=== PATIENT | female | born 1940 | race Hispanic/Latino ===

== ENCOUNTER → 2017-08-20 14:36 | Outpatient (CLI) | payer MEDICARE, SELFPAY ==
[2017-08-20 14:52] VITALS: BP 156/80; PULSE 68; RESP 18; TEMP 36.6; O2SAT 97; BMI 20.8
== END ==
PROVIDERS: Family Provider Internal Medicine; PCP Internal Medicine; Visit Provider Internal Medicine Rheumatology
DX: M06.9 Rheumatoid arthritis, unspecified (principal)
CPT/HCPCS: 96413; J7050; A4216; J1602

== ENCOUNTER → 2017-10-14 12:59 | Outpatient (CLI) | payer MEDICARE, SELFPAY ==
[2017-10-14 13:54] LABS: Absolute Lymphocyte Count 2.11 X10^3/ul (0.83-4.51); Basophil# 0.03 X10^3/uL; Basophil% 0.4 % (0-1); Eosinophil# 0.29 X10^3/uL; Eosinophils% 3.6 % (0-5); Hematocrit 40.7 % (37-47); Hemoglobin 12.9 g/dl (12.0-15.0); Lymphocyte # 2.11 X10^3/ul (4.0); Lymphocyte % 26.2 % (19-41); Mean Corp Hgb Conc 31.7 g/gl (32-36); Mean Corpuscular Hgb 28.9 pg (27.0-32.0); Mean Corpuscular Volume 91.3 fL (81-99); Monocyte# 0.64 X10^3/uL; Neutrophil # 4.97 X10^3/uL (2.7-7.7); Neutrophil % 61.7 % (47-70); POSITIVE COUNT NO; POSITIVE DIFFERENTIAL NO; POSITIVE MORPHOLOGY NO; Platelet Count 186 K/mm3 (150-450); RBC Distribution Width CV 13.1 % (11.6-14.6); RBC Distribution Width SD 43.4 fl (35.1-43.9); Red Blood Count 4.46 M/mm3 (4.2-5.4); White Blood Count 8.1 K/mm3 (4.4-11.0)
[2017-10-14 13:59] LABS: ALB/GLOB Ratio 0.9 RATIO (0.9-2.4); AST(SGOT) 16 U/L (15-37); Alanine Aminotransfer ALT/SGPT 14 U/L (13-56); Albumin, Serum 3.6 g/dL (3.2-5.0); Alkaline Phosphatase 107 U/L (45-117); Anion Gap 10 (5-15); BUN 18 mg/dL (7-18); BUN/Creat Ratio 12.1 RATIO (10-20); Calcium,Total 8.9 mg/dL (8.5-10.1); Chloride 104 mmol/L (98-107); Creatinine, Serum 1.49 mg/dL (0.55-1.02); EST Glomerular Filtration Rate 36 mL/min (>60); Est Glom Filt Rate - Afr Amer 43 mL/min (>60); Glucose 94 mg/dL (74-106); Protein, Total 7.6 g/dL (6.4-8.2); Sodium Level 139 mmol/L (136-145)
== END ==
PROVIDERS: Family Provider Internal Medicine; PCP Internal Medicine; Visit Provider Internal Medicine Rheumatology
DX: M05.70 Rheumatoid arthritis with rheumatoid factor of unspecified site without organ or systems involvement (principal); M79.7 Fibromyalgia; M21.40 Flat foot [pes planus] (acquired), unspecified foot; I10 Essential (primary) hypertension; M81.0 Age-related osteoporosis without current pathological fracture; K21.0 Gastro-esophageal reflux disease with esophagitis; Z79.899 Other long term (current) drug therapy; Z85.51 Personal history of malignant neoplasm of bladder
CPT/HCPCS: 36415; 80053; 85025

== ENCOUNTER → 2017-10-15 14:32 | Outpatient (CLI) | payer MEDICARE, SELFPAY ==
[2017-10-15 14:34] VITALS: BP 121/65; PULSE 57; RESP 16; TEMP 36.3; O2SAT 97; BMI 29.8
== END ==
PROVIDERS: Family Provider Internal Medicine; PCP Internal Medicine; Visit Provider Internal Medicine Rheumatology
DX: M06.9 Rheumatoid arthritis, unspecified (principal)
CPT/HCPCS: 96413; J7050; A4216; J1602

== ENCOUNTER → 2017-12-10 14:14 | Outpatient (CLI) | payer MEDICARE, SELFPAY ==
[2017-12-10 14:25] VITALS: BP 138/64; PULSE 66; RESP 16; TEMP 36.6; O2SAT 92; BMI 29.9
== END ==
PROVIDERS: Family Provider Internal Medicine; PCP Internal Medicine; Visit Provider Internal Medicine Rheumatology
DX: M06.9 Rheumatoid arthritis, unspecified (principal)
CPT/HCPCS: 96413; J7050; A4216; J1602

== ENCOUNTER → 2017-12-23 11:52 | Outpatient (CLI) | payer MEDICARE, SELFPAY ==
[2017-12-23 13:43] LABS: Absolute Neutrophil Count 4.8 X10^3/uL (2.0-7.7); Basophil# 0.02 X10^3/uL; Basophil% 0.2 % (0-1); Eosinophil# 0.23 X10^3/uL; Eosinophils% 2.7 % (0-5); Hematocrit 41.4 % (37-47); Hemoglobin 13.2 g/dl (12.0-15.0); Lymphocyte % 32.6 % (19-41); Mean Corp Hgb Conc 31.9 g/gl (32-36); Mean Corpuscular Hgb 29.1 pg (27.0-32.0); Mean Corpuscular Volume 91.2 fL (81-99); Mean Platelet Vol. 13.6 fl (6.2-12.0); Monocyte# 0.67 X10^3/uL; Monocyte% 7.8 % (0-10); Neutrophil # 4.83 X10^3/uL (2.7-7.7); Neutrophil % 56.2 % (47-70); Platelet Count 197 K/mm3 (150-450); RBC Distribution Width CV 14.4 % (11.6-14.6); RBC Distribution Width SD 47.1 fl (35.1-43.9); Red Blood Count 4.54 M/mm3 (4.2-5.4); White Blood Count 8.6 K/mm3 (4.4-11.0)
[2017-12-23 13:44] LABS: POSITIVE COUNT NO; POSITIVE DIFFERENTIAL NO; POSITIVE MORPHOLOGY NO
[2017-12-23 13:54] LABS: ALB/GLOB Ratio 0.9 RATIO (0.9-2.4); AST(SGOT) 16 U/L (15-37); Alanine Aminotransfer ALT/SGPT 25 U/L (13-56); Albumin, Serum 3.5 g/dL (3.2-5.0); Alkaline Phosphatase 91 U/L (45-117); Anion Gap 10 (5-15); BUN 23 mg/dL (7-18); BUN/Creat Ratio 13.8 RATIO (10-20); Calcium,Total 8.9 mg/dL (8.5-10.1); Chloride 107 mmol/L (98-107); Creatinine, Serum 1.67 mg/dL (0.55-1.02); EST Glomerular Filtration Rate 31 mL/min (>60); Est Glom Filt Rate - Afr Amer 38 mL/min (>60); Globulin 3.9 g/dL (2.2-4.2); Glucose 90 mg/dL (74-106); Potassium 4.4 mmol/L (3.5-5.1); Protein, Total 7.4 g/dL (6.4-8.2); Sodium Level 143 mmol/L (136-145)
== END ==
PROVIDERS: Family Provider Internal Medicine; PCP Internal Medicine; Visit Provider Internal Medicine Rheumatology
DX: M05.79 Rheumatoid arthritis with rheumatoid factor of multiple sites without organ or systems involvement (principal); M21.40 Flat foot [pes planus] (acquired), unspecified foot; M81.0 Age-related osteoporosis without current pathological fracture; M79.7 Fibromyalgia; Z79.899 Other long term (current) drug therapy
CPT/HCPCS: 36415; 80053; 85025

== ENCOUNTER → 2018-02-04 15:05 | Outpatient (CLI) | payer MEDICARE, SELFPAY ==
[2018-02-04 15:17] VITALS: BP 125/59; PULSE 60; RESP 16; TEMP 36.8; BMI 30.5
== END ==
PROVIDERS: Family Provider Internal Medicine; PCP Internal Medicine; Visit Provider Internal Medicine Rheumatology
DX: M06.9 Rheumatoid arthritis, unspecified (principal)
CPT/HCPCS: 96413; J7050; A4216; J1602

== ENCOUNTER → 2018-04-08 14:02 | Outpatient (CLI) | payer MEDICARE, SELFPAY ==
[2018-04-08 14:08] VITALS: BP 108/54; PULSE 66; RESP 18; TEMP 36.6; O2SAT 96; BMI 29.4
== END ==
PROVIDERS: Family Provider Internal Medicine; PCP Internal Medicine; Referring Provider Internal Medicine Rheumatology; Visit Provider Internal Medicine Rheumatology
DX: M06.9 Rheumatoid arthritis, unspecified (principal)
CPT/HCPCS: 96413; J7050; A4216; J1602

== ENCOUNTER → 2018-06-15 13:55 | Outpatient (CLI) | payer MEDICARE, SELFPAY ==
[2018-06-15 14:27] VITALS: BP 160/69; PULSE 70; RESP 16; TEMP 36.7; O2SAT 97; BMI 30.5
--- OUTSIDE RECORDS SUMMARY | 2018-09-17 05:35 | XMS RPT_ITS ---
:1940 Author Organization OHIP Support Name Relationship Address Phone ANTONINO LANDRY Unavailable [address] + [place] [address] R Unavailable Unavailable Unavailable ANTONINO LANDRY Unavailable [address] + [place] [address] R Unavailable Unavailable Unavailable ANTONINO LANDRY Unavailable [address] + [place] [address] R Unavailable Unavailable Unavailable ANTONINO LANDRY Unavailable [address] + [place] [address] R Unavailable Unavailable Unavailable FRANTZANTONINO Unavailable [address] + [place] [address] R Unavailable Unavailable Unavailable ANTONINO LANDRY Unavailable [address] + [place] [address] R Unavailable Unavailable Unavailable ANTONINO LANDRY Unavailable [address] + [place] [address] R Unavailable Unavailable Unavailable ANTONINO LANDRY Unavailable [address] + [place] [address] R Unavailable Unavailable Unavailable FRANTZ ANTONINO Unavailable [address] + [place] [address] R Unavailable Unavailable Unavailable ANTONINO LANDRY Unavailable [address] + [place] [address] R Unavailable Unavailable Unavailable FRANTZANTONINO Unavailable [address] + [place] [address] R Unavailable Unavailable Unavailable Care Team Providers Name Role Phone KIMBERLY VASQUEZ (PROGRAMMER ANALYST) Attending Unavailable MARIA DEL ROSARIO ZARATE Attending Unavailable MARIA DEL ROSARIO ZARATE Attending Unavailable WENDY RUIZ Attending Unavailable MARIA DEL ROSARIO ZARATE Referring Unavailable MARIA DEL ROSARIO ZARATE Attending Unavailable MARIA DEL ROSARIO ZARATE Attending Unavailable Vellanki, Merissa Attending Unavailable Vellanki, Merissa Referring Unavailable Talampas, Maria Del Rosario Primary Care Unavailable Talampas, Maria Del Rosario Attending Unavailable Talampas, Maria Del Rosario Referring Unavailable Talampas, Maria Del Rosario Primary Care Unavailable Vellanki, Merissa Attending Unavailable Vellanki, Merissa Referring Unavailable Talampas, Maria Del Rosario Primary Care Unavailable Vellanki, Merissa Attending Unavailable Vellanki, Merissa Referring Unavailable Talampas, Maria Del Rosario Primary Care Unavailable Vellanki, Merissa Attending Unavailable Vellanki, Merissa Referring Unavailable Talampas, Maria Del Rosario Primary Care Unavailable Vellanki, Merissa Attending Unavailable Vellanki, Merissa Referring Unavailable Talampas, Maria Del Rosario Primary Care Unavailable Vellanki, Merissa Attending Unavailable Vellanki, Merissa Referring Unavailable Talampas, Maria Del Rosario Primary Care Unavailable Vellanki, Merissa Attending Unavailable Vellanki, Merissa Referring Unavailable Talampas, Maria Del Rosario Primary Care Unavailable Vellanki, Merissa Attending Unavailable Vellanki, Merissa Referring Unavailable Talampas, Maria Del Rosario Primary Care Unavailable Vellanki, Merissa Attending Unavailable Vellanki, Merissa Referring Unavailable Talampas, Maria Del Rosario Primary Care Unavailable Vellanki, Merissa Attending Unavailable Vellanki, Merissa Referring Unavailable Talampas, Maria Del Rosario Primary Care Unavailable PROBLEMS PROBLEMS DATE TYPE CONDITION / CODE ATTENDING STATUS SOURCE 05/25/2018 Active Unknown / KIMBERLY VASQUEZ Active [facility] UNK(Unknown) (PROGRAMMER ANALYST) Main [place] Repository 12/23/2017 Unknown Z79.899 - Other Sam Merissa Active [place] [facility] (current) drug Hospital therapy / Repository Z79.899(ICD-10) 12/23/2017 Unknown M21.40 - Flat foot Velary Merissa Active [place] [pes planus] Community (acquired), [facility] unspecified foot / Repository M21.40(ICD-10) 12/23/2017 Unknown M81.0 - Vellandunia Merissa Active [place] Age-related Community osteoporosis Hospital without current Repository pathological fracture / M81.0(ICD-10) 12/23/2017 Unknown M05.79 - Vellandunia, Merissa Active [place] Rheumatoid Community arthritis with Hospital rheumatoid factor Repository of multiple sites without organ or systems involvement / M05.79(ICD-10) 12/23/2017 Unknown M79.7 - Russlanki, Merissa Active [place] Fibromyalgia / Community M79.7(ICD-10) Hospital Repository 10/14/2017 Unknown M05.70 - Merissa Vargas Active [place] [facility] arthritis with Hospital rheumatoid factor Repository of unspecified site without organ or systems involvement / M05.70(ICD-10) 10/14/2017 Unknown K21.0 - Merissa Vargas Active [place] Gastro-esophageal Community reflux disease Hospital with esophagitis / Repository K21.0(ICD-10) 10/14/2017 Unknown I10 - Essential Merissa Vargas Active [place] (primary) Community hypertension / Hospital I10(ICD-10) Repository 10/14/2017 Unknown Z85.51 - Personal Merissa Vargas Active [place] history of Community malignant neoplasm Hospital of bladder / Repository Z85.51(ICD-10) PROCEDURES PROCEDURES No Procedure Records FoundRESULTS RESULTS PROGRESS Observed: 05/25/2018 Status: COMPLETED Source: [place] 3:20 PM [facility] REPOSITORY HNO ID: [id number] Author: Kimberly Copeland) Pedro Service: (none) Author Type: Nurse Specialist Type: Progress Notes Filed: 05/25/2018 4:00 PM Note Text: OUTPATIENT VISIT DATE May 25, 2018 OUTPATIENT VISIT TYPE ESTABLISHED PRIMARY CARE PHYSICIAN: Maria Del Rosario Zarate MD CHIEF COMPLAINT: Patient presents with: F/U 3 Month History of Present Illness: Ran Landry is a 78 year old female who was last seen 01/2018 by Maria Del Rosario Zarate MD. She has been seen in the past for ACTIVE PROBLEM LIST Osteoporosis, Unspecified Essential Hypertension Hypothyroidism Calculus of Kidney Esophageal Reflux Chronic Rhinitis Cervicalgia Hyperlipidemia Personal History of Malignant Neoplasm of Bladder Generalized Oa Lumbago Sciatica Ddd (Degenerative Disc Disease), Lumbar Vitamin D Deficiency Personal History of Kidney Stones Back Pain Colon Polyps Skin Lesion of Right Arm Ganglion and Cyst of Synovium, Tendon and Bursa Irritated//Inflamed Seborrheic Keratosis Epidermal Inclusion Cyst Solar Lentigines Actinic Skin Damage Other Seborrheic Keratosis Inflammatory Polyarthropathy (Hcc) Pain in Joint, Lower Leg Fibromyalgia Obesity Elevated Serum Creatinine Weakness Balance Problems Presence of Urostomy (Hcc) Seizure Disorder (Hcc) History of Urostomy Since the last visit, she states that she's been her usual state of health. She is doing well with current infusions for arthritis. Blood pressure is controlled. No adverse effects of medication noted. Without chest pain shortness of breath palpitations edema reported. Reports control of seizures on current medications. Tolerating statin medication well. Continues with pain medications unchanged. No current constipation due to pain medications. She reports taking 1 gabapentin at bedtime, increase dose made her feel sedated. No recent hospital or ED visits. No new medical problems or medications. Able to obtain medications. No problems with taking medications or note side effects. PAST MEDICAL HISTORY Diagnosis Date - Cervicalgia 02/11/2007 ?diagnosis - await records - [place] angioma 07/26/2012 - DDD (degenerative disc disease), lumbar suspect lumbar canal stenosis as well on Xrays 2007 - Esophageal reflux 02/11/2007 - Fibromyalgia 09/12/2014 - Generalized osteoarthrosis, unspecified site Saw Dr. Miranda Lee in [place] - Hypothyroidism November 2012 last labs--[facility] - Osteoporosis, unspecified 02/11/2007 Last BMD - 1 year ago - Other and unspecified hyperlipidemia 02/11/2007 - Personal History of Kidney Stones 02/11/2007 - Personal history of malignant neoplasm of bladder 02/11/2007 1992 - PM - PAST MEDICAL HISTORY OF 1991 Bladder Cancer - [facility] - PAST MEDICAL HISTORY OF 1991 Ostomy ([place]; [facility]) - Presence of urostomy ([facility]) 10/19/2016 - Sciatica - Status of other artificial opening of urinary tract 02/11/2007 1992 - Unspecified essential hypertension 02/11/2007 PAST SURGICAL HISTORY Procedure Laterality Date - PAST SURGICAL HISTORY OF 1991 Ostomy for bladder cancer (urostomy) - TOTAL ABDOM HYSTERECTOMY 1991 Hysterectomy, [facility] FAMILY HISTORY Problem Relation Age of Onset - Arthritis Sister Rhuematoid - Cancer Sister Melonomia ( ) 2002 - Coronary Artery Disease Father - Heart Brother - Diabetes Brother Social History Substance Use Topics - Smoking status: Former Smoker Packs/day: 0.50 Years: 30.00 Types: Cigarettes Quit date: 07/07/1991 - Smokeless tobacco: Never Used - Alcohol use 1.5 oz/week 1 Cans of Beer (12oz) per week ALLERGIES: ALLERGIES Allergen Reactions - Cymbalta [Duloxetin* Diarrhea severe diarrhea and incontinence - Lisinopril Cough on 10 mg dose; worse with 10 mg BID - Tramadol Other: See Comments Possible related to new onset seizure MEDICATIONS HYDROcodone-acetaminophen (NORCO) 5-325 mg per tablet Take 1 tablet by mouth once daily as needed for up to 30 days.Earliest Fill Date: 05/22/18 COMPOUNDED PRESCRIPTION Upright Walker with seat/ wheels Diagnoses:(R26.89) Balance problems (M15.9) Generalized OA(M06.4) Inflammatory polyarthropathy (HCC)(M54.31, M54.32) Bilateral sciatica Adhesive Remover (ALLKARE ADHESIVE REMOVER WIPES) pack Use daily as needed with ostomy care atorvastatin (LIPITOR) 40 mg tablet Take 1 tablet by mouth once daily. atenolol (TENORMIN) 50 mg tablet Take 1 tablet by mouth once daily. levETIRAcetam (KEPPRA) 500 mg tablet Take 1 tablet by mouth twice daily. polyethylene glycol 3350 (MIRALAX, GLYCOLAX) 17 gram/dose powder Take 17 g by mouth once daily. Omeprazole 40 mg capsule TAKE ONE CAPSULE BY MOUTH ONCE DAILY meclizine (ANTIVERT) 25 mg tab Take 1 tablet by mouth every 6 hours as needed (dizziness). losartan (COZAAR) 50 mg tablet Take 1 tablet by mouth once daily. levothyroxine (SYNTHROID) 88 mcg tablet Take 1 tablet by mouth once daily. or as directed fluticasone (FLONASE) 50 mcg/actuation nasal spray Use 2 Sprays in each nostril once daily. RINSE MOUTH AFTER EACH DOSE COMPOUNDED PRESCRIPTION Lab order: TSH, Free T4 Diagnosis: E03.9 predniSONE (DELTASONE) 10 mg tablet Take 1 tablet by mouth once daily. As directed by Dr. Vargas--takes for 3 days as needed for flare up aspirin, enteric coated (ECOTRIN LOW STRENGTH) 81 mg EC tablet Take 1 tablet by mouth once daily. COMPOUNDED PRESCRIPTION Lab order: TSH Diagnoses: E03.9. cufcibhy-ivlnhcutd-oqcthaljdnncur (CORTISPORIN) 3.5-10,000-1 mg/mL-unit/mL-% otic suspension Use 3 Drops in both ears four times daily. As directed senna-docusate (SENNA-S) 8.6-50 mg per tablet Take 2 tablets by mouth once daily. COMPOUNDED PRESCRIPTION Bed railDx is CVA COMPOUNDED PRESCRIPTION Ostomy Pouch- Paper Tab and Skin tab with whip. One month supply.Dx-Z93.6 triamcinolone acetonide (KENALOG) 0.1 % cream Apply 1 application to affected area twice daily as needed. Apply sparingly to area for rash/itching. Cholecalciferol, Vitamin D3, 5,000 unit ORAL Cap Take 1 capsule by mouth once daily. gabapentin (NEURONTIN) 100 mg capsule Take 2-3 capsules by mouth daily at bedtime for 30 days. Take 200 mg nightly for 1 week. Increase to 300 mg if pain control not adequate HYDROcodone-acetaminophen (NORCO) 5-325 mg per tablet Take 1 tablet by mouth once daily as needed for up to 30 days.Earliest Fill Date: 02/21/18 HYDROcodone-acetaminophen (NORCO) 5-325 mg per tablet Take 1 tablet by mouth once daily as needed for up to 30 days.Earliest Fill Date: 03/23/18 sulfacetamide (BLEPH-10) 10 % ophthalmic solution Instill 1-2 drops 4 times per day in the affected eye for 7 days - for eye infection HYDROcodone-acetaminophen (NORCO) 5-325 mg per tablet Take 1 tablet by mouth once daily as needed for up to 30 days.Earliest Fill Date: 11/21/17 HYDROcodone-acetaminophen (NORCO) 5-325 mg per tablet Take 1 tablet by mouth once daily as needed for up to 30 days.Earliest Fill Date: 12/21/17 HYDROcodone-acetaminophen (NORCO) 5-325 mg per tablet Take 1 tablet by mouth once daily as needed for up to 30 days.Earliest Fill Date: 01/20/18 REVIEW OF SYSTEMS: GENERAL: Negative for: Weight loss or gain, Fever or Chills, Weakness and Sleep difficulties. Physical Examination: BP 140/80 Pulse 64 Resp 16 Wt 180 lb (81.6kg) BP w/Orthostatic Vitals Date and Time Orthostatic BP Orthostatic Pulse BP Pulse BP Position BP Site BP Cuff Size 05/25/18 1513 -- -- 140/80 -- Sitting Right Arm Regular Adult 05/25/18 151 -- -- 140/80 64 Sitting Right Arm Regular Adult Peak Flow Date and Time PF Resp 05/25/18 151 -- 16 General appearance: Well appearing, alert, in no acute distress, well-hydrated, well nourished. Skin: Skin color, texture, turgor normal, no suspicious rashes or lesions Head: Normocephalic, no masses, lesions, tenderness or abnormalities Neck: Supple, no adenopathy; thyroid symmetric, normal size, no bruits Lungs: Lungs clear to auscultation. No wheezing, rhonchi, rales Heart: RRR without murmur, gallop, or rubs. No ectopy Abdomen: Abdomen soft, non-tender. Bowel sounds normal. No masses, organomegaly Extremities: Left great toe ecchymotic, normal motion, mildly TTP No deformities, edema, skin discoloration, clubbing or cyanosis. Good capillary refill. Peripheral pulses: Normal Neuro: Gait normal.. Sensation grossly intact. Reviewed chart, outside records, tests [facility] checked and validated. All prescriptions have been APPROPRIATELY filled. No suspicious activity was identified. 05/25/2018 by Kimberly Vasquez APRN.PROGRAMMER ANALYST I personally interviewed, confirmed and edited the above information if obtained by others. TESTING: Glucose (mg/dL) Date Value 04/19/2016 Test sent to [facility] Potassium (mmol/L) Date Value 04/19/2016 Test sent to [facility] Sodium (mmol/L) Date Value 04/19/2016 Test sent to [facility] Chloride (mmol/L) Date Value 04/19/2016 Test sent to [facility] CO2 (mmol/L) Date Value 04/19/2016 Test sent to [facility] Creatinine (mg/dL) Date Value 04/19/2016 Test sent to [facility] BUN (mg/dL) Date Value 04/19/2016 Test sent to [facility] Anion Gap (mmol/L) Date Value 04/19/2016 Test sent to [facility] Calcium (mg/dL) Date Value 04/19/2016 Test sent to [facility] Glucose (mg/dL) Date Value 04/19/2016 Test sent to [facility] Potassium (mmol/L) Date Value 04/19/2016 Test sent to [facility] Sodium (mmol/L) Date Value 04/19/2016 Test sent to [facility] Chloride (mmol/L) Date Value 04/19/2016 Test sent to [facility] CO2 (mmol/L) Date Value 04/19/2016 Test sent to [facility] Creatinine (mg/dL) Date Value 04/19/2016 Test sent to [facility] BUN (mg/dL) Date Value 04/19/2016 Test sent to [facility] Anion Gap (mmol/L) Date Value 04/19/2016 Test sent to [facility] Calcium (mg/dL) Date Value 04/19/2016 Test sent to [facility] Protein, Total (g/dL) Date Value 04/11/2016 Test sent to [facility] Albumin (g/dL) Date Value 04/11/2016 Test sent to [facility] Bilirubin, Total (mg/dL) Date Value 04/11/2016 Test sent to [facility] Alkaline Phosphatase (U/L) Date Value 04/11/2016 Test sent to [facility] AST (U/L) Date Value 04/11/2016 Test sent to [facility] ALT (U/L) Date Value 04/11/2016 Test sent to [facility] Hemoglobin (g/dL) Date Value 04/11/2016 Test sent to [facility] Hematocrit (%) Date Value 04/11/2016 Test sent to [facility] WBC (k/uL) Date Value 04/11/2016 Test sent to [facility] Cholesterol, Total (mg/dL) Date Value 10/19/2015 Test sent to [facility] Total Cholesterol, Nonfasting (mg/dL) Date Value 11/07/2017 129 HDL Cholesterol (mg/dL) Date Value 10/19/2015 Test sent to [facility] HDL Cholesterol, Nonfasting (mg/dL) Date Value 11/07/2017 42 LDL Cholesterol (mg/dL) Date Value 10/19/2015 Test sent to [facility] LDL Cholesterol, Nonfasting (mg/dL) Date Value 11/07/2017 67 Triglyceride (mg/dL) Date Value 10/19/2015 Test sent to [facility] Triglycerides, Nonfasting (mg/dL) Date Value 11/07/2017 102 No results found for: HBA1C Ejection Fraction - Result: 80 % Date: 01/07/2013 Time: 15:09:42 IMPRESSION: Ms. Landry is a 78 year old woman presents for routine follow- up visit. After my examination and review of data, I make the following recommendations. PLAN AND RECOMMENDATIONS: ASSESSMENT/PLAN: 1. DDD (degenerative disc disease), lumbar - ICD9: 722.52, ICD10: M51.36 - HYDROCODONE 5 MG-ACETAMINOPHEN 325 MG TABLET - HYDROCODONE 5 MG-ACETAMINOPHEN 325 MG TABLET 2. Fibromyalgia - ICD9: 729.1, ICD10: M79.7 - HYDROCODONE 5 MG-ACETAMINOPHEN 325 MG TABLET - HYDROCODONE 5 MG-ACETAMINOPHEN 325 MG TABLET - GABAPENTIN 100 MG CAPSULE 3. Inflammatory polyarthropathy - ICD9: 714.9, ICD10: M06.4 - HYDROCODONE 5 MG-ACETAMINOPHEN 325 MG TABLET - HYDROCODONE 5 MG-ACETAMINOPHEN 325 MG TABLET 4. Bilateral sciatica - ICD9: 724.3, ICD10: M54.31, M54.32 - GABAPENTIN 100 MG CAPSULE Pain is currently controlled with medications. No adverse effects noted. Continue unchanged for now. Advised to go to ER if develops chest pain, shortness of breath, or severe worsening of symptoms. Discussed risks, benefits, alternatives, and potential side effects of medications. Ms. Landry expressed understanding and agreed with the plan. Kimberly Vasquez APRN.PROGRAMMER ANALYST CNOV Observed: 05/25/2018 Status: COMPLETED Source: [place] 3:00 PM [facility] REPOSITORY Office Visit (INTMWS) RAN LANDRY ([id number]) 1940 F Date Time Provider Department 05/25/18 3:00 PM KIMBERLY VASQUEZ ([facility]) INTMWS During your visit today, we recorded the following information about you: Pulse Respiration Blood pressure Weight 64/minute 16/minute 140/80 81.6 kg Kimberly Vasquez APRN.CNS 05/25/2018 4:00 PM Signed OUTPATIENT VISIT DATE May 25, 2018 OUTPATIENT VISIT TYPE ESTABLISHED PRIMARY CARE PHYSICIAN: Maria Del Rosario Zarate MD CHIEF COMPLAINT: Patient presents with: F/U 3 Month History of Present Illness: Ran Landry is a 78 year old female who was last seen 01/2018 by Maria Del Rosario Zarate MD. She has been seen in the past for ACTIVE PROBLEM LIST Osteoporosis, Unspecified Essential Hypertension Hypothyroidism Calculus of Kidney Esophageal Reflux Chronic Rhinitis Cervicalgia Hyperlipidemia Personal History of Malignant Neoplasm of Bladder Generalized Oa Lumbago Sciatica Ddd (Degenerative Disc Disease), Lumbar Vitamin D Deficiency Personal History of Kidney Stones Back Pain Colon Polyps Skin Lesion of Right Arm Ganglion and Cyst of Synovium, Tendon and Bursa Irritated//Inflamed Seborrheic Keratosis Epidermal Inclusion Cyst Solar Lentigines Actinic Skin Damage Other Seborrheic Keratosis Inflammatory Polyarthropathy (Hcc) Pain in Joint, Lower Leg Fibromyalgia Obesity Elevated Serum Creatinine Weakness Balance Problems Presence of Urostomy (Hcc) Seizure Disorder (Hcc) History of Urostomy Since the last visit, she states that she's been her usual state of health. She is doing well with current infusions for arthritis. Blood pressure is controlled. No adverse effects of medication noted. Without chest pain shortness of breath palpitations edema reported. Reports control of seizures on current medications. Tolerating statin medication well. Continues with pain medications unchanged. No current constipation due to pain medications. She reports taking 1 gabapentin at bedtime, increase dose made her feel sedated. No recent hospital or ED visits. No new medical problems or medications. Able to obtain medications. No problems with taking medications or note side effects. PAST MEDICAL HISTORY Diagnosis Date - Cervicalgia 02/11/2007 ?diagnosis - await records - [place] angioma 07/26/2012 - DDD (degenerative disc disease), lumbar suspect lumbar canal stenosis as well on Xrays 2007 - Esophageal reflux 02/11/2007 - Fibromyalgia 09/12/2014 - Generalized osteoarthrosis, unspecified site Saw Dr. Miranda Lee in [place] - Hypothyroidism November 2012 last labs--[facility] - Osteoporosis, unspecified 02/11/2007 Last BMD - 1 year ago - Other and unspecified hyperlipidemia 02/11/2007 - Personal History of Kidney Stones 02/11/2007 - Personal history of malignant neoplasm of bladder 02/11/20071991 - PM - PAST MEDICAL HISTORY OF 1991 Bladder Cancer - [facility] - PAST MEDICAL HISTORY OF 1991 Ostomy ([place]; [place]) - Presence of urostomy ([facility]) 10/19/2016 - Sciatica - Status of other artificial opening of urinary tract 02/11/20071991 - Unspecified essential hypertension 02/11/2007 PAST SURGICAL HISTORY Procedure Laterality Date - PAST SURGICAL HISTORY OF 1991 Ostomy for bladder cancer (urostomy) - TOTAL ABDOM HYSTERECTOMY 1991 Hysterectomy, [facility] [facility] HISTORY Problem Relation Age of Onset - Arthritis Sister Rhuematoid - Cancer Sister Melonomia ( ) 2002 - Coronary Artery Disease Father - Heart Brother - Diabetes Brother Social History Substance Use Topics - Smoking status: Former Smoker Packs/day: 0.50 Years: 30.00 Types: Cigarettes Quit date: 07/07/1991 - Smokeless tobacco: Never Used - Alcohol use 1.5 oz/week 1 Cans of Beer (12oz) per week ALLERGIES: ALLERGIES Allergen Reactions - Cymbalta [Duloxetin* Diarrhea severe diarrhea and incontinence - Lisinopril Cough on 10 mg dose; worse with 10 mg BID - Tramadol Other: See Comments Possible related to new onset seizure MEDICATIONS HYDROcodone-acetaminophen (NORCO) 5-325 mg per tablet Take 1 tablet by mouth once daily as needed for up to 30 days.Earliest Fill Date: 05/22/18 COMPOUNDED PRESCRIPTION Upright Walker with seat/ wheels Diagnoses:(R26.89) Balance problems (M15.9) Generalized OA(M06.4) Inflammatory polyarthropathy (HCC)(M54.31, M54.32) Bilateral sciatica Adhesive Remover (ALLKARE ADHESIVE REMOVER WIPES) pack Use daily as needed with ostomy care atorvastatin (LIPITOR) 40 mg tablet Take 1 tablet by mouth once daily. atenolol (TENORMIN) 50 mg tablet Take 1 tablet by mouth once daily. levETIRAcetam (KEPPRA) 500 mg tablet Take 1 tablet by mouth twice daily. polyethylene glycol 3350 (MIRALAX, GLYCOLAX) 17 gram/dose powder Take 17 g by mouth once daily. Omeprazole 40 mg capsule TAKE ONE CAPSULE BY MOUTH ONCE DAILY meclizine (ANTIVERT) 25 mg tab Take 1 tablet by mouth every 6 hours as needed (dizziness). losartan (COZAAR) 50 mg tablet Take 1 tablet by mouth once daily. levothyroxine (SYNTHROID) 88 mcg tablet Take 1 tablet by mouth once daily. or as directed fluticasone (FLONASE) 50 mcg/actuation nasal spray Use 2 Sprays in each nostril once daily. RINSE MOUTH AFTER EACH DOSE COMPOUNDED PRESCRIPTION Lab order: TSH, Free T4 Diagnosis: E03.9 predniSONE (DELTASONE) 10 mg tablet Take 1 tablet by mouth once daily. As directed by Dr. Vargas--takes for 3 days as needed for flare up aspirin, enteric coated (ECOTRIN LOW STRENGTH) 81 mg EC tablet Take 1 tablet by mouth once daily. COMPOUNDED PRESCRIPTION Lab order: TSH Diagnoses: E03.9. vrojfdiq-ymkzeobkf-ryhgdimguliyxv (CORTISPORIN) 3.5-10,000-1 mg/mL-unit/mL-% otic suspension Use 3 Drops in both ears four times daily. As directed senna-docusate (SENNA-S) 8.6-50 mg per tablet Take 2 tablets by mouth once daily. COMPOUNDED PRESCRIPTION Bed railDx is CVA COMPOUNDED PRESCRIPTION Ostomy Pouch- Paper Tab and Skin tab with whip. One month supply.Dx-Z93.6 triamcinolone acetonide (KENALOG) 0.1 % cream Apply 1 application to affected area twice daily as needed. Apply sparingly to area for rash/itching. Cholecalciferol, Vitamin D3, 5,000 unit ORAL Cap Take 1 capsule by mouth once daily. gabapentin (NEURONTIN) 100 mg capsule Take 2-3 capsules by mouth daily at bedtime for 30 days. Take 200 mg nightly for 1 week. Increase to 300 mg if pain control not adequate HYDROcodone-acetaminophen (NORCO) 5-325 mg per tablet Take 1 tablet by mouth once daily as needed for up to 30 days.Earliest Fill Date: 02/21/18 HYDROcodone-acetaminophen (NORCO) 5-325 mg per tablet Take 1 tablet by mouth once daily as needed for up to 30 days.Earliest Fill Date: 03/23/18 sulfacetamide (BLEPH-10) 10 % ophthalmic solution Instill 1-2 drops 4 times per day in the affected eye for 7 days - for eye infection HYDROcodone-acetaminophen (NORCO) 5-325 mg per tablet Take 1 tablet by mouth once daily as needed for up to 30 days.Earliest Fill Date: 11/21/17 HYDROcodone-acetaminophen (NORCO) 5-325 mg per tablet Take 1 tablet by mouth once daily as needed for up to 30 days.Earliest Fill Date: 12/21/17 HYDROcodone-acetaminophen (NORCO) 5-325 mg per tablet Take 1 tablet by mouth once daily as needed for up to 30 days.Earliest Fill Date: 01/20/18 REVIEW OF SYSTEMS: GENERAL: Negative for: Weight loss or gain, Fever or Chills, Weakness and Sleep difficulties. Physical Examination: BP 140/80 Pulse 64 Resp 16 Wt 180 lb (81.6kg) BP w/Orthostatic Vitals Date and Time Orthostatic BP Orthostatic Pulse BP Pulse BP Position BP Site BP Cuff Size 05/25/18 1513 -- -- 140/80 -- Sitting Right Arm Regular Adult 05/25/18 151 -- -- 140/80 64 Sitting Right Arm Regular Adult Peak Flow Date and Time PF Resp 05/25/18 151 -- 16 General appearance: Well appearing, alert, in no acute distress, well-hydrated, well nourished. Skin: Skin color, texture, turgor normal, no suspicious rashes or lesions Head: Normocephalic, no masses, lesions, tenderness or abnormalities Neck: Supple, no adenopathy; thyroid symmetric, normal size, no bruits Lungs: Lungs clear to auscultation. No wheezing, rhonchi, rales Heart: RRR without murmur, gallop, or rubs. No ectopy Abdomen: Abdomen soft, non-tender. Bowel sounds normal. No masses, organomegaly Extremities: Left great toe ecchymotic, normal motion, mildly TTP No deformities, edema, skin discoloration, clubbing or cyanosis. Good capillary refill. Peripheral pulses: Normal Neuro: Gait normal.. Sensation grossly intact. Reviewed chart, outside records, tests [facility] website checked and validated. All prescriptions have been APPROPRIATELY filled. No suspicious activity was identified. 05/25/2018 by Kimberly Vasquez APRN.PROGRAMMER ANALYST I personally interviewed, confirmed and edited the above information if obtained by others. TESTING: Glucose (mg/dL) Date Value 04/19/2016 Test sent to [facility] Potassium (mmol/L) Date Value 04/19/2016 Test sent to [facility] Sodium (mmol/L) Date Value 04/19/2016 Test sent to [facility] Chloride (mmol/L) Date Value 04/19/2016 Test sent to [facility] CO2 (mmol/L) Date Value 04/19/2016 Test sent to [facility] Creatinine (mg/dL) Date Value 04/19/2016 Test sent to [facility] BUN (mg/dL) Date Value 04/19/2016 Test sent to [facility] Anion Gap (mmol/L) Date Value 04/19/2016 Test sent to [facility] Calcium (mg/dL) Date Value 04/19/2016 Test sent to [facility] Glucose (mg/dL) Date Value 04/19/2016 Test sent to [facility] Potassium (mmol/L) Date Value 04/19/2016 Test sent to [facility] Sodium (mmol/L) Date Value 04/19/2016 Test sent to [facility] Chloride (mmol/L) Date Value 04/19/2016 Test sent to [facility] CO2 (mmol/L) Date Value 04/19/2016 Test sent to [facility] Creatinine (mg/dL) Date Value 04/19/2016 Test sent to [facility] BUN (mg/dL) Date Value 04/19/2016 Test sent to [facility] Anion Gap (mmol/L) Date Value 04/19/2016 Test sent to [facility] Calcium (mg/dL) Date Value 04/19/2016 Test sent to [facility] Protein, Total (g/dL) Date Value 04/11/2016 Test sent to [facility] Albumin (g/dL) Date Value 04/11/2016 Test sent to [facility] Bilirubin, Total (mg/dL) Date Value 04/11/2016 Test sent to [facility] Alkaline Phosphatase (U/L) Date Value 04/11/2016 Test sent to [facility] AST (U/L) Date Value 04/11/2016 Test sent to [facility] ALT (U/L) Date Value 04/11/2016 Test sent to [facility] Hemoglobin (g/dL) Date Value 04/11/2016 Test sent to [facility] Hematocrit (%) Date Value 04/11/2016 Test sent to [facility] WBC (k/uL) Date Value 04/11/2016 Test sent to [facility] Cholesterol, Total (mg/dL) Date Value 10/19/2015 Test sent to [facility] Total Cholesterol, Nonfasting (mg/dL) Date Value 11/07/2017 129 HDL Cholesterol (mg/dL) Date Value 10/19/2015 Test sent to [facility] HDL Cholesterol, Nonfasting (mg/dL) Date Value 11/07/2017 42 LDL Cholesterol (mg/dL) Date Value 10/19/2015 Test sent to [facility] LDL Cholesterol, Nonfasting (mg/dL) Date Value 11/07/2017 67 Triglyceride (mg/dL) Date Value 10/19/2015 Test sent to [facility] Triglycerides, Nonfasting (mg/dL) Date Value 11/07/2017 102 No results found for: HBA1C Ejection Fraction - Result: 80 % Date: 01/07/2013 Time: 15:09:42 IMPRESSION: Ms. Landry is a 78 year old woman presents for routine follow- up visit. After my examination and review of data, I make the following recommendations. PLAN AND RECOMMENDATIONS: ASSESSMENT/PLAN: 1. DDD (degenerative disc disease), lumbar - ICD9: 722.52, ICD10: M51.36 - HYDROCODONE 5 MG-ACETAMINOPHEN 325 MG TABLET - HYDROCODONE 5 MG-ACETAMINOPHEN 325 MG TABLET 2. Fibromyalgia - ICD9: 729.1, ICD10: M79.7 - HYDROCODONE 5 MG-ACETAMINOPHEN 325 MG TABLET - HYDROCODONE 5 MG-ACETAMINOPHEN 325 MG TABLET - GABAPENTIN 100 MG CAPSULE 3. Inflammatory polyarthropathy - ICD9: 714.9, ICD10: M06.4 - HYDROCODONE 5 MG-ACETAMINOPHEN 325 MG TABLET - HYDROCODONE 5 MG-ACETAMINOPHEN 325 MG TABLET 4. Bilateral sciatica - ICD9: 724.3, ICD10: M54.31, M54.32 - GABAPENTIN 100 MG CAPSULE Pain is currently controlled with medications. No adverse effects noted. Continue unchanged for now. Advised to go to ER if develops chest pain, shortness of breath, or severe worsening of symptoms. Discussed risks, benefits, alternatives, and potential side effects of medications. Ms. Landry expressed understanding and agreed with the plan. Kimberly Vasquez APRN.PROGRAMMER ANALYST Referring Provider: SELF [[id number]] Allergies As of Date: 05/25/2018 Noted Allergy Reaction CYMBALTA (DULOXETINE) 12/09/2014 6 - Diarrhea Comments: severe diarrhea and incontinence LISINOPRIL 09/26/2010 3 - Cough Comments: on 10 mg dose; worse with 10 mg BID TRAMADOL 06/02/2017 14 - Other: See Comments Comments: Possible related to new onset seizure Date Reviewed: 05/25/2018 Reviewed by: Stacey Corcoran LPN - Fully Assessed Reason for Visit: F/U 3 Month [443] Visit Diagnoses:DDD (degenerative disc disease), lumbar [M51.36] Fibromyalgia [M79.7] Inflammatory polyarthropathy [M06.4] Bilateral sciatica [M54.31, M54.32] Order(s):[START ON 07/21/2018] HYDROcodone-acetaminophen (NORCO) 5-325 mg per tabletTake 1 tablet by mouth once daily as needed for up to 30 days. Earliest Fill Date: 07/21/18Disp: 30 tabletRfl: 0 [START ON 06/21/2018] HYDROcodone-acetaminophen (NORCO) 5-325 mg per tabletTake 1 tablet by mouth once daily as needed for up to 30 days. Earliest Fill Date: 06/21/18Disp: 30 tabletRfl: 0 gabapentin (NEURONTIN) 100 mg capsuleTake 1 capsule by mouth daily at bedtime for 90 days. Take one at bedtimeDisp: 30 capsuleRfl: 2 Prescriptions as of 05/25/2018 Sig: HYDROCODONE 5 MG-ACETAMINOPHE* Take 1 tablet by mouth once d* COMPOUNDED PRESCRIPTION Upright Walker with seat/ whe* ADHESIVE REMOVER PACKET Use daily as needed with osto* ATORVASTATIN 40 MG TABLET Take 1 tablet by mouth once d* ATENOLOL 50 MG TABLET Take 1 tablet by mouth once d* LEVETIRACETAM 500 MG TABLET Take 1 tablet by mouth twice * POLYETHYLENE GLYCOL 3350 17 G* Take 17 g by mouth once daily. OMEPRAZOLE 40 MG CAPSULE,TORREY* TAKE ONE CAPSULE BY MOUTH ONC* MECLIZINE 25 MG TABLET Take 1 tablet by mouth every * LOSARTAN 50 MG TABLET Take 1 tablet by mouth once d* LEVOTHYROXINE 88 MCG TABLET Take 1 tablet by mouth once d* FLUTICASONE 50 MCG/ACTUATION * Use 2 Sprays in each nostril * COMPOUNDED PRESCRIPTION Lab order: TSH, Free T4 Di* PREDNISONE 10 MG TABLET Take 1 tablet by mouth once d* ASPIRIN 81 MG TABLET,DELAYED * Take 1 tablet by mouth once d* COMPOUNDED PRESCRIPTION Lab order: TSH Diagnoses: * [id number]-[id number] * Use 3 Drops in both ears four* SENNOSIDES 8.6 MG-DOCUSATE SO* Take 2 tablets by mouth once * COMPOUNDED PRESCRIPTION Bed rail Dx is CVA COMPOUNDED PRESCRIPTION Ostomy Pouch- Paper Tab and S* TRIAMCINOLONE ACETONIDE 0.1 %* Apply 1 application to affect* CHOLECALCIFEROL (VITAMIN D3) * Take 1 capsule by mouth once * HYDROCODONE 5 MG-ACETAMINOPHE* Take 1 tablet by mouth once d* HYDROCODONE 5 MG-ACETAMINOPHE* Take 1 tablet by mouth once d* GABAPENTIN 100 MG CAPSULE Take 1 capsule by mouth daily* SULFACETAMIDE SODIUM 10 % EYE* Instill 1-2 drops 4 times per* Patient not taking: Reported on 02/06/2018 Problem List As Of Date 05/25/2018 Noted Resolved OSTEOPOROSIS NOS [M81.0] INVALID FOR* More... Essential hypertension [I10] INVALID FOR* Hypothyroidism [E03.9] INVALID FOR* CALCULUS OF KIDNEY [N20.0] INVALID FOR* ESOPHAGEAL REFLUX [K21.9] INVALID FOR* CHRONIC RHINITIS [J31.0] INVALID FOR* CERVICALGIA [M54.2] INVALID FOR* More... Hyperlipidemia [E78.5] INVALID FOR* PERS HX OF BLADDER MALIGNANCY [Z85.51] INVALID FOR* Generalized OA [M15.9] LUMBAGO [M54.5] INVALID FOR* Sciatica [M54.30] DDD (Degenerative Disc Disease), Lumbar [M51.36] More... Backache, unspecified [M54.9] INVALID FOR*04/30/2013 Vitamin D Deficiency [E55.9] INVALID FOR* Degeneration of lumbar or lumbosacral intervert*INVALID FOR*04/30/2013 Personal History of Kidney Stones [Z87.442] INVALID FOR* Back pain [M54.9] INVALID FOR* Colon polyps [K63.5] INVALID FOR* More... 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 Pain in joint, lower leg [M25.569] INVALID FOR* Fibromyalgia [M79.7] INVALID FOR* Obesity [E66.9] INVALID FOR* Elevated serum creatinine [R79.89] INVALID FOR* Weakness [R53.1] INVALID FOR* Balance problems [R26.89] INVALID FOR* Presence of urostomy (HCC) [Z93.6] INVALID FOR* Seizure disorder (HCC) [G40.909] INVALID FOR* History of urostomy [Z98.890] INVALID FOR* Prescriptions ordered this encounter Disp Refills Start End HYDROCODONE 5 MG-ACETAMINOPHEN 325 M* 30 t* 0 07/21/2018 08/20/2018 Class: Print RX Route: ORAL Sig: Take 1 tablet by mouth once daily as needed for up to 30 days. Earliest Fill Date: 07/21/18 HYDROCODONE 5 MG-ACETAMINOPHEN 325 M* 30 t* 0 06/21/2018 07/21/2018 Class: Print RX Route: ORAL Sig: Take 1 tablet by mouth once daily as needed for up to 30 days. Earliest Fill Date: 06/21/18 GABAPENTIN 100 MG CAPSULE 30 c* 2 05/25/2018 08/23/2018 Route: ORAL Sig: Take 1 capsule by mouth daily at bedtime for 90 days. Take one at bedtime Medications Discontinued During This Encounter HYDROcodone-acetaminophen (NORCO) 5-* 30 t* 0 03/23/2018 05/25/2018 Class: Print RX Route: ORAL Sig: Take 1 tablet by mouth once daily as needed for up to 30 days. Earliest Fill Date: 03/23/18 Disc: Reason for discontinue is not on file. HYDROcodone-acetaminophen (NORCO) 5-* 30 t* 0 02/21/2018 05/25/2018 Class: Print RX Route: ORAL Sig: Take 1 tablet by mouth once daily as needed for up to 30 days. Earliest Fill Date: 02/21/18 Disc: Reason for discontinue is not on file. HYDROcodone-acetaminophen (NORCO) 5-* 30 t* 0 12/21/2017 05/25/2018 Class: Print RX Route: ORAL Sig: Take 1 tablet by mouth once daily as needed for up to 30 days. Earliest Fill Date: 12/21/17 Disc: Reason for discontinue is not on file. HYDROcodone-acetaminophen (NORCO) 5-* 30 t* 0 11/21/2017 05/25/2018 Class: Print RX Route: ORAL Sig: Take 1 tablet by mouth once daily as needed for up to 30 days. Earliest Fill Date: 11/21/17 Disc: Reason for discontinue is not on file. HYDROcodone-acetaminophen (NORCO) 5-* 30 t* 0 01/20/2018 05/25/2018 Class: Print RX Route: ORAL Sig: Take 1 tablet by mouth once daily as needed for up to 30 days. Earliest Fill Date: 01/20/18 Disc: Reason for discontinue is not on file. gabapentin (NEURONTIN) 100 mg capsule 90 c* 0 03/13/2018 05/25/2018 Route: ORAL Sig: Take 2-3 capsules by mouth daily at bedtime for 30 days. Take 200 mg nightly for 1 week. Increase to 300 mg if pain control not adequate Disc: Reason for discontinue is not on file. Encounter Status:Closed by KIMBERLY CASTELLANOS on 05/25/18 PROGRESS Observed: 02/06/2018 Status: COMPLETED Source: [place] 3:29 PM [facility] REPOSITORY HNO ID: [id number] Author: Maria Del Rosario Zarate Service: (none) Author Type: Physician Type: Progress Notes Filed: 02/22/2018 7:52 PM Note Text: Patient presents with: Recheck: Follow up SUBJECTIVE: Ran Landry is a 77 year old year old lady here today for 3 month follow up appointment for review of medical conditions. Doing well with infusions for arthritis. Blood pressure controlled without adverse effects from medications. Seizures controlled with current meds. Tolerates statin. No adverse effects from pain med noted. No severe OIC. PAST MEDICAL HISTORY Diagnosis Date - Cervicalgia 02/11/2007 ?diagnosis - await records - Dean angioma 07/26/2012 - DDD (degenerative disc disease), lumbar suspect lumbar canal stenosis as well on Xrays 2007 - Esophageal reflux 02/11/2007 - Fibromyalgia 09/12/2014 - Generalized osteoarthrosis, unspecified site Saw Dr. Miranda Lee in [place] - Hypothyroidism November 2012 last labs--[facility] - Osteoporosis, unspecified 02/11/2007 Last BMD - 1 year ago - Other and unspecified hyperlipidemia 02/11/2007 - Personal History of Kidney Stones 02/11/2007 - Personal history of malignant neoplasm of bladder 02/11/20071991 - [facility] - PAST MEDICAL HISTORY OF 1991 Bladder Cancer - [facility] - PAST MEDICAL HISTORY OF 1991 Ostomy ([place]; [place]) - Presence of urostomy (HCC) 10/19/2016 - Sciatica - Status of other artificial opening of urinary tract 02/11/20071991 - Unspecified essential hypertension 02/11/2007 Current Outpatient Prescriptions: Omeprazole 40 mg capsule TAKE ONE CAPSULE BY MOUTH ONCE DAILY meclizine (ANTIVERT) 25 mg tab Take 1 tablet by mouth every 6 hours as needed (dizziness). levETIRAcetam (KEPPRA) 500 mg tablet Take 1 tablet by mouth twice daily. HYDROcodone-acetaminophen (NORCO) 5-325 mg per tablet Take 1 tablet by mouth once daily as needed for up to 30 days.Earliest Fill Date: 01/20/18 losartan (COZAAR) 50 mg tablet Take 1 tablet by mouth once daily. levothyroxine (SYNTHROID) 88 mcg tablet Take 1 tablet by mouth once daily. or as directed atenolol (TENORMIN) 50 mg tablet Take 1 tablet by mouth once daily. fluticasone (FLONASE) 50 mcg/actuation nasal spray Use 2 Sprays in each nostril once daily. RINSE MOUTH AFTER EACH DOSE COMPOUNDED PRESCRIPTION Lab order: TSH, Free T4 Diagnosis: E03.9 predniSONE (DELTASONE) 10 mg tablet Take 1 tablet by mouth once daily. As directed by Dr. Vargas--takes for 3 days as needed for flare up atorvastatin (LIPITOR) 40 mg tablet Take 1 tablet by mouth once daily. aspirin, enteric coated (ECOTRIN LOW STRENGTH) 81 mg EC tablet Take 1 tablet by mouth once daily. COMPOUNDED PRESCRIPTION Lab order: TSH Diagnoses: E03.9. myforwie-yjrhhigxe-uxademgosmylbi (CORTISPORIN) 3.5-10,000-1 mg/mL-unit/mL-% otic suspension Use 3 Drops in both ears four times daily. As directed senna-docusate (SENNA-S) 8.6-50 mg per tablet Take 2 tablets by mouth once daily. COMPOUNDED PRESCRIPTION Bed railDx is CVA COMPOUNDED PRESCRIPTION Ostomy Pouch- Paper Tab and Skin tab with whip. One month supply.Dx-Z93.6 triamcinolone acetonide (KENALOG) 0.1 % cream Apply 1 application to affected area twice daily as needed. Apply sparingly to area for rash/itching. Cholecalciferol, Vitamin D3, 5,000 unit ORAL Cap Take 1 capsule by mouth once daily. sulfacetamide (BLEPH-10) 10 % ophthalmic solution Instill 1-2 drops 4 times per day in the affected eye for 7 days - for eye infection (Patient not taking: Reported on 02/06/2018 ) HYDROcodone-acetaminophen (NORCO) 5-325 mg per tablet Take 1 tablet by mouth once daily as needed for up to 30 days.Earliest Fill Date: 11/21/17 HYDROcodone-acetaminophen (NORCO) 5-325 mg per tablet Take 1 tablet by mouth once daily as needed for up to 30 days.Earliest Fill Date: 12/21/17 gabapentin (NEURONTIN) 100 mg capsule Take 1 capsule by mouth twice daily for 180 days. (Patient not taking: Reported on 02/06/2018 ) No current facility-administered medications for this visit. OBJECTIVE: BP 134/70 Pulse 72 Resp 20 Wt 80.7 kg (178 lb) BMI 29.62 kg/m? Patient is alert, oriented times 3, no apparent distress, affect is bright, reactive. Last 5 Encounter BP Readings: Date: BP: 02/06/2018 134/70 11/07/2017 124/74 09/04/2017 124/72 08/06/2017 122/72 06/02/2017 122/72 Last 5 Encounter Wt Readings: Date: Wt: 02/06/2018 80.7 kg (178 lb) 11/07/2017 80.7 kg (178 lb) 09/04/2017 80.7 kg (178 lb) 08/06/2017 78.9 kg (174 lb) 06/02/2017 78.5 kg (173 lb) Heart: Regular rate, rhythm, no murmurs, gallops, rubs. Lungs: Clear to auscultation, bilaterally, breathing non labored. Ext: No cyanosis, clubbing, or edema. Component Latest Ref Rng AND Units 11/07/2017 Total Cholesterol, Nonfasting <200 mg/dL 129 Triglycerides, Nonfasting <150 mg/dL 102 HDL Cholesterol, Nonfasting >39 mg/dL 42 LDL Cholesterol, Nonfasting <100 mg/dL 67 Non HDL Cholesterol, Nonfasting <130 mg/dL 87 VLDL Cholesterol, Nonfasting <30 mg/dL 20 Total Chol/HDL Ratio, Nonfasting <5.10 mg/dL 3.07 LDL/HDL Ratio, Nonfasting <2.54 mg/dL 1.60 TSH 0.400 - 5.500 uU/mL 0.747 Free T4 0.9 - 1.7 ng/dL 1.8 (H) Free T3 2.3 - 4.1 pg/mL 2.3 Vitamin D 25 Hydroxy 31.0 - 80.0 ng/mL 58.2 CBC W/DIFF, AUTOMATED Collected: 12/23/2017 12:02 PM Status: F Source: [place] REPOSITORY TYPE CODE TESTS RESULT OUT OF RANGE REFERENCE UNITS LAB L100.1000 WBC 8.6 Normal 4.4-11.0 K/mm3 LAB L100.1200 RBC 4.54 Normal 4.2-5.4 M/mm3 LAB L100.1300 HGB 13.2 Normal 12.0-15.0 g/dl LAB L100.1400 HCT 41.4 Normal 37-47 % LAB L100.1500 MCV 91.2 Normal 81-99 fL LAB L100.1600 MCH 29.1 Normal 27.0-32.0 pg LAB L100.1700 MCHC 31.9 Low 32-36 g/gl LAB L100.1810 RDW CV 14.4 Normal 11.6-14.6 % LAB L100.1820 RDW SD 47.1 High 35.1-43.9 fl LAB L100.1900 PLT 197 Normal 150-450 K/mm3 LAB L100.2000 MPV 13.6 High 6.2-12.0 fl LAB L100.2100 NEUT% 56.2 Normal 47-70 % LAB L100.2200 LY% 32.6 Normal 19-41 % LAB L100.2300 MONO% 7.8 Normal 0-10 % LAB L100.2400 EO% 2.7 Normal 0-5 % LAB L100.2500 BASO% 0.2 Normal 0-1 % LAB L100.2550 IM GRAN % 0.500 Normal 0.0-0.9 % Result Comment: IG% - Immature Granulocytes (promyelocytes, myelocytes and metamyelocytes) > 1% indicates that a LEFT SHIFT is Present. LAB L100.2620 Absolute Neut 4.8 Normal 2.0-7.7 X10 3/uL LAB L100.2720 Absolute Lymph 2.80 Normal 0.83-4.51 X10 3/ul Performed By: #### L100.0100 #### [facility] Laboratory [address] [place] [address]. [place], [place], [id number] COMPREHENSIVE METABOLIC PROFIL Collected: 12/23/2017 12:02 PM Status: F Source: [place] REPOSITORY TYPE CODE TESTS RESULT OUT OF RANGE REFERENCE UNITS LAB L501.0100 GLU 90 Normal 74-106 mg/dL Result Comment: Please note revised GLUCOSE reference range effective 2017. LAB L501.1000 BUN 23 High 7-18 mg/dL LAB L501.1100 CREAT,SERUM 1.67 High 0.55-1.02 mg/dL Result Comment: The validity of the calculated GFR AND GFRAA in patients over 70 years has not been determined. Clinical correlation is essential. LAB L501.1110 EST GFR 31 Low >60 mL/min Result Comment: Non- GFR Calc LAB L501.1115 EST GFR - AA 38 Low >60 mL/min Result Comment: GFR Calc LAB L501.1300 BUN/CRE 13.8 Normal 10-20 RATIO LAB L501.1500 T PROT 7.4 Normal 6.4-8.2 g/dL LAB L501.1800 ALB 3.5 Normal 3.2-5.0 g/dL LAB L501.1950 GLOB 3.9 Normal 2.2-4.2 g/dL LAB L501.2000 A/G 0.9 Normal 0.9-2.4 RATIO LAB L501.2200 CA 8.9 Normal 8.5-10.1 mg/dL LAB L501.4100 AST 16 Normal 15-37 U/L LAB L501.4305 ALK P 91 Normal 45-117 U/L LAB L501.4405 ALT 25 Normal 13-56 U/L LAB L501.4600 T BILI 0.50 Normal 0.20-1.00 mg/dL LAB L501.5300 NA 143 Normal 136-145 mmol/L LAB L501.5600 K 4.4 Normal 3.5-5.1 mmol/L LAB L501.5900 CL 107 Normal 98-107 mmol/L LAB L501.6100 CO2 26.0 Normal 21.0-32.0 mmol/L LAB L501.6200 GAP 10 Normal 5-15 ? Performed By: #### L500.4050 #### [facility] Laboratory [facility] [place], [address] CBC W/DIFF, AUTOMATED Collected: 10/14/2017 1:05 PM Status: F Source: [place] REPOSITORY TYPE CODE TESTS RESULT OUT OF RANGE REFERENCE UNITS LAB L100.1000 WBC 8.1 Normal 4.4-11.0 K/mm3 LAB L100.1200 RBC 4.46 Normal 4.2-5.4 M/mm3 LAB L100.1300 HGB 12.9 Normal 12.0-15.0 g/dl LAB L100.1400 HCT 40.7 Normal 37-47 % LAB L100.1500 MCV 91.3 Normal 81-99 fL LAB L100.1600 MCH 28.9 Normal 27.0-32.0 pg LAB L100.1700 MCHC 31.7 Low 32-36 g/gl LAB L100.1810 RDW CV 13.1 Normal 11.6-14.6 % LAB L100.1820 RDW SD 43.4 Normal 35.1-43.9 fl LAB L100.1900 PLT 186 Normal 150-450 K/mm3 LAB L100.2000 MPV 13.0 High 6.2-12.0 fl LAB L100.2100 NEUT% 61.7 Normal 47-70 % LAB L100.2200 LY% 26.2 Normal 19-41 % LAB L100.2300 MONO% 8.0 Normal 0-10 % LAB L100.2400 EO% 3.6 Normal 0-5 % LAB L100.2500 BASO% 0.4 Normal 0-1 % LAB L100.2550 IM GRAN % 0.100 Normal 0.0-0.9 % Result Comment: IG% - Immature Granulocytes (promyelocytes, myelocytes and metamyelocytes) > 1% indicates that a LEFT SHIFT is Present. LAB L100.2620 Absolute Neut 5.0 Normal 2.0-7.7 X10 3/uL LAB L100.2720 Absolute Lymph 2.11 Normal 0.83-4.51 X10 3/ul Performed By: #### L100.0100 #### [facility] Laboratory [address] [place], [address] COMPREHENSIVE METABOLIC PROFIL Collected: 10/14/2017 1:05 PM Status: F Source: [place] REPOSITORY TYPE CODE TESTS RESULT OUT OF RANGE REFERENCE UNITS LAB L501.0100 GLU 94 Normal 74-106 mg/dL Result Comment: Please note revised GLUCOSE reference range effective 2017. LAB L501.1000 BUN 18 Normal 7-18 mg/dL LAB L501.1100 CREAT,SERUM 1.49 High 0.55-1.02 mg/dL Result Comment: The validity of the calculated GFR AND GFRAA in patients over 70 years has not been determined. Clinical correlation is essential. LAB L501.1110 EST GFR 36 Low >60 mL/min Result Comment: Non- GFR Calc LAB L501.1115 EST GFR - AA 43 Low >60 mL/min Result Comment: GFR Calc LAB L501.1300 BUN/CRE 12.1 Normal 10-20 RATIO LAB L501.1500 T PROT 7.6 Normal 6.4-8.2 g/dL LAB L501.1800 ALB 3.6 Normal 3.2-5.0 g/dL LAB L501.1950 GLOB 4.0 Normal 2.2-4.2 g/dL LAB L501.2000 A/G 0.9 Normal 0.9-2.4 RATIO LAB L501.2200 CA 8.9 Normal 8.5-10.1 mg/dL LAB L501.4100 AST 16 Normal 15-37 U/L LAB L501.4305 ALK P 107 Normal 45-117 U/L LAB L501.4405 ALT 14 Normal 13-56 U/L LAB L501.4600 T BILI 0.70 Normal 0.20-1.00 mg/dL LAB L501.5300 NA 139 Normal 136-145 mmol/L LAB L501.5600 K 4.0 Normal 3.5-5.1 mmol/L LAB L501.5900 CL 104 Normal 98-107 mmol/L LAB L501.6100 CO2 25.0 Normal 21.0-32.0 mmol/L LAB L501.6200 GAP 10 Normal 5-15 ? Performed By: #### L500.4050 #### [facility] [address] [facility]. [place], [place], [id number] CBC W/DIFF, AUTOMATED Collected: 06/16/2017 2:26 PM Status: F Source: [place] REPOSITORY TYPE CODE TESTS RESULT OUT OF RANGE REFERENCE UNITS LAB L100.1000 WBC 8.8 Normal 4.4-11.0 K/mm3 LAB L100.1200 RBC 4.40 Normal 4.2-5.4 M/mm3 LAB L100.1300 HGB 12.9 Normal 12.0-15.0 g/dl LAB L100.1400 HCT 40.6 Normal 37-47 % LAB L100.1500 MCV 92.3 Normal 81-99 fL LAB L100.1600 MCH 29.3 Normal 27.0-32.0 pg LAB L100.1700 MCHC 31.8 Low 32-36 g/gl LAB L100.1810 RDW CV 14.2 Normal 11.6-14.6 % LAB L100.1820 RDW SD 47.6 High 35.1-43.9 fl LAB L100.1900 PLT 168 Normal 150-450 K/mm3 LAB L100.2000 MPV 13.2 High 6.2-12.0 fl LAB L100.2100 NEUT% 87.5 High 47-70 % LAB L100.2200 LY% 9.3 Low 19-41 % LAB L100.2300 MONO% 2.4 Normal 0-10 % LAB L100.2400 EO% 0.5 Normal 0-5 % LAB L100.2500 BASO% 0.2 Normal 0-1 % LAB L100.2550 IM GRAN % 0.100 Normal 0.0-0.9 % Result Comment: IG% - Immature Granulocytes (promyelocytes, myelocytes and metamyelocytes) > 1% indicates that a LEFT SHIFT is Present. LAB L100.2620 Absolute Neut 7.7 Normal 2.0-7.7 X10 3/uL LAB L100.2720 Absolute Lymph 0.82 Low 0.83-4.51 X10 3/ul Performed By: #### L100.0100 #### [facility] Laboratory [address] [place], [place], [address] ASSESSMENT AND PLAN: Encounter Diagnosis ICD-10-CM 1. Fibromyalgia M79.7 gabapentin (NEURONTIN) 100 mg capsule HYDROcodone-acetaminophen (NORCO) 5-325 mg per tablet HYDROcodone-acetaminophen (NORCO) 5-325 mg per tablet HYDROcodone-acetaminophen (NORCO) 5-325 mg per tablet 2. Bilateral sciatica M54.31 gabapentin (NEURONTIN) 100 mg capsule M54.32 3. Acquired hypothyroidism E03.9 4. Essential hypertension I10 atenolol (TENORMIN) 50 mg tablet 5. Chronic fatigue R53.82 6. Seizure disorder (HCC) G40.909 7. DDD (degenerative disc disease), lumbar M51.36 HYDROcodone-acetaminophen (NORCO) 5-325 mg per tablet HYDROcodone-acetaminophen (NORCO) 5-325 mg per tablet HYDROcodone-acetaminophen (NORCO) 5-325 mg per tablet 8. Inflammatory polyarthropathy M06.4 HYDROcodone-acetaminophen (NORCO) 5-325 mg per tablet HYDROcodone-acetaminophen (NORCO) 5-325 mg per tablet HYDROcodone-acetaminophen (NORCO) 5-325 mg per tablet 9. Hyperlipidemia, unspecified hyperlipidemia type E78.5 atorvastatin (LIPITOR) 40 mg tablet 10. Drug-induced constipation K59.03 polyethylene glycol 3350 (MIRALAX, GLYCOLAX) 17 gram/dose powder Above issues addressed with patient. Patient involved in shared decision making for management of her medical issues. History and medications reviewed. Epic updated as needed Refills taken care of and meds adjusted as indicated after reviewed history, exam and labs. Health Maintenance reviewed. Updated record and/or ordered tests as recorded. Encouraged on efforts at healthy diet and regular exercise and adequate sleep. Stable with pain control. No signs of diversion or abuse of medication(s); no adverse effects. Continue present management. PDMP website checked and validated. All prescriptions have been APPROPRIATELY filled. No suspicious activity was identified. 02/06/2018 by Maria Del Rosario Zarate MD Continue management of OIC with Miralax. Stable on current meds for above issues. Further evaluation and treatment as indicated. Following with Rheumatology as noted above. The majority of the visit was spent counseling and/or coordinating care for the patient. [id number] time was at least 25 minutes. Maria Del Rosario Zarate MD CNOV Observed: 02/06/2018 Status: COMPLETED Source: [place] 2:20 PM [facility] REPOSITORY Office Visit (INTMWS) RAN LANDRY ([id number]) 1940 F Date Time Provider Department 02/06/18 2:20 PM MARIA DEL ROSARIO ZARATE INTMWS During your visit today, we recorded the following information about you: Pulse Respiration Blood pressure Weight 72/minute 20/minute 134/70 80.7 kg Maria Del Rosario Zarate MD 02/22/2018 7:52 PM Signed Patient presents with: Recheck: Follow up SUBJECTIVE: Ran Domenico Frantz is a 77 year old year old lady here today for 3 month follow up appointment for review of medical conditions. Doing well with infusions for arthritis. Blood pressure controlled without adverse effects from medications. Seizures controlled with current meds. Tolerates statin. No adverse effects from pain med noted. No severe OIC. PAST MEDICAL HISTORY Diagnosis Date - Cervicalgia 02/11/2007 ?diagnosis - await records - Dean angioma 07/26/2012 - DDD (degenerative disc disease), lumbar suspect lumbar canal stenosis as well on Xrays 2007 - Esophageal reflux 02/11/2007 - Fibromyalgia 09/12/2014 - Generalized osteoarthrosis, unspecified site Saw Dr. Miranda Lee in [place] - Hypothyroidism November 2012 last labs--[facility] - Osteoporosis, unspecified 02/11/2007 Last BMD - 1 year ago - Other and unspecified hyperlipidemia 02/11/2007 - Personal History of Kidney Stones 02/11/2007 - Personal history of malignant neoplasm of bladder 02/11/20071991 - [facility] - PAST MEDICAL HISTORY OF 1991 Bladder Cancer - PM - PAST MEDICAL HISTORY OF 1991 Ostomy ([place]; [place]) - Presence of urostomy ([facility]) 10/19/2016 - Sciatica - Status of other artificial opening of urinary tract 02/11/20071991 - Unspecified essential hypertension 02/11/2007 Current Outpatient Prescriptions: Omeprazole 40 mg capsule TAKE ONE CAPSULE BY MOUTH ONCE DAILY meclizine (ANTIVERT) 25 mg tab Take 1 tablet by mouth every 6 hours as needed (dizziness). levETIRAcetam (KEPPRA) 500 mg tablet Take 1 tablet by mouth twice daily. HYDROcodone-acetaminophen (NORCO) 5-325 mg per tablet Take 1 tablet by mouth once daily as needed for up to 30 days.Earliest Fill Date: 01/20/18 losartan (COZAAR) 50 mg tablet Take 1 tablet by mouth once daily. levothyroxine (SYNTHROID) 88 mcg tablet Take 1 tablet by mouth once daily. or as directed atenolol (TENORMIN) 50 mg tablet Take 1 tablet by mouth once daily. fluticasone (FLONASE) 50 mcg/actuation nasal spray Use 2 Sprays in each nostril once daily. RINSE MOUTH AFTER EACH DOSE COMPOUNDED PRESCRIPTION Lab order: TSH, Free T4 Diagnosis: E03.9 predniSONE (DELTASONE) 10 mg tablet Take 1 tablet by mouth once daily. As directed by Dr. Vargas--takes for 3 days as needed for flare up atorvastatin (LIPITOR) 40 mg tablet Take 1 tablet by mouth once daily. aspirin, enteric coated (ECOTRIN LOW STRENGTH) 81 mg EC tablet Take 1 tablet by mouth once daily. COMPOUNDED PRESCRIPTION Lab order: TSH Diagnoses: E03.9. pbtuvixk-ocfrcsjeg-bscbppelaeaegv (CORTISPORIN) 3.5-10,000-1 mg/mL-unit/mL-% otic suspension Use 3 Drops in both ears four times daily. As directed senna-docusate (SENNA-S) 8.6-50 mg per tablet Take 2 tablets by mouth once daily. COMPOUNDED PRESCRIPTION Bed raSajanx is CVA COMPOUNDED PRESCRIPTION Ostomy Pouch- Paper Tab and Skin tab with whip. One month supply.[id number] triamcinolone acetonide (KENALOG) 0.1 % cream Apply 1 application to affected area twice daily as needed. Apply sparingly to area for rash/itching. Cholecalciferol, Vitamin D3, 5,000 unit ORAL Cap Take 1 capsule by mouth once daily. sulfacetamide (BLEPH-10) 10 % ophthalmic solution Instill 1-2 drops 4 times per day in the affected eye for 7 days - for eye infection (Patient not taking: Reported on 02/06/2018 ) HYDROcodone-acetaminophen (NORCO) 5-325 mg per tablet Take 1 tablet by mouth once daily as needed for up to 30 days.Earliest Fill Date: 11/21/17 HYDROcodone-acetaminophen (NORCO) 5-325 mg per tablet Take 1 tablet by mouth once daily as needed for up to 30 days.Earliest Fill Date: 12/21/17 gabapentin (NEURONTIN) 100 mg capsule Take 1 capsule by mouth twice daily for 180 days. (Patient not taking: Reported on 02/06/2018 ) No current facility-administered medications for this visit. OBJECTIVE: BP 134/70 Pulse 72 Resp 20 Wt 80.7 kg (178 lb) BMI 29.62 kg/m? Patient is alert, oriented times 3, no apparent distress, affect is bright, reactive. Last 5 Encounter BP Readings: Date: BP: 02/06/2018 134/70 11/07/2017 124/74 09/04/2017 124/72 08/06/2017 122/72 06/02/2017 122/72 Last 5 Encounter Wt Readings: Date: Wt: 02/06/2018 80.7 kg (178 lb) 11/07/2017 80.7 kg (178 lb) 09/04/2017 80.7 kg (178 lb) 08/06/2017 78.9 kg (174 lb) 06/02/2017 78.5 kg (173 lb) Heart: Regular rate, rhythm, no murmurs, gallops, rubs. Lungs: Clear to auscultation, bilaterally, breathing non labored. Ext: No cyanosis, clubbing, or edema. Component Latest Ref Rng AND Units 11/07/2017 Total Cholesterol, Nonfasting <200 mg/dL 129 Triglycerides, Nonfasting <150 mg/dL 102 HDL Cholesterol, Nonfasting >39 mg/dL 42 LDL Cholesterol, Nonfasting <100 mg/dL 67 Non HDL Cholesterol, Nonfasting <130 mg/dL 87 VLDL Cholesterol, Nonfasting <30 mg/dL 20 Total Chol/HDL Ratio, Nonfasting <5.10 mg/dL 3.07 LDL/HDL Ratio, Nonfasting <2.54 mg/dL 1.60 TSH 0.400 - 5.500 uU/mL 0.747 Free T4 0.9 - 1.7 ng/dL 1.8 (H) Free T3 2.3 - 4.1 pg/mL 2.3 Vitamin D 25 Hydroxy 31.0 - 80.0 ng/mL 58.2 CBC W/DIFF, AUTOMATED Collected: 12/23/2017 12:02 PM Status: F Source: [place] REPOSITORY TYPE CODE TESTS RESULT OUT OF RANGE REFERENCE UNITS LAB L100.1000 WBC 8.6 Normal 4.4-11.0 K/mm3 LAB L100.1200 RBC 4.54 Normal 4.2-5.4 M/mm3 LAB L100.1300 HGB 13.2 Normal 12.0-15.0 g/dl LAB L100.1400 HCT 41.4 Normal 37-47 % LAB L100.1500 MCV 91.2 Normal 81-99 fL LAB L100.1600 MCH 29.1 Normal 27.0-32.0 pg LAB L100.1700 MCHC 31.9 Low 32-36 g/gl LAB L100.1810 RDW CV 14.4 Normal 11.6-14.6 % LAB L100.1820 RDW SD 47.1 High 35.1-43.9 fl LAB L100.1900 PLT 197 Normal 150-450 K/mm3 LAB L100.2000 MPV 13.6 High 6.2-12.0 fl LAB L100.2100 NEUT% 56.2 Normal 47-70 % LAB L100.2200 LY% 32.6 Normal 19-41 % LAB L100.2300 MONO% 7.8 Normal 0-10 % LAB L100.2400 EO% 2.7 Normal 0-5 % LAB L100.2500 BASO% 0.2 Normal 0-1 % LAB L100.2550 IM GRAN % 0.500 Normal 0.0-0.9 % Result Comment: IG% - Immature Granulocytes (promyelocytes, myelocytes and metamyelocytes) > 1% indicates that a LEFT SHIFT is Present. LAB L100.2620 Absolute Neut 4.8 Normal 2.0-7.7 X10 3/uL LAB L100.2720 Absolute Lymph 2.80 Normal 0.83-4.51 X10 3/ul Performed By: #### L100.0100 #### [facility] Laboratory [address] [place], [address] COMPREHENSIVE METABOLIC PROFIL Collected: 12/23/2017 12:02 PM Status: F Source: [place] REPOSITORY TYPE CODE TESTS RESULT OUT OF RANGE REFERENCE UNITS LAB L501.0100 GLU 90 Normal 74-106 mg/dL Result Comment: Please note revised GLUCOSE reference range effective 2017. LAB L501.1000 BUN 23 High 7-18 mg/dL LAB L501.1100 CREAT,SERUM 1.67 High 0.55-1.02 mg/dL Result Comment: The validity of the calculated GFR AND GFRAA in patients over 70 years has not been determined. Clinical correlation is essential. LAB L501.1110 EST GFR 31 Low >60 mL/min Result Comment: Non- GFR Calc LAB L501.1115 EST GFR - AA 38 Low >60 mL/min Result Comment: GFR Calc LAB L501.1300 BUN/CRE 13.8 Normal 10-20 RATIO LAB L501.1500 T PROT 7.4 Normal 6.4-8.2 g/dL LAB L501.1800 ALB 3.5 Normal 3.2-5.0 g/dL LAB L501.1950 GLOB 3.9 Normal 2.2-4.2 g/dL LAB L501.2000 A/G 0.9 Normal 0.9-2.4 RATIO LAB L501.2200 CA 8.9 Normal 8.5-10.1 mg/dL LAB L501.4100 AST 16 Normal 15-37 U/L LAB L501.4305 ALK P 91 Normal 45-117 U/L LAB L501.4405 ALT 25 Normal 13-56 U/L LAB L501.4600 T BILI 0.50 Normal 0.20-1.00 mg/dL LAB L501.5300 NA 143 Normal 136-145 mmol/L LAB L501.5600 K 4.4 Normal 3.5-5.1 mmol/L LAB L501.5900 CL 107 Normal 98-107 mmol/L LAB L501.6100 CO2 26.0 Normal 21.0-32.0 mmol/L LAB L501.6200 GAP 10 Normal 5-15 ? Performed By: #### L500.4050 #### [facility] Laboratory [address] [place], [address] CBC W/DIFF, AUTOMATED Collected: 10/14/2017 1:05 PM Status: F Source: [place] REPOSITORY TYPE CODE TESTS RESULT OUT OF RANGE REFERENCE UNITS LAB L100.1000 WBC 8.1 Normal 4.4-11.0 K/mm3 LAB L100.1200 RBC 4.46 Normal 4.2-5.4 M/mm3 LAB L100.1300 HGB 12.9 Normal 12.0-15.0 g/dl LAB L100.1400 HCT 40.7 Normal 37-47 % LAB L100.1500 MCV 91.3 Normal 81-99 fL LAB L100.1600 MCH 28.9 Normal 27.0-32.0 pg LAB L100.1700 MCHC 31.7 Low 32-36 g/gl LAB L100.1810 RDW CV 13.1 Normal 11.6-14.6 % LAB L100.1820 RDW SD 43.4 Normal 35.1-43.9 fl LAB L100.1900 PLT 186 Normal 150-450 K/mm3 LAB L100.2000 MPV 13.0 High 6.2-12.0 fl LAB L100.2100 NEUT% 61.7 Normal 47-70 % LAB L100.2200 LY% 26.2 Normal 19-41 % LAB L100.2300 MONO% 8.0 Normal 0-10 % LAB L100.2400 EO% 3.6 Normal 0-5 % LAB L100.2500 BASO% 0.4 Normal 0-1 % LAB L100.2550 IM GRAN % 0.100 Normal 0.0-0.9 % Result Comment: IG% - Immature Granulocytes (promyelocytes, myelocytes and metamyelocytes) > 1% indicates that a LEFT SHIFT is Present. LAB L100.2620 Absolute Neut 5.0 Normal 2.0-7.7 X10 3/uL LAB L100.2720 Absolute Lymph 2.11 Normal 0.83-4.51 X10 3/ul Performed By: #### L100.0100 #### [facility] Laboratory [place], [address] COMPREHENSIVE METABOLIC PROFIL Collected: 10/14/2017 1:05 PM Status: F Source: [place] REPOSITORY TYPE CODE TESTS RESULT OUT OF RANGE REFERENCE UNITS LAB L501.0100 GLU 94 Normal 74-106 mg/dL Result Comment: Please note revised GLUCOSE reference range effective 2017. LAB L501.1000 BUN 18 Normal 7-18 mg/dL LAB L501.1100 CREAT,SERUM 1.49 High 0.55-1.02 mg/dL Result Comment: The validity of the calculated GFR AND GFRAA in patients over 70 years has not been determined. Clinical correlation is essential. LAB L501.1110 EST GFR 36 Low >60 mL/min Result Comment: Non- GFR Calc LAB L501.1115 EST GFR - AA 43 Low >60 mL/min Result Comment: GFR Calc LAB L501.1300 BUN/CRE 12.1 Normal 10-20 RATIO LAB L501.1500 T PROT 7.6 Normal 6.4-8.2 g/dL LAB L501.1800 ALB 3.6 Normal 3.2-5.0 g/dL LAB L501.1950 GLOB 4.0 Normal 2.2-4.2 g/dL LAB L501.2000 A/G 0.9 Normal 0.9-2.4 RATIO LAB L501.2200 CA 8.9 Normal 8.5-10.1 mg/dL LAB L501.4100 AST 16 Normal 15-37 U/L LAB L501.4305 ALK P 107 Normal 45-117 U/L LAB L501.4405 ALT 14 Normal 13-56 U/L LAB L501.4600 T BILI 0.70 Normal 0.20-1.00 mg/dL LAB L501.5300 NA 139 Normal 136-145 mmol/L LAB L501.5600 K 4.0 Normal 3.5-5.1 mmol/L LAB L501.5900 CL 104 Normal 98-107 mmol/L LAB L501.6100 CO2 25.0 Normal 21.0-32.0 mmol/L LAB L501.6200 GAP 10 Normal 5-15 ? Performed By: #### L500.4050 #### [facility] [place], [address] CBC W/DIFF, AUTOMATED Collected: 06/16/2017 2:26 PM Status: F Source: [place] REPOSITORY TYPE CODE TESTS RESULT OUT OF RANGE REFERENCE UNITS LAB L100.1000 WBC 8.8 Normal 4.4-11.0 K/mm3 LAB L100.1200 RBC 4.40 Normal 4.2-5.4 M/mm3 LAB L100.1300 HGB 12.9 Normal 12.0-15.0 g/dl LAB L100.1400 HCT 40.6 Normal 37-47 % LAB L100.1500 MCV 92.3 Normal 81-99 fL LAB L100.1600 MCH 29.3 Normal 27.0-32.0 pg LAB L100.1700 MCHC 31.8 Low 32-36 g/gl LAB L100.1810 RDW CV 14.2 Normal 11.6-14.6 % LAB L100.1820 RDW SD 47.6 High 35.1-43.9 fl LAB L100.1900 PLT 168 Normal 150-450 K/mm3 LAB L100.2000 MPV 13.2 High 6.2-12.0 fl LAB L100.2100 NEUT% 87.5 High 47-70 % LAB L100.2200 LY% 9.3 Low 19-41 % LAB L100.2300 MONO% 2.4 Normal 0-10 % LAB L100.2400 EO% 0.5 Normal 0-5 % LAB L100.2500 BASO% 0.2 Normal 0-1 % LAB L100.2550 IM GRAN % 0.100 Normal 0.0-0.9 % Result Comment: IG% - Immature Granulocytes (promyelocytes, myelocytes and metamyelocytes) > 1% indicates that a LEFT SHIFT is Present. LAB L100.2620 Absolute Neut 7.7 Normal 2.0-7.7 X10 3/uL LAB L100.2720 Absolute Lymph 0.82 Low 0.83-4.51 X10 3/ul Performed By: #### L100.0100 #### [facility] [address] [place], [address] ASSESSMENT AND PLAN: Encounter Diagnosis ICD-10-CM 1. Fibromyalgia M79.7 gabapentin (NEURONTIN) 100 mg capsule HYDROcodone-acetaminophen (NORCO) 5-325 mg per tablet HYDROcodone-acetaminophen (NORCO) 5-325 mg per tablet HYDROcodone-acetaminophen (NORCO) 5-325 mg per tablet 2. Bilateral sciatica M54.31 gabapentin (NEURONTIN) 100 mg capsule M54.32 3. Acquired hypothyroidism E03.9 4. Essential hypertension I10 atenolol (TENORMIN) 50 mg tablet 5. Chronic fatigue R53.82 6. Seizure disorder (HCC) G40.909 7. DDD (degenerative disc disease), lumbar M51.36 HYDROcodone-acetaminophen (NORCO) 5-325 mg per tablet HYDROcodone-acetaminophen (NORCO) 5-325 mg per tablet HYDROcodone-acetaminophen (NORCO) 5-325 mg per tablet 8. Inflammatory polyarthropathy M06.4 HYDROcodone-acetaminophen (NORCO) 5-325 mg per tablet HYDROcodone-acetaminophen (NORCO) 5-325 mg per tablet HYDROcodone-acetaminophen (NORCO) 5-325 mg per tablet 9. Hyperlipidemia, unspecified hyperlipidemia type E78.5 atorvastatin (LIPITOR) 40 mg tablet 10. Drug-induced constipation K59.03 polyethylene glycol 3350 (MIRALAX, GLYCOLAX) 17 gram/dose powder Above issues addressed with patient. Patient involved in shared decision making for management of her medical issues. History and medications reviewed. Epic updated as needed Refills taken care of and meds adjusted as indicated after reviewed history, exam and labs. Health Maintenance reviewed. Updated record and/or ordered tests as recorded. Encouraged on efforts at healthy diet and regular exercise and adequate sleep. Stable with pain control. No signs of diversion or abuse of medication(s); no adverse effects. Continue present management. PDMP website checked and validated. All prescriptions have been APPROPRIATELY filled. No suspicious activity was identified. 02/06/2018 by Maria Del Rosario Zarate MD Continue management of OIC with Miralax. Stable on current meds for above issues. Further evaluation and treatment as indicated. Following with Rheumatology as noted above. The majority of the visit was spent counseling and/or coordinating care for the patient. [id number] time was at least 25 minutes. MD Maria Eugenia Saucedo LPN 02/06/2018 5:00 PM Signed Prescriptions for [place] were left behind following office visit. Taken to medical records. Message left on voicemail that these will be in medical records for pickup at their convenience Referring Provider: SELF [[id number]] Allergies As of Date: 02/06/2018 Noted Allergy Reaction CYMBALTA (DULOXETINE) 12/09/2014 6 - Diarrhea Comments: severe diarrhea and incontinence LISINOPRIL 09/26/2010 3 - Cough Comments: on 10 mg dose; worse with 10 mg BID TRAMADOL 06/02/2017 14 - Other: See Comments Comments: Possible related to new onset seizure Date Reviewed: 02/06/2018 Reviewed by: Maria Eugenia Ley LPN - Fully Assessed Reason for Visit: Recheck [92] Cmt: Follow up Primary Visit Diagnosis:Fibromyalgia [M79.7] Other Visit Diagnoses:Bilateral sciatica [M54.31, M54.32] Acquired hypothyroidism [E03.9] Essential hypertension [I10] Chronic fatigue [R53.82] Seizure disorder (HCC) [G40.909] DDD (degenerative disc disease), lumbar [M51.36] Inflammatory polyarthropathy [M06.4] Hyperlipidemia, unspecified hyperlipidemia type [E78.5] Drug-induced constipation [K59.03] Order(s):gabapentin (NEURONTIN) 100 mg capsuleTake 1 capsule by mouth daily at bedtime. (going to see if adding dose just at bedtime helps with pain control)Disp: Rfl: HYDROcodone-acetaminophen (NORCO) 5-325 mg per tabletTake 1 tablet by mouth once daily as needed for up to 30 days. Earliest Fill Date: 02/21/18Disp: 30 tabletRfl: 0 [START ON 03/23/2018] HYDROcodone-acetaminophen (NORCO) 5-325 mg per tabletTake 1 tablet by mouth once daily as needed for up to 30 days. Earliest Fill Date: 03/23/18Disp: 30 tabletRfl: 0 [START ON 04/22/2018] HYDROcodone-acetaminophen (NORCO) 5-325 mg per tabletTake 1 tablet by mouth once daily as needed for up to 30 days. Earliest Fill Date: 04/22/18Disp: 30 tabletRfl: 0 atorvastatin (LIPITOR) 40 mg tabletTake 1 tablet by mouth once daily.Disp: 90 tabletRfl: 3 atenolol (TENORMIN) 50 mg tabletTake 1 tablet by mouth once daily.Disp: 90 tabletRfl: 3 levETIRAcetam (KEPPRA) 500 mg tabletTake 1 tablet by mouth twice daily.Disp: 180 tabletRfl: 1 polyethylene glycol 3350 (MIRALAX, GLYCOLAX) 17 gram/dose powderTake 17 g by mouth once daily.Disp: 1 BottleRfl: 5 Prescriptions as of 02/06/2018 Sig: HYDROCODONE 5 MG-ACETAMINOPHE* Take 1 tablet by mouth once d* HYDROCODONE 5 MG-ACETAMINOPHE* Take 1 tablet by mouth once d* HYDROCODONE 5 MG-ACETAMINOPHE* Take 1 tablet by mouth once d* ATENOLOL 50 MG TABLET Take 1 tablet by mouth once d* LEVETIRACETAM 500 MG TABLET Take 1 tablet by mouth twice * OMEPRAZOLE 40 MG CAPSULE,TORREY* TAKE ONE CAPSULE BY MOUTH ONC* MECLIZINE 25 MG TABLET Take 1 tablet by mouth every * HYDROCODONE 5 MG-ACETAMINOPHE* Take 1 tablet by mouth once d* LOSARTAN 50 MG TABLET Take 1 tablet by mouth once d* LEVOTHYROXINE 88 MCG TABLET Take 1 tablet by mouth once d* FLUTICASONE 50 MCG/ACTUATION * Use 2 Sprays in each nostril * COMPOUNDED PRESCRIPTION Lab order: TSH, Free T4 Di* PREDNISONE 10 MG TABLET Take 1 tablet by mouth once d* ASPIRIN 81 MG TABLET,DELAYED * Take 1 tablet by mouth once d* COMPOUNDED PRESCRIPTION Lab order: TSH Diagnoses: * [id number] * Use 3 Drops in both ears four* SENNOSIDES 8.6 MG-DOCUSATE SO* Take 2 tablets by mouth once * COMPOUNDED PRESCRIPTION Bed rail Dx is CVA COMPOUNDED PRESCRIPTION Ostomy Pouch- Paper Tab and S* TRIAMCINOLONE ACETONIDE 0.1 %* Apply 1 application to affect* CHOLECALCIFEROL (VITAMIN D3) * Take 1 capsule by mouth once * GABAPENTIN 100 MG CAPSULE Take 1 capsule by mouth daily* ATORVASTATIN 40 MG TABLET Take 1 tablet by mouth once d* POLYETHYLENE GLYCOL 3350 17 G* Take 17 g by mouth once daily. SULFACETAMIDE SODIUM 10 % EYE* Instill 1-2 drops 4 times per* Patient not taking: Reported on 02/06/2018 HYDROCODONE 5 MG-ACETAMINOPHE* Take 1 tablet by mouth once d* HYDROCODONE 5 MG-ACETAMINOPHE* Take 1 tablet by mouth once d* Problem List As Of Date 02/06/2018 Noted Resolved OSTEOPOROSIS NOS [M81.0] INVALID FOR* More... Essential hypertension [I10] INVALID FOR* Hypothyroidism [E03.9] INVALID FOR* CALCULUS OF KIDNEY [N20.0] INVALID FOR* ESOPHAGEAL REFLUX [K21.9] INVALID FOR* CHRONIC RHINITIS [J31.0] INVALID FOR* CERVICALGIA [M54.2] INVALID FOR* More... Hyperlipidemia [E78.5] INVALID FOR* PERS HX OF BLADDER MALIGNANCY [Z85.51] INVALID FOR* GENERAL OSTEOARTHROSIS [M15.9] LUMBAGO [M54.5] INVALID FOR* Sciatica [M54.30] DDD (Degenerative Disc Disease), Lumbar [M51.36] More... Backache, unspecified [M54.9] INVALID FOR*04/30/2013 Vitamin D Deficiency [E55.9] INVALID FOR* Degeneration of lumbar or lumbosacral intervert*INVALID FOR*04/30/2013 Personal History of Kidney Stones [Z87.442] INVALID FOR* Back pain [M54.9] INVALID FOR* Colon polyps [K63.5] INVALID FOR* More... 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 Pain in joint, lower leg [M25.569] INVALID FOR* Fibromyalgia [M79.7] INVALID FOR* Obesity [E66.9] INVALID FOR* Elevated serum creatinine [R79.89] INVALID FOR* Weakness [R53.1] INVALID FOR* Balance problems [R26.89] INVALID FOR* Presence of urostomy (HCC) [Z93.6] INVALID FOR* Seizure disorder (HCC) [G40.909] INVALID FOR* History of urostomy [Z98.890] INVALID FOR* Visit Notes: >> Maria Eugenia Sushmaaurora MAX FriFeb 06, 2018 4:40 PM Status: Signed Prescriptions for [place] were left behind following office visit. Taken to medical records. Message left on voicemail that these will be in medical records for pickup at their convenience Prescriptions ordered this encounter Disp Refills Start End GABAPENTIN 100 MG CAPSULE 02/06/2018 02/06/2019 Class: Med Update Route: ORAL Sig: Take 1 capsule by mouth daily at bedtime. (going to see if adding dose just at bedtime helps with pain control) HYDROCODONE 5 MG-ACETAMINOPHEN 325 M* 30 t* 0 02/21/2018 03/23/2018 Class: Print RX Route: ORAL Sig: Take 1 tablet by mouth once daily as needed for up to 30 days. Earliest Fill Date: 02/21/18 HYDROCODONE 5 MG-ACETAMINOPHEN 325 M* 30 t* 0 03/23/2018 04/22/2018 Class: Print RX Route: ORAL Sig: Take 1 tablet by mouth once daily as needed for up to 30 days. Earliest Fill Date: 03/23/18 HYDROCODONE 5 MG-ACETAMINOPHEN 325 M* 30 t* 0 04/22/2018 05/22/2018 Class: Print RX Route: ORAL Sig: Take 1 tablet by mouth once daily as needed for up to 30 days. Earliest Fill Date: 04/22/18 ATORVASTATIN 40 MG TABLET 90 t* 3 02/06/2018 Route: ORAL Sig: Take 1 tablet by mouth once daily. ATENOLOL 50 MG TABLET 90 t* 3 02/06/2018 Route: ORAL Sig: Take 1 tablet by mouth once daily. LEVETIRACETAM 500 MG TABLET 180 * 1 02/06/2018 Cmt: Please keep on file till needs Route: ORAL Sig: Take 1 tablet by mouth twice daily. POLYETHYLENE GLYCOL 3350 17 GRAM/DOS* 1 Patricio* 5 02/06/2018 Route: ORAL Sig: Take 17 g by mouth once daily. Medications Discontinued During This Encounter gabapentin (NEURONTIN) 100 mg capsule 180 * 1 09/04/2017 02/06/2018 Cmt: Intentional dose increase Route: ORAL Sig: Take 1 capsule by mouth twice daily for 180 days. Patient not taking: Reported on 02/06/2018 Disc: Reason for discontinue is not on file. atorvastatin (LIPITOR) 40 mg tablet 90 t* 3 04/03/2017 02/06/2018 Route: ORAL Sig: Take 1 tablet by mouth once daily. Disc: Reason for discontinue is not on file. atenolol (TENORMIN) 50 mg tablet 90 t* 3 05/05/2017 02/06/2018 Cmt: Prefers 50 mg once daily Route: ORAL Sig: Take 1 tablet by mouth once daily. Disc: Reason for discontinue is not on file. levETIRAcetam (KEPPRA) 500 mg tablet 180 * 1 11/07/2017 02/06/2018 Route: ORAL Sig: Take 1 tablet by mouth twice daily. Disc: Reason for discontinue is not on file. Disposition: Return in about 3 months (around 05/09/2018). Follow-up and Disposition History Recorded Encounter Status:Closed by MARIA DEL ROSARIO ZARATE MD on 02/22/18 [facility] Observed: 01/20/2018 Status: COMPLETED Source: [place] 12:00 AM [facility] REPOSITORY Patient Outreach (FAMPST) RAN LANDRY ([id number]) 1940 F Date Time Provider Department 01/20/18 MARIA DEL ROSARIO ZARATEPST During your visit today, we recorded the following information about you: Allergies As of Date: 01/20/2018 Noted Allergy Reaction CYMBALTA (DULOXETINE) 12/09/2014 6 - Diarrhea Comments: severe diarrhea and incontinence LISINOPRIL 09/26/2010 3 - Cough Comments: on 10 mg dose; worse with 10 mg BID TRAMADOL 06/02/2017 14 - Other: See Comments Comments: Possible related to new onset seizure Date Reviewed: 11/07/2017 Reviewed by: Beulah Persaud Inspecting Engineer - Fully Assessed Visit Diagnosis:Medication management [Z79.899] Order(s):BASIC METABOLIC PNL [SQBMP] Order #: [id number] FUTURE Prescriptions as of 01/20/2018 Sig: OMEPRAZOLE 40 MG CAPSULE,TORREY* TAKE ONE CAPSULE BY MOUTH ONC* MECLIZINE 25 MG TABLET Take 1 tablet by mouth every * SULFACETAMIDE SODIUM 10 % EYE* Instill 1-2 drops 4 times per* Patient not taking: Reported on 02/06/2018 HYDROCODONE 5 MG-ACETAMINOPHE* Take 1 tablet by mouth once d* HYDROCODONE 5 MG-ACETAMINOPHE* Take 1 tablet by mouth once d* X LEVETIRACETAM 500 MG TABLET Take 1 tablet by mouth twice * LOSARTAN 50 MG TABLET Take 1 tablet by mouth once d* X GABAPENTIN 100 MG CAPSULE Take 1 capsule by mouth twice* Patient not taking: Reported on 02/06/2018 LEVOTHYROXINE 88 MCG TABLET Take 1 tablet by mouth once d* FLUTICASONE 50 MCG/ACTUATION * Use 2 Sprays in each nostril * COMPOUNDED PRESCRIPTION Lab order: TSH, Free T4 Di* PREDNISONE 10 MG TABLET Take 1 tablet by mouth once d* X ATENOLOL 50 MG TABLET Take 1 tablet by mouth once d* X ATORVASTATIN 40 MG TABLET Take 1 tablet by mouth once d* ASPIRIN 81 MG TABLET,DELAYED * Take 1 tablet by mouth once d* COMPOUNDED PRESCRIPTION Lab order: TSH Diagnoses: * GDQCAAAI-MUFVYGJDE-UAKHAPSXO * Use 3 Drops in both ears four* SENNOSIDES 8.6 MG-DOCUSATE SO* Take 2 tablets by mouth once * COMPOUNDED PRESCRIPTION Bed rail Dx is CVA COMPOUNDED PRESCRIPTION Ostomy Pouch- Paper Tab and S* TRIAMCINOLONE ACETONIDE 0.1 %* Apply 1 application to affect* CHOLECALCIFEROL (VITAMIN D3) * Take 1 capsule by mouth once * Problem List As Of Date 01/20/2018 Noted Resolved OSTEOPOROSIS NOS [M81.0] INVALID FOR* More... Essential hypertension [I10] INVALID FOR* Hypothyroidism [E03.9] INVALID FOR* CALCULUS OF KIDNEY [N20.0] INVALID FOR* ESOPHAGEAL REFLUX [K21.9] INVALID FOR* CHRONIC RHINITIS [J31.0] INVALID FOR* CERVICALGIA [M54.2] INVALID FOR* More... Hyperlipidemia [E78.5] INVALID FOR* PERS HX OF BLADDER MALIGNANCY [Z85.51] INVALID FOR* GENERAL OSTEOARTHROSIS [M15.9] LUMBAGO [M54.5] INVALID FOR* Sciatica [M54.30] DDD (Degenerative Disc Disease), Lumbar [M51.36] More... Backache, unspecified [M54.9] INVALID FOR*04/30/2013 Vitamin D Deficiency [E55.9] INVALID FOR* Degeneration of lumbar or lumbosacral intervert*INVALID FOR*04/30/2013 Personal History of Kidney Stones [Z87.442] INVALID FOR* Back pain [M54.9] INVALID FOR* Colon polyps [K63.5] INVALID FOR* More... 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 Pain in joint, lower leg [M25.569] INVALID FOR* Fibromyalgia [M79.7] INVALID FOR* Obesity [E66.9] INVALID FOR* Elevated serum creatinine [R79.89] INVALID FOR* Weakness [R53.1] INVALID FOR* Balance problems [R26.89] INVALID FOR* Presence of urostomy (HCC) [Z93.6] INVALID FOR* Seizure disorder (HCC) [G40.909] INVALID FOR* History of urostomy [Z98.890] INVALID FOR* Encounter Status:Closed by EPIC, PRODUSER on 04/10/18 CBC W/DIFF, AUTOMATED Collected: 12/23/2017 Status: F Source: [place] 12:02 PM [facility] REPOSITORY TYPE CODE TESTS RESULT OUT OF RANGE REFERENCE UNITS LAB L100.1000 4.4-11.0 K/mm3 Normal WBC 8.6 LAB L100.1200 4.2-5.4 M/mm3 Normal RBC 4.54 LAB L100.1300 12.0-15.0 g/dl Normal HGB 13.2 LAB L100.1400 37-47 % Normal HCT 41.4 LAB L100.1500 81-99 fL Normal MCV 91.2 LAB L100.1600 27.0-32.0 pg Normal MCH 29.1 LAB L100.1700 32-36 g/gl Low MCHC 31.9 LAB L100.1810 11.6-14.6 % Normal RDW CV 14.4 LAB L100.1820 35.1-43.9 fl High RDW SD 47.1 LAB L100.1900 150-450 K/mm3 Normal PLT 197 LAB L100.2000 6.2-12.0 fl High MPV 13.6 LAB L100.2100 47-70 % Normal NEUT% 56.2 LAB L100.2200 19-41 % Normal LY% 32.6 LAB L100.2300 0-10 % Normal MONO% 7.8 LAB L100.2400 0-5 % Normal EO% 2.7 LAB L100.2500 0-1 % Normal BASO% 0.2 LAB L100.2550 0.0-0.9 % Normal IM GRAN % 0.500 Result Comment: IG% - Immature Granulocytes (promyelocytes, myelocytes and metamyelocytes) > 1% indicates that a LEFT SHIFT is Present. LAB L100.2620 2.0-7.7 X10 3/uL Normal Absolute Neut 4.8 LAB L100.2720 0.83-4.51 X10 3/ul Normal Absolute Lymph 2.80 Performed By: #### L100.0100 #### [facility] [address] [place], [place], [address] COMPREHENSIVE METABOLIC Collected: 12/23/2017 Status: F Source: [place] 12:02 PM [facility] REPOSITORY TYPE CODE TESTS RESULT OUT OF RANGE REFERENCE UNITS LAB L501.0100 74-106 mg/dL Normal GLU 90 Result Comment: Please note revised GLUCOSE reference range effective 2017. LAB L501.1000 7-18 mg/dL High BUN 23 LAB L501.1100 0.55-1.02 mg/dL High CREAT,SERUM 1.67 Result Comment: The validity of the calculated GFR AND GFRAA in patients over 70 years has not been determined. Clinical correlation is essential. LAB L501.1110 >60 mL/min Low EST GFR 31 Result Comment: Non- GFR Calc LAB L501.1115 >60 mL/min Low EST GFR - AA 38 Result Comment: GFR Calc LAB L501.1300 10-20 RATIO Normal BUN/CRE 13.8 LAB L501.1500 6.4-8.2 g/dL T Normal PROT 7.4 LAB L501.1800 3.2-5.0 g/dL Normal ALB 3.5 LAB L501.1950 2.2-4.2 g/dL Normal GLOB 3.9 LAB L501.2000 0.9-2.4 RATIO Normal A/G 0.9 LAB L501.2200 8.5-10.1 mg/dL CA Normal 8.9 LAB L501.4100 15-37 U/L Normal AST 16 LAB L501.4305 45-117 U/L Normal ALK P 91 LAB L501.4405 13-56 U/L Normal ALT 25 LAB L501.4600 0.20-1.00 mg/dL T Normal BILI 0.50 LAB L501.5300 136-145 mmol/L NA Normal 143 LAB L501.5600 3.5-5.1 mmol/L K Normal 4.4 LAB L501.5900 98-107 mmol/L CL Normal 107 LAB L501.6100 21.0-32.0 mmol/L Normal CO2 26.0 LAB L501.6200 5-15 Normal GAP 10 Performed By: #### L500.4050 #### [facility] Laboratory [address] [place] [address]. [place], [address] LIPID PANEL, NONFAST Collected: 11/07/2017 Status: F Source: [place] 1:40 PM [facility] REPOS[facility] TYPE CODE TESTS RESULT OUT OF REFERENCE UNITS RANGE LAB CHOLNF <200 mg/dL Total Cholesterol NF 129 Result Comment: <200 mg/dL, Desirable 200-239 mg/dL, Borderline high >239 mg/dL, High LAB TRIGNF <150 mg/dL Triglycerides, NF 102 Result Comment: <150 mg/dL, Normal 150-199 mg/dL, Borderline high 200-499 mg/dL, High >499 mg/dL, Very high LAB HDLNF >39 mg/dL HDL Cholesterol, NF 42 Result Comment: 40-59 mg/dL, Acceptable >59 mg/dL, High: Negative risk factor for coronary heart disease <40 mg/dL, Low: Positive risk factor for coronary heart disease LAB LDLNF <100 mg/dL LDL Cholesterol, NF 67 Result Comment: <100 mg/dL, Optimal 100-129 mg/dL, Near optimal/above optimal 130-159 mg/dL, Borderline high 160-189 mg/dL, High >189 mg/dL, Very high Secondary prevention optimal LDL Cholesterol levels are recommended to be < 70 mg/dL LAB NOHDLN <130 mg/dL Non HDL Chol, 87 NF Result Comment: <130 mg/dL, Optimal 130-159 mg/dL, Near optimal/above optimal 160-189 mg/dL, Borderline high 190-219 mg/dL, High >219 mg/dL, Very high Secondary prevention optimal non HDL Cholesterol levels are recommended to be < 100 mg/dL LAB VLDLNF <30 mg/dL VLDL Cholesterol, NF 20 LAB TCHDLN <5.10 mg/dL T Chol/HDL Ratio NF 3.07 LAB LDLHDN <2.54 mg/dL LDL/HDL Ratio, NF 1.60 Result Comment: Reference: 1. National Cholesterol Education Program ATP III Guideline At-A-Glance Quick Desk Reference: National Heart, Lung, and Blood Bryant. National Institutes of Health. 2001: NIH Publication No. 01-3305. 2. An International Atherosclerosis Society position paper: global recommendations for the management of dyslipidemia: executive summary, Atherosclerosis. 2014: 232(2):410-413. Performed By: #### LIPNF, FT4, TSH, FREET3, VITD #### [facility] [address] [place] [id number] FREE T4 Collected: 11/07/2017 Status: F Source: [place] 1:40 PM [facility] REPOSITORY TYPE CODE TESTS RESULT OUT OF RANGE REFERENCE UNITS LAB FT4 0.9-1.7 ng/dL High Free T4 1.8 Performed By: #### LIPNF, FT4, TSH, FREET3, VITD #### [facility] [address] [place] [address] TSH Collected: 11/07/2017 Status: F Source: [place] 1:40 PM [facility] REPOSITORY TYPE CODE TESTS RESULT OUT OF RANGE REFERENCE UNITS LAB TSH 0.400-5.500 uU/mL TSH 0.747 Performed By: #### LIPNF, FT4, TSH, FREET3, VITD #### [facility] [place] [address] FREE T3 Collected: 11/07/2017 Status: F Source: [place] 1:40 PM [facility] REPOSITORY TYPE CODE TESTS RESULT OUT OF RANGE REFERENCE UNITS LAB FREET3 2.3-4.1 pg/mL Free T3 2.3 Performed By: #### LIPNF, FT4, TSH, FREET3, VITD #### [place] [address] VITAMIN D 25 HYDROXY Collected: 11/07/2017 Status: F Source: [place] 1:40 [facility] REPOSITORY TYPE CODE TESTS RESULT OUT OF REFERENCE UNITS RANGE LAB VITD 31.0-80.0 ng/mL Vitamin D 25 58.2 Hydroxy Result Comment: Classification of 25 [place] Vitamin D status: Insufficiency/Moderate Deficiency: < or = 30 ng/mL Sufficiency/Optimal Levels: 31 to 80 ng/mL Toxicity: > 100 ng/mL Test performed by chemiluminescent immunoassay. Performed By: #### LIPNF, FT4, TSH, FREET3, VITD #### [facility] [address] [place] [address] PROGRESS Observed: 11/07/2017 Status: COMPLETED Source: [place] 12:55 PM [facility] REPOSITORY HNO ID: [id number] Author: Maria Del Rosario Zarate Service: (none) Author Type: Physician Type: Progress Notes Filed: 11/20/2017 12:58 PM Note Text: Patient presents with: Recheck SUBJECTIVE: Ran Landry is a 77 year old year old lady here today for 3 month follow up appointment for review of medical conditions. Got toenails taken care of by records and tape recordings engineer. Noted tops of feet with venous discoloration Tired after minimal activity. Not SOB. Tired a lot. Feels weird. Told to stop aspirin. Renal issue on September labs. Getting infusions at hospital--lasts 3 to [address] Vargas. PAST MEDICAL HISTORY Diagnosis Date - Cervicalgia 02/11/2007 ?diagnosis - await records - Dean angioma 07/26/2012 - DDD (degenerative disc disease), lumbar suspect lumbar canal stenosis as well on Xrays 2007 - Esophageal reflux 02/11/2007 - Fibromyalgia 09/12/2014 - Generalized osteoarthrosis, unspecified site Saw Dr. Miranda Lee in [place] - Hypothyroidism November 2012 last labs--[facility] - Osteoporosis, unspecified 02/11/2007 Last BMD - 1 year ago - Other and unspecified hyperlipidemia 02/11/2007 - Personal History of Kidney Stones 02/11/2007 - Personal history of malignant neoplasm of bladder 02/11/20071991 - PMH - PAST MEDICAL HISTORY OF 1991 Bladder Cancer - PM - PAST MEDICAL HISTORY OF 1991 Ostomy ([facility]; [facility]) - Presence of urostomy ([facility]) 10/19/2016 - Sciatica - Status of other artificial opening of urinary tract 02/11/20071991 - Unspecified essential hypertension 02/11/2007 Current Outpatient Prescriptions: levETIRAcetam (KEPPRA) 500 mg tablet Take 1 tablet by mouth twice daily. HYDROcodone-acetaminophen (NORCO) 5-325 mg per tablet Take 1 tablet by mouth once daily as needed for up to 30 days.Earliest Fill Date: 10/21/17 losartan (COZAAR) 50 mg tablet Take 1 tablet by mouth once daily. gabapentin (NEURONTIN) 100 mg capsule Take 1 capsule by mouth twice daily for 180 days. sulfacetamide (BLEPH-10) 10 % ophthalmic solution Instill 1-2 drops 4 times per day in the affected eye for 7 days - for eye infection levothyroxine (SYNTHROID) 88 mcg tablet Take 1 tablet by mouth once daily. or as directed atenolol (TENORMIN) 50 mg tablet Take 1 tablet by mouth once daily. fluticasone (FLONASE) 50 mcg/actuation nasal spray Use 2 Sprays in each nostril once daily. RINSE MOUTH AFTER EACH DOSE COMPOUNDED PRESCRIPTION Lab order: TSH, Free T4 Diagnosis: E03.9 predniSONE (DELTASONE) 10 mg tablet Take 1 tablet by mouth once daily. As directed by Dr. Vargas--takes for 3 days as needed for flare up atorvastatin (LIPITOR) 40 mg tablet Take 1 tablet by mouth once daily. aspirin, enteric coated (ECOTRIN LOW STRENGTH) 81 mg EC tablet Take 1 tablet by mouth once daily. Omeprazole 40 mg capsule Take 1 capsule by mouth once daily. COMPOUNDED PRESCRIPTION Lab order: TSH Diagnoses: E03.9. rolydrqg-cozpjprml-ikdvghbhcgwskk (CORTISPORIN) 3.5-10,000-1 mg/mL-unit/mL-% otic suspension Use 3 Drops in both ears four times daily. As directed meclizine (ANTIVERT) 25 mg tab Take 1 tablet by mouth every 6 hours as needed (dizziness). senna-docusate (SENNA-S) 8.6-50 mg per tablet Take 2 tablets by mouth once daily. COMPOUNDED PRESCRIPTION Bed railDx is CVA COMPOUNDED PRESCRIPTION Ostomy Pouch- Paper Tab and Skin tab with whip. One month supply.Dx-Z93.6 triamcinolone acetonide (KENALOG) 0.1 % cream Apply 1 application to affected area twice daily as needed. Apply sparingly to area for rash/itching. Cholecalciferol, Vitamin D3, 5,000 unit ORAL Cap Take 1 capsule by mouth once daily. No current facility-administered medications for this visit. OBJECTIVE: BP 124/74 Pulse 62 Resp 14 Wt 80.7 kg (178 lb) BMI 29.62 kg/m? Patient is alert, oriented times 3, no apparent distress, affect is bright, reactive. Last 5 Encounter BP Readings: Date: BP: 11/07/2017 124/74 09/04/2017 124/72 08/06/2017 122/72 06/02/2017 122/72 05/05/2017 130/82 Last 5 Encounter Wt Readings: Date: Wt: 11/07/2017 80.7 kg (178 lb) 09/04/2017 80.7 kg (178 lb) 08/06/2017 78.9 kg (174 lb) 06/02/2017 78.5 kg (173 lb) 05/05/2017 79.8 kg (176 lb) Heart: Regular rate, rhythm, no murmurs, gallops, rubs. Lungs: Clear to auscultation, bilaterally, breathing non labored. Ext: No cyanosis, clubbing, or edema. CBC W/DIFF, AUTOMATED Collected: 10/14/2017 1:05 PM Status: F Source: [place] REPOSITORY TYPE CODE TESTS RESULT OUT OF RANGE REFERENCE UNITS LAB L100.1000 WBC 8.1 Normal 4.4-11.0 K/mm3 LAB L100.1200 RBC 4.46 Normal 4.2-5.4 M/mm3 LAB L100.1300 HGB 12.9 Normal 12.0-15.0 g/dl LAB L100.1400 HCT 40.7 Normal 37-47 % LAB L100.1500 MCV 91.3 Normal 81-99 fL LAB L100.1600 MCH 28.9 Normal 27.0-32.0 pg LAB L100.1700 MCHC 31.7 Low 32-36 g/gl LAB L100.1810 RDW CV 13.1 Normal 11.6-14.6 % LAB L100.1820 RDW SD 43.4 Normal 35.1-43.9 fl LAB L100.1900 PLT 186 Normal 150-450 K/mm3 LAB L100.2000 MPV 13.0 High 6.2-12.0 fl LAB L100.2100 NEUT% 61.7 Normal 47-70 % LAB L100.2200 LY% 26.2 Normal 19-41 % LAB L100.2300 MONO% 8.0 Normal 0-10 % LAB L100.2400 EO% 3.6 Normal 0-5 % LAB L100.2500 BASO% 0.4 Normal 0-1 % LAB L100.2550 IM GRAN % 0.100 Normal 0.0-0.9 % Result Comment: IG% - Immature Granulocytes (promyelocytes, myelocytes and metamyelocytes) > 1% indicates that a LEFT SHIFT is Present. LAB L100.2620 Absolute Neut 5.0 Normal 2.0-7.7 X10 3/uL LAB L100.2720 Absolute Lymph 2.11 Normal 0.83-4.51 X10 3/ul Performed By: #### L100.0100 #### [facility] [address] [place], [address] COMPREHENSIVE METABOLIC PROFIL Collected: 10/14/2017 1:05 PM Status: F Source: [place] REPOSITORY TYPE CODE TESTS RESULT OUT OF RANGE REFERENCE UNITS LAB L501.0100 GLU 94 Normal 74-106 mg/dL Result Comment: Please note revised GLUCOSE reference range effective 2017. LAB L501.1000 BUN 18 Normal 7-18 mg/dL LAB L501.1100 CREAT,SERUM 1.49 High 0.55-1.02 mg/dL Result Comment: The validity of the calculated GFR AND GFRAA in patients over 70 years has not been determined. Clinical correlation is essential. LAB L501.1110 EST GFR 36 Low >60 mL/min Result Comment: Non- GFR Calc LAB L501.1115 EST GFR - AA 43 Low >60 mL/min Result Comment: GFR Calc LAB L501.1300 BUN/CRE 12.1 Normal 10-20 RATIO LAB L501.1500 T PROT 7.6 Normal 6.4-8.2 g/dL LAB L501.1800 ALB 3.6 Normal 3.2-5.0 g/dL LAB L501.1950 GLOB 4.0 Normal 2.2-4.2 g/dL LAB L501.2000 A/G 0.9 Normal 0.9-2.4 RATIO LAB L501.2200 CA 8.9 Normal 8.5-10.1 mg/dL LAB L501.4100 AST 16 Normal 15-37 U/L LAB L501.4305 ALK P 107 Normal 45-117 U/L LAB L501.4405 ALT 14 Normal 13-56 U/L LAB L501.4600 T BILI 0.70 Normal 0.20-1.00 mg/dL LAB L501.5300 NA 139 Normal 136-145 mmol/L LAB L501.5600 K 4.0 Normal 3.5-5.1 mmol/L LAB L501.5900 CL 104 Normal 98-107 mmol/L LAB L501.6100 CO2 25.0 Normal 21.0-32.0 mmol/L LAB L501.6200 GAP 10 Normal 5-15 ? Performed By: #### L500.4050 #### [facility] [address] [place], [address] ASSESSMENT AND PLAN: Encounter Diagnosis ICD-10-CM 1. Acquired hypothyroidism E03.9 TSH BLD T4 FREE/FREE THYROX T3 FREE BLD 2. Essential hypertension I10 LIPID PANEL, NONFASTING 3. Vitamin D deficiency E55.9 VITAMIN D 25 HYDROXY 4. Seizure disorder (HCC) G40.909 Above issues addressed with patient. Patient involved in shared decision making for management of her medical issues. History and medications reviewed. Epic updated as needed Refills taken care of and meds adjusted as indicated after reviewed history, exam and labs. Health Maintenance reviewed. Updated record and/or ordered tests as recorded. Encouraged on efforts at healthy diet and regular exercise and adequate sleep. Needs to keep working on diet and exercise with lifestyle changes for effective weight control and overall health. Clinically euthyroid. Prior TSH fine. Continue to adjust dose of replacement as indicated based on symptoms and labs. Update TSH as ordered. Continue present management. Further evaluation and treatment as indicated. The majority of the visit was spent counseling and/or coordinating care for the patient. Mpxq-jn-[id number] time was at least 25 minutes. Maria Del Rosario Zarate MD CNOV Observed: 11/07/2017 Status: COMPLETED Source: [place] 11:40 AM [facility] REPOSITORY Office Visit (INTMWS) RAN LANDRY ([id number]) 1940 F Date Time Provider Department 11/07/17 11:40 AM MARIA DEL ROSARIO ZARATE INTMWS During your visit today, we recorded the following information about you: Pulse Respiration Blood pressure Weight 62/minute 14/minute 124/74 80.7 kg Maria Del Rosario Zarate MD 11/20/2017 12:58 PM Signed Patient presents with: Recheck SUBJECTIVE: Ran Landry is a 77 year old year old lady here today for 3 month follow up appointment for review of medical conditions. Got toenails taken care of by records and tape recordings engineer. Noted tops of feet with venous discoloration Tired after minimal activity. Not SOB. Tired a lot. Feels weird. Told to stop aspirin. Renal issue on September. Getting infusions at hospital--lasts 3 [address] Vargas. PAST MEDICAL HISTORY Diagnosis Date - Cervicalgia 02/11/2007 ?diagnosis - await records - Dean angioma 07/26/2012 - DDD (degenerative disc disease), lumbar suspect lumbar canal stenosis as well on Xrays 2007 - Esophageal reflux 02/11/2007 - Fibromyalgia 09/12/2014 - Generalized osteoarthrosis, unspecified site Saw Dr. Miranda Lee in [place] - Hypothyroidism November 2012 last labs--[facility] - Osteoporosis, unspecified 02/11/2007 Last BMD - 1 year ago - Other and unspecified hyperlipidemia 02/11/2007 - Personal History of Kidney Stones 02/11/2007 - Personal history of malignant neoplasm of bladder 02/11/20071991 - PM - PAST MEDICAL HISTORY OF 1991 Bladder Cancer - PM - PAST MEDICAL HISTORY OF 1991 Ostomy ([facility]; [place]) - Presence of urostomy ([facility]) 10/19/2016 - Sciatica - Status of other artificial opening of urinary tract 02/11/20071991 - Unspecified essential hypertension 02/11/2007 Current Outpatient Prescriptions: levETIRAcetam (KEPPRA) 500 mg tablet Take 1 tablet by mouth twice daily. HYDROcodone-acetaminophen (NORCO) 5-325 mg per tablet Take 1 tablet by mouth once daily as needed for up to 30 days.Earliest Fill Date: 10/21/17 losartan (COZAAR) 50 mg tablet Take 1 tablet by mouth once daily. gabapentin (NEURONTIN) 100 mg capsule Take 1 capsule by mouth twice daily for 180 days. sulfacetamide (BLEPH-10) 10 % ophthalmic solution Instill 1-2 drops 4 times per day in the affected eye for 7 days - for eye infection levothyroxine (SYNTHROID) 88 mcg tablet Take 1 tablet by mouth once daily. or as directed atenolol (TENORMIN) 50 mg tablet Take 1 tablet by mouth once daily. fluticasone (FLONASE) 50 mcg/actuation nasal spray Use 2 Sprays in each nostril once daily. RINSE MOUTH AFTER EACH DOSE COMPOUNDED PRESCRIPTION Lab order: TSH, Free T4 Diagnosis: E03.9 predniSONE (DELTASONE) 10 mg tablet Take 1 tablet by mouth once daily. As directed by Dr. Vargas--takes for 3 days as needed for flare up atorvastatin (LIPITOR) 40 mg tablet Take 1 tablet by mouth once daily. aspirin, enteric coated (ECOTRIN LOW STRENGTH) 81 mg EC tablet Take 1 tablet by mouth once daily. Omeprazole 40 mg capsule Take 1 capsule by mouth once daily. COMPOUNDED PRESCRIPTION Lab order: TSH Diagnoses: E03.9. veutuznh-sjsxekrly-keybttfceknwof (CORTISPORIN) 3.5-10,000-1 mg/mL-unit/mL-% otic suspension Use 3 Drops in both ears four times daily. As directed meclizine (ANTIVERT) 25 mg tab Take 1 tablet by mouth every 6 hours as needed (dizziness). senna-docusate (SENNA-S) 8.6-50 mg per tablet Take 2 tablets by mouth once daily. COMPOUNDED PRESCRIPTION Bed railDx is CVA COMPOUNDED PRESCRIPTION Ostomy Pouch- Paper Tab and Skin tab with whip. One month supply.Dx-Z93.6 triamcinolone acetonide (KENALOG) 0.1 % cream Apply 1 application to affected area twice daily as needed. Apply sparingly to area for rash/itching. Cholecalciferol, Vitamin D3, 5,000 unit ORAL Cap Take 1 capsule by mouth once daily. No current facility-administered medications for this visit. OBJECTIVE: BP 124/74 Pulse 62 Resp 14 Wt 80.7 kg (178 lb) BMI 29.62 kg/m? Patient is alert, oriented times 3, no apparent distress, affect is bright, reactive. Last 5 Encounter BP Readings: Date: BP: 11/07/2017 124/74 09/04/2017 124/72 08/06/2017 122/72 06/02/2017 122/72 05/05/2017 130/82 Last 5 Encounter Wt Readings: Date: Wt: 11/07/2017 80.7 kg (178 lb) 09/04/2017 80.7 kg (178 lb) 08/06/2017 78.9 kg (174 lb) 06/02/2017 78.5 kg (173 lb) 05/05/2017 79.8 kg (176 lb) Heart: Regular rate, rhythm, no murmurs, gallops, rubs. Lungs: Clear to auscultation, bilaterally, breathing non labored. Ext: No cyanosis, clubbing, or edema. CBC W/DIFF, AUTOMATED Collected: 10/14/2017 1:05 PM Status: F Source: [place] REPOSITORY TYPE CODE TESTS RESULT OUT OF RANGE REFERENCE UNITS LAB L100.1000 WBC 8.1 Normal 4.4-11.0 K/mm3 LAB L100.1200 RBC 4.46 Normal 4.2-5.4 M/mm3 LAB L100.1300 HGB 12.9 Normal 12.0-15.0 g/dl LAB L100.1400 HCT 40.7 Normal 37-47 % LAB L100.1500 MCV 91.3 Normal 81-99 fL LAB L100.1600 MCH 28.9 Normal 27.0-32.0 pg LAB L100.1700 MCHC 31.7 Low 32-36 g/gl LAB L100.1810 RDW CV 13.1 Normal 11.6-14.6 % LAB L100.1820 RDW SD 43.4 Normal 35.1-43.9 fl LAB L100.1900 PLT 186 Normal 150-450 K/mm3 LAB L100.2000 MPV 13.0 High 6.2-12.0 fl LAB L100.2100 NEUT% 61.7 Normal 47-70 % LAB L100.2200 LY% 26.2 Normal 19-41 % LAB L100.2300 MONO% 8.0 Normal 0-10 % LAB L100.2400 EO% 3.6 Normal 0-5 % LAB L100.2500 BASO% 0.4 Normal 0-1 % LAB L100.2550 IM GRAN % 0.100 Normal 0.0-0.9 % Result Comment: IG% - Immature Granulocytes (promyelocytes, myelocytes and metamyelocytes) > 1% indicates that a LEFT SHIFT is Present. LAB L100.2620 Absolute Neut 5.0 Normal 2.0-7.7 X10 3/uL LAB L100.2720 Absolute Lymph 2.11 Normal 0.83-4.51 X10 3/ul Performed By: #### L100.0100 #### [facility] [address] [place], [place], [id number] COMPREHENSIVE METABOLIC PROFIL Collected: 10/14/2017 1:05 PM Status: F Source: [place] REPOSITORY TYPE CODE TESTS RESULT OUT OF RANGE REFERENCE UNITS LAB L501.0100 GLU 94 Normal 74-106 mg/dL Result Comment: Please note revised GLUCOSE reference range effective 2017. LAB L501.1000 BUN 18 Normal 7-18 mg/dL LAB L501.1100 CREAT,SERUM 1.49 High 0.55-1.02 mg/dL Result Comment: The validity of the calculated GFR AND GFRAA in patients over 70 years has not been determined. Clinical correlation is essential. LAB L501.1110 EST GFR 36 Low >60 mL/min Result Comment: Non- GFR Calc LAB L501.1115 EST GFR - AA 43 Low >60 mL/min Result Comment: GFR Calc LAB L501.1300 BUN/CRE 12.1 Normal 10-20 RATIO LAB L501.1500 T PROT 7.6 Normal 6.4-8.2 g/dL LAB L501.1800 ALB 3.6 Normal 3.2-5.0 g/dL LAB L501.1950 GLOB 4.0 Normal 2.2-4.2 g/dL LAB L501.2000 A/G 0.9 Normal 0.9-2.4 RATIO LAB L501.2200 CA 8.9 Normal 8.5-10.1 mg/dL LAB L501.4100 AST 16 Normal 15-37 U/L LAB L501.4305 ALK P 107 Normal 45-117 U/L LAB L501.4405 ALT 14 Normal 13-56 U/L LAB L501.4600 T BILI 0.70 Normal 0.20-1.00 mg/dL LAB L501.5300 NA 139 Normal 136-145 mmol/L LAB L501.5600 K 4.0 Normal 3.5-5.1 mmol/L LAB L501.5900 CL 104 Normal 98-107 mmol/L LAB L501.6100 CO2 25.0 Normal 21.0-32.0 mmol/L LAB L501.6200 GAP 10 Normal 5-15 ? Performed By: #### L500.4050 #### [facility] Laboratory [address] [place] [address]. [place], [place], [id number] ASSESSMENT AND PLAN: Encounter Diagnosis ICD-10-CM 1. Acquired hypothyroidism E03.9 TSH BLD T4 FREE/FREE THYROX T3 FREE BLD 2. Essential hypertension I10 LIPID PANEL, NONFASTING 3. Vitamin D deficiency E55.9 VITAMIN D 25 HYDROXY 4. Seizure disorder (HCC) G40.909 Above issues addressed with patient. Patient involved in shared decision making for management of her medical issues. History and medications reviewed. Epic updated as needed Refills taken care of and meds adjusted as indicated after reviewed history, exam and labs. Health Maintenance reviewed. Updated record and/or ordered tests as recorded. Encouraged on efforts at healthy diet and regular exercise and adequate sleep. Needs to keep working on diet and exercise with lifestyle changes for effective weight control and overall health. Clinically euthyroid. Prior TSH fine. Continue to adjust dose of replacement as indicated based on symptoms and labs. Update TSH as ordered. Continue present management. Further evaluation and treatment as indicated. The majority of the visit was spent counseling and/or coordinating care for the patient. Prhr-hl-ckdy time was at least 25 minutes. MD Maria Del Rosario Saucedo MD 11/07/2017 1:09 PM Signed Leg Cramp supplement might help. Stretching exercises before getting out of bed. Referring Provider: SELF [[id number]] Allergies As of Date: 11/07/2017 Noted Allergy Reaction CYMBALTA (DULOXETINE) 12/09/2014 6 - Diarrhea Comments: severe diarrhea and incontinence LISINOPRIL 09/26/2010 3 - Cough Comments: on 10 mg dose; worse with 10 mg BID TRAMADOL 06/02/2017 14 - Other: See Comments Comments: Possible related to new onset seizure Date Reviewed: 11/07/2017 Reviewed by: Beulah Persaud Inspecting Engineer - Fully Assessed Reason for Visit: Recheck [92] Primary Visit Diagnosis:Acquired hypothyroidism [E03.9] Other Visit Diagnoses:Essential hypertension [I10] Vitamin D deficiency [E55.9] Seizure disorder (HCC) [G40.909] DDD (degenerative disc disease), lumbar [M51.36] Fibromyalgia [M79.7] 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 #:[id number] T4 FREE/FREE THYROX [SQFT4] Order #: [id number]. #:[id number] T3 FREE BLD [SQFREET3] Order #: [id number]. #:[id number] LIPID PANEL, NONFASTING [SQLIPNF] Order #: [id number]. #:[id number] VITAMIN D 25 HYDROXY [SQVITD] Order #: [id number]. #:[id number] [START ON 11/21/2017] HYDROcodone-acetaminophen (NORCO) 5-325 mg per tabletTake 1 tablet by mouth once daily as needed for up to 30 days. Earliest Fill Date: 11/21/17Disp: 30 tabletRfl: 0 [START ON 12/21/2017] HYDROcodone-acetaminophen (NORCO) 5-325 mg per tabletTake 1 tablet by mouth once daily as needed for up to 30 days. Earliest Fill Date: 12/21/17Disp: 30 tabletRfl: 0 [START ON 01/20/2018] HYDROcodone-acetaminophen (NORCO) 5-325 mg per tabletTake 1 tablet by mouth once daily as needed for up to 30 days. Earliest Fill Date: 01/20/18Disp: 30 tabletRfl: 0 Prescriptions as of 11/07/2017 Sig: LEVETIRACETAM 500 MG TABLET Take 1 tablet by mouth twice * HYDROCODONE 5 MG-ACETAMINOPHE* Take 1 tablet by mouth once d* HYDROCODONE 5 MG-ACETAMINOPHE* Take 1 tablet by mouth once d* HYDROCODONE 5 MG-ACETAMINOPHE* Take 1 tablet by mouth once d* LOSARTAN 50 MG TABLET Take 1 tablet by mouth once d* GABAPENTIN 100 MG CAPSULE Take 1 capsule by mouth twice* SULFACETAMIDE SODIUM 10 % EYE* Instill 1-2 drops 4 times per* LEVOTHYROXINE 88 MCG TABLET Take 1 tablet by mouth once d* ATENOLOL 50 MG TABLET Take 1 tablet by mouth once d* FLUTICASONE 50 MCG/ACTUATION * Use 2 Sprays in each nostril * COMPOUNDED PRESCRIPTION Lab order: TSH, Free T4 Di* PREDNISONE 10 MG TABLET Take 1 tablet by mouth once d* ATORVASTATIN 40 MG TABLET Take 1 tablet by mouth once d* ASPIRIN 81 MG TABLET,DELAYED * Take 1 tablet by mouth once d* OMEPRAZOLE 40 MG CAPSULE,TORREY* Take 1 capsule by mouth once * COMPOUNDED PRESCRIPTION Lab order: TSH Diagnoses: * DOHDSIYV-[id number]-WCQCITAYH * Use 3 Drops in both ears four* MECLIZINE 25 MG TABLET Take 1 tablet by mouth every * SENNOSIDES 8.6 MG-DOCUSATE SO* Take 2 tablets by mouth once * COMPOUNDED PRESCRIPTION Bed rail Dx is CVA COMPOUNDED PRESCRIPTION Ostomy Pouch- Paper Tab and S* TRIAMCINOLONE ACETONIDE 0.1 %* Apply 1 application to affect* CHOLECALCIFEROL (VITAMIN D3) * Take 1 capsule by mouth once * Medication notes this encounter OMEPRAZOLE 40 MG CAPSULE,DELAYED RELEASE >> Maria Del Rosario Zarate MD 11/07/2017 1:03 PM >> MARIA DEL ROSARIO ZARATE MD FriNovember 07, 2017 1:03 PM Takes just as needed. Not even weekly Problem List As Of Date 11/07/2017 Noted Resolved OSTEOPOROSIS NOS [M81.0] INVALID FOR* More... Essential hypertension [I10] INVALID FOR* Hypothyroidism [E03.9] INVALID FOR* CALCULUS OF KIDNEY [N20.0] INVALID FOR* ESOPHAGEAL REFLUX [K21.9] INVALID FOR* CHRONIC RHINITIS [J31.0] INVALID FOR* CERVICALGIA [M54.2] INVALID FOR* More... Hyperlipidemia [E78.5] INVALID FOR* PERS HX OF BLADDER MALIGNANCY [Z85.51] INVALID FOR* GENERAL OSTEOARTHROSIS [M15.9] LUMBAGO [M54.5] INVALID FOR* Sciatica [M54.30] DDD (Degenerative Disc Disease), Lumbar [M51.36] More... Backache, unspecified [M54.9] INVALID FOR*04/30/2013 Vitamin D Deficiency [E55.9] INVALID FOR* Degeneration of lumbar or lumbosacral intervert*INVALID FOR*04/30/2013 Personal History of Kidney Stones [Z87.442] INVALID FOR* Back pain [M54.9] INVALID FOR* Colon polyps [K63.5] INVALID FOR* More... 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 Pain in joint, lower leg [M25.569] INVALID FOR* Fibromyalgia [M79.7] INVALID FOR* Obesity [E66.9] INVALID FOR* Elevated serum creatinine [R79.89] INVALID FOR* Weakness [R53.1] INVALID FOR* Balance problems [R26.89] INVALID FOR* Presence of urostomy (HCC) [Z93.6] INVALID FOR* Seizure disorder (HCC) [G40.909] INVALID FOR* Other instructions from your clinician: Leg Cramp supplement might help. Stretching exercises before getting out of bed. Prescriptions ordered this encounter Disp Refills Start End LEVETIRACETAM 500 MG TABLET 180 * 1 11/07/2017 Route: ORAL Sig: Take 1 tablet by mouth twice daily. HYDROCODONE 5 MG-ACETAMINOPHEN 325 M* 30 t* 0 11/21/2017 12/21/2017 Class: Print RX Route: ORAL Sig: Take 1 tablet by mouth once daily as needed for up to 30 days. Earliest Fill Date: 11/21/17 HYDROCODONE 5 MG-ACETAMINOPHEN 325 M* 30 t* 0 12/21/2017 01/20/2018 Class: Print RX Route: ORAL Sig: Take 1 tablet by mouth once daily as needed for up to 30 days. Earliest Fill Date: 12/21/17 HYDROCODONE 5 MG-ACETAMINOPHEN 325 M* 30 t* 0 01/20/2018 02/19/2018 Class: Print RX Route: ORAL Sig: Take 1 tablet by mouth once daily as needed for up to 30 days. Earliest Fill Date: 01/20/18 Medications Discontinued During This Encounter levETIRAcetam (KEPPRA) 500 mg tablet 05/19/2017 11/07/2017 Class: Historical Med Sig: TWICE A DAY Disc: Reason for discontinue is not on file. levETIRAcetam (KEPPRA) 500 mg tablet 180 * 1 06/02/2017 11/07/2017 Route: ORAL Sig: Take 1 tablet by mouth twice daily. Disc: Reason for discontinue is not on file. HYDROcodone-acetaminophen (NORCO) 5-* 30 t* 0 10/21/2017 11/07/2017 Class: Print RX Route: ORAL Sig: Take 1 tablet by mouth once daily as needed for up to 30 days. Earliest Fill Date: 10/21/17 Disc: Reason for discontinue is not on file. Disposition: Return in about 6 months (around 05/04/2018) for Add April PM . Follow-up and Disposition History Recorded Encounter Status:Closed by MARIA DEL ROSARIO ZARATE MD on 11/20/17 CBC W/DIFF, AUTOMATED Collected: 10/14/2017 Status: F Source: [place] 1:05 PM [facility] REPOSITORY TYPE CODE TESTS RESULT OUT OF RANGE REFERENCE UNITS LAB L100.1000 4.4-11.0 K/mm3 Normal WBC 8.1 LAB L100.1200 4.2-5.4 M/mm3 Normal RBC 4.46 LAB L100.1300 12.0-15.0 g/dl Normal HGB 12.9 LAB L100.1400 37-47 % Normal HCT 40.7 LAB L100.1500 81-99 fL Normal MCV 91.3 LAB L100.1600 27.0-32.0 pg Normal MCH 28.9 LAB L100.1700 32-36 g/gl Low MCHC 31.7 LAB L100.1810 11.6-14.6 % Normal RDW CV 13.1 LAB L100.1820 35.1-43.9 fl Normal RDW SD 43.4 LAB L100.1900 150-450 K/mm3 Normal PLT 186 LAB L100.2000 6.2-12.0 fl High MPV 13.0 LAB L100.2100 47-70 % Normal NEUT% 61.7 LAB L100.2200 19-41 % Normal LY% 26.2 LAB L100.2300 0-10 % Normal MONO% 8.0 LAB L100.2400 0-5 % Normal EO% 3.6 LAB L100.2500 0-1 % Normal BASO% 0.4 LAB L100.2550 0.0-0.9 % Normal IM GRAN % 0.100 Result Comment: IG% - Immature Granulocytes (promyelocytes, myelocytes and metamyelocytes) > 1% indicates that a LEFT SHIFT is Present. LAB L100.2620 2.0-7.7 X10 3/uL Normal Absolute Neut 5.0 LAB L100.2720 0.83-4.51 X10 3/ul Normal Absolute Lymph 2.11 Performed By: #### L100.0100 #### [facility] [address] [place], [address] COMPREHENSIVE METABOLIC Collected: 10/14/2017 Status: F Source: [place] 1:05 PM [facility] REPOSITORY TYPE CODE TESTS RESULT OUT OF RANGE REFERENCE UNITS LAB L501.0100 74-106 mg/dL Normal GLU 94 Result Comment: Please note revised GLUCOSE reference range effective 2017. LAB L501.1000 7-18 mg/dL Normal BUN 18 LAB L501.1100 0.55-1.02 mg/dL High CREAT,SERUM 1.49 Result Comment: The validity of the calculated GFR AND GFRAA in patients over 70 years has not been determined. Clinical correlation is essential. LAB L501.1110 >60 mL/min Low EST GFR 36 Result Comment: Non- GFR Calc LAB L501.1115 >60 mL/min Low EST GFR - AA 43 Result Comment: GFR Calc LAB L501.1300 10-20 RATIO Normal BUN/CRE 12.1 LAB L501.1500 6.4-8.2 g/dL T Normal PROT 7.6 LAB L501.1800 3.2-5.0 g/dL Normal ALB 3.6 LAB L501.1950 2.2-4.2 g/dL Normal GLOB 4.0 LAB L501.2000 0.9-2.4 RATIO Normal A/G 0.9 LAB L501.2200 8.5-10.1 mg/dL CA Normal 8.9 LAB L501.4100 15-37 U/L Normal AST 16 LAB L501.4305 45-117 U/L Normal ALK P 107 LAB L501.4405 13-56 U/L Normal ALT 14 LAB L501.4600 0.20-1.00 mg/dL T Normal BILI 0.70 LAB L501.5300 136-145 mmol/L NA Normal 139 LAB L501.5600 3.5-5.1 mmol/L K Normal 4.0 LAB L501.5900 98-107 mmol/L CL Normal 104 LAB L501.6100 21.0-32.0 mmol/L Normal CO2 25.0 LAB L501.6200 5-15 Normal GAP 10 Performed By: #### L500.4050 #### [facility] Laboratory [address] [place], [address] PROGRESS Observed: 09/26/2017 Status: COMPLETED Source: [place] 3:29 PM [facility] REPOSITORY HNO ID: [id number] Author: Wendy Ruiz Service: (none) Author Type: Physician Type: Progress Notes Filed: 09/26/2017 10:28 PM Note Text: Consultation requested by Dr. Zarate for an opinion regarding painful left hallux toenail. My final recommendations will be communicated back to the requesting physician by way of shared Medical record or letter to requesting physician via US mail. Initial Podiatric Office Visit: Chief Complaint: This 77 year old female who presents with chief complaint:left great toe pain HPI Patient presents to clinic for evaluation of left great toe pain. She states that her toenail is thick and painful and hard to cut. She also has pain to the dorsal aspect of her left foot. She states that last year, she fell and bruised her foot. She states the pain is usually present when she first starts walking but after she has been walking for a while, the pain eases up. Patient does not take any medication for her foot pain. Patient also has hx of stroke in 2017. She does complain of some weakness of feet but she states she just have to get up and move. PAIN EVALUATION No data found. No results found for: HBA1C PCP: Maria Del Rosario Zarate MD PAST MEDICAL HISTORY Diagnosis Date - Cervicalgia 02/11/2007 ?diagnosis - await records - Dean angioma 07/26/2012 - DDD (degenerative disc disease), lumbar suspect lumbar canal stenosis as well on Xrays 2007 - Esophageal reflux 02/11/2007 - Fibromyalgia 09/12/2014 - Generalized osteoarthrosis, unspecified site Saw Dr. Miranda Lee in [place] - Hypothyroidism November 2012 last labs--[facility] - Osteoporosis, unspecified 02/11/2007 Last BMD - 1 year ago - Other and unspecified hyperlipidemia 02/11/2007 - Personal History of Kidney Stones 02/11/2007 - Personal history of malignant neoplasm of bladder 02/11/2007 1992 - PMH - PAST MEDICAL HISTORY OF 1991 Bladder Cancer - PMH - PAST MEDICAL HISTORY OF 1991 Ostomy ([place]; [place]) - Presence of urostomy ([facility]) 10/19/2016 - Sciatica - Status of other artificial opening of urinary tract 02/11/2007 1992 - Unspecified essential hypertension 02/11/2007 Current Outpatient Prescriptions: HYDROcodone-acetaminophen (NORCO) 5-325 mg per tablet Take 1 tablet by mouth once daily as needed for up to 30 days.Earliest Fill Date: 09/19/17 gabapentin (NEURONTIN) 100 mg capsule Take 1 capsule by mouth twice daily for 180 days. sulfacetamide (BLEPH-10) 10 % ophthalmic solution Instill 1-2 drops 4 times per day in the affected eye for 7 days - for eye infection levothyroxine (SYNTHROID) 88 mcg tablet Take 1 tablet by mouth once daily. or as directed levETIRAcetam (KEPPRA) 500 mg tablet Take 1 tablet by mouth twice daily. atenolol (TENORMIN) 50 mg tablet Take 1 tablet by mouth once daily. fluticasone (FLONASE) 50 mcg/actuation nasal spray Use 2 Sprays in each nostril once daily. RINSE MOUTH AFTER EACH DOSE COMPOUNDED PRESCRIPTION Lab order: TSH, Free T4 Diagnosis: E03.9 predniSONE (DELTASONE) 10 mg tablet Take 1 tablet by mouth once daily. As directed by Dr. Vargas--takes for 3 days as needed for flare up atorvastatin (LIPITOR) 40 mg tablet Take 1 tablet by mouth once daily. aspirin, enteric coated (ECOTRIN LOW STRENGTH) 81 mg EC tablet Take 1 tablet by mouth once daily. Omeprazole 40 mg capsule Take 1 capsule by mouth once daily. losartan (COZAAR) 50 mg tablet Take 1 tablet by mouth once daily. COMPOUNDED PRESCRIPTION Lab order: TSH Diagnoses: E03.9. fkkivszr-mjhphpkbw-cvclbnjfwtxgkd (CORTISPORIN) 3.5-10,000-1 mg/mL-unit/mL-% otic suspension Use 3 Drops in both ears four times daily. As directed meclizine (ANTIVERT) 25 mg tab Take 1 tablet by mouth every 6 hours as needed (dizziness). senna-docusate (SENNA-S) 8.6-50 mg per tablet Take 2 tablets by mouth once daily. COMPOUNDED PRESCRIPTION Bed railDx is CVA COMPOUNDED PRESCRIPTION Ostomy Pouch- Paper Tab and Skin tab with whip. One month supply.Dx-Z93.6 triamcinolone acetonide (KENALOG) 0.1 % cream Apply 1 application to affected area twice daily as needed. Apply sparingly to area for rash/itching. Cholecalciferol, Vitamin D3, 5,000 unit ORAL Cap Take 1 capsule by mouth once daily. No current facility-administered medications for this visit. ALLERGIES Allergen Reactions - Cymbalta [Duloxetin* Diarrhea severe diarrhea and incontinence - Lisinopril Cough on 10 mg dose; worse with 10 mg BID - Tramadol Other: See Comments Possible related to new onset seizure PAST SURGICAL HISTORY Procedure Laterality Date - PAST SURGICAL HISTORY OF 1991 Ostomy for bladder cancer - TOTAL ABDOM HYSTERECTOMY 1991 Hysterectomy, [place] FAMILY HISTORY Problem Relation Age of Onset - Arthritis Sister Rhuematoid - Cancer Sister Melonomia ( ) 2002 - Coronary Artery Disease Father - Heart Brother - Diabetes Brother Social History Marital status: Spouse name: Years of education: Number of children: Social History Main Topics Smoking status: Former Smoker Packs/day: 0.50 Years: 30.00 Types: Cigarettes Quit date: 07/07/1991 Smokeless status: Never Used Alcohol use: Yes 1.5 oz/week 1 Cans of Beer (12oz) per week Drug use: No REVIEW OF SYSTEMS GENERAL: Negative for Malaise, significant weight loss, fever RESPIRATORY: Negative for cough, wheezing and shortness of breath CARDIOVASCULAR: Negative for chest pain, leg swelling and palpitations GI: Negative for abdominal discomfort, blood in stools or black stools and change in bowel habits : Negative for dysuria, frequency and incontinence MUSCULOSKELETAL: Negative for joint pain or swelling, back pain, and muscle pain. SKIN: Negative for lesions, rash, and itching. HEMATOLOGY/LYMPHOLOGY Negative for prolonged bleeding, bruising easily, and swollen nodes. ENDOCRINE: Negative for cold or heat intolerance, polyuria, polydipsia and goiter. NEURO: negative Physical Exam: Constitutional: Pt is a well developed 77 year old female who is alert, oriented and cooperative Eyes: Following during examination. No redness or drainage. Respiratory: RR normal and nonlabored. Even breathing. No evidence of distress or shortness of breath. Psychology: Patient is engaged during conversation. Normal affect and mood. Does not appear depressed or anxious during encounter. Vascular: Dorsalis pedis and posterior tibial pulses palpable as b/l Capillary Fill time < 5 seconds to digits 1-5 b/l Skin temperature warm to warm proximal to distal b/l Hair growth present to digits Neurological: intact light touch/epicritic sensation Vibratory sensation intact to hallux b/l inact protective sensation no significant neurological deficits Dermatological: Nails 1-5 b/l painful, long. Webspaces clean and dry 1-4 b/l. Skin appears well hydrated and supple. good color, texture, turgor. No open lesions present. No callosities present. Musculoskeletal/Orthopaedic: Patient has pain to palpation of left hallux toenails Foot type is neutral structurally AJ ROM is full with knee extended and flexed 1st MPJ is full when loaded and no pain or crepitus are noted with ROM. MTJ, STJ are full and free of pain and crepitus. +5/5 muscle strength dorsiflexion, plantarflexion, inversion, eversion b/l ASSESSMENT: (B35.1) Onychomycosis (primary encounter diagnosis) (M79.675) Pain in toe of left foot (M79.674) Pain in toe of right foot PLAN: 1. History and physical examination performed. 2 toenails 1-5 right and 1-5 left debrided in length and thickness 3. Patient offered xray for left foot pain but she declined 4. F/u in 3 months for nail care Wendy Ruiz DPM CNOV Observed: 09/26/2017 Status: COMPLETED Source: [place] 2:40 PM [facility] REPOSITORY Office Visit (PODIWS) RAN LANDRY ([id number]) 1940 F Date Time Provider Department 09/26/17 2:40 PM WENDY RUIZ During your visit today, we recorded the following information about you: Wendy Ruiz DPM 09/26/2017 10:28 PM Signed Consultation requested by Dr. Zarate for an opinion regarding painful left hallux toenail. My final recommendations will be communicated back to the requesting physician by way of shared Medical record or letter to requesting physician via US mail. Initial Podiatric Office Visit: Chief Complaint: This 77 year old female who presents with chief complaint:left great toe pain HPI Patient presents to clinic for evaluation of left great toe pain. She states that her toenail is thick and painful and hard to cut. She also has pain to the dorsal aspect of her left foot. She states that last year, she fell and bruised her foot. She states the pain is usually present when she first starts walking but after she has been walking for a while, the pain eases up. Patient does not take any medication for her foot pain. Patient also has hx of stroke in 2017. She does complain of some weakness of feet but she states she just have to get up and move. PAIN EVALUATION No data found. No results found for: HBA1C PCP: Maria Del Rosario Zarate MD PAST MEDICAL HISTORY Diagnosis Date - Cervicalgia 02/11/2007 ?diagnosis - await records - Dean angioma 07/26/2012 - DDD (degenerative disc disease), lumbar suspect lumbar canal stenosis as well on Xrays 2007 - Esophageal reflux 02/11/2007 - Fibromyalgia 09/12/2014 - Generalized osteoarthrosis, unspecified site Saw Dr. Miranda Lee in [place] - Hypothyroidism November 2012 last labs--[facility] - Osteoporosis, unspecified 02/11/2007 Last BMD - 1 year ago - Other and unspecified hyperlipidemia 02/11/2007 - Personal History of Kidney Stones 02/11/2007 - Personal history of malignant neoplasm of bladder 02/11/2007 1992 - PM[facility] - PAST MEDICAL HISTORY OF 1991 Bladder Cancer - PM - PAST MEDICAL HISTORY OF 1991 Ostomy ([facility]; [place]) - Presence of urostomy ([facility]) 10/19/2016 - Sciatica - Status of other artificial opening of urinary tract 02/11/2007 1992 - Unspecified essential hypertension 02/11/2007 Current Outpatient Prescriptions: HYDROcodone-acetaminophen (NORCO) 5-325 mg per tablet Take 1 tablet by mouth once daily as needed for up to 30 days.Earliest Fill Date: 09/19/17 gabapentin (NEURONTIN) 100 mg capsule Take 1 capsule by mouth twice daily for 180 days. sulfacetamide (BLEPH-10) 10 % ophthalmic solution Instill 1-2 drops 4 times per day in the affected eye for 7 days - for eye infection levothyroxine (SYNTHROID) 88 mcg tablet Take 1 tablet by mouth once daily. or as directed levETIRAcetam (KEPPRA) 500 mg tablet Take 1 tablet by mouth twice daily. atenolol (TENORMIN) 50 mg tablet Take 1 tablet by mouth once daily. fluticasone (FLONASE) 50 mcg/actuation nasal spray Use 2 Sprays in each nostril once daily. RINSE MOUTH AFTER EACH DOSE COMPOUNDED PRESCRIPTION Lab order: TSH, Free T4 Diagnosis: E03.9 predniSONE (DELTASONE) 10 mg tablet Take 1 tablet by mouth once daily. As directed by Dr. Vargas--takes for 3 days as needed for flare up atorvastatin (LIPITOR) 40 mg tablet Take 1 tablet by mouth once daily. aspirin, enteric coated (ECOTRIN LOW STRENGTH) 81 mg EC tablet Take 1 tablet by mouth once daily. Omeprazole 40 mg capsule Take 1 capsule by mouth once daily. losartan (COZAAR) 50 mg tablet Take 1 tablet by mouth once daily. COMPOUNDED PRESCRIPTION Lab order: TSH Diagnoses: E03.9. byxuimdn-rdwpbwlyf-chfhgedytjtgyr (CORTISPORIN) 3.5-10,000-1 mg/mL-unit/mL-% otic suspension Use 3 Drops in both ears four times daily. As directed meclizine (ANTIVERT) 25 mg tab Take 1 tablet by mouth every 6 hours as needed (dizziness). senna-docusate (SENNA-S) 8.6-50 mg per tablet Take 2 tablets by mouth once daily. COMPOUNDED PRESCRIPTION Bed railDx is CVA COMPOUNDED PRESCRIPTION Ostomy Pouch- Paper Tab and Skin tab with whip. One month supply.Dx-Z93.6 triamcinolone acetonide (KENALOG) 0.1 % cream Apply 1 application to affected area twice daily as needed. Apply sparingly to area for rash/itching. Cholecalciferol, Vitamin D3, 5,000 unit ORAL Cap Take 1 capsule by mouth once daily. No current facility-administered medications for this visit. ALLERGIES Allergen Reactions - Cymbalta [Duloxetin* Diarrhea severe diarrhea and incontinence - Lisinopril Cough on 10 mg dose; worse with 10 mg BID - Tramadol Other: See Comments Possible related to new onset seizure PAST SURGICAL HISTORY Procedure Laterality Date - PAST SURGICAL HISTORY OF 1991 Ostomy for bladder cancer - TOTAL ABDOM HYSTERECTOMY 1991 Hysterectomy, [place] FAMILY HISTORY Problem Relation Age of Onset - Arthritis Sister Rhuematoid - Cancer Sister Melonomia ( ) 2003 - Coronary Artery Disease Father - Heart Brother - Diabetes Brother Social History Marital status: Spouse name: Years of education: Number of children: Social History Main Topics Smoking status: Former Smoker Packs/day: 0.50 Years: 30.00 Types: Cigarettes Quit date: 07/07/1991 Smokeless status: Never Used Alcohol use: Yes 1.5 oz/week 1 Cans of Beer (12oz) per week Drug use: No REVIEW OF SYSTEMS GENERAL: Negative for Malaise, significant weight loss, fever RESPIRATORY: Negative for cough, wheezing and shortness of breath CARDIOVASCULAR: Negative for chest pain, leg swelling and palpitations GI: Negative for abdominal discomfort, blood in stools or black stools and change in bowel habits : Negative for dysuria, frequency and incontinence MUSCULOSKELETAL: Negative for joint pain or swelling, back pain, and muscle pain. SKIN: Negative for lesions, rash, and itching. HEMATOLOGY/LYMPHOLOGY Negative for prolonged bleeding, bruising easily, and swollen nodes. ENDOCRINE: Negative for cold or heat intolerance, polyuria, polydipsia and goiter. NEURO: negative Physical Exam: Constitutional: Pt is a well developed 77 year old female who is alert, oriented and cooperative Eyes: Following during examination. No redness or drainage. Respiratory: RR normal and nonlabored. Even breathing. No evidence of distress or shortness of breath. Psychology: Patient is engaged during conversation. Normal affect and mood. Does not appear depressed or anxious during encounter. Vascular: Dorsalis pedis and posterior tibial pulses palpable as b/l Capillary Fill time ANDlt; 5 seconds to digits 1-5 b/l Skin temperature warm to warm proximal to distal b/l Hair growth present to digits Neurological: intact light touch/epicritic sensation Vibratory sensation intact to hallux b/l inact protective sensation no significant neurological deficits Dermatological: Nails 1-5 b/l painful, long. Webspaces clean and dry 1-4 b/l. Skin appears well hydrated and supple. good color, texture, turgor. No open lesions present. No callosities present. Musculoskeletal/Orthopaedic: Patient has pain to palpation of left hallux toenails Foot type is neutral structurally AJ ROM is full with knee extended and flexed 1st MPJ is full when loaded and no pain or crepitus are noted with ROM. MTJ, STJ are full and free of pain and crepitus. +5/5 muscle strength dorsiflexion, plantarflexion, inversion, eversion b/l ASSESSMENT: (B35.1) Onychomycosis (primary encounter diagnosis) (M79.675) Pain in toe of left foot (M79.674) Pain in toe of right foot PLAN: 1. History and physical examination performed. 2 toenails 1-5 right and 1-5 left debrided in length and thickness 3. Patient offered xray for left foot pain but she declined 4. F/u in 3 months for nail care VAZQUEZ Rothman Ma 09/26/2017 3:41 PM Signed Follow up in 3 months for nail care Referring Provider: MARIA DEL ROSARIO ZARATE [[id number]] Allergies As of Date: 09/26/2017 Noted Allergy Reaction CYMBALTA (DULOXETINE) 12/09/2014 6 - Diarrhea Comments: severe diarrhea and incontinence LISINOPRIL 09/26/2010 3 - Cough Comments: on 10 mg dose; worse with 10 mg BID TRAMADOL 06/02/2017 14 - Other: See Comments Comments: Possible related to new onset seizure Date Reviewed: 09/26/2017 Reviewed by: Amrita Kimball Ma - Fully Assessed Reason for Visit: Painful Toenails [[id number]] Primary Visit Diagnosis:Onychomycosis [B35.1] Other Visit Diagnoses:Pain in toe of left foot [M79.675] Pain in toe of right foot [M79.674] Prescriptions as of 09/26/2017 Sig: HYDROCODONE 5 MG-ACETAMINOPHE* Take 1 tablet by mouth once d* GABAPENTIN 100 MG CAPSULE Take 1 capsule by mouth twice* SULFACETAMIDE SODIUM 10 % EYE* Instill 1-2 drops 4 times per* LEVOTHYROXINE 88 MCG TABLET Take 1 tablet by mouth once d* LEVETIRACETAM 500 MG TABLET Take 1 tablet by mouth twice * ATENOLOL 50 MG TABLET Take 1 tablet by mouth once d* FLUTICASONE 50 MCG/ACTUATION * Use 2 Sprays in each nostril * COMPOUNDED PRESCRIPTION Lab order: TSH, Free T4 Di* PREDNISONE 10 MG TABLET Take 1 tablet by mouth once d* ATORVASTATIN 40 MG TABLET Take 1 tablet by mouth once d* ASPIRIN 81 MG TABLET,DELAYED * Take 1 tablet by mouth once d* OMEPRAZOLE 40 MG CAPSULE,TORREY* Take 1 capsule by mouth once * LOSARTAN 50 MG TABLET Take 1 tablet by mouth once d* COMPOUNDED PRESCRIPTION Lab order: TSH Diagnoses: * [id number] * Use 3 Drops in both ears four* MECLIZINE 25 MG TABLET Take 1 tablet by mouth every * SENNOSIDES 8.6 MG-DOCUSATE SO* Take 2 tablets by mouth once * COMPOUNDED PRESCRIPTION Bed rail Dx is CVA COMPOUNDED PRESCRIPTION Ostomy Pouch- Paper Tab and S* TRIAMCINOLONE ACETONIDE 0.1 %* Apply 1 application to affect* CHOLECALCIFEROL (VITAMIN D3) * Take 1 capsule by mouth once * Problem List As Of Date 09/26/2017 Noted Resolved OSTEOPOROSIS NOS [M81.0] INVALID FOR* More... Essential hypertension [I10] INVALID FOR* Hypothyroidism [E03.9] INVALID FOR* CALCULUS OF KIDNEY [N20.0] INVALID FOR* ESOPHAGEAL REFLUX [K21.9] INVALID FOR* CHRONIC RHINITIS [J31.0] INVALID FOR* CERVICALGIA [M54.2] INVALID FOR* More... Hyperlipidemia [E78.5] INVALID FOR* PERS HX OF BLADDER MALIGNANCY [Z85.51] INVALID FOR* GENERAL OSTEOARTHROSIS [M15.9] LUMBAGO [M54.5] INVALID FOR* Sciatica [M54.30] DDD (Degenerative Disc Disease), Lumbar [M51.36] More... Backache, unspecified [M54.9] INVALID FOR*04/30/2013 Vitamin D Deficiency [E55.9] INVALID FOR* Degeneration of lumbar or lumbosacral intervert*INVALID FOR*04/30/2013 Personal History of Kidney Stones [Z87.442] INVALID FOR* Back pain [M54.9] INVALID FOR* Colon polyps [K63.5] INVALID FOR* More... 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 Pain in joint, lower leg [M25.569] INVALID FOR* Fibromyalgia [M79.7] INVALID FOR* Obesity [E66.9] INVALID FOR* Elevated serum creatinine [R79.89] INVALID FOR* Weakness [R53.1] INVALID FOR* Balance problems [R26.89] INVALID FOR* Presence of urostomy (HCC) [Z93.6] INVALID FOR* Seizure disorder (HCC) [G40.909] INVALID FOR* Other instructions from your clinician: Follow up in 3 months for nail care Disposition: Return in about 3 months (around 12/27/2017) for nail care. Follow-up and Disposition History Recorded Encounter Status:Closed by WENDY RUIZ DPM on 09/26/17 PROGRESS Observed: 09/04/2017 Status: COMPLETED Source: [place] 3:47 PM [facility] RE[facility] HNO ID: [id number] Author: Maria Del Rosario Zarate Service: (none) Author Type: Physician Type: Progress Notes Filed: 09/14/2017 11:58 PM Note Text: Patient presents with: Recheck SUBJECTIVE: Ran Landry is a 77 year old year old lady here today for 3 month follow up appointment for review of medical conditions. Feet pain and knee pain. Noted lumps on bottom of feet. Rolling over a weight bar helps. Topical meds can help. Gets cramps in legs too. Reviewed that was stopped on tramadol because of the seizure. Pain increased after off tramadol. Only has [place]--saves for severe pain Issues with toenails noted. hard for her to take care of them. Vision problems. Aching pain left mid-chest. Sits and relaxes and goes away. 3 to 4 times a week. Noted when really tired. Deep breath triggering. PAST MEDICAL HISTORY Diagnosis Date - Cervicalgia 02/11/2007 ?diagnosis - await records - Dean angioma 07/26/2012 - DDD (degenerative disc disease), lumbar suspect lumbar canal stenosis as well on Xrays 2007 - Esophageal reflux 02/11/2007 - Fibromyalgia 09/12/2014 - Generalized osteoarthrosis, unspecified site Saw Dr. Miranda Lee in [place] - Hypothyroidism November 2012 last labs--[facility] - Osteoporosis, unspecified 02/11/2007 Last BMD - 1 year ago - Other and unspecified hyperlipidemia 02/11/2007 - Personal History of Kidney Stones 02/11/2007 - Personal history of malignant neoplasm of bladder 02/11/20071991 - PM - PAST MEDICAL HISTORY OF 1991 Bladder Cancer - PM - PAST MEDICAL HISTORY OF 1991 Ostomy ([facility]; [place]) - Presence of urostomy ([facility]) 10/19/2016 - Sciatica - Status of other artificial opening of urinary tract 02/11/20071991 - Unspecified essential hypertension 02/11/2007 Current Outpatient Prescriptions: HYDROcodone-acetaminophen (NORCO) 5-325 mg per tablet Take 1 tablet by mouth once daily as needed for up to 30 days. sulfacetamide (BLEPH-10) 10 % ophthalmic solution Instill 1-2 drops 4 times per day in the affected eye for 7 days - for eye infection gabapentin (NEURONTIN) 100 mg capsule Take 1 capsule by mouth daily at bedtime for 90 days. levothyroxine (SYNTHROID) 88 mcg tablet Take 1 tablet by mouth once daily. or as directed levETIRAcetam (KEPPRA) 500 mg tablet Take 1 tablet by mouth twice daily. atenolol (TENORMIN) 50 mg tablet Take 1 tablet by mouth once daily. fluticasone (FLONASE) 50 mcg/actuation nasal spray Use 2 Sprays in each nostril once daily. RINSE MOUTH AFTER EACH DOSE COMPOUNDED PRESCRIPTION Lab order: TSH, Free T4 Diagnosis: E03.9 atorvastatin (LIPITOR) 40 mg tablet Take 1 tablet by mouth once daily. aspirin, enteric coated (ECOTRIN LOW STRENGTH) 81 mg EC tablet Take 1 tablet by mouth once daily. Omeprazole 40 mg capsule Take 1 capsule by mouth once daily. losartan (COZAAR) 50 mg tablet Take 1 tablet by mouth once daily. COMPOUNDED PRESCRIPTION Lab order: TSH Diagnoses: E03.9. pynxzlxp-iydbvrbvq-utvjntvibwdywc (CORTISPORIN) 3.5-10,000-1 mg/mL-unit/mL-% otic suspension Use 3 Drops in both ears four times daily. As directed meclizine (ANTIVERT) 25 mg tab Take 1 tablet by mouth every 6 hours as needed (dizziness). senna-docusate (SENNA-S) 8.6-50 mg per tablet Take 2 tablets by mouth once daily. COMPOUNDED PRESCRIPTION Bed Rubenx is CVA COMPOUNDED PRESCRIPTION Ostomy Pouch- Paper Tab and Skin tab with whip. One month supply.Dx-Z93.6 triamcinolone acetonide (KENALOG) 0.1 % cream Apply 1 application to affected area twice daily as needed. Apply sparingly to area for rash/itching. Cholecalciferol, Vitamin D3, 5,000 unit ORAL Cap Take 1 capsule by mouth once daily. predniSONE (DELTASONE) 10 mg tablet Take 1 tablet by mouth once daily. As directed by Dr. Vargas--takes for 3 days as needed for flare up No current facility-administered medications for this visit. OBJECTIVE: BP 124/72 Pulse 60 Resp 14 Wt 80.7 kg (178 lb) BMI 29.62 kg/m2 Patient is alert, oriented times 3, no apparent distress, affect is bright, reactive. Last 5 Encounter BP Readings: Date: BP: 09/04/2017 124/72 08/06/2017 122/72 06/02/2017 122/72 05/05/2017 130/82 03/20/2017 126/74 Last 10 Encounter Wt Readings: Date: Wt: 09/04/2017 80.7 kg (178 lb) 08/06/2017 78.9 kg (174 lb) 06/02/2017 78.5 kg (173 lb) 05/05/2017 79.8 kg (176 lb) 03/20/2017 78.5 kg (173 lb) 10/02/2016 77.1 kg (170 lb) 07/24/2016 57.6 kg (127 lb) 04/11/2016 81.6 kg (180 lb) 12/26/2015 82.6 kg (182 lb) 11/09/2015 83.5 kg (184 lb) Heart: Regular rate, rhythm, no murmurs, gallops, rubs. Lungs: Clear to auscultation, bilaterally, breathing non labored. Ext: No cyanosis, clubbing, or edema. ASSESSMENT AND PLAN: Encounter Diagnosis ICD-10-CM 1. Fibromyalgia M79.7 gabapentin (NEURONTIN) 100 mg capsule 2. Hypertrophic toenail L60.2 CONSULT TO PODIATRY great toenails; also has trouble with nail care 3. Essential hypertension I10 4. Bilateral sciatica M54.31 gabapentin (NEURONTIN) 100 mg capsule M54.32 5. Acquired hypothyroidism E03.9 TSH BLD T4 FREE/FREE THYROX 6. Hyperlipidemia, unspecified hyperlipidemia type E78.5 LIPID PANEL BASIC 7. Left-sided chest wall pain R07.89 8. Seizure disorder (HCC) G40.909 9. Presence of urostomy (HCC) Z93.6 10. 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 Patient involved in shared decision making for management of her medical issues. History and medications reviewed. Epic updated as needed Refills taken care of and meds adjusted as indicated after reviewed history, exam and labs. Health Maintenance reviewed. Updated record and/or ordered tests as recorded. Encouraged on efforts at healthy diet and regular exercise and adequate sleep. Stable with pain control. No signs of diversion or abuse of medication(s); no adverse effects. Continue present management. OARRS website checked and validated. All prescriptions have been APPROPRIATELY filled. No suspicious activity was identified.- 09/14/2017 by Maria Del Rosario Zarate MD Discussed reasons for limiting narcotics. Further evaluation and treatment as indicated. Trying low dose gabapentin. Adjust as tolerated as needed, The majority of the visit was spent counseling and/or coordinating care for the patient. Nkvk-ff-fdqy time was at least 25 minutes. Maria Del Rosario Zarate MD CNOV Observed: 09/04/2017 Status: COMPLETED Source: [place] 3:00 PM [facility] REPOSITORY Office Visit (INTMWS) RAN LANDRY ([id number]) 1940 F Date Time Provider Department 09/04/17 3:00 PM MARIA DEL ROSARIO ZARATE INTMWS During your visit today, we recorded the following information about you: Pulse Respiration Blood pressure Weight 60/minute 14/minute 124/72 80.7 kg Maria Del Rosario Zarate MD 09/14/2017 11:58 PM Signed Patient presents with: Recheck SUBJECTIVE: Ran Landry is a 77 year old year old lady here today for 3 month follow up appointment for review of medical conditions. Feet pain and knee pain. Noted lumps on bottom of feet. Rolling over a weight bar helps. Topical meds can help. Gets cramps in legs too. Reviewed that was stopped on tramadol because of the seizure. Pain increased after off tramadol. Only has [place]--saves for severe pain Issues with toenails noted. hard for her to take care of them. Vision problems. Aching pain left mid-chest. Sits and relaxes and goes away. 3 to 4 times a week. Noted when really tired. Deep breath triggering. PAST MEDICAL HISTORY Diagnosis Date - Cervicalgia 02/11/2007 ?diagnosis - await records - [place] angioma 07/26/2012 - DDD (degenerative disc disease), lumbar suspect lumbar canal stenosis as well on Xrays 2007 - Esophageal reflux 02/11/2007 - Fibromyalgia 09/12/2014 - Generalized osteoarthrosis, unspecified site Saw Dr. Miranda Lee in [place] - Hypothyroidism November 2012 last labs--[facility] - Osteoporosis, unspecified 02/11/2007 Last BMD - 1 year ago - Other and unspecified hyperlipidemia 02/11/2007 - Personal History of Kidney Stones 02/11/2007 - Personal history of malignant neoplasm of bladder 02/11/20071991 - [facility] - PAST MEDICAL HISTORY OF 1991 Bladder Cancer - PM - PAST MEDICAL HISTORY OF 1991 Ostomy ([place]; [place]) - Presence of urostomy (HCC) 10/19/2016 - Sciatica - Status of other artificial opening of urinary tract 02/11/2007 1992 - Unspecified essential hypertension 02/11/2007 Current Outpatient Prescriptions: HYDROcodone-acetaminophen (NORCO) 5-325 mg per tablet Take 1 tablet by mouth once daily as needed for up to 30 days. sulfacetamide (BLEPH-10) 10 % ophthalmic solution Instill 1-2 drops 4 times per day in the affected eye for 7 days - for eye infection gabapentin (NEURONTIN) 100 mg capsule Take 1 capsule by mouth daily at bedtime for 90 days. levothyroxine (SYNTHROID) 88 mcg tablet Take 1 tablet by mouth once daily. or as directed levETIRAcetam (KEPPRA) 500 mg tablet Take 1 tablet by mouth twice daily. atenolol (TENORMIN) 50 mg tablet Take 1 tablet by mouth once daily. fluticasone (FLONASE) 50 mcg/actuation nasal spray Use 2 Sprays in each nostril once daily. RINSE MOUTH AFTER EACH DOSE COMPOUNDED PRESCRIPTION Lab order: TSH, Free T4 Diagnosis: E03.9 atorvastatin (LIPITOR) 40 mg tablet Take 1 tablet by mouth once daily. aspirin, enteric coated (ECOTRIN LOW STRENGTH) 81 mg EC tablet Take 1 tablet by mouth once daily. Omeprazole 40 mg capsule Take 1 capsule by mouth once daily. losartan (COZAAR) 50 mg tablet Take 1 tablet by mouth once daily. COMPOUNDED PRESCRIPTION Lab order: TSH Diagnoses: E03.9. syclefef-btijyktib-uvadunhcxisvok (CORTISPORIN) 3.5-10,000-1 mg/mL-unit/mL-% otic suspension Use 3 Drops in both ears four times daily. As directed meclizine (ANTIVERT) 25 mg tab Take 1 tablet by mouth every 6 hours as needed (dizziness). senna-docusate (SENNA-S) 8.6-50 mg per tablet Take 2 tablets by mouth once daily. COMPOUNDED PRESCRIPTION Bed railDx is CVA COMPOUNDED PRESCRIPTION Ostomy Pouch- Paper Tab and Skin tab with whip. One month supply.Dx-Z93.6 triamcinolone acetonide (KENALOG) 0.1 % cream Apply 1 application to affected area twice daily as needed. Apply sparingly to area for rash/itching. Cholecalciferol, Vitamin D3, 5,000 unit ORAL Cap Take 1 capsule by mouth once daily. predniSONE (DELTASONE) 10 mg tablet Take 1 tablet by mouth once daily. As directed by Dr. Vargas--takes for 3 days as needed for flare up No current facility-administered medications for this visit. OBJECTIVE: BP 124/72 Pulse 60 Resp 14 Wt 80.7 kg (178 lb) BMI 29.62 kg/m2 Patient is alert, oriented times 3, no apparent distress, affect is bright, reactive. Last 5 Encounter BP Readings: Date: BP: 09/04/2017 124/72 08/06/2017 122/72 06/02/2017 122/72 05/05/2017 130/82 03/20/2017 126/74 Last 10 Encounter Wt Readings: Date: Wt: 09/04/2017 80.7 kg (178 lb) 08/06/2017 78.9 kg (174 lb) 06/02/2017 78.5 kg (173 lb) 05/05/2017 79.8 kg (176 lb) 03/20/2017 78.5 kg (173 lb) 10/02/2016 77.1 kg (170 lb) 07/24/2016 57.6 kg (127 lb) 04/11/2016 81.6 kg (180 lb) 12/26/2015 82.6 kg (182 lb) 11/09/2015 83.5 kg (184 lb) Heart: Regular rate, rhythm, no murmurs, gallops, rubs. Lungs: Clear to auscultation, bilaterally, breathing non labored. Ext: No cyanosis, clubbing, or edema. ASSESSMENT AND PLAN: Encounter Diagnosis ICD-10-CM 1. Fibromyalgia M79.7 gabapentin (NEURONTIN) 100 mg capsule 2. Hypertrophic toenail L60.2 CONSULT TO PODIATRY great toenails; also has trouble with nail care 3. Essential hypertension I10 4. Bilateral sciatica M54.31 gabapentin (NEURONTIN) 100 mg capsule M54.32 5. Acquired hypothyroidism E03.9 TSH BLD T4 FREE/FREE THYROX 6. Hyperlipidemia, unspecified hyperlipidemia type E78.5 LIPID PANEL BASIC 7. Left-sided chest wall pain R07.89 8. Seizure disorder (HCC) G40.909 9. Presence of urostomy (HCC) Z93.6 10. 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 Patient involved in shared decision making for management of her medical issues. History and medications reviewed. Epic updated as needed Refills taken care of and meds adjusted as indicated after reviewed history, exam and labs. Health Maintenance reviewed. Updated record and/or ordered tests as recorded. Encouraged on efforts at healthy diet and regular exercise and adequate sleep. Stable with pain control. No signs of diversion or abuse of medication(s); no adverse effects. Continue present management. OARRS website checked and validated. All prescriptions have been APPROPRIATELY filled. No suspicious activity was identified.- 09/14/2017 by Maria Del Rosario Zarate MD Discussed reasons for limiting narcotics. Further evaluation and treatment as indicated. Trying low dose gabapentin. Adjust as tolerated as needed, The majority of the visit was spent counseling and/or coordinating care for the patient. Rdqa-uw-qqqu time was at least 25 minutes. MD Maria Del Rosario Saucedo MD 09/04/2017 3:57 PM Signed Add gabapentin dose at bedtime. If helps and is well tolerated but not adequate, we can increase dose. Referring Provider: SELF [[id number]] Allergies As of Date: 09/04/2017 Noted Allergy Reaction CYMBALTA (DULOXETINE) 12/09/2014 6 - Diarrhea Comments: severe diarrhea and incontinence LISINOPRIL 09/26/2010 3 - Cough Comments: on 10 mg dose; worse with 10 mg BID TRAMADOL 06/02/2017 14 - Other: See Comments Comments: Possible related to new onset seizure Date Reviewed: 08/06/2017 Reviewed by: Girma Jhaveri - Fully Assessed Reason for Visit: Recheck [92] Primary Visit Diagnosis:Fibromyalgia [M79.7] Other Visit Diagnoses:Hypertrophic toenail [L60.2] Comment:great toenails; also has trouble with nail care Essential hypertension [I10] Bilateral sciatica [M54.31, M54.32] Acquired hypothyroidism [E03.9] Hyperlipidemia, unspecified hyperlipidemia type [E78.5] Left-sided chest wall pain [R07.89] Seizure disorder (HCC) [G40.909] Presence of urostomy (HCC) [Z93.6] Inflammatory polyarthropathy (HCC) [M06.4] Order(s):gabapentin (NEURONTIN) 100 mg capsuleTake 1 capsule by mouth twice daily for 180 days.Disp: 180 capsuleRfl: 1 CONSULT TO PODIATRY [9034] Order #: [id number]: 1 TSH BLD [SQTSH] Order #: [id number] FUTURE T4 FREE/FREE THYROX [SQFT4] Order #: [id number] FUTURE LIPID PANEL BASIC [SQLIPB] Order #: [id number] FUTURE Prescriptions as of 09/04/2017 Sig: GABAPENTIN 100 MG CAPSULE Take 1 capsule by mouth twice* X HYDROCODONE 5 MG-ACETAMINOPHE* Take 1 tablet by mouth once d* SULFACETAMIDE SODIUM 10 % EYE* Instill 1-2 drops 4 times per* LEVOTHYROXINE 88 MCG TABLET Take 1 tablet by mouth once d* LEVETIRACETAM 500 MG TABLET Take 1 tablet by mouth twice * ATENOLOL 50 MG TABLET Take 1 tablet by mouth once d* FLUTICASONE 50 MCG/ACTUATION * Use 2 Sprays in each nostril * COMPOUNDED PRESCRIPTION Lab order: TSH, Free T4 Di* ATORVASTATIN 40 MG TABLET Take 1 tablet by mouth once d* ASPIRIN 81 MG TABLET,DELAYED * Take 1 tablet by mouth once d* OMEPRAZOLE 40 MG CAPSULE,TORREY* Take 1 capsule by mouth once * LOSARTAN 50 MG TABLET Take 1 tablet by mouth once d* COMPOUNDED PRESCRIPTION Lab order: TSH Diagnoses: * YMQEXARK-YUSVJNMTI-ZJAQWOYIW * Use 3 Drops in both ears four* MECLIZINE 25 MG TABLET Take 1 tablet by mouth every * SENNOSIDES 8.6 MG-DOCUSATE SO* Take 2 tablets by mouth once * COMPOUNDED PRESCRIPTION Bed rail Dx is CVA COMPOUNDED PRESCRIPTION Ostomy Pouch- Paper Tab and S* TRIAMCINOLONE ACETONIDE 0.1 %* Apply 1 application to affect* CHOLECALCIFEROL (VITAMIN D3) * Take 1 capsule by mouth once * PREDNISONE 10 MG TABLET Take 1 tablet by mouth once d* Problem List As Of Date 09/04/2017 Noted Resolved OSTEOPOROSIS NOS [M81.0] INVALID FOR* More... Essential hypertension [I10] INVALID FOR* Hypothyroidism [E03.9] INVALID FOR* CALCULUS OF KIDNEY [N20.0] INVALID FOR* ESOPHAGEAL REFLUX [K21.9] INVALID FOR* CHRONIC RHINITIS [J31.0] INVALID FOR* CERVICALGIA [M54.2] INVALID FOR* More... Hyperlipidemia [E78.5] INVALID FOR* PERS HX OF BLADDER MALIGNANCY [Z85.51] INVALID FOR* GENERAL OSTEOARTHROSIS [M15.9] LUMBAGO [M54.5] INVALID FOR* Sciatica [M54.30] DDD (Degenerative Disc Disease), Lumbar [M51.36] More... Backache, unspecified [M54.9] INVALID FOR*04/30/2013 Vitamin D Deficiency [E55.9] INVALID FOR* Degeneration of lumbar or lumbosacral intervert*INVALID FOR*04/30/2013 Personal History of Kidney Stones [Z87.442] INVALID FOR* Back pain [M54.9] INVALID FOR* Colon polyps [K63.5] INVALID FOR* More... 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 Pain in joint, lower leg [M25.569] INVALID FOR* Fibromyalgia [M79.7] INVALID FOR* Obesity [E66.9] INVALID FOR* Elevated serum creatinine [R79.89] INVALID FOR* Weakness [R53.1] INVALID FOR* Balance problems [R26.89] INVALID FOR* Presence of urostomy (HCC) [Z93.6] INVALID FOR* Seizure disorder (HCC) [G40.909] INVALID FOR* Other instructions from your clinician: Add gabapentin dose at bedtime. If helps and is well tolerated but not adequate, we can increase dose. Prescriptions ordered this encounter Disp Refills Start End GABAPENTIN 100 MG CAPSULE 180 * 1 09/04/2017 03/03/2018 Cmt: Intentional dose increase Route: ORAL Sig: Take 1 capsule by mouth twice daily for 180 days. Medications Discontinued During This Encounter gabapentin (NEURONTIN) 100 mg capsule 90 c* 0 07/16/2017 09/04/2017 Route: ORAL Sig: Take 1 capsule by mouth daily at bedtime for 90 days. Disc: Reason for discontinue is not on file. Follow-up and Disposition History Recorded Encounter Status:Closed by MARIA DEL ROSARIO ZARATE MD on 09/14/17 PROGRESS Observed: 08/06/2017 Status: COMPLETED Source: [place] 10:50 AM [facility] [place] REPOSITORY HNO ID: [id number] Author: Maria Del Rosario Zarate Service: (none) Author Type: Physician Type: Progress Notes Filed: 08/24/2017 5:52 PM Note Text: Patient presents with: Dizziness SUBJECTIVE: Ran Landry is a 77 year old year old lady here today for follow up appointment for review of medical conditions--ongoing dizziness. Keppra given for seizures but wonders if might help dizziness. Takes when gets up then around 5:30 to 6PM. Sometimes forgets pill. Gets room spinning. Feels like had too much drink. happens when climbing into bed. Lats a 1 to 2 minutes. Closes eyes and pretends not happening. Resolves. Not when get out of bed. No problems with falling. Lately notices more during the day gets lightheaded but not spinning. 2 to 3 weeks with stye right lower lid--was hurting; Drainage noted. Eye with crusting at times. Last time had was treated with sulfa drop by Cynthia Robbins that had worked. PAST MEDICAL HISTORY Diagnosis Date - Cervicalgia 02/11/2007 ?diagnosis - await records - Dean angioma 07/26/2012 - DDD (degenerative disc disease), lumbar suspect lumbar canal stenosis as well on Xrays 2007 - Esophageal reflux 02/11/2007 - Fibromyalgia 09/12/2014 - Generalized osteoarthrosis, unspecified site Saw Dr. Miranda Lee in [place] - Hypothyroidism November 2012 last labs--[facility] - Osteoporosis, unspecified 02/11/2007 Last BMD - 1 year ago - Other and unspecified hyperlipidemia 02/11/2007 - Personal History of Kidney Stones 02/11/2007 - Personal history of malignant neoplasm of bladder 02/11/20071991 - PM - PAST MEDICAL HISTORY OF 1991 Bladder Cancer - PM - PAST MEDICAL HISTORY OF 1991 Ostomy ([place]; [place]) - Presence of urostomy (HCC) 10/19/2016 - Sciatica - Status of other artificial opening of urinary tract 02/11/20071991 - Unspecified essential hypertension 02/11/2007 Current Outpatient Prescriptions: gabapentin (NEURONTIN) 100 mg capsule Take 1 capsule by mouth daily at bedtime for 90 days. HYDROcodone-acetaminophen (NORCO) 5-325 mg per tablet Take 1 tablet by mouth once daily as needed for up to 30 days.Earliest Fill Date: 07/16/17 levothyroxine (SYNTHROID) 88 mcg tablet Take 1 tablet by mouth once daily. or as directed levETIRAcetam (KEPPRA) 500 mg tablet Take 1 tablet by mouth twice daily. atenolol (TENORMIN) 50 mg tablet Take 1 tablet by mouth once daily. fluticasone (FLONASE) 50 mcg/actuation nasal spray Use 2 Sprays in each nostril once daily. RINSE MOUTH AFTER EACH DOSE COMPOUNDED PRESCRIPTION Lab order: TSH, Free T4 Diagnosis: E03.9 predniSONE (DELTASONE) 10 mg tablet Take 1 tablet by mouth once daily. As directed by Dr. Vargas--takes for 3 days as needed for flare up atorvastatin (LIPITOR) 40 mg tablet Take 1 tablet by mouth once daily. aspirin, enteric coated (ECOTRIN LOW STRENGTH) 81 mg EC tablet Take 1 tablet by mouth once daily. Omeprazole 40 mg capsule Take 1 capsule by mouth once daily. losartan (COZAAR) 50 mg tablet Take 1 tablet by mouth once daily. COMPOUNDED PRESCRIPTION Lab order: TSH Diagnoses: E03.9. bcmsowxr-xoeyfleye-osybeumqeulcux (CORTISPORIN) 3.5-10,000-1 mg/mL-unit/mL-% otic suspension Use 3 Drops in both ears four times daily. As directed meclizine (ANTIVERT) 25 mg tab Take 1 tablet by mouth every 6 hours as needed (dizziness). senna-docusate (SENNA-S) 8.6-50 mg per tablet Take 2 tablets by mouth once daily. COMPOUNDED PRESCRIPTION Bed railDx is CVA COMPOUNDED PRESCRIPTION Ostomy Pouch- Paper Tab and Skin tab with whip. One month supply.Dx-Z93.6 triamcinolone acetonide (KENALOG) 0.1 % cream Apply 1 application to affected area twice daily as needed. Apply sparingly to area for rash/itching. Cholecalciferol, Vitamin D3, 5,000 unit ORAL Cap Take 1 capsule by mouth once daily. No current facility-administered medications for this visit. OBJECTIVE: BP 122/72 (BP Site: Left Arm, BP Position: Sitting, BP Cuff Size: Regular Adult) Pulse 68 Resp 16 Wt 78.9 kg (174 lb) BMI 28.96 kg/m2 Patient is alert, oriented times 3, no apparent distress, affect is bright, reactive. Last 5 Encounter BP Readings: Date: BP: 08/06/2017 122/72 06/02/2017 122/72 05/05/2017 130/82 03/20/2017 126/74 10/02/2016 142/60 Last 5 Encounter Wt Readings: Date: Wt: 08/06/2017 78.9 kg (174 lb) 06/02/2017 78.5 kg (173 lb) 05/05/2017 79.8 kg (176 lb) 03/20/2017 78.5 kg (173 lb) 10/02/2016 77.1 kg (170 lb) Eye: redness of right lower lid; some redness of conjunctiva Heart: Regular rate, rhythm, no murmurs, gallops, rubs. Lungs: Clear to auscultation, bilaterally, breathing non labored. Ext: No cyanosis, clubbing, or edema. ASSESSMENT AND PLAN: Encounter Diagnosis ICD-10-CM 1. Benign paroxysmal positional vertigo, unspecified laterality H81.10 CONSULT TO PHYSICAL THERAPY 2. Hordeolum externum of right lower eyelid H00.012 sulfacetamide (BLEPH-10) 10 % ophthalmic solution 3. Dizziness R42 4. Presence of urostomy ([facility]) Z93.6 5. Seizure disorder ([facility]) G40.909 6. Essential hypertension I10 7. Acute bacterial conjunctivitis of right eye H10.31 sulfacetamide (BLEPH-10) 10 % ophthalmic solution Above issues addressed with patient. Patient involved in shared decision making for management of her medical issues. Further evaluation and treatment as indicated. History and medications reviewed. Epic updated as needed Refills taken care of and meds adjusted as indicated after reviewed history, exam and labs. Health Maintenance reviewed. Updated record and/or ordered tests as recorded. Encouraged on efforts at healthy diet and regular exercise and adequate sleep. The majority of the visit was spent counseling and/or coordinating care for the patient. Bymt-ys-pvvg time was at least 25 minutes. Maria Del Rosario Zarate MD ALLERGIES ALLERGIES DATE TYPE / CODE NAME / CODE REACTION SEVERITY SOURCE 06/02/2017 DRUG TRAMADOL OTHER: SEE C [facility] INGREDI/419 [facility] 354171(SNOM Repository ED CT) 05/17/2017 Drug No Known Unknown [place] Allergy/416 Allergies/T698179 [facility] 007391(SNOM 388(RXNORM) [facility] ED CT) Repository 12/09/2014 DRUG DULOXETINE DIARRHEA [facility] INGREDI/419 [facility] 007589(SNOM Repository ED CT) 09/26/2010 DRUG LISINOPRIL COUGH [facility] INGREDI/419 [facility] 940848(SNOM Repository ED CT) ENCOUNTERS ENCOUNTERS ADMIT/DISCHARGE ACCOUNT ADMITTING ENCOUNTER LOCATION SOURCE NUMBER CLASS 06/15/2018 [id number] [facility] ing:MEDOUTP Repository 06/03/2018 [id number] Ambulatory [facility] ing:MEDOUTP Repository 05/25/2018/05/26/20 [id number] Ambulatory [address] Repository 04/08/2018 [id number] Ambulatory [facility] ing:MEDOUTP Repository 04/01/2018 [id number] Ambulatory [facility] ing:MEDOUTP Repository 02/06/2018/02/24/20 [id number] Ambulatory [address] Repository 02/04/2018 [id number] Ambulatory [facility] ing:MEDOUTP Repository 12/23/2017 [id number] Ambulatory [facility] ing:MTLAB Repository 12/10/2017 [id number] Ambulatory [facility] ing:MEDOUTP Repository 11/07/2017/11/22/19 [id number] Ambulatory [address] Repository 10/15/2017 [id number] Ambulatory [facility] ing:MEDOUTP Repository 10/14/2017 [id number] Ambulatory [facility] ing:MTLAB Repository 09/26/2017/09/30/19 [id number] Ambulatory [address] Repository 09/04/2017/09/05/19 [id number] Ambulatory [address] Repository 08/25/2017 [id number] Ambulatory [facility] ing:PT Repository 08/20/2017 [id number] Ambulatory [facility] ing:MEDOUTP Repository 08/06/2017/08/29/19 [id number] Ambulatory [address] Repository PAYERS PAYERS ENCOUNTER GUARANTOR PAYER SUBSCRIBER SOURCE 06/15/2018 RAN Acuña Primary RAN HUMPHREYS Insurance:[facility] CHRISSY: Community [place] MED[place] [id number] Number: Repository [address]Scg: ([phone] [id number] [phone] (HP) Date:1012-86-08GY [address] [facility] [address]RK: 06/15/2018 Secondary NOT GIVENUNK [place] Insurance:SELF PAY [facility] Number: Effective Repository Date:2018-06-11 06/03/2018 RAN Acuña Primary RAN Acuña [place] [id number] Insurance[facility] Community [place] MEDICARE[place] [id number] [place] Number: Repository [address]Cng: ([phone] [id number] [phone] (HP) Date:2713-64-65ZJ [address] [place] [address]FV: 06/03/2018 Secondary NOT GIVENUNK [place] Insurance:SELF PAY [facility] Number: Effective Repository Date:2018-04-08 04/08/2018 RAN Acuña Primary RAN Acuña [place] [id number] Insurance[facility]: Community [place] MEDICAREPolicy [id number] [place] Number: Repository [address]Sgf: (419 [id number] [phone] (HP) Date:6673-41-15DH [address] [place] [address]PV: 04/08/2018 Secondary NOT GIVENUNK [place] Insurance:SELF PAY [facility] Number: Effective Repository Date:2018-04-07 04/01/2018 RAN M Primary RAN Acuña [place] [id number] Insurance:[facility]: Community [place] MEDICAREPolicy [id number] [place] Number: Repository [address]Nil: (419 [id number] [phone] (HP) Date:5371-27-60DD [address] [place] [address]BQ: 04/01/2018 Secondary NOT GIVENUNK [place] Insurance:SELF PAY [facility] Number: Effective Repository Date:2018-02-04 02/04/2018 Ran Acuña Primary Ran [id number] Insurance:[facility] CARE [place]: [id number] Number: Repository [address]Lxc: 419 [id number] [phone] (HP) Date:6703-95-87RF [address], [place] [address]WS: 02/04/2018 Secondary NOT GIVENUNK [place] Insurance:SELF PAY [facility] Number: Effective Repository Date:2017-12-10 12/23/2017 Ran Acuña Primary Ran [place] [id number] Insurance:[facility] CARE [place]OB: Community [place] MED[place] [id number] Number: Repository [address]Wpf: 419 [id number] [phone] (HP) Date:9973-55-74NX [address], [place] [address]KG: 12/23/2017 Secondary NOT GIVENUNK [place] Insurance:SELF PAY [facility] Number: Effective Repository Date:2017-12-23 12/10/2017 Ran Acuña Primary Ran [id number] Insurance:[facility] C[facility] [place]OB: Community [place] [id number] Number: Repository [address]Hkc: 419 [id number] [phone] (HP) Date:1712-83-12YO [address], [place] [address]ZX: 12/10/2017 Secondary NOT GIVENUNK [place] Insurance:SELF PAY [facility] Number: Effective Repository Date:2017-10-15 10/15/2017 Ran Acuña Primary Ran [place] [id number] Insurance:[facility] CARE [place]OB: Community [place] MED[place] [id number] Number: Repository [address]Nwz: ([phone] [id number] [phone] (HP) Date:2093-35-35KS [address] [address]VQ: 10/15/2017 Secondary NOT GIVENUNK [place] Insurance:SELF PAY [facility] Number: Effective Repository Date:2017-08-20 10/14/2017 Ran Acuña Primary Ran [id number] Insurance:[facility] CARE [place]OB: [place] MED[place] [id number] [place] Number: Repository [address]Mea: (419 [id number] [phone] (HP) Date:4536-97-51PJ [address], [place] [address]DY: 10/14/2017 Secondary NOT GIVENUNK [place] Insurance:SELF PAY [facility] Number: Effective Repository Date:2017-10-14 08/25/2017 Ran Acuña Primary Ran [id number] Insurance:[facility] [place]OB: [place] MED[place] [id number] Number: Repository [address]Kuq: (419 [id number] [phone] (HP) Date:6043-50-60XU [address], [place] [address]SA: 08/25/2017 Secondary NOT GIVENUNK [place] Insurance:SELF PAY [facility] Number: Effective Repository Date:2017-08-06 08/20/2017 Ran Acuña Primary Ran [id number] Insurance:[facility] [place]OB: [place] MEDICARE[place] [id number] [place] Number: Repository [address]Wev: (419 [id number] [phone] (HP) Date:8819-14-81[address] [address]XT: 08/20/2017 Secondary NOT GIVENUNK [place] Insurance:SELF PAY [facility] Number: Effective Repository Date:2017-06-26
== END ==
PROVIDERS: Family Provider Internal Medicine; PCP Internal Medicine; Referring Provider Internal Medicine Rheumatology; Visit Provider Internal Medicine Rheumatology
DX: M06.9 Rheumatoid arthritis, unspecified (principal)
CPT/HCPCS: 96413; J7050; A4216; J1602

== ENCOUNTER → 2018-08-10 13:53 | Outpatient (CLI) | payer MEDICARE, SELFPAY ==
[2018-06-15 14:27] VITALS: BMI 30.5
[2018-08-10 14:46] VITALS: BP 177/62; PULSE 72; RESP 16; TEMP 36.4; O2SAT 97; BMI 30.2
== END ==
PROVIDERS: Family Provider Internal Medicine; PCP Internal Medicine; Referring Provider Internal Medicine Rheumatology; Visit Provider Internal Medicine Rheumatology
DX: M06.9 Rheumatoid arthritis, unspecified (principal)
CPT/HCPCS: 96413; J7050; A4216; J1602

== ENCOUNTER 2018-08-13 10:48 | Inpatient (IN) | payer MEDICARE, SELFPAY ==
[2018-08-10 14:46] VITALS: BMI 30.2
[2018-08-13] VITALS (12 sets, daily range): BP systolic 145–188; BP diastolic 56–126; PULSE 67–93; RESP 10–20; TEMP 36.6–37.1; O2SAT 94–98; BMI 30.1; BMI 29.9
--- NOTE | 2018-08-13 11:07 | CT_ITS ---
STUDY: CT BRAIN WITHOUT CONTRAST REASON FOR EXAM: Female, 78 years old. Dizziness secondary to a fall. Laceration overlying the left skull. RADIATION DOSAGE (If Supplied By Facility): CTDIvol = ( 34.62 ) mGy, DLP = ( 1238.65 ) mGycm TECHNIQUE: Transaxial CT imaging of the brain was performed without administration of intravenous contrast material. Individualized dose optimization techniques were used for this CT. COMPARISON: Comparison is made with prior study dated May 17, 2017. FINDINGS: Normal soft tissue structures. Skull hematoma and laceration overlying the left frontal parietal bone. There is mild cerebral atrophy with widening of the extra-axial spaces and ventricular dilatation. There are areas of decreased attenuation within the white matter tracts of the supratentorial brain, consistent with microvascular disease changes. Stable encephalomalacia in the right frontal lobe. Since prior study, there now is evidence of focal encephalomalacia in the posterior right parietal lobe. Normal basal ganglia and thalami. Normal brainstem. Normal cerebellum. There is no intracranial hemorrhage. There are no findings of an acute ischemic infarction. Atherosclerotic calcification of the cavernous portions of the internal carotid arteries as well as the basilar artery and vertebral arteries. Mucosal thickening of the left maxillary sinus. CT/Brain/Head without Contrast IMPRESSION: Chronic involutional changes of the brain. Scalp hematoma and laceration overlying the left frontoparietal bone. Electronically Signed: Ab Ivory MD at 12:46 EST , Service support ,
--- NOTE | 2018-08-13 11:07 | RAD_ITS ---
STUDY: X-RAY - RIGHT ANKLE REASON FOR EXAM: Female, 78 years old. Fall. TECHNIQUE: 3 view(s) of the ankle. COMPARISON: None. FINDINGS: Normal visualized distal tibia and fibula. Normal medial and lateral malleoli. Normal tibiotalar articulation and ankle mortise. Normal visualized talus and calcaneus. The visualized subtalar, talonavicular, calcaneocuboid and tarsal articulations are normal. Soft tissue swelling. RAD/Ankle min 3 Views IMPRESSION: Soft tissue swelling. Electronically Signed: Ab Ivory MD at 13:31 EST , Service support ,
--- NOTE | 2018-08-13 11:07 | RAD_ITS ---
STUDY: X-RAY - LEFT HIP REASON FOR EXAM: Female, 78 years old. Pain and deformity following a fall. TECHNIQUE: 2 views of the hip. COMPARISON: None. FINDINGS: Multiple surgical clips are seen in the pelvis. Nondisplaced comminuted intertrochanteric fracture of the proximal left femur. Normal acetabulum. Normal hip joint. Osteoarthritis of the right hip joint. Normal visualized superior and inferior pubic rami and ischial tuberosities. RAD/HIP, UNI W/ Pelvis 2-3 Views IMPRESSION: Nondisplaced comminuted left intertrochanteric fracture. Electronically Signed: Ab Ivory MD at 13:20 EST , Service support ,
--- NOTE | 2018-08-13 11:07 | RAD_ITS ---
STUDY: X-RAY CHEST REASON FOR EXAM: Female, 78 years old. History of fall. TECHNIQUE: Single AP portable view of the chest. COMPARISON: Comparison is made with prior study dated September 05, 2016. FINDINGS: The lungs are clear and expanded. There is no demonstrated pleural abnormality. There is borderline cardiomegaly. Normal mediastinum and hay. Normal visualized pulmonary arteries. There is atherosclerotic calcification of the aortic arch with tortuosity. There are diffuse degenerative changes of the visualized thoracic spine. Normal visualized ribs, clavicles, and shoulders. There is no demonstrated abnormality of the visualized soft tissue structures of the upper abdomen. RAD/Chest 1 View (Portable) IMPRESSION: No acute abnormality is seen. Electronically Signed: Ab Ivory MD at 13:34 EST , Service support ,
--- NOTE | 2018-08-13 11:07 | RAD_ITS ---
STUDY: X-RAY - LEFT KNEE REASON FOR EXAM: Female, 78 years old. Pain following a fall. TECHNIQUE: 2 view(s) of the knee. COMPARISON: None. FINDINGS: Normal visualized distal femur. Normal visualized proximal tibia and fibula. Normal proximal tibiofibular articulation. There is severe degenerative arthrosis of the medial femorotibial compartment with severe joint space narrowing. There is moderate degenerative arthrosis of the lateral femorotibial compartment with moderate joint space narrowing. There is mild degenerative arthrosis of the patellofemoral articulation. There are atherosclerotic calcifications. Small joint effusion. RAD/Knee 1 or 2 Views IMPRESSION: Degenerative arthrosis. Small joint effusion. Electronically Signed: Ab Ivory MD at 13:21 EST , Service support ,
--- NOTE | 2018-08-13 11:07 | RAD_ITS ---
STUDY: X-RAY - LEFT FOOT CLINICAL: Female, 78 years old. Pain following a fall. TECHNIQUE: 2 view(s) of the foot. COMPARISON: None. FINDINGS: There is a plantar calcaneal spur. Normal visualized subtalar, talonavicular, calcaneocuboid, tarsal and tarsometatarsal articulations. Normal metatarsi. There is degenerative arthrosis of the metatarsophalangeal joint of the hallux . Normal tibial and fibular sesamoid bones. Normal interphalangeal joint of the great toe. Normal phalanges of the great toe. Normal second through fifth metatarsophalangeal joints. Normal interphalangeal joints and phalanges of the lesser toes. Soft tissue swelling. RAD/Foot 2 Views IMPRESSION: No acute abnormality is seen. Electronically Signed: Ab Ivory MD at 13:19 EST , Service support ,
--- NOTE | 2018-08-13 11:07 | CT_ITS ---
STUDY: CT CERVICAL SPINE WITHOUT CONTRAST REASON FOR EXAM: Female, 78 years old. History of fall. Left scalp laceration. RADIATION DOSAGE (If Supplied By Facility): CTDIvol = ( 34.62 ) mGy, DLP = ( 1238.65 ) mGycm TECHNIQUE: High resolution transaxial imaging was performed without contrast material. Sagittal and coronal images were reconstructed. Individualized dose optimization techniques were used for this CT. COMPARISON: None FINDINGS: Normal craniovertebral junction. There are degenerative changes of the anterior atlantoaxial articulation. Normal odontoid process. There is straightening of the normal cervical lordosis. Normal vertebral bodies and posterior osseous elements. C2-3: Marked degree of hypertrophy of the facet joint on the left side of the C3 vertebra. Left neural foraminal stenosis. C3-4: Marked degree of osteoporosis and hypertrophy of the left facet joint causing a marked degree of left neural foraminal stenosis. C4-5: Moderate degree of disc space narrowing with the uncovertebral arthrosis. Left facet joint osteoarthritis and hypertrophy causing bilateral neural foraminal stenosis worse on the left side. C5-6: Moderate degree of disc space narrowing with spondylosis. Uncovertebral arthrosis. Moderate degree of bilateral neural foraminal stenosis. C6-7: Marked degree of disc space narrowing. Osteoarthritis of the facet joints worse on the left side as well as uncovertebral arthrosis. Moderate bilateral neural foraminal stenosis. Atherosclerotic calcification of the carotid arteries bilaterally. CT/Spine Cervical without Contras IMPRESSION: Multilevel degenerative changes, as described above. Electronically Signed: Ab Ivory MD at 12:51 EST , Service support ,
--- NOTE | 2018-08-13 11:08 | EKG12_ITS ---
Test Reason : FALL Blood Pressure : / mmHG Vent. Rate : 069 BPM Atrial Rate : 069 BPM P-R Int : 158 ms QRS Dur : 066 ms QT Int : 370 ms P-R-T Axes : 022 048 041 degrees QTc Int : 396 ms Normal sinus rhythm with sinus arrhythmia Nonspecific T wave abnormality Abnormal ECG Confirmed by ANTONIO RANDOLPH, LESLI ([id number]), editor map IGLESIA QUINONEZ ([id number]) on 08/18/2018 11:19:24 AM Referred By: ALEJO Confirmed By:LESLI ALVAREZ MD
[2018-08-13] MEDS: fentaNYL 100 MCG/2 ML Ampul 25 MCG IV (11:26)
[2018-08-13] MEDS: Diphth,Pertuss(Acell),Tet Vac 0.5 ML Vial IM (11:27)
[2018-08-13] MEDS: fentaNYL 100 MCG/2 ML Ampul 50 MCG IV (13:00)
[2018-08-13 13:17] LABS: Absolute Neutrophil Count 14.1 X10^3/uL (2.0-7.7); Basophil# 0.04 X10^3/uL; Basophil% 0.2 % (0-1); Eosinophil# 0.08 X10^3/uL; Eosinophils% 0.5 % (0-5); Hematocrit 39.5 % (37-47); Hemoglobin 12.4 g/dl (12.0-15.0); Lymphocyte % 11.2 % (19-41); Mean Corp Hgb Conc 31.4 g/gl (32-36); Mean Corpuscular Hgb 28.6 pg (27.0-32.0); Mean Platelet Vol. 12.8 fl (6.2-12.0); Monocyte# 0.88 X10^3/uL; Monocyte% 5.2 % (0-10); Neutrophil # 14.07 X10^3/uL (2.7-7.7); Neutrophil % 82.5 % (47-70); Platelet Count 204 K/mm3 (150-450); RBC Distribution Width CV 14.3 % (11.6-14.6); RBC Distribution Width SD 47.2 fl (35.1-43.9); Red Blood Count 4.34 M/mm3 (4.2-5.4)
[2018-08-13 13:18] LABS: POSITIVE COUNT NO; POSITIVE DIFFERENTIAL NO; POSITIVE MORPHOLOGY NO
[2018-08-13 13:22] LABS: International Normalized Ratio 1.1; Prothrombin Time (Protime)PT. 13.8 SECONDS (11.7-14.9)
[2018-08-13 13:23] LABS: Partial Thromboplast Time 29.7 Seconds (24.1-36.2)
[2018-08-13 13:28] LABS: Anion Gap 10 (5-15); BUN 17 mg/dL (7-18); BUN/Creat Ratio 11.2 RATIO (10-20); Calcium,Total 8.6 mg/dL (8.5-10.1); Chloride 114 mmol/L (98-107); Creatinine, Serum 1.52 mg/dL (0.55-1.02); EST Glomerular Filtration Rate 35 mL/min (>60); Est Glom Filt Rate - Afr Amer 42 mL/min (>60); Estimated Creatinine Clearance 26.56 ml/min; Glucose 108 mg/dL (74-106); Sodium Level 144 mmol/L (136-145)
--- NOTE | 2018-08-13 14:27 | ED.DCSUM_ITS ---
- ER Visit Summary Date of Service: 08/13/18 Chief Complaint: Fall History of Present Illness: The patient is a 78 F with a fall that happened this morning. 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 She landed on her left hip and complains of left hip pain. She also has pain in her left knee, left foot, and right ankle. Denies neck pain. Denies chest pain or shortness of breath. Denies abdominal pain, nausea, vomiting, or diarrhea. She does have a history of hypertension and hyperlipidemia. She also has seizures, hypothyroidism, and rheumatoid arthritis. She takes aspirin. She denies any seizure activity today. She said she is compliant with her medication. She did not have a loss of consciousness. Physical Examination: Afebrile and vital signs unremarkable. Patient has a 5 cm laceration to her left forehead. Otherwise her head is atraumatic. Neck is nontender. Heart regular rate and rhythm. Lungs clear. Abdomen soft and nontender. Left hip is tender to palpation over the greater trochanter. She does have shortening and abnormal rotation. She is neurovascular intact distally. She does complain of pain on palpation of her left knee, left foot, and right ankle. Upper extremities atraumatic. Back is nontender. Test Results: CT brain and C-spine showed chronic changes and a left scalp hematoma. Laboratory studies showed a white count of 17, creatinine 1.52, coags pending. Troponin normal. Type and screen done. X-rays of her lower extremities showed a left hip intertrochanteric fracture. Emergency Department Course and Treatment: Patient was treated with fentanyl and normal saline while awaiting salts. Her tetanus immunization was updated. I anesthetized her wound with lidocaine. It was cleaned and explored. Sutured with simple interrupted sutures 6. Patient tolerated this well. I spoke with Dr. James about her hip. Patient is n.p.o. and will go to the operating room between 4 and 4:30 PM today. I spoke with the hospitalist who will admit for further care. Prior to admission, the patient went unresponsive and had some generalized shaking. She did not respond to any stimuli. This lasted for about 1-2 minutes and was witnessed by me. It had resolved by the time nursing came back with Ativan. She received 1 mg of Ativan and she had seizure precautions. I spoke with her family who admitted to me that she is not taking her seizure medications. I ordered a dose of IV Keppra and notify the hospitalist. Dr. James was notified that the patient had a seizure. The patient will be going to the OR tomorrow anyway. Treatment Plan: As above Disposition: Admission Impression: 1. Closed head injury 2. Facial laceration 5 cm 3. Left hip intertrochanteric fracture 4. Seizure secondary to non-compliance with medication This note was generated with [employer] dictation software. It may contain incorrect words, spelling, and punctuation that were not noted in review of the chart prior to signing ED Disposition - Plan for ED Patient:
--- NOTE | 2018-08-13 14:32 | PCM.HP.STD ---
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 She also complained of left hip pain, left knee and foot pain. She also complained that she felt losing balance that led to fall. [] Denies chest pain, shortness of breath, palpitation or diaphoresis. Patient has 5 cm laceration left forehead, which was sutured in ED. Initial workup in ER, shows left hip intertrochanteric fracture. Initially thought to admit on MedSurg with Dr. James as orthopedic surgeon consult for left hip fracture, but plan was changed to admit in PCU after she had seizure in ED. As per ED documentation, she had about 1-2 minutes of generalized seizures and was unresponsive. It got resolved even before patient got Ativan 1 mg. When I saw the patient, patient had partial seizure and right upper extremity with twitching of lips and face and therefore 2 more milligrams of IV Ativan given. 1 g of loading dose of Keppra ordered decided to admit in PCU. 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) Allergies No Known Allergies Allergy (Verified 08/13/18 10:49) Home Medications: Ambulatory Orders Medication Instructions Recorded Levothyroxine [Synthroid] 88 mcg PO DAILY 02/22/16 Aspirin [Aspirin, Baby] 81 mg PO DAILY@0800 tab.chew 02/26/16 Atenolol [Tenormin (beta dashawn)] 50 mg PO DAILY #30 tablet 03/18/16 Losartan Potassium [Cozaar] 50 mg PO DAILY #30 tablet 03/18/16 Atorvastatin Calcium [Lipitor] 40 mg PO DAILY 05/17/17 Gabapentin [Neurontin] 100 mg PO QHS PRN 05/17/17 levETIRAcetam tablet [Keppra] 500 mg PO BID #60 tablet 05/19/17 Cholecalciferol (Vitamin D3) 6,000 unit PO DAILY 08/13/18 [Vitamin D3] Gabapentin [Neurontin] 300 mg PO QHS 08/13/18 Golimumab [Simponi] 100 mg IJ UD 08/13/18 Hydrocodone/Acetaminophen 1 tab PO PRN PRN 08/13/18 [Hydrocodon-Acetaminophen 5-325] Omeprazole 40 mg PO DAILY 08/13/18 Prednisone 10 mg PO PRN PRN 08/13/18 Surgical History: - - surgery for ovarin cancer. 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 history Smoking Status: Never smoker - *Family History Maternal History Items: No pertinent history Paternal History Items: No pertinent history Review of Systems Constitutional: Denies: Chills, Fever Cardiovascular: Denies: Chest Pain, Palpitations Respiratory: Denies: Cough, Pleuritic Pain, Shortness of Breath, Shortness of breath upon exertion Gastrointestinal: Denies: Abdominal Pain, Nausea, Vomiting Genitourinary: Reports: - - UroOstomy bag Musculoskeletal: Reports: Foot Pain, Joint Pain, Joint stiffness, Joint Tenderness Skin: Denies: Rash, Wounds Neurological: Reports: Balance problems, Confusion, Incoordination, Seizures Psychiatric: Reports: Anxiety Unable to obtain accurate/complete ROS d/t: Semiconscious and altered mental status secondary to seizure VTE Information - Inpt Only VTE Present on Admission: No VTE Mechan Device Prophylaxis: SCD's VTE Pharm Prophylaxis ordered?: Yes Patient Problems: Active and Suspected Problems Closed intertrochanteric fracture of left hip (Acute) Fall and laceration of left sideforehead (Acute) Near syncope (Acute) - Physical Exam General: Confused, Disoriented - Disoriented to place, and circumstances x2, Lethargic HEENT: Atraumatic, PERRLA, EOMI, Normocephalic Oral: Dry Mucosa Neck: Supple, No JVD, Negative Carotid Bruits Lungs: No rhonchi, No wheeze, No rales, Diminished - Air entry diminished in both lung bases Cardiovascular: Regular rate, Regular Rhythm, Normal S1, Normal S2, No murmurs Abdomen: Bowel Sounds Present, Soft, Non Tender, Non-Distended, - - Urostomy bag present in right lower quadrant. Urine is yellowish with some mucus flecks Musculoskeletal: Arthritic Changes, Muscle Wasting, Tenderness - Tenderness at left hip joint Lymphatic: No Cervical, Supraclavicular, or Inguinal Adenopathy Neurological: - - Patient is semiconscious, confused and disoriented. Had seizure in ED and was briefly unresponsive. Vital Signs Temp Pulse Resp BP Pulse Ox 98.5 F 67 10 L 179/56 H 96 08/13/18 10:51 08/13/18 13:09 08/13/18 13:09 08/13/18 13:09 08/13/18 13:09 Oxygen Delivery Method Room Air Weight: 181 lb Body Mass Index (BMI) 30.1 Laboratory Tests Past 24 Hrs 08/13/18 08/13/18 08/13/18 13:02 13:02 13:02 WBC 17.0 H RBC 4.34 Hgb 12.4 Hct 39.5 MCV 91.0 MCH 28.6 MCHC 31.4 L RDW 14.3 RDW Differential 47.2 H Plt Count 204 MPV 12.8 H Immature Gran % (Auto) 0.400 Neut % (Auto) 82.5 H Lymph % (Auto) 11.2 L [place] % (Auto) 5.2 Eos % (Auto) 0.5 Baso % (Auto) 0.2 Absolute Neuts (auto) 14.1 H Absolute Lymphs (auto) 1.90 Total Counted Not Reportable PT 13.8 INR 1.1 APTT 29.7 Sodium 144 Potassium 4.0 Chloride 114 H Carbon Dioxide 20.0 L Anion Gap 10 BUN 17 Creatinine 1.52 H Estim Creat Clear Calc 26.56 Est GFR (MDRD) Af Amer 42 L Est GFR (MDRD) Non-Af 35 L BUN/Creatinine Ratio 11.2 Glucose 108 H Calcium 8.6 Troponin I < 0.015 Blood Type Antibody Screen 08/13/18 13:02 WBC RBC Hgb Hct MCV MCH MCHC RDW RDW Differential Plt Count MPV Immature Gran % (Auto) Neut % (Auto) Lymph % (Auto) [place] % (Auto) Eos % (Auto) Baso % (Auto) Absolute Neuts (auto) Absolute Lymphs (auto) Total Counted PT INR APTT Sodium Potassium Chloride Carbon Dioxide Anion Gap BUN Creatinine Estim Creat Clear Calc Est GFR (MDRD) Af Amer Est GFR (MDRD) Non-Af BUN/Creatinine Ratio Glucose Calcium Troponin I Blood Type O POSITIVE Antibody Screen NEGATIVE Assessment/Plan All Active Problems Closed intertrochanteric fracture of left hip (Acute) Fall and laceration of left sideforehead (Acute) Near syncope (Acute) Seizure (Acute) The patient is a 78 year old F with history of multiple comorbidities as listed below including seizure, noncompliant with Keppra was brought into ED after she felt dizzy while she was making coffee and fell forward and hit left side of forehead. She also complained of left hip pain, left knee and foot pain. She also complained that she felt losing balance that led to fall. [] Denies chest pain, shortness of breath, palpitation or diaphoresis. Patient has 5 cm laceration left forehead, which was sutured in ED. patient denies flulike symptoms including fever or chills. She has urostomy bag after total cystectomy for bladder cancer in 2011. Initial workup in ER, shows left hip intertrochanteric fracture. Initially thought to admit on MedSurg with Dr. James as orthopedic surgeon consult for left hip fracture, but plan was changed to admit in PCU after she had seizure in ED. As per ED documentation, she had about 1-2 minutes of generalized seizures and was unresponsive. It got resolved even before patient got Ativan 1 mg. When I saw the patient, patient had partial seizure and right upper extremity with twitching of lips and face and therefore 2 more milligrams of IV Ativan given. 1 g of loading dose of Keppra ordered decided to admit in PCU. History was mainly taken from her son as patient was not fully responsive because of seizures 1. Near syncope and fall with laceration and scalp hematoma on the left side of forehead: Patient is being admitted in PCU. Cardiac monitoring. Patient had last echo in January 2016 which shows EF 65% with a stage I diastolic dysfunction with no regional wall motion abnormalities. Normal RV size and systolic function. Left atrium mildly enlarged. Normal right atrium. Moderate mitral annular calcification with trivial MR. Trivial TR, RVSP 40 to empty assistive of mild pulmonary hypertension. Calcified aortic root with mild atherosclerosis of aortic arch. Repeat 2D echo. EKG shows normal sinus rhythm with sinus arrhythmia at 69 bpm. IV fluid bicarb is Ringer lactate this patient 20, anion gap 10, consistent with non-anion gap mild metabolic acidosis. Orthostatic blood pressure when patient is stable and wakes up. 2. Generalized seizure witnessed by ED physician; most probably from noncompliance: Patient is being loaded with Keppra 1 g. Continue Keppra 500 mg twice daily. Neurology consult for further opinion. 3. Closed nondisplaced comminuted left intertrochanteric fracture. Orthopedic surgeon Dr. James is been consulted by ER physician. On heparin 500 units subcutaneous 3 times daily for DVT prophylaxis hold 6 hours prior to surgery. I think, patient is moderate perioperative risk in view of seizure, hypertension dyslipidemia history of a stroke in the past. No coronary artery disease/MD history. 4. Other comorbidities include history of a stroke secondary to anterior cerebral artery stenosis, hypertension, dyslipidemia, rheumatoid arthritis and hypothyroidism: Home meds reconciliation done. Free T4 and TSH ordered. Multiple comorbidities complicates the present care and expect difficult and delay recovery History of bladder cancer status post total cystectomy: Patient has urostomy. UA with reflex urine culture ordered. Advanced directive/living will: Patient does not have living will. Discussed with the patient's son and he is not aware of his mother's wishes/goal of life. Patient is not awake and conscious enough to discuss living will. Presumed full code. DVT prophylaxis: On heparin 5000 units 3 times daily. Discontinue if platelet count drops less than 90,000 or hemoglobin less than 8 g% Clinical Impression(s) from Imaging Studies Ankle X-Ray 08/13/18 11:07 IMPRESSION: Soft tissue swelling. Brain CT 08/13/18 11:07 IMPRESSION: Chronic involutional changes of the brain. Scalp hematoma and laceration overlying the left frontoparietal bone. Cervical Spine CT 08/13/18 11:07 IMPRESSION: Multilevel degenerative changes, as described above. Chest X-Ray 08/13/18 11:07 IMPRESSION: No acute abnormality is seen. Foot X-Ray 08/13/18 11:07 IMPRESSION: No acute abnormality is seen. Hip/Pelvis X-Ray 08/13/18 11:07 IMPRESSION: Electronically Signed: Ab Ivory MD at 13:20 EST , Service support , Knee X-Ray 08/13/18 11:07 IMPRESSION: Degenerative arthrosis. Small joint effusion. Code Visit Inpatient E&M: 43141 Init Hosp L3
[2018-08-13] MEDS: LORazepam 2 MG/ML Syringe 1 MG IV ×2 (14:36→14:38)
[2018-08-13] MEDS: levETIRAcetam IV 100 ML 400 MG IV (15:00)
[2018-08-13] MEDS: Lactated Ringers 1,000 ML 75 ML IV (16:00)
--- NOTE | 2018-08-13 16:46 | NURSING ---
Upon arrival to the floor the patient is very drowsy, she awakens to her name being called loudly, but falls back to sleep very quickly. she answers some questions appropriately, but seems slightly confused, repeating some questions multiple times. pt unable to comprehend education at this time. safety precautions maintained.
--- NOTE | 2018-08-13 17:54 | NURSING ---
PO norvasc not given at this time due to patient being very drowsy. she will awaken to her name, but can hardly keep her eyes open and falls back to sleep very quickly.
--- NOTE | 2018-08-13 18:25 | CON.PCM_ITS ---
Reason for Consult Date of Consultation: 08/13/18 Reason for Consultation: Left hip fracture. Requested by Dr. Redd History of Present Illness: The patient is a 78 year old F with multiple medical comorbidities including seizures presents today with left hip pain. Patient was in her kitchen this morning when she had a seizure. She is been extremely noncompliant with her Keppra. After she had her seizure she was unable to get up and had 10 out of 10 pain. She presented to the emergency department where she was found to have an intertrochanteric hip fracture on the left. She subsequently had 2 additional seizures. Patient reports some paresthesias in the left lower extremity mostly the tips of her toes. 10 out of 10 pain at this time. Worse with motion better with immobilization. Throughout most of the encounter patient answers my questions appropriately but does not open her eyes. No family is present. Pain is located over the thigh and hip/groin area. 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) Allergies No Known Allergies Allergy (Verified 08/13/18 10:49) Home Medications: Ambulatory Orders Medication Instructions Recorded Levothyroxine [Synthroid] 88 mcg PO DAILY 02/22/16 Aspirin [Aspirin, Baby] 81 mg PO DAILY@0800 tab.chew 02/26/16 Atenolol [Tenormin (beta dashawn)] 50 mg PO DAILY #30 tablet 03/18/16 Losartan Potassium [Cozaar] 50 mg PO DAILY #30 tablet 03/18/16 Atorvastatin Calcium [Lipitor] 40 mg PO DAILY 05/17/17 Gabapentin [Neurontin] 100 mg PO QHS PRN 05/17/17 levETIRAcetam tablet [Keppra] 500 mg PO BID #60 tablet 05/19/17 Cholecalciferol (Vitamin D3) 6,000 unit PO DAILY 08/13/18 [Vitamin D3] Gabapentin [Neurontin] 300 mg PO QHS 08/13/18 Golimumab [Simponi] 100 mg IJ UD 08/13/18 Hydrocodone/Acetaminophen 1 tab PO PRN PRN 08/13/18 [Hydrocodon-Acetaminophen 5-325] Omeprazole 40 mg PO DAILY 08/13/18 Prednisone 10 mg PO PRN PRN 08/13/18 Surgical History: - - surgery for ovarin cancer. Psychiatric History: No pertinent psych hx [employer] History: No pertinent [employer] history Smoking Status: Never smoker Tobacco Use: Non-smoker Alcohol: None Drugs: None - *Family History Maternal History Items: No pertinent history Paternal History Items: No pertinent history Review of Systems Constitutional: Reports: Weakness HEENT: Denies: Ear Pain Cardiovascular: Denies: Chest Pain Respiratory: Denies: Cough Gastrointestinal: Denies: Abdominal Pain Genitourinary: Denies: Dysuria Musculoskeletal: Reports: Joint Pain, Joint Tenderness Skin: Reports: - - Laceration on her head Neurological: Reports: Balance problems, Seizures Psychiatric: Reports: Depression Hematologic/ Lymphatic: Denies: Petechiae Patient Problems: Active and Suspected Problems Closed intertrochanteric fracture of left hip (Acute) Fall and laceration of left sideforehead (Acute) Near syncope (Acute) Objective: Left hip radiographs were reviewed showing comminuted intertrochanteric hip fracture with displacement. Left knee radiographs reveal degenerative arthrosis, no acute fractures Left foot radiographs show no acute fractures Right ankle radiographs show no acute fractures Chest radiograph shows no acute fractures, superior migration of left gland humeral joint. - Physical Exam General: Alert, Cooperative, No apparent distress HEENT: - - Laceration over left eye Oral: Moist Mucosa Neck: No JVD Lungs: - - Nonlabored breathing Cardiovascular: - - Regular pulse rate Abdomen: Non-Distended Extremities: - - Left lower extremity: Skin clean, dry, and intact. Limb is shortened and externally rotated Motor is intact dorsiflexion, EHL and plantar flexion. Sensation is intact to light touch saphenous, yasmin,l superficial peroneal, deep peroneal and tibial distributions. Calves are soft and supple. Skin: No rashes Musculoskeletal: Tenderness Vital Signs Temp Pulse Resp BP Pulse Ox 97.9 F 89 18 184/79 H 95 08/13/18 17:04 08/13/18 17:04 08/13/18 17:04 08/13/18 17:04 08/13/18 17:04 Oxygen Flow Rate (L/min) 2 Oxygen Delivery Method Nasal Cannula Weight: 180 lb Body Mass Index (BMI) 29.9 Laboratory Tests Past 24 Hrs 08/13/18 08/13/18 08/13/18 13:02 13:02 13:02 WBC 17.0 H RBC 4.34 Hgb 12.4 Hct 39.5 MCV 91.0 MCH 28.6 MCHC 31.4 L RDW 14.3 RDW Differential 47.2 H Plt Count 204 MPV 12.8 H Immature Gran % (Auto) 0.400 Neut % (Auto) 82.5 H Lymph % (Auto) 11.2 L [place] % (Auto) 5.2 Eos % (Auto) 0.5 Baso % (Auto) 0.2 Absolute Neuts (auto) 14.1 H Absolute Lymphs (auto) 1.90 Total Counted Not Reportable PT 13.8 INR 1.1 APTT 29.7 Sodium 144 Potassium 4.0 Chloride 114 H Carbon Dioxide 20.0 L Anion Gap 10 BUN 17 Creatinine 1.52 H Estim Creat Clear Calc 26.56 Est GFR (MDRD) Af Amer 42 L Est GFR (MDRD) Non-Af 35 L BUN/Creatinine Ratio 11.2 Glucose 108 H Calcium 8.6 Troponin I < 0.015 Blood Type Antibody Screen 08/13/18 13:02 WBC RBC Hgb Hct MCV MCH MCHC RDW RDW Differential Plt Count MPV Immature Gran % (Auto) Neut % (Auto) Lymph % (Auto) [place] % (Auto) Eos % (Auto) Baso % (Auto) Absolute Neuts (auto) Absolute Lymphs (auto) Total Counted PT INR APTT Sodium Potassium Chloride Carbon Dioxide Anion Gap BUN Creatinine Estim Creat Clear Calc Est GFR (MDRD) Af Amer Est GFR (MDRD) Non-Af BUN/Creatinine Ratio Glucose Calcium Troponin I Blood Type O POSITIVE Antibody Screen NEGATIVE Assessment/Plan All Active Problems Closed intertrochanteric fracture of left hip (Acute) Fall and laceration of left sideforehead (Acute) Near syncope (Acute) Seizure (Acute) 78-year-old female with left intertrochanteric hip fracture. Natural history of the disease process and treatment options were discussed the patient. At this time I recommended cephalo-medullary nail is the appropriate treatment plan. Risks and benefits of the procedure were discussed with the patient including but not limited to blood loss, DVTs, PEs, neurovascular damage, infection, general risk of anesthesia including loss of life, nonunion, malunion and hardware failure/screw cut out. Patient demonstrates an understanding. No family was at the bedside. We will plan to have further discussion with the family tomorrow prior to surgery. 2 g of Ancef will be ordered on-call to the operating room. Patient will be n.p.o. after midnight. [facility] Office:
[2018-08-13 18:49] LABS: Magnesium 1.8 mg/dL (1.6-2.6)
[2018-08-13 18:49] LABS: Mucous, Urine 0 SEEN /hpf (<or=2+); Squamous Epithelial Cells - UA 0 SEEN /hpf (5-10)
[2018-08-13 18:57] LABS: Color, Urine Yellow (Yellow); Glucose, Dipstick Normal (Normal); Ketone-Dipstick Negative (Negative); Leukocyte Esterase-Dipstick 500 /ul (Negative); Nitrite-Dipstick Negative (Negative); Occult Blood-Urine 150 /ul (Negative); Protein-Dipstick 30 mg/dl (Negative); Urine Bilirubin Dipstick Negative (Negative); Urine Clarity Sl. Cloudy (Clear); Urine Urobilinogen Normal (Normal); Urine pH 6.5 (5.0 - 8.0)
[2018-08-13 19:48] LABS: Red Blood Cells-Urine 0-5 SEEN /hpf (0-5); White Blood Cells 50-100 SEEN /hpf (0-5)
[2018-08-13 19:49] LABS: Bacteria 2+ /hpf (None Seen)
[2018-08-13] MEDS: levETIRAcetam 500 MG Tablet PO (22:51)
[2018-08-13] MEDS: Gabapentin 300 MG Capsule PO (22:51)
[2018-08-13] MEDS: Atorvastatin Calcium 40 MG Tablet PO (22:51)
[2018-08-13] MEDS: amLODIPine 10 MG Tablet PO (22:51)
[2018-08-13] MEDS: Heparin Injection (Vial) 5,000 UNIT/ML VIAL 5000 UNIT SC (22:52)
[2018-08-13] MEDS: Morphine 2 MG/ML Syringe IV (22:52)
[2018-08-14] VITALS (19 sets, daily range): BP systolic 101–170; BP diastolic 52–75; PULSE 76–90; RESP 14–20; TEMP 36.3–38.2; O2SAT 93–97; BMI 29.9
[2018-08-14] MEDS: Lactated Ringers 1,000 ML 75 ML IV ×2 (05:16→21:44)
[2018-08-14] MEDS: Levothyroxine 88 MCG Tablet PO (05:18)
[2018-08-14] MEDS: 0.9% NaCl Peripheral Flush Adult/Peds IV ×2 (06:13→06:14)
[2018-08-14 06:53] LABS: Absolute Lymphocyte Count 2.02 X10^3/ul (0.83-4.51); Absolute Neutrophil Count 12.8 X10^3/uL (2.0-7.7); Basophil# 0.02 X10^3/uL; Basophil% 0.1 % (0-1); Hematocrit 35.1 % (37-47); Hemoglobin 11.2 g/dl (12.0-15.0); Lymphocyte # 2.02 X10^3/ul (4.0); Lymphocyte % 12.3 % (19-41); Mean Corp Hgb Conc 31.9 g/gl (32-36); Mean Corpuscular Hgb 29.2 pg (27.0-32.0); Mean Corpuscular Volume 91.4 fL (81-99); Mean Platelet Vol. 13.4 fl (6.2-12.0); Monocyte# 1.54 X10^3/uL; Monocyte% 9.4 % (0-10); Neutrophil % 77.9 % (47-70); Platelet Count 183 K/mm3 (150-450); RBC Distribution Width CV 14.6 % (11.6-14.6); RBC Distribution Width SD 49.1 fl (35.1-43.9); Red Blood Count 3.84 M/mm3 (4.2-5.4); White Blood Count 16.4 K/mm3 (4.4-11.0)
[2018-08-14 06:56] LABS: Differential Indicated SCAN CRITERIA MET; POSITIVE COUNT NO; POSITIVE DIFFERENTIAL YES; POSITIVE MORPHOLOGY NO
[2018-08-14 07:10] LABS: Anion Gap 9 (5-15); BUN 18 mg/dL (7-18); BUN/Creat Ratio 12.7 RATIO (10-20); Calcium,Total 8.7 mg/dL (8.5-10.1); Chloride 114 mmol/L (98-107); Creatinine, Serum 1.42 mg/dL (0.55-1.02); EST Glomerular Filtration Rate 38 mL/min (>60); Est Glom Filt Rate - Afr Amer 46 mL/min (>60); Estimated Creatinine Clearance 28.43 ml/min; Glucose 127 mg/dL (74-106); Sodium Level 145 mmol/L (136-145); T4 Free Direct 1.26 ng/dL (0.76-1.46); Thyroid Stim Hormone (TSH) 2.23 uIU/mL (0.358-3.74)
[2018-08-14] MEDS: Losartan Potassium 50 MG Tablet PO (09:08)
[2018-08-14] MEDS: levETIRAcetam 500 MG Tablet PO ×2 (09:08→21:44)
[2018-08-14] MEDS: Pantoprazole Sodium 40 MG Tablet PO (09:08)
[2018-08-14] MEDS: Atenolol 50 MG Tablet PO (09:08)
[2018-08-14] MEDS: amLODIPine 10 MG Tablet PO (09:08)
--- NOTE | 2018-08-14 10:16 | PCM.PN.HOSP ---
Patient Problems: Active and Suspected Problems Closed intertrochanteric fracture of left hip (Acute) Fall and laceration of left sideforehead (Acute) Near syncope (Acute) Subjective: Patient is an 78-year-old lady with history of seizure disorder apparently noncompliant with Keppra admitted following seizure episode at home with resultant laceration involving the left forehead which was sutured in the ED. Patient was also found to have left hip fracture. Immobilized and admitted to monitored bed Objective: GENERAL: cooperative HEENT: Left frontal scalp laceration EYES; Anicteric, Normal Conjunctiva NECK; supple, normal thyroid, RESPIRATORY: Diminished to auscultation bilaterally, CARDIOVASCULAR: Regular S1 S2, GI: soft, non-tender, normoactive bowel sounds, : No Renal angle tenderness; EXTREMITIES: No edema, no clubbing, no cyanosis. MUSCULOSKELETAL: Left lower extremity externally rotated and shortened NEURO: Awake; no lateralizing signs. SKIN: No Rash PSYCH; flat affect Vitals/I&O's: Vital Signs Temp Pulse Resp BP Pulse Ox 99.4 F H 89 20 H 142/54 H 95 08/14/18 04:00 08/14/18 04:20 08/14/18 04:00 08/14/18 04:00 08/14/18 08:07 Oxygen Flow Rate (L/min) 2 Oxygen Delivery Method Room Air Weight: 81.647 kg Body Mass Index (BMI) 29.9 Intake and Output for Last 24 Hours 08/12/18 08/13/18 08/14/18 23:59 23:59 23:59 Intake Total 726 / 726 505 / 505 Output Total 450 / 450 375 / 375 Balance 276 / 276 130 / 130 Laboratory Results 08/13/18 13:02: WBC 17.0 H, RBC 4.34, Hgb 12.4, Hct 39.5, MCV 91.0, MCH 28.6, MCHC 31.4 L, RDW 14.3, RDW Differential 47.2 H, Plt Count 204, MPV 12.8 H, Immature Gran % (Auto) 0.400, Neut % (Auto) 82.5 H, Lymph % (Auto) 11.2 L, [place] % (Auto) 5.2, Eos % (Auto) 0.5, Baso % (Auto) 0.2, Absolute Neuts (auto) 14.1 H, Absolute Lymphs (auto) 1.90, Total Counted Not Reportable 08/13/18 13:02: PT 13.8, INR 1.1, APTT 29.7 08/13/18 13:02: Sodium 144, Potassium 4.0, Chloride 114 H, Carbon Dioxide 20.0 L, Anion Gap 10, BUN 17, Creatinine 1.52 H, Estim Creat Clear Calc 26.56, Est GFR (MDRD) Af Amer 42 L, Est GFR (MDRD) Non-Af 35 L, BUN/Creatinine Ratio 11.2, Glucose 108 H, Calcium 8.6, Troponin I < 0.015 08/13/18 13:02: Blood Type O POSITIVE, Antibody Screen NEGATIVE 08/13/18 13:02: Magnesium 1.8 08/13/18 18:35: Urine Color Yellow, Urine Clarity Sl. Cloudy, Urine pH 6.5, Ur Specific [place] 1.010, Urine Protein 30 H, Urine Glucose (UA) Normal, Urine Ketones Negative, Urine Occult Blood 150 H, Urine Nitrite Negative, Urine Bilirubin Negative, Urine Urobilinogen Normal, Ur Leukocyte Esterase 500 H, Urine RBC 0-5 SEEN, Urine WBC 50-100 SEEN, Ur Squamous Epith Cells 0 SEEN, Urine Bacteria 2+, Urine Mucus 0 SEEN 08/14/18 06:05: WBC 16.4 H, RBC 3.84 L, Hgb 11.2 L, Hct 35.1 L, MCV 91.4, MCH 29.2, MCHC 31.9 L, RDW 14.6, RDW Differential 49.1 H, Plt Count 183, MPV 13.4 H, Immature Gran % (Auto) 0.300, Neut % (Auto) 77.9 H, Lymph % (Auto) 12.3 L, [place] % (Auto) 9.4, Eos % (Auto) 0.0, Baso % (Auto) 0.1, Absolute Neuts (auto) 12.8 H, Absolute Lymphs (auto) 2.02, Total Counted Not Reportable, Diff Path Review October08/14/18 06:05: Sodium 145, Potassium 4.0, Chloride 114 H, Carbon Dioxide 22.0, Anion Gap 9, BUN 18, Creatinine 1.42 H, Estim Creat Clear Calc 28.43, Est GFR (MDRD) Af Amer 46 L, Est GFR (MDRD) Non-Af 38 L, BUN/Creatinine Ratio 12.7, Glucose 127 H, Calcium 8.7, TSH 2.23, Free T4 1.26 Current Medications Acetaminophen (Tylenol) 650 mg PO Q6H PRN PRN PRN Reason: Mild Pain (scale 0-3)/T>100.7 Amlodipine Besylate (Norvasc) 10 mg PO DAILY [facility] Last Admin: 08/14/18 09:08 Dose: 10 mg Aspirin (Aspirin, Baby) 81 mg PO DAILY@0800 [facility] Atenolol (Tenormin (Beta Noé)) 50 mg PO DAILY [facility] Last Admin: 08/14/18 09:08 Dose: 50 mg Atorvastatin Calcium (Lipitor) 40 mg PO QHS [facility] Last Admin: 08/13/18 22:51 Dose: 40 mg Bisacodyl (Dulcolax) 10 mg RECTAL DAILY PRN PRN PRN Reason: Constipation Docusate Sodium (Colace) 200 mg PO BID PRN PRN PRN Reason: constipation Gabapentin (Neurontin) 100 mg PO QHS PRN PRN Reason: PAIN Gabapentin (Neurontin) 300 mg PO QHS [facility] Last Admin: 08/13/18 22:51 Dose: 300 mg Heparin Sodium (Porcine) (Heparin Na) 5,000 unit SC Q8 [facility] Last Admin: 08/14/18 02:35 Dose: Not Given Hydralazine HCl (Apresoline Iv) 10 mg IV Q4H PRN PRN PRN Reason: SBP > 180 Lactated Ringer's () 1,000 mls @ 75 mls/hr IV .[id number] [facility] Last Admin: 08/14/18 05:16 Dose: 75 mls/hr Levetiracetam (Keppra Tablet) 500 mg PO BID [facility] Last Admin: 08/14/18 09:08 Dose: 500 mg Levothyroxine Sodium (Synthroid) 88 mcg PO DAILY@0600 [facility] Last Admin: 08/14/18 05:18 Dose: 88 mcg Losartan Potassium (Cozaar) 50 mg PO DAILY [facility] Last Admin: 08/14/18 09:08 Dose: 50 mg Magnesium Hydroxide (Milk Of Magnesia) 30 ml PO DAILY PRN PRN Reason: Constipation Morphine Sulfate () 1 - 2 mg IV Q4H PRN PRN PRN Reason: SEVERE PAIN (6-10/10) Last Admin: 08/13/18 22:52 Dose: 2 mg Ondansetron HCl (Zofran) 4 mg IV Q8H PRN PRN PRN Reason: Nausea Oxycodone HCl (Oxyir) 5 mg PO Q4H PRN PRN PRN Reason: Moderate Pain (pain scale 4-5) Pantoprazole Sodium (Protonix) 40 mg PO DAILY [facility] Last Admin: 08/14/18 09:08 Dose: 40 mg Polyethylene Glycol (Miralax) 17 gm PO DAILY [facility] Sodium Chloride () 5 - 15 ml IV UD PRN PRN Reason: SALINE FLUSH Last Admin: 08/14/18 06:14 Dose: 10 ml Medical Necessity - Tobacco Use Smoking Status: Never smoker Tobacco Use: Non-smoker Assessment/Plan All Active Problems Closed intertrochanteric fracture of left hip (Acute) Fall and laceration of left sideforehead (Acute) Near syncope (Acute) Seizure (Acute) Patient is an 78-year-old lady with history of seizure disorder apparently noncompliant with Keppra admitted following seizure episode at home with resultant laceration involving the left forehead which was sutured in the ED. Patient was also found to have left hip fracture. Immobilized and admitted to monitored bed 1. Seizure disorder with breakthrough seizure attributed to noncompliance with therapy. Patient did receive Keppra subsequently admitted to a monitored bed with seizure precautions were instituted. Patient was seen in consultation by Dr. Rebolledo with neurology 2. Acute Nondisplaced comminuted left intertrochanteric fracture. Patient seizures. Patient has been admitted to a monitored bed managed with immobilization pain management with consultation placed to Dr. James with plans for patient undergo ORIF on 06/13/2019 3. Laceration involving the left forehead sutured in the ED 4. Acute cystitis patient started on Rocephin cultures sent with plans to follow-up on results 5. 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 Hypertension-blood pressure controlled, home medications continued with dose adjustment as needed 7. Dyslipidemia-patient is on statin therapy, continued at home dose 8. Rheumatoid arthritis 9. DVT prophylaxis SCDs for now with plans to start systemic anticoagulation following surgery Active Medications Acetaminophen (Tylenol) 650 mg PO Q6H PRN PRN PRN Reason: Mild Pain (scale 0-3)/T>100.7 Amlodipine Besylate (Norvasc) 10 mg PO DAILY [facility] Last Admin: 08/14/18 09:08 Dose: 10 mg Aspirin (Aspirin, Baby) 81 mg PO DAILY@0800 [facility] Atenolol (Tenormin (Beta Noé)) 50 mg PO DAILY [facility] Last Admin: 08/14/18 09:08 Dose: 50 mg Atorvastatin Calcium (Lipitor) 40 mg PO QHS [facility] Last Admin: 08/13/18 22:51 Dose: 40 mg Bisacodyl (Dulcolax) 10 mg RECTAL DAILY PRN PRN PRN Reason: Constipation Docusate Sodium (Colace) 200 mg PO BID PRN PRN PRN Reason: constipation Gabapentin (Neurontin) 100 mg PO QHS PRN PRN Reason: PAIN Gabapentin (Neurontin) 300 mg PO QHS [facility] Last Admin: 08/13/18 22:51 Dose: 300 mg Heparin Sodium (Porcine) (Heparin Na) 5,000 unit SC Q8 [facility] Last Admin: 08/14/18 02:35 Dose: Not Given Hydralazine HCl (Apresoline Iv) 10 mg IV Q4H PRN PRN PRN Reason: SBP > 180 Lactated Ringer's () 1,000 mls @ 75 mls/hr IV .[id number] [facility] Last Admin: 08/14/18 05:16 Dose: 75 mls/hr Ceftriaxone Sodium 1 gm/ N/A 50 mls @ 100 mls/hr IV Q24 [facility] Levetiracetam (Keppra Tablet) 500 mg PO BID [facility] Last Admin: 08/14/18 09:08 Dose: 500 mg Levothyroxine Sodium (Synthroid) 88 mcg PO DAILY@0600 [facility] Last Admin: 08/14/18 05:18 Dose: 88 mcg Losartan Potassium (Cozaar) 50 mg PO DAILY [facility] Last Admin: 08/14/18 09:08 Dose: 50 mg Magnesium Hydroxide (Milk Of Magnesia) 30 ml PO DAILY PRN PRN Reason: Constipation Morphine Sulfate () 1 - 2 mg IV Q4H PRN PRN PRN Reason: SEVERE PAIN (6-10/10) Last Admin: 08/13/18 22:52 Dose: 2 mg Ondansetron HCl (Zofran) 4 mg IV Q8H PRN PRN PRN Reason: Nausea Oxycodone HCl (Oxyir) 5 mg PO Q4H PRN PRN PRN Reason: Moderate Pain (pain scale 4-5) Pantoprazole Sodium (Protonix) 40 mg PO DAILY [facility] Last Admin: 08/14/18 09:08 Dose: 40 mg Polyethylene Glycol (Miralax) 17 gm PO DAILY [facility] Sodium Chloride () 5 - 15 ml IV UD PRN PRN Reason: SALINE FLUSH Last Admin: 08/14/18 06:14 Dose: 10 ml Microbiology 08/13/18 18:35 Urine Culture - Preliminary Urine, 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 Electronically Signed: Ab Ivory MD at 13:31 EST , Service support , Brain CT 08/13/18 11:07 IMPRESSION: Chronic involutional changes of the brain. Scalp hematoma and laceration overlying the left frontoparietal bone. Electronically Signed: Ab Ivory MD at 12:46 EST , Service support , Cervical Spine CT 08/13/18 11:07 IMPRESSION: Multilevel degenerative changes, as described above. Electronically Signed: Ab Ivory MD at 12:51 EST , Service support , Chest X-Ray 08/13/18 11:07 IMPRESSION: No acute abnormality is seen. Electronically Signed: Ab Ivory MD at 13:34 EST , Service support , Foot X-Ray 08/13/18 11:07 IMPRESSION: No acute abnormality is seen. Electronically Signed: Ab Ivory MD at 13:19 EST , Service support , Hip/Pelvis X-Ray 08/13/18 11:07 IMPRESSION: Nondisplaced comminuted left intertrochanteric fracture. Electronically Signed: Ab Ivory MD at 13:20 EST , Service support , Knee X-Ray 08/13/18 11:07 IMPRESSION: Degenerative arthrosis. Small joint effusion. Electronically Signed: Ab Ivory MD at 13:21 EST , Service support , Code Visit Inpatient E&M: 86993 Subs Hosp L3
--- NOTE | 2018-08-14 11:33 | PCM.CONS.GEN ---
Reason for Consult Date of Consultation: 08/14/18 History of Present Illness: The patient is a 78 year old F Per admission note: the patient is a 78 year old F with history of multiple comorbidities as listed below including seizure, noncompliant with Keppra was brought into ED after she felt dizzy while she was making coffee and fell forward and hit left side of forehead. She also complained of left hip pain, left knee and foot pain. She also complained that she felt losing balance that led to fall. [] Denies chest pain, shortness of breath, palpitation or diaphoresis. Patient has 5 cm laceration left forehead, which was sutured in ED. Initial workup in ER, shows left hip intertrochanteric fracture. Initially thought to admit on MedSurg with Dr. James as orthopedic surgeon consult for left hip fracture, but plan was changed to admit in PCU after she had seizure in ED. As per ED documentation, she had about 1-2 minutes of generalized seizures and was unresponsive. It got resolved even before patient got Ativan 1 mg. When I saw the patient, patient had partial seizure and right upper extremity with twitching of lips and face and therefore 2 more milligrams of IV Ativan given. 1 g of loading dose of Keppra ordered decided to admit in PCU. 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) Allergies No Known Allergies Allergy (Verified 08/13/18 10:49) Home Medications: Ambulatory Orders Medication Instructions Recorded Levothyroxine [Synthroid] 88 mcg PO DAILY 02/22/16 Aspirin [Aspirin, Baby] 81 mg PO DAILY@0800 tab.chew 02/26/16 Atenolol [Tenormin (beta dashawn)] 50 mg PO DAILY #30 tablet 03/18/16 Losartan Potassium [Cozaar] 50 mg PO DAILY #30 tablet 03/18/16 Atorvastatin Calcium [Lipitor] 40 mg PO DAILY 05/17/17 Gabapentin [Neurontin] 100 mg PO QHS PRN 05/17/17 levETIRAcetam tablet [Keppra] 500 mg PO BID #60 tablet 05/19/17 Cholecalciferol (Vitamin D3) 6,000 unit PO DAILY 08/13/18 [Vitamin D3] Gabapentin [Neurontin] 300 mg PO QHS 08/13/18 Golimumab [Simponi] 100 mg IJ UD 08/13/18 Hydrocodone/Acetaminophen 1 tab PO PRN PRN 08/13/18 [Hydrocodon-Acetaminophen 5-325] Omeprazole 40 mg PO DAILY 08/13/18 Prednisone 10 mg PO PRN PRN 08/13/18 Surgical History: - - surgery for ovarin cancer. 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 Smoking Status: Never smoker Tobacco Use: Non-smoker Alcohol: None Drugs: None - *Family History Maternal History Items: No pertinent history Paternal History Items: No pertinent history Patient Problems: Active and Suspected Problems Closed intertrochanteric fracture of left hip (Acute) Fall and laceration of left sideforehead (Acute) Near syncope (Acute) - Physical Exam Vital Signs Temp Pulse Resp BP Pulse Ox 37.4 C H 89 20 H 142/54 H 95 08/14/18 04:00 08/14/18 04:20 08/14/18 04:00 08/14/18 04:00 08/14/18 08:07 Oxygen Flow Rate (L/min) 2 Oxygen Delivery Method Room Air Weight: 81.647 kg Body Mass Index (BMI) 29.9 Intake and Output for Last 24 Hours 08/12/18 08/13/18 08/14/18 23:59 23:59 23:59 Intake Total 726 / 726 505 / 505 Output Total 450 / 450 375 / 375 Balance 276 / 276 130 / 130 Microbiology Past 72 Hours 08/13/18 18:35 Urine Culture - Preliminary Urine, 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 Laboratory Tests Past 24 Hrs 08/13/18 08/13/18 08/13/18 13:02 13:02 13:02 WBC 17.0 H RBC 4.34 Hgb 12.4 Hct 39.5 MCV 91.0 MCH 28.6 MCHC 31.4 L RDW 14.3 RDW Differential 47.2 H Plt Count 204 MPV 12.8 H Immature Gran % (Auto) 0.400 Neut % (Auto) 82.5 H Lymph % (Auto) 11.2 L Graves % (Auto) 5.2 Eos % (Auto) 0.5 Baso % (Auto) 0.2 Absolute Neuts (auto) 14.1 H Absolute Lymphs (auto) 1.90 Total Counted Not Reportable Diff Path Review PT 13.8 INR 1.1 APTT 29.7 Sodium 144 Potassium 4.0 Chloride 114 H Carbon Dioxide 20.0 L Anion Gap 10 BUN 17 Creatinine 1.52 H Estim Creat Clear Calc 26.56 Est GFR (MDRD) Af Amer 42 L Est GFR (MDRD) Non-Af 35 L BUN/Creatinine Ratio 11.2 Glucose 108 H Calcium 8.6 Magnesium Troponin I < 0.015 TSH Free T4 Urine Color Urine Clarity Urine pH Ur Specific [place] Urine Protein Urine Glucose (UA) Urine Ketones Urine Occult Blood Urine Nitrite Urine Bilirubin Urine Urobilinogen Ur Leukocyte Esterase Urine RBC Urine WBC Ur Squamous Epith Cells Urine Bacteria Urine Mucus Blood Type Antibody Screen 08/13/18 08/13/18 08/13/18 13:02 13:02 18:35 WBC RBC Hgb Hct MCV MCH MCHC RDW RDW Differential Plt Count MPV Immature Gran % (Auto) Neut % (Auto) Lymph % (Auto) Graves % (Auto) Eos % (Auto) Baso % (Auto) Absolute Neuts (auto) Absolute Lymphs (auto) Total Counted Diff Path Review PT INR APTT Sodium Potassium Chloride Carbon Dioxide Anion Gap BUN Creatinine Estim Creat Clear Calc Est GFR (MDRD) Af Amer Est GFR (MDRD) Non-Af BUN/Creatinine Ratio Glucose Calcium Magnesium 1.8 Troponin I TSH Free T4 Urine Color Yellow Urine Clarity Sl. Cloudy Urine pH 6.5 Ur Specific [place] 1.010 Urine Protein 30 H Urine Glucose (UA) Normal Urine Ketones Negative Urine Occult Blood 150 H Urine Nitrite Negative Urine Bilirubin Negative Urine Urobilinogen Normal Ur Leukocyte Esterase 500 H Urine RBC 0-5 SEEN Urine WBC 50-100 SEEN Ur Squamous Epith Cells 0 SEEN Urine Bacteria 2+ Urine Mucus 0 SEEN Blood Type O POSITIVE Antibody Screen NEGATIVE 08/14/18 08/14/18 06:05 06:05 WBC 16.4 H RBC 3.84 L Hgb 11.2 L Hct 35.1 L MCV 91.4 MCH 29.2 MCHC 31.9 L RDW 14.6 RDW Differential 49.1 H Plt Count 183 MPV 13.4 H Immature Gran % (Auto) 0.300 Neut % (Auto) 77.9 H Lymph % (Auto) 12.3 L Graves % (Auto) 9.4 Eos % (Auto) 0.0 Baso % (Auto) 0.1 Absolute Neuts (auto) 12.8 H Absolute Lymphs (auto) 2.02 Total Counted Not Reportable Diff Path Review May foll PT INR APTT Sodium 145 Potassium 4.0 Chloride 114 H Carbon Dioxide 22.0 Anion Gap 9 BUN 18 Creatinine 1.42 H Estim Creat Clear Calc 28.43 Est GFR (MDRD) Af Amer 46 L Est GFR (MDRD) Non-Af 38 L BUN/Creatinine Ratio 12.7 Glucose 127 H Calcium 8.7 Magnesium Troponin I TSH 2.23 Free T4 1.26 Urine Color Urine Clarity Urine pH Ur Specific [place] Urine Protein Urine Glucose (UA) Urine Ketones Urine Occult Blood Urine Nitrite Urine Bilirubin Urine Urobilinogen Ur Leukocyte Esterase Urine RBC Urine WBC Ur Squamous Epith Cells Urine Bacteria Urine Mucus Blood Type Antibody Screen Assessment/Plan All Active Problems Closed intertrochanteric fracture of left hip (Acute) Fall and laceration of left sideforehead (Acute) Near syncope (Acute) Seizure (Acute)
--- NOTE | 2018-08-14 12:38 | RAD_ITS ---
STUDY: X-RAY - LEFT FEMUR REASON FOR STUDY: Female, 78 years old. Postop TECHNIQUE: 3 view(s) of the femur. COMPARISON: None. FINDINGS: There are orthopedic screws transfixing the left proximal femur. There is proximal fracture of the left femur transfixed by an intramedullary idania in orthopedic screws. There is postoperative change partially visualized overlying the right pelvis. RAD/Femur Min 2 Views IMPRESSION: Postoperative changes status post open reduction internal fixation of the left femur. Electronically Signed: Stacey Dempsey MD at 19:01 EST Tel , Service support ,
--- NOTE | 2018-08-14 12:41 | PCM.OPRPT ---
Report of Operation Date of Procedure: 08/14/18 Pre-Operative Diagnosis: Left hip displaced intertrochanteric hip fracture Post-Operative Diagnosis: Left hip displaced intertrochanteric hip fracture Surgery/Procedure Performed:: Left hip cephalo-medullary nail Description of Surgical Findings:: Stable fracture reduction insulation board back tender: Royal Dixon Type of Anesthesia:: General Anesthesiologist: Miller Jean Special Medications: 2 g Ancef Estimated Blood Loss (mL): 200 Fluids Replaced: 500 milliliters crystalloid Description of Procedure: Components used: 1. [employer] InterTAN nail 34 cm x 11-1/2 mm 125 degree nail 2. [employer] InterTAN lag screw 95 mm 3. [employer] 40 millimeter interlocking screw Brief history operative indications: 78-year-old female with history of seizures had a seizure yesterday morning fell and broke her left hip. Patient had a comminuted intertrochanteric hip fracture. After extensive discussion including risk and benefits which include but are not limited to blood loss, PEs, DVTs, neurovascular damage, nonunions, malunions and screw cut out patient has elected to proceed with a left cephalo-medullary nail. Procedure: On the date of the procedure the patient's L hip was marked in the preoperative area and patient was taken back to the operating room. Anesthetic was administered and patient was transferred to the table were all bony prominence identified well-padded and the ipsilateral arm was placed across the chest. Patient was then translated down to the perineal post and the operative leg was placed in the boot while the nonoperative leg was lowered and secured. The operative leg was placed in traction and internal rotation and live fluoroscopy was used to verify adequate reduction. The operative leg was then prepped in a sterile fashion with chlorhexidine while the surgeon scrubbed. Upon reentering the room the operative extremity was draped in the standard orthopedic fashion. Skin incision was marked and a timeout was called. Everyone agreed upon the side, the site, the procedure be performed, patient's identity, and antibiotics given. Skin incision was made and the position of the entry guidepin was verified using live fluoroscopy. Once we were satisfied with our position the pin was advanced in the soft tissue protector was placed over the pin. The entry reamer was then advanced into the proximal portion of the femur. A guidewire was placed down the intramedullary canal and fluoroscopy was used to verify that the anterior cortex had not been breached distally as well as satisfactory distal positioning. We then used live fluoroscopy to verify the length of the nail and a [employer] InterTAN 34 CM by 11.5 mm 125 degree neck angle hip nail was selected. The was sequentially reamed to a 13 mm reamer was then passed. The nail was then attached to the head soft sugar operator and inserted into the intramedullary canal. The appropriate depth was verified and the skin incision for the lag screw was made. The lag screw guidepin was then placed under live fluoroscopy and when a satisfactory position was obtained the length of the screw was measured and the standard technique to drill for the lag screws was performed. The anti-rotation bar was used. At this time a 95 MM lag screw was selected with its corresponding compression screw. The lag screw was then passed and traction was left off the leg. The compression screw was then passed and the fracture was compressed. The final position of the lag screw was verified under fluoroscopy. The set screw was tightened proximally Attention was then turned to the distal portion of the nail and a perfect [place] technique was used to locate the distal interlocking screw and a 40mm distal interlocking screw was placed using this technique. Live fluoroscopy was used to verify the position of the interlocking screw and the final position of the hip components. Once we were satisfied with our positioning the wounds were copiously irrigated out with normal saline skin was closed with 2-0 Vicryl and kirsten for final skin closure. A sterile dressing was placed with Xeroform. Patient was then awakened by anesthesia transferred from the fracture table back to their hospital bed and transferred to the PACU for recovery. Postoperative plan: Patient will be weight-bear as tolerated. Xarelto for DVT prophylaxis with knee-high stockings. Follow up in the office in 2 weeks. DVT prophylaxis was discussed with the primary service despite her risk for seizures and falls we have elected to proceed with DVT prophylaxis. Grafts/Implants Used: [employer] InterTAN - Complications No intraoperative complication - Admit VTE Documentation VTE Present on Admission: No VTE Mechan Device Prophylaxis: SCD's, Thigh High CARLO Hose VTE Pharm Prophylaxis ordered?: Yes
[2018-08-14] MEDS: Cefazolin 2 GM in 0.9% Normal Saline 100 ML IV (12:50)
--- NOTE | 2018-08-14 13:00 | RAD_ITS ---
STUDY: Fluoroscopy. LEFT FEMUR REASON FOR STUDY: Female, 78 years old. Intraoperative study left femur TECHNIQUE: 5 fluoroscopy view(s) of the femur. Fluoroscopy time given by the radiology department was 96.8 seconds. COMPARISON: None. FINDINGS: Fluoroscopic intraoperative study. RAD/Femur Min 2 Views IMPRESSION: 5 fluoroscopy views left femur placing an intramedullary idania. Electronically Signed: Stacey Dempsey MD at 19:13 EST Tel , Service support ,
[2018-08-14 13:14] LABS: Pathologist Review Reviewed
--- NOTE | 2018-08-14 15:07 | CASEMGMT ---
Pt is still out of the dept in the OR at this time. SStesme RN CM
[2018-08-14] MEDS: Ceftriaxone 1 GM/50 mL Premix Q24 IV (17:50)
[2018-08-14] MEDS: Senna/Docusate Sodium 1 Tablet 2 TABLET PO (21:44)
[2018-08-14] MEDS: Atorvastatin Calcium 40 MG Tablet PO (21:44)
[2018-08-14] MEDS: Gabapentin 300 MG Capsule PO (21:44)
[2018-08-15] VITALS (13 sets, daily range): BP systolic 106–121; BP diastolic 42–50; PULSE 70–84; RESP 16–19; TEMP 36.3–37.6; O2SAT 92–97
--- NOTE | 2018-08-15 05:30 | NURSING ---
dangled legs at bedside, attempted to stand, unable with X2 assist and walker. Pt would not follow commands.
[2018-08-15] MEDS: Rivaroxaban 10 MG Tablet PO (06:18)
[2018-08-15] MEDS: Levothyroxine 88 MCG Tablet PO (06:18)
--- NOTE | 2018-08-15 09:36 | PN_ITS ---
Patient Problems: Active and Suspected Problems Closed intertrochanteric fracture of left hip (Acute) Fall and laceration of left sideforehead (Acute) Near syncope (Acute) Subjective: Patient underwent Left hip cephalo-medullary nailing on 08/14/2018 on account of left hip displaced intertrochanteric hip fracture. Patient was also noted to have acute cystitis on admission urine culture so far positive for Klebsiella Objective: GENERAL: Drowsy but easily arousable to sternal rub HEENT: Left frontal scalp laceration EYES; Anicteric, Normal Conjunctiva NECK; supple, normal thyroid, RESPIRATORY: Diminished to auscultation bilaterally, CARDIOVASCULAR: Regular S1 S2, GI: soft, non-tender, normoactive bowel sounds, : No Renal angle tenderness; EXTREMITIES: No edema, no clubbing, no cyanosis. NEURO: Awake; no lateralizing signs. SKIN: No Rash PSYCH; flat affect Vitals/I&O's: Vital Signs Temp Pulse Resp BP Pulse Ox 99.3 F H 84 16 116/44 L 95 08/15/18 07:55 08/15/18 07:55 08/15/18 07:55 08/15/18 07:55 08/15/18 08:02 Oxygen Flow Rate (L/min) 2 Oxygen Delivery Method Room Air Weight: 81.647 kg Body Mass Index (BMI) 29.9 Intake and Output for Last 24 Hours 08/13/18 08/14/18 08/15/18 23:59 23:59 23:59 Intake Total 726 / 726 3172 / 3172 1110 / 1110 Output Total 450 / 450 1050 / 1050 450 / 450 Balance 276 / 276 2122 / 2122 660 / 660 Microbiology Past 72 Hours 08/13/18 18:35 Urine, Random Urine Culture - Final Klebsiella pneumoniae sp pneum Laboratory Results 08/14/18 06:05: Diff Path Review Reviewed Current Medications Acetaminophen (Tylenol) 650 mg PO Q6H PRN PRN PRN Reason: Mild Pain (scale 0-3)/T>100.7 Amlodipine Besylate (Norvasc) 10 mg PO DAILY [facility] Last Admin: 08/14/18 09:08 Dose: 10 mg Aspirin (Aspirin, Baby) 81 mg PO DAILY@0800 [facility] Last Admin: 08/14/18 13:45 Dose: Not Given Atenolol (Tenormin (Beta Noé)) 50 mg PO DAILY [facility] Last Admin: 08/14/18 09:08 Dose: 50 mg Atorvastatin Calcium (Lipitor) 40 mg PO QHS [facility] Last Admin: 08/14/18 21:44 Dose: 40 mg Bisacodyl (Dulcolax) 10 mg RECTAL DAILY PRN PRN PRN Reason: Constipation Calcium Carbonate (Os-Kaleb 500) 1,000 mg PO DAILY@0800 [facility] Cholecalciferol (Vitamin D) 1,000 unit PO DAILY [facility] Docusate Sodium (Colace) 200 mg PO BID PRN PRN PRN Reason: constipation Gabapentin (Neurontin) 100 mg PO QHS PRN PRN Reason: PAIN Gabapentin (Neurontin) 300 mg PO QHS [facility] Last Admin: 08/14/18 21:44 Dose: 300 mg Hydralazine HCl (Apresoline Iv) 10 mg IV Q4H PRN PRN PRN Reason: SBP > 180 Lactated Ringer's () 1,000 mls @ 75 mls/hr IV .[id number] [facility] Last Admin: 08/14/18 21:44 Dose: 75 mls/hr Ceftriaxone Sodium (Rocephin) 1 gm in 50 mls @ 100 mls/hr IV Q24 [facility] Last Admin: 08/14/18 17:50 Dose: 100 mls/hr Levetiracetam (Keppra Tablet) 500 mg PO BID [facility] Last Admin: 08/14/18 21:44 Dose: 500 mg Levothyroxine Sodium (Synthroid) 88 mcg PO DAILY@0600 [facility] Last Admin: 08/15/18 06:18 Dose: 88 mcg Losartan Potassium (Cozaar) 50 mg PO DAILY [facility] Last Admin: 08/14/18 09:08 Dose: 50 mg Magnesium Hydroxide (Milk Of Magnesia) 30 ml PO DAILY PRN PRN Reason: Constipation Morphine Sulfate () 1 - 2 mg IV Q4H PRN PRN PRN Reason: SEVERE PAIN (6-10/10) Last Admin: 08/13/18 22:52 Dose: 2 mg Ondansetron HCl (Zofran) 4 mg IV Q8H PRN PRN PRN Reason: Nausea Oxycodone HCl (Oxyir) 5 mg PO Q4H PRN PRN PRN Reason: Moderate Pain (pain scale 4-5) Pantoprazole Sodium (Protonix) 40 mg PO DAILY [facility] Last Admin: 08/14/18 09:08 Dose: 40 mg Polyethylene Glycol (Miralax) 17 gm PO DAILY [facility] Last Admin: 08/14/18 13:45 Dose: Not Given Rivaroxaban (Xarelto) 10 mg PO DAILY@0600 [facility] Last Admin: 08/15/18 06:18 Dose: 10 mg Senna/Docusate Sodium (Senokot-S, Manasa-Colace) 2 tablet PO BID [facility] Last Admin: 08/14/18 21:44 Dose: 2 tablet Sodium Chloride () 5 - 15 ml IV UD PRN PRN Reason: SALINE FLUSH Last Admin: 08/14/18 06:14 Dose: 10 ml Medical Necessity - Tobacco Use Smoking Status: Never smoker Tobacco Use: Non-smoker Assessment/Plan All Active Problems Closed intertrochanteric fracture of left hip (Acute) Fall and laceration of left sideforehead (Acute) Near syncope (Acute) Seizure (Acute) Patient is an 78-year-old lady with history of seizure disorder apparently noncompliant with Keppra admitted following seizure episode at home with resultant laceration involving the left forehead which was sutured in the ED. Patient was also found to have left hip fracture. Immobilized and admitted to monitored bed 1. Seizure disorder with breakthrough seizure attributed to noncompliance with therapy. Patient did receive Keppra subsequently admitted to a monitored bed with seizure precautions were instituted. Patient was seen in consultation by Dr. Rebolledo with neurology 2. Acute Nondisplaced comminuted left intertrochanteric fracture. Patient seizures. Patient has been admitted to a monitored bed managed with immobilization pain management with consultation placed to Dr. James. Patient underwent Left hip cephalo-medullary nailing on 08/14/2018 on account of left hip displaced intertrochanteric hip fracture. 3. Laceration involving the left forehead sutured in the ED 4. Acute cystitis with Klebsiella patient started on Rocephin plan to treat for 3 days. 5. 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 Hypertension-blood pressure controlled, home medications continued with dose adjustment as needed 7. Dyslipidemia-patient is on statin therapy, continued at home dose 8. Rheumatoid arthritis 9. DVT prophylaxis SCDs for now with plans to start systemic anticoagulation following surgery Code Visit Inpatient E&M: [id number] [facility] L3
--- NOTE | 2018-08-15 09:53 | NURSING ---
Pt has been very drowsy this am, she will awaken to her name and converse with you, she is confused, but then falls back to sleep quickly. pt awoken, sat up in bed, bright light turned on, pt requested a drink of water. water given and pt coughed with the first sip of water. pt then took another sip of water and coughed again. water removed from patient, and made NPO. Dr Douglas notified, and speech therapist notified of new order for [facility].
[2018-08-15] MEDS: Ceftriaxone 1 GM/50 mL Premix Q24 IV (10:01)
--- NOTE | 2018-08-15 10:46 | NURSING ---
student nurse assessment reviewed.
--- NOTE | 2018-08-15 11:02 | PCM.PN.ORT ---
Patient Problems: Active and Suspected Problems Closed intertrochanteric fracture of left hip (Acute) Fall and laceration of left sideforehead (Acute) Near syncope (Acute) Subjective: The patient was sitting in bed upon examination. Patient denies any chest pain, shortness of breath, dizziness, lightheadedness, nausea or vomiting, or calf pain. Pain is controlled on medications. No adverse overnight events. Patient's chief complaint is pain when she is up walking. At rest her pain is very well controlled. Patient sustained a left hip fracture after a fall. Patient has history of seizure disorder. Objective: Vital signs stable and Temp 99.3 Patient is able to plantarflex and dorsiflex actively. Sensation is intact to light touch to saphenous, sural, superficial and deep peroneal, and tibial distribution. Dressing is clean dry and intact. Minimal drainage over the proximal dressing Negative Homans bilaterally, negative signs and symptoms of DVT. - Physical Exam General: Alert, Cooperative, No apparent distress Vital Signs Temp Pulse Resp BP Pulse Ox 99.3 F H 84 16 116/44 L 95 08/15/18 07:55 08/15/18 07:55 08/15/18 07:55 08/15/18 07:55 08/15/18 10:04 Oxygen Flow Rate (L/min) 2 Oxygen Delivery Method Room Air Weight: 81.647 kg Body Mass Index (BMI) 29.9 Intake and Output for Last 24 Hours 08/13/18 08/14/18 08/15/18 23:59 23:59 23:59 Intake Total 726 / 726 3172 / 3172 1110 / 1110 Output Total 450 / 450 1050 / 1050 450 / 450 Balance 276 / 276 2122 / 2122 660 / 660 Microbiology Past 72 Hours 08/13/18 18:35 Urine Culture - Final Urine, Random Klebsiella pneumoniae sp pneum Laboratory Tests Past 24 Hrs 08/14/18 06:05 Diff Path Review Reviewed Medical Necessity - Tobacco Use Smoking Status: Never smoker Tobacco Use: Non-smoker Assessment/Plan All Active Problems Closed intertrochanteric fracture of left hip (Acute) Fall and laceration of left sideforehead (Acute) Near syncope (Acute) Seizure (Acute) 1. S/P left hip cephalo-medullary nail POD #1 2. Continue Pain Medications: Tylenol and OxyIR 3. DVT Prophylaxis: Patient currently is on Xarelto 4. PT/OT: Weightbearing as tolerated 5. H & H: 11.2/35.1, asymptomatic 6. Encouraged Incentive Spirometry 7. Continue postoperative medical management per medicine: Consultation has been obtained by Dr. Rebolledo with neurology 8. Disposition: Orthopedically patient is doing well. We will continue with weightbearing as tolerated with use of walker. Continue pain medications listed above. Continue with DVT prophylaxis per primary medicine. Patient will need to follow-up with [facility] with Dr. Tin James in 12-14 days with x-rays and incision check. Okay to remove dressings after 5 days postoperatively and continue with dry dressing changes daily. Please contact orthopedics with any complications or questions. Appreciate consult and medical management of the patient and her comorbidities.
[2018-08-15] MEDS: Pantoprazole Sodium 40 MG Tablet PO (11:18)
[2018-08-15] MEDS: Aspirin 81 MG TAB.CHEW PO (11:18)
[2018-08-15] MEDS: levETIRAcetam 500 MG Tablet PO ×2 (11:18→21:30)
[2018-08-15] MEDS: Senna/Docusate Sodium 1 Tablet 2 TABLET PO ×2 (11:18→21:30)
[2018-08-15] MEDS: Losartan Potassium 50 MG Tablet PO (11:18)
[2018-08-15] MEDS: amLODIPine 10 MG Tablet PO (11:18)
[2018-08-15] MEDS: Atenolol 50 MG Tablet PO (11:18)
[2018-08-15] MEDS: Calcium (Elemental) 500 MG Tablet 1000 MG PO (11:18)
[2018-08-15] MEDS: Polyethylene Glycol 3350 17 GM PACKET PO (11:20)
[2018-08-15 12:42] LABS: Hemoglobin 7.2 g/dl (12.0-15.0); Mean Corp Hgb Conc 31.3 g/gl (32-36); Mean Corpuscular Volume 92.7 fL (81-99); Mean Platelet Vol. 13.1 fl (6.2-12.0); Platelet Count 145 K/mm3 (150-450); RBC Distribution Width CV 14.7 % (11.6-14.6); RBC Distribution Width SD 49.7 fl (35.1-43.9); Red Blood Count 2.48 M/mm3 (4.2-5.4); White Blood Count 16.9 K/mm3 (4.4-11.0)
[2018-08-15 12:43] LABS: Scan Indicated on CBC? Y/N NO
[2018-08-15 13:12] LABS: Anion Gap 10 (5-15); BUN 30 mg/dL (7-18); Calcium,Total 7.6 mg/dL (8.5-10.1); Chloride 111 mmol/L (98-107); EST Glomerular Filtration Rate 25 mL/min (>60); Est Glom Filt Rate - Afr Amer 31 mL/min (>60); Estimated Creatinine Clearance 19.37 ml/min; Glucose 121 mg/dL (74-106); Magnesium 1.7 mg/dL (1.6-2.6); Potassium 4.1 mmol/L (3.5-5.1); Sodium Level 141 mmol/L (136-145)
[2018-08-15] MEDS: Lactated Ringers 1,000 ML 75 ML IV (13:44)
--- NOTE | 2018-08-15 15:56 | CASEMGMT ---
Social Work Met with patient and patient son, Douglas in room. Patient sleeping while this social media coordinator spoke with patient son. Patient son reporting that patient lives with patient son in a 1-story home with 5-10 steps to enter the home. Douglas reporting that patient was ambulatory without a device prior to fall and now hospitalization. Douglas reporting that patient has had multiple falls within the past few weeks to month. Douglas reporting that patient will not be excited about SNF stay as therapy and doctor are recommending for patient to discharge to a SNF for rehabilitation. Douglas reporting that the only SNF patient would probably be open to would be the Transitional Care Unit at [facility]. This social media coordinator voicing that patient insurance is in network with the TCU and that this social media coordinator is able to put patient name on list and have social work confirm with patient on Friday. Douglas agreeable to plan. Douglas reporting that patient does have walkers within the home. Douglas reporting that patient does not have advanced directives completed at this time, this would be something to continue to follow up with patient on. Douglas is retired and is able to provide 24hr care for patient, but patient is currently x2 assist for all activities and Douglas is reporting to not be able to manage the current level of care. Social work to follow up with on Friday. Support given. Telephone call to [facility]. Voicemail left with patient name to be placed on list for TCU. Gunnar SOTO, JEREMIE
--- NOTE | 2018-08-15 17:55 | NURSING ---
Pt assisted up to the chair with 3 assist. she sat up for aprox 2 hours and then assisted back to bed with 3 assist. pt tolerated fair, with some left hip pain with movement. she denies any pain now that she is resting in bed. safety precautions maintained. pt remains confused. she is more awake and alert this evening.
[2018-08-15] MEDS: Atorvastatin Calcium 40 MG Tablet PO (21:30)
[2018-08-15] MEDS: Gabapentin 300 MG Capsule PO (21:30)
[2018-08-16] VITALS (20 sets, daily range): BP systolic 106–129; BP diastolic 38–78; PULSE 70–86; RESP 15–20; TEMP 36.7–37.2; O2SAT 94–98
[2018-08-16] MEDS: Acetaminophen 325 MG Tablet 650 MG PO ×2 (03:18→16:43)
[2018-08-16] MEDS: Lactated Ringers 1,000 ML 75 ML IV (05:33)
[2018-08-16] MEDS: Rivaroxaban 10 MG Tablet PO (05:38)
[2018-08-16] MEDS: Levothyroxine 88 MCG Tablet PO (05:38)
[2018-08-16 05:45] LABS: Anion Gap 8 (5-15); BUN 36 mg/dL (7-18); BUN/Creat Ratio 20.3 RATIO (10-20); Calcium,Total 7.5 mg/dL (8.5-10.1); Chloride 114 mmol/L (98-107); Creatinine, Serum 1.77 mg/dL (0.55-1.02); EST Glomerular Filtration Rate 29 mL/min (>60); Est Glom Filt Rate - Afr Amer 36 mL/min (>60); Estimated Creatinine Clearance 21.89 ml/min; Glucose 100 mg/dL (74-106); Potassium 3.8 mmol/L (3.5-5.1); Sodium Level 144 mmol/L (136-145)
[2018-08-16 06:07] LABS: Hematocrit 18.6 % (37-47); Hemoglobin 5.8 g/dl (12.0-15.0); Mean Corp Hgb Conc 31.2 g/gl (32-36); Mean Corpuscular Hgb 29.7 pg (27.0-32.0); Mean Corpuscular Volume 95.4 fL (81-99); Mean Platelet Vol. 13.4 fl (6.2-12.0); Platelet Count 119 K/mm3 (150-450); RBC Distribution Width SD 46.1 fl (35.1-43.9); Red Blood Count 1.95 M/mm3 (4.2-5.4); White Blood Count 13.8 K/mm3 (4.4-11.0)
[2018-08-16 06:11] LABS: Scan Indicated on CBC? Y/N YES- FLAGS NOTED
[2018-08-16 07:00] LABS: Differential Comment SCAN
--- NOTE | 2018-08-16 08:45 | NURSING ---
Called and obtained verbal consent over the phone from patient's son, Douglas, for blood transfusions due to patient being confused.
--- NOTE | 2018-08-16 08:59 | PCM.PN.HOSP ---
Patient Problems: Active and Suspected Problems Closed intertrochanteric fracture of left hip (Acute) Fall and laceration of left sideforehead (Acute) Near syncope (Acute) Subjective: Did experience precipitous drop in hemoglobin level to 5.8. An order was given for patient to be transfused with 2 unit PRBC with post transfusion H&H ordered Objective: GENERAL: Appears pale looking HEENT: Left frontal scalp laceration EYES; Anicteric, Normal Conjunctiva NECK; supple, normal thyroid, RESPIRATORY: Diminished to auscultation bilaterally, CARDIOVASCULAR: Regular S1 S2, GI: soft, non-tender, normoactive bowel sounds, : No Renal angle tenderness; EXTREMITIES: No edema, no clubbing, no cyanosis. NEURO: Awake; no lateralizing signs. SKIN: No Rash PSYCH; flat affect Vitals/I&O's: Vital Signs Temp Pulse Resp BP Pulse Ox 98.9 F 77 20 H 108/38 L 96 08/16/18 03:03 08/16/18 03:04 08/16/18 03:03 08/16/18 03:03 08/16/18 03:03 Oxygen Flow Rate (L/min) 2 Oxygen Delivery Method Room Air Weight: 81.647 kg Body Mass Index (BMI) 29.9 Intake and Output for Last 24 Hours 08/14/18 08/15/18 08/16/18 23:59 23:59 23:59 Intake Total 3172 / 3172 3107 / 3107 476 / 476 Output Total 1050 / 1050 960 / 960 300 / 300 Balance 2122 / 2122 2147 / 2147 176 / 176 Microbiology Past 72 Hours 08/13/18 18:35 Urine, Random Urine Culture - Final Klebsiella pneumoniae sp pneum Laboratory Results 08/13/18 13:02: Crossmatch See Detail 08/15/18 12:30: WBC 16.9 H, RBC 2.48 L, Hgb 7.2 L, Hct 23.0 L, MCV 92.7, MCH 29.0, MCHC 31.3 L, RDW 14.7 H, RDW Differential 49.7 H, Plt Count 145 L, MPV 13.1 H 08/15/18 12:30: Sodium 141, Potassium 4.1, Chloride 111 H, Carbon Dioxide 20.0 L, Anion Gap 10, BUN 30 H, Creatinine 2.00 H, Estim Creat Clear Calc 19.37, Est GFR (MDRD) Af Amer 31 L, Est GFR (MDRD) Non-Af 25 L, BUN/Creatinine Ratio 15.0, Glucose 121 H, Calcium 7.6 L, Magnesium 1.7 08/16/18 04:59: WBC 13.8 H, RBC 1.95 L, Hgb 5.8 L*, Hct 18.6 L, MCV 95.4, MCH 29.7, MCHC 31.2 L, RDW 14.0, RDW Differential 46.1 H, Plt Count 119 L, MPV 13.4 H, Differential Comment SCAN, Diff Path Review October foll 08/16/18 04:59: Sodium 144, Potassium 3.8, Chloride 114 H, Carbon Dioxide 22.0, Anion Gap 8, BUN 36 H, Creatinine 1.77 H, Estim Creat Clear Calc 21.89, Est GFR (MDRD) Af Amer 36 L, Est GFR (MDRD) Non-Af 29 L, BUN/Creatinine Ratio 20.3 H, Glucose 100, Calcium 7.5 L Current Medications Acetaminophen (Tylenol) 650 mg PO Q6H PRN PRN PRN Reason: Mild Pain (scale 0-3)/T>100.7 Last Admin: 08/16/18 03:18 Dose: 650 mg Amlodipine Besylate (Norvasc) 10 mg PO DAILY [facility] Last Admin: 08/15/18 11:18 Dose: 10 mg Aspirin (Aspirin, Baby) 81 mg PO DAILY@0800 [facility] Last Admin: 08/15/18 11:18 Dose: 81 mg Atenolol (Tenormin (Beta Noé)) 50 mg PO DAILY [facility] Last Admin: 08/15/18 11:18 Dose: 50 mg Atorvastatin Calcium (Lipitor) 40 mg PO QHS [facility] Last Admin: 08/15/18 21:30 Dose: 40 mg Bisacodyl (Dulcolax) 10 mg RECTAL DAILY PRN PRN PRN Reason: Constipation Calcium Carbonate (Os-Kaleb 500) 1,000 mg PO DAILY@0800 [facility] Last Admin: 08/15/18 11:18 Dose: 1,000 mg Cholecalciferol (Vitamin D) 1,000 unit PO DAILY [facility] Last Admin: 08/15/18 11:18 Dose: 1,000 unit Docusate Sodium (Colace) 200 mg PO BID PRN PRN PRN Reason: constipation Gabapentin (Neurontin) 100 mg PO QHS PRN PRN Reason: PAIN Gabapentin (Neurontin) 300 mg PO QHS [facility] Last Admin: 08/15/18 21:30 Dose: 300 mg Hydralazine HCl (Apresoline Iv) 10 mg IV Q4H PRN PRN PRN Reason: SBP > 180 Lactated Ringer's () 1,000 mls @ 75 mls/hr IV .[id number] [facility] Last Admin: 08/16/18 05:33 Dose: 75 mls/hr Ceftriaxone Sodium (Rocephin) 1 gm in 50 mls @ 100 mls/hr IV Q24 [facility] Last Admin: 08/15/18 10:01 Dose: 100 mls/hr Levetiracetam (Keppra Tablet) 500 mg PO BID [facility] Last Admin: 08/15/18 21:30 Dose: 500 mg Levothyroxine Sodium (Synthroid) 88 mcg PO DAILY@0600 [facility] Last Admin: 08/16/18 05:38 Dose: 88 mcg Losartan Potassium (Cozaar) 50 mg PO DAILY [facility] Last Admin: 08/15/18 11:18 Dose: 50 mg Magnesium Hydroxide (Milk Of Magnesia) 30 ml PO DAILY PRN PRN Reason: Constipation Morphine Sulfate () 1 - 2 mg IV Q4H PRN PRN PRN Reason: SEVERE PAIN (6-10/10) Last Admin: 08/13/18 22:52 Dose: 2 mg Ondansetron HCl (Zofran) 4 mg IV Q8H PRN PRN PRN Reason: Nausea Oxycodone HCl (Oxyir) 5 mg PO Q4H PRN PRN PRN Reason: Moderate Pain (pain scale 4-5) Pantoprazole Sodium (Protonix) 40 mg PO DAILY [facility] Last Admin: 08/15/18 11:18 Dose: 40 mg Polyethylene Glycol (Miralax) 17 gm PO DAILY [facility] Last Admin: 08/15/18 11:20 Dose: 17 gm Rivaroxaban (Xarelto) 10 mg PO DAILY@0600 [facility] Last Admin: 08/16/18 05:38 Dose: 10 mg Senna/Docusate Sodium (Senokot-S, Manasa-Colace) 2 tablet PO BID [facility] Last Admin: 08/15/18 21:30 Dose: 2 tablet Sodium Chloride () 5 - 15 ml IV UD PRN PRN Reason: SALINE FLUSH Last Admin: 08/14/18 06:14 Dose: 10 ml Medical Necessity - Tobacco Use Smoking Status: Never smoker Tobacco Use: Non-smoker Assessment/Plan All Active Problems Closed intertrochanteric fracture of left hip (Acute) Fall and laceration of left sideforehead (Acute) Near syncope (Acute) Seizure (Acute) Patient is an 78-year-old lady with history of seizure disorder apparently noncompliant with Keppra admitted following seizure episode at home with resultant laceration involving the left forehead which was sutured in the ED. Patient was also found to have left hip fracture. Immobilized and admitted to monitored bed 1. Seizure disorder with breakthrough seizure attributed to noncompliance with therapy. Patient did receive Keppra subsequently admitted to a monitored bed with seizure precautions were instituted. Patient was seen in consultation by Dr. Rebolledo with neurology . Patient has not had any breakthrough seizure following her admission 2. Acute Nondisplaced comminuted left intertrochanteric fracture. Patient seizures. Patient has been admitted to a monitored bed managed with immobilization pain management with consultation placed to Dr. James. Patient underwent Left hip cephalo-medullary nailing on 08/14/2018 on account of left hip displaced intertrochanteric hip fracture. Currently receiving PT OT. Plan is for patient to be transferred to a chcf facility pending bed availability 3. Laceration involving the left forehead sutured in the ED 4. Acute cystitis with Klebsiella patient started on Rocephin plan to treat for 3 days. 5. 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 Hypertension-blood pressure controlled, home medications continued with dose adjustment as needed 7. Dyslipidemia-patient is on statin therapy, continued at home dose 8. Rheumatoid arthritis 9. Anemia secondary to acute blood loss anemia following patient hip fracture and surgery. With patient hemoglobin level dropping to 5.4 and order was given for patient to be transfused with 2 unit PRBC with post transfusion H&H. 10. DVT prophylaxis SCDs + Rivaroxaban Code Visit Inpatient E&M: [id number] [facility] L3
[2018-08-16] MEDS: Calcium (Elemental) 500 MG Tablet 1000 MG PO (10:36)
[2018-08-16] MEDS: Aspirin 81 MG TAB.CHEW PO (10:36)
[2018-08-16] MEDS: levETIRAcetam 500 MG Tablet PO ×2 (10:37→20:57)
[2018-08-16] MEDS: Polyethylene Glycol 3350 17 GM PACKET PO (10:37)
[2018-08-16] MEDS: Losartan Potassium 50 MG Tablet PO (10:37)
[2018-08-16] MEDS: amLODIPine 10 MG Tablet PO (10:38)
[2018-08-16] MEDS: Pantoprazole Sodium 40 MG Tablet PO (10:39)
[2018-08-16] MEDS: Senna/Docusate Sodium 1 Tablet 2 TABLET PO ×2 (10:39→20:57)
[2018-08-16] MEDS: Atenolol 50 MG Tablet PO (10:39)
[2018-08-16] MEDS: 0.9% NaCl Peripheral Flush Adult/Peds IV ×2 (16:44→18:38)
[2018-08-16] MEDS: Ceftriaxone 1 GM/50 mL Premix Q24 IV (17:48)
[2018-08-16] MEDS: oxyCODONE 5 MG Tablet PO (18:35)
[2018-08-16 19:16] LABS: Hematocrit 28.6 % (37-47); Hemoglobin 9.2 g/dl (12.0-15.0)
[2018-08-16] MEDS: Atorvastatin Calcium 40 MG Tablet PO (20:57)
[2018-08-16] MEDS: Gabapentin 300 MG Capsule PO (20:57)
[2018-08-17] VITALS (11 sets, daily range): BP systolic 115–140; BP diastolic 51–66; PULSE 70–87; RESP 16–18; TEMP 36.7–37.1; O2SAT 94–97
[2018-08-17] MEDS: Lactated Ringers 1,000 ML 75 ML IV (02:42)
[2018-08-17] MEDS: 0.9% Normal Saline 1,000 ML 75 ML IV ×2 (05:16→23:00)
[2018-08-17] MEDS: Rivaroxaban 10 MG Tablet PO (05:16)
[2018-08-17] MEDS: Levothyroxine 88 MCG Tablet PO (05:16)
[2018-08-17 06:04] LABS: Anion Gap 8 (5-15); BUN 26 mg/dL (7-18); BUN/Creat Ratio 21.5 RATIO (10-20); Calcium,Total 7.8 mg/dL (8.5-10.1); Chloride 113 mmol/L (98-107); Creatinine, Serum 1.21 mg/dL (0.55-1.02); EST Glomerular Filtration Rate 45 mL/min (>60); Est Glom Filt Rate - Afr Amer 55 mL/min (>60); Estimated Creatinine Clearance 32.02 ml/min; Glucose 93 mg/dL (74-106); Potassium 3.8 mmol/L (3.5-5.1); Sodium Level 143 mmol/L (136-145)
[2018-08-17 06:12] LABS: Hematocrit 27.5 % (37-47); Mean Corp Hgb Conc 32.7 g/gl (32-36); Mean Corpuscular Hgb 30.2 pg (27.0-32.0); Mean Corpuscular Volume 92.3 fL (81-99); Platelet Count 142 K/mm3 (150-450); RBC Distribution Width CV 14.1 % (11.6-14.6); RBC Distribution Width SD 45.9 fl (35.1-43.9); Red Blood Count 2.98 M/mm3 (4.2-5.4)
--- NOTE | 2018-08-17 06:36 | PCM.PN.ORT ---
Patient Problems: Active and Suspected Problems Closed intertrochanteric fracture of left hip (Acute) Fall and laceration of left sideforehead (Acute) Near syncope (Acute) - Physical Exam Vital Signs Temp Pulse Resp BP Pulse Ox 98.8 F 81 18 125/56 H 94 08/17/18 02:40 08/17/18 03:19 08/17/18 02:40 08/17/18 02:40 08/17/18 02:40 Oxygen Flow Rate (L/min) 2 Oxygen Delivery Method Room Air Weight: 180 lb 0.013 oz Body Mass Index (BMI) 29.9 Intake and Output for Last 24 Hours 08/15/18 08/16/18 08/17/18 23:59 23:59 23:59 Intake Total 3107 / 3107 3626.8 / 3626.8 511 / 511 Output Total 960 / 960 1460 / 1460 650 / 650 Balance 2147 / 2147 2166.8 / 2166.8 -139 / -139 Microbiology Past 72 Hours 08/13/18 18:35 Urine Culture - Final Urine, Random Klebsiella pneumoniae sp pneum Laboratory Tests Past 24 Hrs 08/13/18 08/16/18 08/16/18 13:02 04:59 18:45 WBC RBC Hgb 9.2 L Hct 28.6 L MCV MCH MCHC RDW RDW Differential Plt Count Differential Comment SCAN Diff Path Review May foll Sodium Potassium Chloride Carbon Dioxide Anion Gap BUN Creatinine Estim Creat Clear Calc Est GFR (MDRD) Af Amer Est GFR (MDRD) Non-Af BUN/Creatinine Ratio Glucose Calcium Crossmatch See Detail 08/17/18 08/17/18 05:10 05:10 WBC Pending RBC Pending Hgb Pending Hct Pending MCV Pending MCH Pending MCHC Pending RDW Pending RDW Differential Pending Plt Count Pending Differential Comment Diff Path Review Sodium 143 Potassium 3.8 Chloride 113 H Carbon Dioxide 22.0 Anion Gap 8 BUN 26 H Creatinine 1.21 H Estim Creat Clear Calc 32.02 Est GFR (MDRD) Af Amer 55 L Est GFR (MDRD) Non-Af 45 L BUN/Creatinine Ratio 21.5 H Glucose 93 Calcium 7.8 L Crossmatch Medical Necessity - Tobacco Use Smoking Status: Never smoker Tobacco Use: Non-smoker Assessment/Plan All Active Problems Closed intertrochanteric fracture of left hip (Acute) Fall and laceration of left sideforehead (Acute) Near syncope (Acute) Seizure (Acute) 1. S/P left hip cephalo-medullary nail POD #3 2. Pain control: Continue current regimen, would limit narcotic use 3. DVT Prophylaxis: Patient currently is on Xarelto, with drop in hemoglobin and postoperative anemia will defer to medicine for appropriateness of anticoagulation. Her thigh is supple and soft today no concern for major hematoma. If we do hold DVT prophylaxis would restart when medically appropriate. 4. PT/OT: Weightbearing as tolerated 5. Anemia: Acute on chronic with acute relation to fracture and surgical blood loss. Down to 5.8 yesterday. Responded well to 2 units of packed red blood cells last evening up to 9.2. Awaiting results this morning 6. Encouraged Incentive Spirometry 7. Continue postoperative medical management per medicine 8. Disposition: Orthopedically patient is doing well. We will continue with weightbearing as tolerated with use of walker. Continue pain medications listed above. Continue with DVT prophylaxis per primary medicine. Patient will need to follow-up with [facility] with Dr. Jose Angel James in 12-14 days with x-rays and incision check. Okay to remove dressings after 5 days postoperatively and continue with dry dressing changes daily. Okay to remove kirsten postop day 10 if incisions are clean and dry with no drainage. Please contact orthopedics with any complications or questions. Appreciate consult and medical management of the patient and her comorbidities. [facility] Office:
--- NOTE | 2018-08-17 06:51 | NURSING ---
PATIENT COUGHED WITH WATER, EYES WATERY, MOIST COUGH, MADE PATIENT NPO
[2018-08-17 07:05] LABS: Scan Indicated on CBC? Y/N NO
[2018-08-17] MEDS: Senna/Docusate Sodium 1 Tablet 2 TABLET PO (10:28)
[2018-08-17] MEDS: Polyethylene Glycol 3350 17 GM PACKET PO (10:28)
[2018-08-17] MEDS: Losartan Potassium 50 MG Tablet PO (10:29)
[2018-08-17] MEDS: Atenolol 50 MG Tablet PO (10:29)
[2018-08-17] MEDS: levETIRAcetam 500 MG Tablet PO ×2 (10:29→21:18)
[2018-08-17] MEDS: Aspirin 81 MG TAB.CHEW PO (10:29)
[2018-08-17] MEDS: Calcium (Elemental) 500 MG Tablet 1000 MG PO (10:29)
[2018-08-17] MEDS: amLODIPine 10 MG Tablet PO (10:29)
[2018-08-17] MEDS: Pantoprazole Sodium 40 MG Tablet PO (10:29)
[2018-08-17] MEDS: Acetaminophen 325 MG Tablet 650 MG PO (10:40)
[2018-08-17] MEDS: Ceftriaxone 1 GM/50 mL Premix Q24 IV (11:31)
--- NOTE | 2018-08-17 11:56 | CASEMGMT ---
MARK spoke with Ester in TCU and they do not have any beds. MARK spoke with patient and she does not want to go to TCU. MARK told her the next closest facilities would be in [place] or [place]. Patient stared at MARK and would not talk. MARK asked her if she would like SW to call her son and she wants SW to call her son. MARK called patient's son and let him know about TCU. MARK told him the next closest facilities are in [place] or [place]. He said he will be in to [facility]. MARK then got a message that patient's son called and left the name and number of [facility]. MARK called patient's son and let him know that home health would not be appropriate for patient as she is requiring assist of 2 people. He said he spoke with [facility] and they cover up to8 hours a day and no more than 35 hours a week. MARK told him MARK is not familiar with this as usually Medicare only pays for therapy a couple of times a week, a nurse maybe once a week, and an aide possibly 3 hours a week for personal care. He said , but she has [facility]. MARK told him they follow Medicare guidelines. MARK told him home with home health would not be the best option for his mom right now. MARK told him she really needs to go to SNF. He said the places MARK named are all too far away for him to drive. MARK told him that he may just have to call her as she really needs the extensive therapy at a intermediate. He said he will be in to talk to patient. Antoinette SOTO
[2018-08-17 13:44] LABS: Pathologist Review Reviewed
--- NOTE | 2018-08-17 13:56 | CASEMGMT ---
MARK spoke with patient and her son. Patient's son asked which facility is the closest. MARK told him [facility] would be the closest. MARK explained where it is located. They were okay with [facility]. MARK told them we will have to wait on insurance to approve and that would not be today. MARK faxed referral to [facility]. MARK called, but Kristin was out today. MARK left a message for Janice who is covering for Kristin. Antoinette HCAO PROFESSOR [employer]
[2018-08-17] MEDS: oxyCODONE 5 MG Tablet PO (14:03)
--- NOTE | 2018-08-17 14:17 | PCM.PROGNOTE ---
<Lilian Quick - Last Filed: 08/17/18 14:27> Patient Problems: Active and Suspected Problems Closed intertrochanteric fracture of left hip (Acute) Fall and laceration of left sideforehead (Acute) Near syncope (Acute) Subjective: Patient seen and examined. Denies current complaints. Awaiting approval to SNF for further therapy. - Physical Exam General: Alert, Oriented x3, Cooperative HEENT: Atraumatic, PERRLA, EOMI, Normocephalic, - - Left frontal scalp laceration, no evidence of infection. Neck: Supple, No JVD, Negative Carotid Bruits Lungs: Clear to auscultation, Diminished Cardiovascular: Regular rate, Regular Rhythm, Normal S1, Normal S2, No murmurs Abdomen: Bowel Sounds Present, Soft, Non Tender, Non-Distended Extremities: No clubbing, No cyanosis, No edema, Capillary Refill Less than 3 Seconds Skin: No rashes, No breakdown, - - Left hip postop dressing intact Musculoskeletal: No Tenderness to Palpation of Joints or Extremities Neurological: Cranial nerves II-XII grossly intact, Neuro grossly intact Psych/Mental Status: Normal Affect, Appropriate Vital Signs Temp Pulse Resp BP Pulse Ox 98.3 F 76 16 118/53 L 95 08/17/18 14:03 08/17/18 14:03 08/17/18 14:03 08/17/18 14:03 08/17/18 14:03 Oxygen Flow Rate (L/min) 2 Oxygen Delivery Method Room Air Weight: 179 lb 14.355 oz Body Mass Index (BMI) 29.9 Intake and Output for Last 24 Hours 08/15/18 08/16/18 08/17/18 23:59 23:59 23:59 Intake Total 3107 / 3107 3626.8 / 3626.8 1598 / 1598 Output Total 960 / 960 1460 / 1460 1200 / 1200 Balance 2147 / 2147 2166.8 / 2166.8 398 / 398 Microbiology Past 72 Hours 08/13/18 18:35 Urine Culture - Final Urine, Random Klebsiella pneumoniae sp pneum Laboratory Tests Past 24 Hrs 08/13/18 08/16/18 08/16/18 13:02 04:59 18:45 WBC RBC Hgb 9.2 L Hct 28.6 L MCV MCH MCHC RDW RDW Differential Plt Count MPV Diff Path Review Reviewed Sodium Potassium Chloride Carbon Dioxide Anion Gap BUN Creatinine Estim Creat Clear Calc Est GFR (MDRD) Af Amer Est GFR (MDRD) Non-Af BUN/Creatinine Ratio Glucose Calcium Crossmatch See Detail 08/17/18 08/17/18 05:10 05:10 WBC 11.0 RBC 2.98 L Hgb 9.0 L Hct 27.5 L MCV 92.3 MCH 30.2 MCHC 32.7 RDW 14.1 RDW Differential 45.9 H Plt Count 142 L MPV 14.0 H Diff Path Review Sodium 143 Potassium 3.8 Chloride 113 H Carbon Dioxide 22.0 Anion Gap 8 BUN 26 H Creatinine 1.21 H Estim Creat Clear Calc 32.02 Est GFR (MDRD) Af Amer 55 L Est GFR (MDRD) Non-Af 45 L BUN/Creatinine Ratio 21.5 H Glucose 93 Calcium 7.8 L Crossmatch Medical Necessity - Tobacco Use Smoking Status: Never smoker Tobacco Use: Non-smoker Assessment/Plan All Active Problems Closed intertrochanteric fracture of left hip (Acute) Fall and laceration of left sideforehead (Acute) Near syncope (Acute) Seizure (Acute) 1. Seizure disorder with breakthrough seizure, attributed to noncompliance with Keppra regimen-neurology consulted. Seizure/fall precautions. Continue Keppra 5 mg p.o. twice daily. Patient will need outpatient follow-up with neurology. 2. Acute nondisplaced comminuted left intertrochanteric fracture secondary to #1 with fall prior to admission-patient underwent left hip cephalo-medullary nailing 08/14/[address] James. PT/OT. PRN pain regimen. SNF pending approval. 3. Left forehead laceration secondary to fall as result of #1-repaired with sutures in ED, intact. 4. Acute cystitis with Klebsiella-completed course of IV Rocephin. 5. Acute kidney injury on Chronic kidney disease stage III-REN resolved. Trend BMP. 6. Hypertension-stable, continue home atenolol, losartan. 7. Hyperlipidemia-continue statin. 8. Rheumatoid arthritis 9. Anemia secondary to acute blood loss anemia following surgery for hip fracture-status post 2 units PRBC. Stable. Trend CBC. 10. Hypothyroidism-continue Synthroid regimen. 11. 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 Discharge planning: SNF pending approval. This patient was seen by VIRAL Vázquez under the supervision of Dr. Krishna. <Jo Ann Krishna E - Last Filed: 08/17/18 14:36> - Physical Exam Vital Signs Temp Pulse Resp BP Pulse Ox 98.3 F 76 16 118/53 L 95 08/17/18 14:03 08/17/18 14:03 08/17/18 14:03 08/17/18 14:03 08/17/18 14:03 Oxygen Flow Rate (L/min) 2 Oxygen Delivery Method Room Air Weight: 179 lb 14.355 oz Body Mass Index (BMI) 29.9 Intake and Output for Last 24 Hours 08/15/18 08/16/18 08/17/18 23:59 23:59 23:59 Intake Total 3107 / 3107 3626.8 / 3626.8 1598 / 1598 Output Total 960 / 960 1460 / 1460 1200 / 1200 Balance 2147 / 2147 2166.8 / 2166.8 398 / 398 Microbiology Past 72 Hours 08/13/18 18:35 Urine Culture - Final Urine, Random Klebsiella pneumoniae sp pneum Laboratory Tests Past 24 Hrs 08/13/18 08/16/18 08/16/18 13:02 04:59 18:45 WBC RBC Hgb 9.2 L Hct 28.6 L MCV MCH MCHC RDW RDW Differential Plt Count MPV Diff Path Review Reviewed Sodium Potassium Chloride Carbon Dioxide Anion Gap BUN Creatinine Estim Creat Clear Calc Est GFR (MDRD) Af Amer Est GFR (MDRD) Non-Af BUN/Creatinine Ratio Glucose Calcium Crossmatch See Detail 08/17/18 08/17/18 05:10 05:10 WBC 11.0 RBC 2.98 L Hgb 9.0 L Hct 27.5 L MCV 92.3 MCH 30.2 MCHC 32.7 RDW 14.1 RDW Differential 45.9 H Plt Count 142 L MPV 14.0 H Diff Path Review Sodium 143 Potassium 3.8 Chloride 113 H Carbon Dioxide 22.0 Anion Gap 8 BUN 26 H Creatinine 1.21 H Estim Creat Clear Calc 32.02 Est GFR (MDRD) Af Amer 55 L Est GFR (MDRD) Non-Af 45 L BUN/Creatinine Ratio 21.5 H Glucose 93 Calcium 7.8 L Crossmatch Assessment/Plan Hospitalist note: I am seeing this patient in conjunction with Lilian Quick. I independently seen and examined the patient. Progress note above, laboratory data and imaging studies reviewed and I concur with the above treatment plan. Patient seen and examined for chief complaint of left hip pain but it is manageable. She denies chest pain or shortness of breath. Her vitals has been stable. - Physical Exam General: Alert, Oriented x3, Cooperative, No apparent distress. HEENT: traumatic, left frontal scalp laceration, sutured., PERRLA, EOMI. Neck: Supple, No JVD, Negative Carotid Bruits, Trachea Midline, Thyroid Normal. Lungs: Clear to auscultation, Normal air movement, No rhonchi, No wheeze, No rales. Cardiovascular: Regular rate, Regular Rhythm, Normal S1, Normal S2, PMI Normal. Abdomen: Bowel Sounds Present, Soft, Non Tender, Non-Distended, No Hepato-splenomegaly. Extremities: No clubbing, No cyanosis, No edema Skin: No rashes, No breakdown Neurological: Neuro grossly intact Vital Signs are stable. Assessment and plan: #1 breakthrough seizure: In context of history of seizure disorder, attributed to noncompliance. Patient is back on [facility], has been stable. Neurology on the case. #2 acute nondisplaced traumatic comminuted left intertrochanteric hip fracture: Secondary to fall, status post left hip cephalo-medullary nailing, postoperative day 3. She is on OxyIR as needed for pain as well as IV morphine as needed, pain is manageable. And for PT OT, placement to fdc facility. #3 acute probably blood loss anemia: Hemoglobin was as low as 5.8 g/dL. She received a total of 2 units of packed RBCs, today's hemoglobin is 9 g/dL. No evidence of active bleeding. Plan to monitor. #4 left forehead laceration: Secondary to mechanical fall, sutured. #5 acute cystitis: On IV Rocephin, urine culture revealed Klebsiella pneumoniae. #6 REN on top of stage III CKD: Baseline creatinine has been around 1.2-1.6 mg/dL, during this admission, creatinine went up to 2 mg/dL. It came down to 1.21 today, improving. #7 other chronic medical problems: Stable, continue current medications as above. This note was generated with [employer] dictation software. It may contain incorrect words, spelling, and punctuation that were not noted in checking the note before signing. Code Visit Inpatient E&M: [id number] [facility] L2
--- NOTE | 2018-08-17 14:59 | CASEMGMT ---
Received message from Janice at [facility]. She said the nurse lead case manager are looking at referral. Kristin is in tomorrow and will follow up with MARK. Antoinette CHAO MSW
[2018-08-17] MEDS: Atorvastatin Calcium 40 MG Tablet PO (21:18)
[2018-08-17] MEDS: Gabapentin 300 MG Capsule PO (21:18)
[2018-08-18] VITALS (7 sets, daily range): BP systolic 110–123; BP diastolic 54–57; PULSE 71–85; RESP 18; TEMP 36.9–37.2; O2SAT 96–97
[2018-08-18] MEDS: Rivaroxaban 10 MG Tablet PO (06:00)
[2018-08-18] MEDS: Levothyroxine 88 MCG Tablet PO (06:01)
[2018-08-18] MEDS: oxyCODONE 5 MG Tablet PO ×3 (06:36→15:12)
[2018-08-18 07:18] LABS: Hematocrit 27.9 % (37-47); Hemoglobin 8.8 g/dl (12.0-15.0); Mean Corp Hgb Conc 31.5 g/gl (32-36); Mean Corpuscular Hgb 29.3 pg (27.0-32.0); Mean Platelet Vol. 13.3 fl (6.2-12.0); Platelet Count 180 K/mm3 (150-450); RBC Distribution Width SD 45.5 fl (35.1-43.9); White Blood Count 10.1 K/mm3 (4.4-11.0)
[2018-08-18 07:20] LABS: Scan Indicated on CBC? Y/N NO
[2018-08-18 07:34] LABS: Anion Gap 7 (5-15); BUN 23 mg/dL (7-18); BUN/Creat Ratio 20.5 RATIO (10-20); Calcium,Total 7.3 mg/dL (8.5-10.1); Chloride 113 mmol/L (98-107); Creatinine, Serum 1.12 mg/dL (0.55-1.02); EST Glomerular Filtration Rate 50 mL/min (>60); Est Glom Filt Rate - Afr Amer 60 mL/min (>60); Estimated Creatinine Clearance 36.05 ml/min; Glucose 96 mg/dL (74-106); Potassium 3.4 mmol/L (3.5-5.1); Sodium Level 141 mmol/L (136-145)
--- NOTE | 2018-08-18 09:30 | CASEMGMT ---
MARK spoke with Kristin at [facility] and they can accept patient. She will start the pre-cert. She thinks she will get authorization today. Plan: [facility] pending pre-cert Antoinette CHAO MSW
[2018-08-18] MEDS: Losartan Potassium 50 MG Tablet PO (09:55)
[2018-08-18] MEDS: Calcium (Elemental) 500 MG Tablet 1000 MG PO (09:55)
[2018-08-18] MEDS: Aspirin 81 MG TAB.CHEW PO (09:55)
[2018-08-18] MEDS: amLODIPine 10 MG Tablet PO (09:56)
[2018-08-18] MEDS: Pantoprazole Sodium 40 MG Tablet PO (09:56)
[2018-08-18] MEDS: Polyethylene Glycol 3350 17 GM PACKET PO (09:56)
[2018-08-18] MEDS: levETIRAcetam 500 MG Tablet PO (09:56)
[2018-08-18] MEDS: Senna/Docusate Sodium 1 Tablet 2 TABLET PO (09:57)
[2018-08-18] MEDS: Atenolol 50 MG Tablet PO (09:57)
--- NOTE | 2018-08-18 11:43 | TREXTCA.CO_ITS ---
Addendum entered and electronically signed by VIRAL Vázquez 08/18/18 12:10: Code Visit Okay to remove kirsten postop day 10, 08/24/18 if incisions are clean and dry with no drainage. Okay to remove dressings after 5 days postop, 08/19/18 and continue dry dressing changes daily. Original Note: - Diet 08/17/18 10:17 Diet: Cardiac/Low Cholesterol Food consistency:: Soft Liquid Consistency:: Regular/Thin Dietary Modifications:: Soft Diet Is pt able to select menu?: Yes Diet Comments: Seated at 90 degrees; small sips; meds 1x w/ liquids. - Routine Orders/Code Status Enema Type: Fleetz Enema Frequency: Daily PRN Suppository Type: Dulcolax 10mg Suppository Frequency: Daily PRN O2 Liters per Minute: 2 O2 Frequency: PRN Keep PO Greater than or Equal to (%): 90 Routine Lab Work: CBC, BMP, - - In 3 days and then Q Week. Code Status: Full Code - Wound(s) left forehead Wound Type: laceration with sutures intact Left HIp Wound Type: Surgical Incision - Suggestions for Active Care Change Position every (hours): 2 Times a day to sit in chair: 3 - Therapies Weight Bearing: Weight bearing as tolerated Extremity Affected:: Left Lower - Left Hip Physical Therapy: Eval and Treat Occupational Therapy: Eval and Treat - Problem/Diagnosis (1) Closed intertrochanteric fracture of left hip Status: Acute Current Visit: Yes (2) Fall and laceration of left sideforehead Status: Acute Current Visit: Yes (3) Seizure Status: Acute Current Visit: Yes (4) Hypothyroidism Status: Chronic Current Visit: No (5) Rheumatoid arthritis Status: Chronic Current Visit: No (6) HTN (hypertension) Status: Chronic Current Visit: No (7) HLD (hyperlipidemia) Status: Chronic Current Visit: No (8) Stroke due to stenosis of anterior cerebral artery Status: Chronic Current Visit: No - Allergies/Procedures Done in Hospital Allergies/Adverse Reactions: Allergies No Known Allergies Allergy (Verified 08/13/18 10:49) Procedures: - - S/P left hip cephalo-medullary nail - Type of Care/Length of Stay Estimated LOS: Convalescent Care Less Than 30 days Type of Care Needed: Skilled Rehab Potential: Fair Prognosis: Fair - Additional Orders/Day of Discharge Additional Orders: Okay to remove kirsten postop day 10, 08/14/18 if incisions are clean and dry with no drainage. Okay to remove dressings after 5 days postop, 08/19/18 and continue dry dressing changes daily. H&P will serve as current which was dated: 08/13/18 Day of Discharge: 08/18/18 - Dietary and Speech Recommendations Dietitian Recommendations/Changes: Recommend continue cardiac/low chol diet as indicated, with food consistency as medically indicated. - Follow Up Care Primary Care Physician: Uma Zarate MD [Primary Care Provider] - Please follow up with your Primary Care Physician in: 1 Week Please Follow Up With: Jose Angel James MD When: 10-12 days Please Follow Up With: Saman Rebolledo MD When: 1-2 Weeks
--- NOTE | 2018-08-18 12:04 | PCM.DC.SUM ---
<Lilian Quick - Last Filed: 08/18/18 12:13> Discharge Date and Diagnosis Date of Admission: 08/13/18 Date of Discharge: 08/18/18 - Primary Discharge Diagnosis Active and Suspected Problems 1. Seizure disorder with breakthrough seizure, attributed to noncompliance with Keppra regimen 2. Acute nondisplaced comminuted left intertrochanteric fracture secondary to #1 with fall prior to admission 3. Left forehead laceration secondary to fall as result of #1 4. Acute cystitis with Klebsiella 5. Acute kidney injury on Chronic kidney disease stage III 6. Hypertension 7. Hyperlipidemia 8. Rheumatoid arthritis 9. Anemia secondary to acute blood loss anemia following surgery for hip fracture 10. Hypothyroidism 11. 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 Electronically Signed: Ab Ivory MD at 13:31 EST , Service support , Brain CT 08/13/18 11:07 IMPRESSION: Chronic involutional changes of the brain. Scalp hematoma and laceration overlying the left frontoparietal bone. Electronically Signed: Ab Ivory MD at 12:46 EST , Service support , Cervical Spine CT 08/13/18 11:07 IMPRESSION: Multilevel degenerative changes, as described above. Electronically Signed: Ab Ivory MD at 12:51 EST , Service support , Chest X-Ray 08/13/18 11:07 IMPRESSION: No acute abnormality is seen. Electronically Signed: Ab Ivory MD at 13:34 EST , Service support , Foot X-Ray 08/13/18 11:07 IMPRESSION: No acute abnormality is seen. Electronically Signed: Ab Ivory MD at 13:19 EST , Service support , Hip/Pelvis X-Ray 08/13/18 11:07 IMPRESSION: Nondisplaced comminuted left intertrochanteric fracture. Electronically Signed: Ab Ivory MD at 13:20 EST , Service support , Knee X-Ray 08/13/18 11:07 IMPRESSION: Degenerative arthrosis. Small joint effusion. Electronically Signed: Ab Ivory MD at 13:21 EST , Service support , Femur X-Ray 08/14/18 13:00 IMPRESSION: 5 fluoroscopy views left femur placing an intramedullary idania. Electronically Signed: Stacey Dempsey MD at 19:13 EST Tel , Service support , Dr. Rebolledo- Neurology Dr. James-Ortho Operations: None, - - Left hip cephalo-medullary nail Summary of Care Provided: The patient is a 78 year old F admitted 08/13/2018 due to dizziness and fall with seizure. 1. Seizure disorder with breakthrough seizure, attributed to noncompliance with Keppra regimen-neurology consulted. Seizure/fall precautions. Continue Keppra 500 mg p.o. twice daily. Patient will follow-up with neurology in 1-2 weeks. 2. Acute nondisplaced comminuted left intertrochanteric fracture secondary to #1 with fall prior to admission-patient underwent left hip cephalo-medullary nailing 08/14/[address] [facility] for [facility]OT. Okay to remove kirsten postop day 10, 08/24/18 if incisions are clean and dry with no drainage. Okay to remove dressings after 5 days postop, 08/19/18 and continue dry dressing changes daily. 3. Left forehead laceration secondary to fall as result of #1-repaired with sutures in ED, intact. 4. Acute cystitis with Klebsiella-completed course of IV Rocephin. 5. Acute kidney injury on Chronic kidney disease stage III-REN resolved. 6. Hypertension-stable, continue home atenolol, losartan. 7. Hyperlipidemia-continue statin. 8. Rheumatoid arthritis 9. Anemia secondary to acute blood loss anemia following surgery for hip fracture-status post 2 units PRBC. Stable. Trend CBC. 10. Hypothyroidism-continue Synthroid regimen. 11. 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 Neck: Supple, No JVD, Negative Carotid Bruits Lungs: Clear to auscultation, Diminished Cardiovascular: Regular rate, Regular Rhythm, Normal S1, Normal S2, No murmurs Abdomen: Bowel Sounds Present, Soft, Non Tender, Non-Distended Extremities: No clubbing, No cyanosis, No edema, Capillary Refill Less than 3 Seconds Skin: No rashes, No breakdown, - - Left hip postop dressing intact Musculoskeletal: No Tenderness to Palpation of Joints or Extremities Neurological: Cranial nerves II-XII grossly intact, Neuro grossly intact Psych/Mental Status: Normal Affect, Appropriate Patient seen and examined prior to discharge. Physical assessment as noted above. Patient is stable for discharge with follow up recommendations as noted above. This patient was seen by VIRAL Vázquez under the supervision of Dr. Krishna. - Physical Exam Vital Signs Temp Pulse Resp BP Pulse Ox 98.9 F 71 18 123/54 H 96 08/18/18 09:49 08/18/18 11:24 08/18/18 09:49 08/18/18 09:49 08/18/18 09:49 Oxygen Flow Rate (L/min) 2 Oxygen Delivery Method Room Air Weight: 179 lb 14.355 oz Body Mass Index (BMI) 29.9 Intake and Output for Last 24 Hours 08/16/18 08/17/18 08/18/18 23:59 23:59 23:59 Intake Total 3626.8 / 3626.8 2388 / 2388 1219 / 1219 Output Total 1460 / 1460 1375 / 1375 450 / 450 Balance 2166.8 / 2166.8 1013 / 1013 769 / 769 Laboratory Tests Past 24 Hrs 08/16/18 08/18/18 08/18/18 04:59 06:40 06:40 WBC 10.1 RBC 3.00 L Hgb 8.8 L Hct 27.9 L MCV 93.0 MCH 29.3 MCHC 31.5 L RDW 14.0 RDW Differential 45.5 H Plt Count 180 MPV 13.3 H Diff Path Review Reviewed Sodium 141 Potassium 3.4 L Chloride 113 H Carbon Dioxide 21.0 Anion Gap 7 BUN 23 H Creatinine 1.12 H Estim Creat Clear Calc 36.05 Est GFR (MDRD) Af Amer 60 Est GFR (MDRD) Non-Af 50 L BUN/Creatinine Ratio 20.5 H Glucose 96 Calcium 7.3 L Home Medications: Medications to take at Discharge Levothyroxine [Synthroid] 88 mcg PO DAILY 02/22/16 Aspirin [Aspirin, Baby] 81 mg PO DAILY@0800 tab.chew 02/26/16 Atenolol [Tenormin (beta dashawn)] 50 mg PO DAILY #30 tablet 03/18/16 Losartan Potassium [Cozaar] 50 mg PO DAILY #30 tablet 03/18/16 Atorvastatin Calcium [Lipitor] 40 mg PO DAILY 05/17/17 Gabapentin [Neurontin] 100 mg PO QHS PRN 05/17/17 levETIRAcetam tablet [Keppra tablet] 500 mg PO BID #60 tablet 05/19/17 Cholecalciferol (Vitamin D3) [Vitamin D3] 6,000 unit PO DAILY 08/13/18 Gabapentin [Neurontin] 300 mg PO QHS 08/13/18 Golimumab [Simponi] 100 mg IJ UD 08/13/18 Omeprazole 40 mg PO DAILY 08/13/18 Prednisone 10 mg PO PRN PRN 08/13/18 Amlodipine [Norvasc] 10 mg PO DAILY tablet 08/18/18 Calcium (Elemental) [Os-Kaleb 500] 1,000 mg PO DAILY@0800 tablet 08/18/18 Hydrocodone/Acetaminophen [Hydrocodone-Acetamin 5-325 mg] 1 tab PO Q6H PRN PRN #12 tab 08/18/18 Polyethylene Glycol 3350 [Miralax] 17 gm PO DAILY packet 08/18/18 Rivaroxaban [Xarelto] 10 mg PO DAILY@0600 tablet 08/18/18 Following Prescrptions Were Given to Patient: Hydrocodone/Acetaminophen [Hydrocodone-Acetamin 5-325 mg] 1 tab PO Q6H PRN PRN #12 tab PRN Reason: Pain Primary Care Physician: Uma Zarate MD [Primary Care Provider] - Please follow up with your Primary Care Physician in: 1 Week Please Follow Up With: Jose Angel James MD When: 10-12 days Please Follow Up With: Saman Rebolledo MD When: 1-2 Weeks Disposition: Jail facility Minutes spent on discharge:: 35 Patient Condition:: Stable Medical Necessity - Tobacco Use Smoking Status: Never smoker Tobacco Use: Non-smoker Meaningful Use Info Meaningful Use Diagnoses (Choose all that apply): None applicable <Jo Ann Krishna E - Last Filed: 08/19/18 11:59> Discharge Date and Diagnosis - Secondary Discharge Diagnosis Chronic Problems Hypothyroidism (Chronic) Rheumatoid arthritis (Chronic) HTN (hypertension) (Chronic) HLD (hyperlipidemia) (Chronic) Stroke due to stenosis of anterior cerebral artery (Chronic) Hospital Course and Treatment Summary of Care Provided: Hospitalist note: Discharge summary above reviewed as well as physical examination and I agree with above discharge and treatment plan. Patient was admitted because of fall, found to have acute nondisplaced comminuted left intertrochanteric fracture as well as head trauma with left foot laceration. On admission, CT scan brain done and showed no acute findings, revealed left frontoparietal scalp hematoma with laceration, no acute intracranial bleed. CT scan cervical spine showed multilevel degenerative changes without acute fractures or dislocations. X-ray of the left hip and pelvis revealed acute nondisplaced comminuted left intertrochanteric fracture. She underwent surgical repair of the left hip fracture with left hip cephalomedullary nail by orthopedic surgery. She has history of seizure and breakthrough seizure and she was started back on Keppra. Neurology consulted and recommended to keep patient on Keppra. Also, she was found to have acute probably blood loss anemia and hemoglobin was as low as 5.8 and she received a total of 2 units of packed RBCs and her hemoglobin went up to 8.8 g/dL upon discharge. She was found to have acute cystitis, treated with IV Rocephin and urine culture revealed Klebsiella pneumoniae. She was found to have acute kidney injury on top of stage III chronic kidney disease, creatinine went up to 2 mg at 0 and it came down to 1.21 with IV fluids. Apart from postoperative acute on chronic anemia and mild worsening of kidney function, her postoperative course was without significant or serious postoperative complications. Patient discharged to senior living facility in a stable medical condition, she completed 5 days of IV Rocephin for acute cystitis, no antibiotic given upon discharge, continued on her Keppra 500 mg p.o. twice daily, resume her old other chronic home medications without any changes, recommended follow-up with PCP in 1 week, follow-up with orthopedic surgery in 10-12 days and follow-up with neurology in 1-2 weeks. - Physical Exam General: Alert, Oriented x3, Cooperative, No apparent distress. HEENT: traumatic, left frontal scalp laceration, sutured., PERRLA, EOMI. Neck: Supple, No JVD, Negative Carotid Bruits, Trachea Midline, Thyroid Normal. Lungs: Clear to auscultation, Normal air movement, No rhonchi, No wheeze, No rales. Cardiovascular: Regular rate, Regular Rhythm, Normal S1, Normal S2, PMI Normal. Abdomen: Bowel Sounds Present, Soft, Non Tender, Non-Distended, No Hepato-splenomegaly. Extremities: No clubbing, No cyanosis, No edema Skin: No rashes, No breakdown Neurological: Neuro grossly intact Vital Signs are stable. This note was generated with [employer] dictation software. It may contain incorrect words, spelling, and punctuation that were not noted in checking the note before signing. - Physical Exam Vital Signs Temp Pulse Resp BP Pulse Ox 98.9 F 71 18 123/54 H 96 08/18/18 09:49 08/18/18 11:24 08/18/18 09:49 08/18/18 09:49 08/18/18 09:49 Oxygen Flow Rate (L/min) 2 Oxygen Delivery Method Room Air Weight: 179 lb 14.355 oz Body Mass Index (BMI) 29.9 Intake and Output for Last 24 Hours 08/16/18 08/17/18 08/18/18 23:59 23:59 23:59 Intake Total 3626.8 / 3626.8 2388 / 2388 2332 / 2332 Output Total 1460 / 1460 1375 / 1375 950 / 950 Balance 2166.8 / 2166.8 1013 / 1013 1382 / 1382 Laboratory Tests Past 24 Hrs 08/18/18 08/18/18 06:40 06:40 WBC 10.1 RBC 3.00 L Hgb 8.8 L Hct 27.9 L MCV 93.0 MCH 29.3 MCHC 31.5 L RDW 14.0 RDW Differential 45.5 H Plt Count 180 MPV 13.3 H Sodium 141 Potassium 3.4 L Chloride 113 H Carbon Dioxide 21.0 Anion Gap 7 BUN 23 H Creatinine 1.12 H Estim Creat Clear Calc 36.05 Est GFR (MDRD) Af Amer 60 Est GFR (MDRD) Non-Af 50 L BUN/Creatinine Ratio 20.5 H Glucose 96 Calcium 7.3 L Disposition: Jail facility Minutes spent on discharge:: 35 Patient Condition:: Stable Meaningful Use Info Meaningful Use Diagnoses (Choose all that apply): None applicable Code Visit Inpatient E&M: 71490 Disch Hosp
--- NOTE | 2018-08-18 12:13 | DS.PCM_ITS ---
<Lilian Quick - Last Filed: 08/18/18 12:13> Discharge Date and Diagnosis Date of Admission: 08/13/18 Date of Discharge: 08/18/18 - Primary Discharge Diagnosis Active and Suspected Problems 1. Seizure disorder with breakthrough seizure, attributed to noncompliance with Keppra regimen 2. Acute nondisplaced comminuted left intertrochanteric fracture secondary to #1 with fall prior to admission 3. Left forehead laceration secondary to fall as result of #1 4. Acute cystitis with Klebsiella 5. Acute kidney injury on Chronic kidney disease stage III 6. Hypertension 7. Hyperlipidemia 8. Rheumatoid arthritis 9. Anemia secondary to acute blood loss anemia following surgery for hip fracture 10. Hypothyroidism 11. 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 Electronically Signed: Ab Ivory MD at 13:31 EST , Service support , Brain CT 08/13/18 11:07 IMPRESSION: Chronic involutional changes of the brain. Scalp hematoma and laceration overlying the left frontoparietal bone. Electronically Signed: Ab Ivory MD at 12:46 EST , Service support , Cervical Spine CT 08/13/18 11:07 IMPRESSION: Multilevel degenerative changes, as described above. Electronically Signed: Ab Ivory MD at 12:51 EST , Service support , Chest X-Ray 08/13/18 11:07 IMPRESSION: No acute abnormality is seen. Electronically Signed: Ab Ivory MD at 13:34 EST , Service support , Foot X-Ray 08/13/18 11:07 IMPRESSION: No acute abnormality is seen. Electronically Signed: Ab Ivory MD at 13:19 EST , Service support , Hip/Pelvis X-Ray 08/13/18 11:07 IMPRESSION: Nondisplaced comminuted left intertrochanteric fracture. Electronically Signed: Ab Ivory MD at 13:20 EST , Service support , Knee X-Ray 08/13/18 11:07 IMPRESSION: Degenerative arthrosis. Small joint effusion. Electronically Signed: Ab Ivory MD at 13:21 EST , Service support , Femur X-Ray 08/14/18 13:00 IMPRESSION: 5 fluoroscopy views left femur placing an intramedullary idania. Electronically Signed: Stacey Dempsey MD at 19:13 EST Tel , Service support , Dr. Rebolledo- Neurology Dr. James-Ortho Operations: None, - - Left hip cephalo-medullary nail Summary of Care Provided: The patient is a 78 year old F admitted 08/13/2018 due to dizziness and fall with seizure. 1. Seizure disorder with breakthrough seizure, attributed to noncompliance with Keppra regimen-neurology consulted. Seizure/fall precautions. Continue Keppra 500 mg p.o. twice daily. Patient will follow-up with neurology in 1-2 weeks. 2. Acute nondisplaced comminuted left intertrochanteric fracture secondary to #1 with fall prior to admission-patient underwent left hip cephalo-medullary nailing 08/14/[address] James. [facility] at [place] for PT/OT. Okay to remove kirsten postop day 10, 08/24/18 if incisions are clean and dry with no drainage. Okay to remove dressings after 5 days postop, 08/19/18 and continue dry dressing changes daily. 3. Left forehead laceration secondary to fall as result of #1-repaired with sutures in ED, intact. 4. Acute cystitis with Klebsiella-completed course of IV Rocephin. 5. Acute kidney injury on Chronic kidney disease stage III-REN resolved. 6. Hypertension-stable, continue home atenolol, losartan. 7. Hyperlipidemia-continue statin. 8. Rheumatoid arthritis 9. Anemia secondary to acute blood loss anemia following surgery for hip fracture-status post 2 units PRBC. Stable. Trend CBC. 10. Hypothyroidism-continue Synthroid regimen. 11. 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 Neck: Supple, No JVD, Negative Carotid Bruits Lungs: Clear to auscultation, Diminished Cardiovascular: Regular rate, Regular Rhythm, Normal S1, Normal S2, No murmurs Abdomen: Bowel Sounds Present, Soft, Non Tender, Non-Distended Extremities: No clubbing, No cyanosis, No edema, Capillary Refill Less than 3 Seconds Skin: No rashes, No breakdown, - - Left hip postop dressing intact Musculoskeletal: No Tenderness to Palpation of Joints or Extremities Neurological: Cranial nerves II-XII grossly intact, Neuro grossly intact Psych/Mental Status: Normal Affect, Appropriate Patient seen and examined prior to discharge. Physical assessment as noted above. Patient is stable for discharge with follow up recommendations as noted above. This patient was seen by VIRAL Vázquez under the supervision of Dr. Krishna. - Physical Exam Vital Signs Temp Pulse Resp BP Pulse Ox 98.9 F 71 18 123/54 H 96 08/18/18 09:49 08/18/18 11:24 08/18/18 09:49 08/18/18 09:49 08/18/18 09:49 Oxygen Flow Rate (L/min) 2 Oxygen Delivery Method Room Air Weight: 179 lb 14.355 oz Body Mass Index (BMI) 29.9 Intake and Output for Last 24 Hours 08/16/18 08/17/18 08/18/18 23:59 23:59 23:59 Intake Total 3626.8 / 3626.8 2388 / 2388 1219 / 1219 Output Total 1460 / 1460 1375 / 1375 450 / 450 Balance 2166.8 / 2166.8 1013 / 1013 769 / 769 Laboratory Tests Past 24 Hrs 08/16/18 08/18/18 08/18/18 04:59 06:40 06:40 WBC 10.1 RBC 3.00 L Hgb 8.8 L Hct 27.9 L MCV 93.0 MCH 29.3 MCHC 31.5 L RDW 14.0 RDW Differential 45.5 H Plt Count 180 MPV 13.3 H Diff Path Review Reviewed Sodium 141 Potassium 3.4 L Chloride 113 H Carbon Dioxide 21.0 Anion Gap 7 BUN 23 H Creatinine 1.12 H Estim Creat Clear Calc 36.05 Est GFR (MDRD) Af Amer 60 Est GFR (MDRD) Non-Af 50 L BUN/Creatinine Ratio 20.5 H Glucose 96 Calcium 7.3 L Home Medications: Medications to take at Discharge Levothyroxine [Synthroid] 88 mcg PO DAILY 02/22/16 Aspirin [Aspirin, Baby] 81 mg PO DAILY@0800 tab.chew 02/26/16 Atenolol [Tenormin (beta dashawn)] 50 mg PO DAILY #30 tablet 03/18/16 Losartan Potassium [Cozaar] 50 mg PO DAILY #30 tablet 03/18/16 Atorvastatin Calcium [Lipitor] 40 mg PO DAILY 05/17/17 Gabapentin [Neurontin] 100 mg PO QHS PRN 05/17/17 levETIRAcetam tablet [Keppra tablet] 500 mg PO BID #60 tablet 05/19/17 Cholecalciferol (Vitamin D3) [Vitamin D3] 6,000 unit PO DAILY 08/13/18 Gabapentin [Neurontin] 300 mg PO QHS 08/13/18 Golimumab [Simponi] 100 mg IJ UD 08/13/18 Omeprazole 40 mg PO DAILY 08/13/18 Prednisone 10 mg PO PRN PRN 08/13/18 Amlodipine [Norvasc] 10 mg PO DAILY tablet 08/18/18 Calcium (Elemental) [Os-Kaleb 500] 1,000 mg PO DAILY@0800 tablet 08/18/18 Hydrocodone/Acetaminophen [Hydrocodone-Acetamin 5-325 mg] 1 tab PO Q6H PRN PRN #12 tab 08/18/18 Polyethylene Glycol 3350 [Miralax] 17 gm PO DAILY packet 08/18/18 Rivaroxaban [Xarelto] 10 mg PO DAILY@0600 tablet 08/18/18 Following Prescrptions Were Given to Patient: Hydrocodone/Acetaminophen [Hydrocodone-Acetamin 5-325 mg] 1 tab PO Q6H PRN PRN #12 tab PRN Reason: Pain Primary Care Physician: Uma Zarate MD [Primary Care Provider] - Please follow up with your Primary Care Physician in: 1 Week Please Follow Up With: Jose Angel James MD When: 10-12 days Please Follow Up With: Saman Rebolledo MD When: 1-2 Weeks Disposition: [facility] facility Minutes spent on discharge:: 35 Patient Condition:: Stable Medical Necessity - Tobacco Use Smoking Status: Never smoker Tobacco Use: Non-smoker Meaningful Use Info Meaningful Use Diagnoses (Choose all that apply): None applicable <Jo Ann Krishna E - Last Filed: 08/19/18 11:59> Discharge Date and Diagnosis - Secondary Discharge Diagnosis Chronic Problems Hypothyroidism (Chronic) Rheumatoid arthritis (Chronic) HTN (hypertension) (Chronic) HLD (hyperlipidemia) (Chronic) Stroke due to stenosis of anterior cerebral artery (Chronic) Hospital Course and Treatment Summary of Care Provided: Hospitalist note: Discharge summary above reviewed as well as physical examination and I agree with above discharge and treatment plan. Patient was admitted because of fall, found to have acute nondisplaced comminuted left intertrochanteric fracture as well as head trauma with left foot laceration. On admission, CT scan brain done and showed no acute findings, revealed left frontoparietal scalp hematoma with laceration, no acute intracranial bleed. CT scan cervical spine showed multilevel degenerative changes without acute fractures or dislocations. X-ray of the left hip and pelvis revealed acute nondisplaced comminuted left intertrochanteric fracture. She underwent surgical repair of the left hip fract ure with left hip cephalomedullary nail by orthopedic surgery. She has history of seizure and breakthrough seizure and she was started back on Keppra. Neurology consulted and recommended to keep patient on Keppra. Also, she was found to have acute probably blood loss anemia and hemoglobin was as low as 5.8 and she received a total of 2 units of packed RBCs and her hemoglobin went up to 8.8 g/dL upon discharge. She was found to have acute cystitis, treated with IV Rocephin and urine culture revealed Klebsiella pneumoniae. She was found to have acute kidney injury on top of stage III chronic kidney disease, creatinine went up to 2 mg at 0 and it came down to 1.21 with IV fluids. Apart from postoperative acute on chronic anemia and mild worsening of kidney function, her postoperative course was without significant or serious postoperative complications. Patient discharged to [facility] facility in a stable medical condition, she completed 5 days of IV Rocephin for acute cystitis, no antibiotic given upon discharge, continued on her Keppra 500 mg p.o. twice daily, resume her old other chronic home medications without any changes, recommended follow-up with PCP in 1 week, follow-up with orthopedic surgery in 10-12 days and follow-up with neurology in 1-2 weeks. - Physical Exam General: Alert, Oriented x3, Cooperative, No apparent distress. HEENT: traumatic, left frontal scalp laceration, sutured., PERRLA, EOMI. Neck: Supple, No JVD, Negative Carotid Bruits, Trachea Midline, Thyroid Normal. Lungs: Clear to auscultation, Normal air movement, No rhonchi, No wheeze, No rales. Cardiovascular: Regular rate, Regular Rhythm, Normal S1, Normal S2, PMI Normal. Abdomen: Bowel Sounds Present, Soft, Non Tender, Non-Distended, No Hepato- splenomegaly. Extremities: No clubbing, No cyanosis, No edema Skin: No rashes, No breakdown Neurological: Neuro grossly intact Vital Signs are stable. This note was generated with [employer] dictation software. It may contain incorrect words, spelling, and punctuation that were not noted in checking the note before signing. - Physical Exam Vital Signs Temp Pulse Resp BP Pulse Ox 98.9 F 71 18 123/54 H 96 08/18/18 09:49 08/18/18 11:24 08/18/18 09:49 08/18/18 09:49 08/18/18 09:49 Oxygen Flow Rate (L/min) 2 Oxygen Delivery Method Room Air Weight: 179 lb 14.355 oz Body Mass Index (BMI) 29.9 Intake and Output for Last 24 Hours 08/16/18 08/17/18 08/18/18 23:59 23:59 23:59 Intake Total 3626.8 / 3626.8 2388 / 2388 2332 / 2332 Output Total 1460 / 1460 1375 / 1375 950 / 950 Balance 2166.8 / 2166.8 1013 / 1013 1382 / 1382 Laboratory Tests Past 24 Hrs 08/18/18 08/18/18 06:40 06:40 WBC 10.1 RBC 3.00 L Hgb 8.8 L Hct 27.9 L MCV 93.0 MCH 29.3 MCHC 31.5 L RDW 14.0 RDW Differential 45.5 H Plt Count 180 MPV 13.3 H Sodium 141 Potassium 3.4 L Chloride 113 H Carbon Dioxide 21.0 Anion Gap 7 BUN 23 H Creatinine 1.12 H Estim Creat Clear Calc 36.05 Est GFR (MDRD) Af Amer 60 Est GFR (MDRD) Non-Af 50 L BUN/Creatinine Ratio 20.5 H Glucose 96 Calcium 7.3 L Disposition: Penitentiary facility Minutes spent on discharge:: 35 Patient Condition:: Stable Meaningful Use Info Meaningful Use Diagnoses (Choose all that apply): None applicable Code Visit Inpatient E&M: 91193 Disch Hosp
--- NOTE | 2018-08-18 13:58 | PN_ITS ---
<Lilian Quick - Last Filed: 08/18/18 13:58> Subjective: Patient seen and examined. Resting comfortably in bed. No acute events overnight. - Physical Exam General: Alert, Oriented x3, Cooperative, No apparent distress HEENT: Atraumatic, PERRLA, EOMI, Normocephalic, - - Left frontal scalp laceration, no evidence of infection. Neck: Supple, No JVD, Negative Carotid Bruits Lungs: Clear to auscultation, Diminished Cardiovascular: Regular rate, Regular Rhythm, Normal S1, Normal S2, No murmurs Abdomen: Bowel Sounds Present, Soft, Non Tender, Non-Distended Extremities: No clubbing, No cyanosis, No edema, Capillary Refill Less than 3 Seconds Skin: No rashes, No breakdown, - - Left hip postop dressing clean dry and intact Musculoskeletal: No Tenderness to Palpation of Joints or Extremities Neurological: Cranial nerves II-XII grossly intact, Neuro grossly intact Psych/Mental Status: Normal Affect, Appropriate Vital Signs Temp Pulse Resp BP Pulse Ox 98.9 F 71 18 123/54 H 96 08/18/18 09:49 08/18/18 11:24 08/18/18 09:49 08/18/18 09:49 08/18/18 09:49 Oxygen Flow Rate (L/min) 2 Oxygen Delivery Method Room Air Weight: 179 lb 14.355 oz Body Mass Index (BMI) 29.9 Intake and Output for Last 24 Hours 08/16/18 08/17/18 08/18/18 23:59 23:59 23:59 Intake Total 3626.8 / 3626.8 2388 / 2388 2332 / 2332 Output Total 1460 / 1460 1375 / 1375 950 / 950 Balance 2166.8 / 2166.8 1013 / 1013 1382 / 1382 Laboratory Tests Past 24 Hrs 08/18/18 08/18/18 06:40 06:40 WBC 10.1 RBC 3.00 L Hgb 8.8 L Hct 27.9 L MCV 93.0 MCH 29.3 MCHC 31.5 L RDW 14.0 RDW Differential 45.5 H Plt Count 180 MPV 13.3 H Sodium 141 Potassium 3.4 L Chloride 113 H Carbon Dioxide 21.0 Anion Gap 7 BUN 23 H Creatinine 1.12 H Estim Creat Clear Calc 36.05 Est GFR (MDRD) Af Amer 60 Est GFR (MDRD) Non-Af 50 L BUN/Creatinine Ratio 20.5 H Glucose 96 Calcium 7.3 L Medical Necessity - Tobacco Use Smoking Status: Never smoker Tobacco Use: Non-smoker Assessment/Plan All Active Problems Closed intertrochanteric fracture of left hip (Acute) Fall and laceration of left sideforehead (Acute) Seizure (Acute) 1. Seizure disorder with breakthrough seizure, attributed to noncompliance with Keppra regimen-neurology consulted. Seizure/fall precautions. Continue Keppra 5 mg p.o. twice daily. Patient will need outpatient follow-up with neurology. 2. Acute nondisplaced comminuted left intertrochanteric fracture secondary to #1 with fall prior to admission-patient underwent left hip cephalo-medullary nailing 08/14/[address] James. PT/OT. PRN pain regimen. SNF pending approval. 3. Left forehead laceration secondary to fall as result of #1-repaired with sutures in ED, intact. 4. Acute cystitis with Klebsiella-completed course of IV Rocephin. 5. Acute kidney injury on Chronic kidney disease stage III-REN resolved. Trend BMP. 6. Hypertension-stable, continue home atenolol, losartan. 7. Hyperlipidemia-continue statin. 8. Rheumatoid arthritis 9. Anemia secondary to acute blood loss anemia following surgery for hip fracture-status post 2 units PRBC. Stable. Trend CBC. 10. Hypothyroidism-continue Synthroid regimen. 11. 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 Discharge planning: SNF pending approval. This patient was seen by VIRAL Vázquez under the supervision of Dr. Krishna. <Jo Ann Krishna E - Last Filed: 08/19/18 11:53> - Physical Exam Vital Signs Temp Pulse Resp BP Pulse Ox 98.9 F 71 18 123/54 H 96 08/18/18 09:49 08/18/18 11:24 08/18/18 09:49 08/18/18 09:49 08/18/18 09:49 Oxygen Flow Rate (L/min) 2 Oxygen Delivery Method Room Air Weight: 179 lb 14.355 oz Body Mass Index (BMI) 29.9 Intake and Output for Last 24 Hours 02/08/17/18 08/18/18 23:59 23:59 23:59 Intake Total 3626.8 / 3626.8 2388 / 2388 2332 / 2332 Output Total 1460 / 1460 1375 / 1375 950 / 950 Balance 2166.8 / 2166.8 1013 / 1013 1382 / 1382 Laboratory Tests Past 24 Hrs 08/18/18 08/18/18 06:40 06:40 WBC 10.1 RBC 3.00 L Hgb 8.8 L Hct 27.9 L MCV 93.0 MCH 29.3 MCHC 31.5 L RDW 14.0 RDW Differential 45.5 H Plt Count 180 MPV 13.3 H Sodium 141 Potassium 3.4 L Chloride 113 H Carbon Dioxide 21.0 Anion Gap 7 BUN 23 H Creatinine 1.12 H Estim Creat Clear Calc 36.05 Est GFR (MDRD) Af Amer 60 Est GFR (MDRD) Non-Af 50 L BUN/Creatinine Ratio 20.5 H Glucose 96 Calcium 7.3 L Assessment/Plan Hospitalist note: I am seeing this patient in conjunction with Lilian Quick. I independently seen and examined the patient. Progress note above reviewed and I agree with above treatment plan. [facility] on the same day of this progress note. Please refer to discharge summary.
--- NOTE | 2018-08-18 16:13 | CASEMGMT ---
Received authorization for patient to go to [facility]. Completed convalescent on HENS. 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 MARK called [facility] and they can shredder picker patient at 7p. Faxed orders to [facility]. MARK notified RN, school secretary, patient's son, and Kristin at [facility]. Plan: d/c to [facility] under skilled level of care on a convalescent stay. [facility] transported via cot. Antoinette CHAO PRICE CHECKER
== END 2018-08-18 19:31 | disposition skilled nursing facility (03) | DRG 481 ==
LOC: ED 12:53 → MS3 14:34 → PCU 15:27
PROVIDERS: Family Medicine; Internal Medicine; Nurse Practitioner Family; Specialist; Admitting Provider Internal Medicine; Emergency Provider Emergency Medicine; Family Provider Internal Medicine; PCP Internal Medicine; Visit Provider Hospitalist
PROC: 0QS736Z Reposition Left Upper Femur with Intramedullary Internal Fixation Device, Percutaneous Approach (ICD-10-PCS; CPT 27245; principal; 2018-08-14 12:30)
DX: S72.142A Displaced intertrochanteric fracture of left femur, initial encounter for closed fracture (principal); N30.00 Acute cystitis without hematuria; D62 Acute posthemorrhagic anemia; N17.9 Acute kidney failure, unspecified; E78.5 Hyperlipidemia, unspecified; E03.9 Hypothyroidism, unspecified; M06.9 Rheumatoid arthritis, unspecified; S01.81XA Laceration without foreign body of other part of head, initial encounter; W18.30XA Fall on same level, unspecified, initial encounter; Y92.000 Kitchen of unspecified non-institutional (private) residence as the place of occurrence of the external cause; G40.909 Epilepsy, unspecified, not intractable, without status epilepticus; B96.1 Klebsiella pneumoniae [K. pneumoniae] as the cause of diseases classified elsewhere; Z23 Encounter for immunization; I12.9 Hypertensive chronic kidney disease with stage 1 through stage 4 chronic kidney disease, or unspecified chronic kidney disease; N18.3 Chronic kidney disease, stage 3 (moderate); Z91.14 Patient's other noncompliance with medication regimen; Z85.51 Personal history of malignant neoplasm of bladder; Z93.6 Other artificial openings of urinary tract status; Z86.73 Personal history of transient ischemic attack (TIA), and cerebral infarction without residual deficits; Z79.899 Other long term (current) drug therapy; Z90.6 Acquired absence of other parts of urinary tract
CPT/HCPCS: 36415; 70450; 71045; 72125; 73502; 73552; 73560; 73610; 73620; 76000; 80048; 81001; 83735; 84439; 84443; 84484; 85014; 85018; 85025; 85027; 85610; 85730; 86850; 86900; 86920; 87077; 87086; 87088; 87186; 90715; 92526; 92610; 93005; 96413; 97110; 97162; 97166; 97530; 99251; 99285; C1713; J7030; J7040; J7050; J7120; P9016; A4216; G0463; J1602

== ENCOUNTER → 2018-10-05 14:25 | Outpatient (CLI) | payer MEDICARE, SELFPAY ==
[2018-08-14 11:45] VITALS: BMI 29.9
[2018-10-05 14:44] VITALS: BP 140/69; PULSE 73; RESP 16; TEMP 36.4; O2SAT 98; BMI 29.9
== END ==
PROVIDERS: Family Provider Internal Medicine; PCP Internal Medicine; Referring Provider Internal Medicine Rheumatology; Visit Provider Internal Medicine Rheumatology
DX: M06.9 Rheumatoid arthritis, unspecified (principal)
CPT/HCPCS: 96413; J7050; A4216; J1602

== ENCOUNTER 2018-10-11 15:38 | Inpatient (IN) | payer MEDICARE, SELFPAY ==
[2018-10-05 14:44] VITALS: BMI 29.9
[2018-10-11 15:40] VITALS: BP 154/71; PULSE 66; RESP 16; TEMP 37.1; O2SAT 94; BMI 28.3
--- NOTE | 2018-10-11 16:40 | ED.VISSUMM ---
- ER Visit Summary Date of Service: 10/11/18 Chief Complaint: Fall right hip pain History of Present Illness: The patient is a 78 F mechanical fall tripping over dog 45 minutes prior to arrival. Later on her right hip. No head injuries. Unable to ambulate. Pain was with movement. Status post fall with left femur surgery by Dr. James per son 2 months ago. Current baby aspirin was on Xarelto post surgery currently not. No back pain no chest pains. No abdominal pain. No nausea vomiting. Status post fentanyl 50 mics by EMS pain down to 2. Physical Examination: General: Alert and oriented ?3, no acute distress HEENT: Normocephalic, atraumatic. Moist mucosa membranes Neck: supple, nontender. Cardiovascular: Regular rate and rhythm, no murmurs Respiratory: Normal breath sounds, symmetric, no distress Abdomen: Soft, nontender, nondistended Extremities: RLE: no deformity, + log roll on right. skin intact. Pulses intact distally. Neuro: no focal neurological deficits. Test Results: Right hip x-ray: Sub-troches fracture hemoglobin 12.9. Creatinine 1.5 INR 1.1. EKG pending. Chest x-ray pending. Emergency Department Course and Treatment: Patient no deformities right leg actually more lengthen than the left. She had a positive logroll. Labs were drawn fentanyl was given. Right hip x-ray reviewed by myself noted to sub-troch fracture. Required 2 doses of fentanyl for pain control after movement from exam and after x-ray. Vail catheter ordered. Chest x-ray EKG for preop. Discussed with Dr. Redd for admission. Discussed with Dr. Garcia updated reports if cleared she he will fix tomorrow. Treatment Plan: [] Disposition: Admission Impression: 1. Closed right subtrochanteric fracture 2. Fall This note was generated with [employer] dictation software. It may contain incorrect words, spelling, and punctuation that were not noted in review of the chart prior to signing ED Disposition - Plan for ED Patient: Disposition: Acute Care [facility] Diagnosis: Fracture, subtrochanteric, right femur, closed, Fall Referrals: Uma Zarate MD [Primary Care Provider] -
[2018-10-11] MEDS: fentaNYL 100 MCG/2 ML Ampul 50 MCG IV ×2 (16:49→18:13)
[2018-10-11 16:59] LABS: Absolute Lymphocyte Count 2.48 X10^3/ul (0.83-4.51); Absolute Neutrophil Count 10.8 X10^3/uL (2.0-7.7); Basophil# 0.04 X10^3/uL; Basophil% 0.3 % (0-1); Eosinophil# 0.27 X10^3/uL; Eosinophils% 1.8 % (0-5); Hematocrit 40.2 % (37-47); Hemoglobin 12.9 g/dl (12.0-15.0); Lymphocyte # 2.48 X10^3/ul (4.0); Lymphocyte % 16.6 % (19-41); Mean Corp Hgb Conc 32.1 g/gl (32-36); Mean Corpuscular Hgb 29.4 pg (27.0-32.0); Mean Corpuscular Volume 91.6 fL (81-99); Mean Platelet Vol. 13.6 fl (6.2-12.0); Monocyte# 1.22 X10^3/uL; Monocyte% 8.2 % (0-10); Neutrophil # 10.83 X10^3/uL (2.7-7.7); Neutrophil % 72.6 % (47-70); POSITIVE COUNT NO; POSITIVE DIFFERENTIAL NO; POSITIVE MORPHOLOGY NO; Platelet Count 208 K/mm3 (150-450); RBC Distribution Width CV 15.2 % (11.6-14.6); RBC Distribution Width SD 51.5 fl (35.1-43.9); Red Blood Count 4.39 M/mm3 (4.2-5.4); White Blood Count 14.9 K/mm3 (4.4-11.0)
[2018-10-11 17:00] LABS: International Normalized Ratio 1.1; Partial Thromboplast Time 27.2 Seconds (24.1-36.2); Prothrombin Time (Protime)PT. 13.6 SECONDS (11.7-14.9)
[2018-10-11 17:05] LABS: Anion Gap 8 (5-15); BUN 20 mg/dL (7-18); Chloride 108 mmol/L (98-107); Creatinine, Serum 1.54 mg/dL (0.55-1.02); EST Glomerular Filtration Rate 34 mL/min (>60); Est Glom Filt Rate - Afr Amer 42 mL/min (>60); Estimated Creatinine Clearance 26.22 ml/min; Glucose 106 mg/dL (74-106); Potassium 4.1 mmol/L (3.5-5.1); Sodium Level 139 mmol/L (136-145)
--- NOTE | 2018-10-11 17:36 | RAD_ITS ---
STUDY: X-RAY - PELVIS AND RIGHT HIP REASON FOR EXAM: Female, 78 years old. Trauma TECHNIQUE: 4 views of the pelvis and hip. COMPARISON: None. FINDINGS: There is a non-specific bowel gas pattern. Numerous surgical clips seen within the lower abdomen and pelvis Normal bilateral iliac wings, sacroiliac joints and visualized sacrum. Normal bilateral superior and inferior pubic rami. Normal pubic symphysis. Normal bilateral ischial tuberosities. There is an acute impacted comminuted intertrochanteric fracture with overlapping and varus angulation of fracture fragments. There is a healing fracture of the left hip status post ORIF RAD/HIP, UNI W/ Pelvis 2-3 Views IMPRESSION: Acute displaced angulated intertrochanteric fracture of the right hip. Electronically Signed: Sunil Levine MD at 18:35 EDT , Service support ,
[2018-10-11 18:13] VITALS: BP 158/95; PULSE 59; RESP 16; O2SAT 97
--- NOTE | 2018-10-11 18:19 | EKG12_ITS ---
Test Reason : PRE OP Blood Pressure : / mmHG Vent. Rate : 068 BPM Atrial Rate : 068 BPM P-R Int : 152 ms QRS Dur : 072 ms QT Int : 350 ms P-R-T Axes : -03 015 063 degrees QTc Int : 372 ms Normal sinus rhythm Nonspecific T wave abnormality Abnormal ECG Confirmed by ANNA RANDOLPH, PIYUSH ([id number]), video editor PEÑA EM ([id number]) on 10/21/2018 1:52:32 PM Referred By: Merissa Vargas Confirmed By:PIYUSH CASTILLO MD
--- NOTE | 2018-10-11 18:25 | RAD_ITS ---
STUDY: X-RAY CHEST REASON FOR EXAM: Female, 78 years old. Trauma TECHNIQUE: AP portable COMPARISON: August 13, 2018 FINDINGS: The lungs are clear and expanded. There is no demonstrated pleural abnormality. Heart is upper normal size Normal mediastinum and hay. Normal visualized pulmonary arteries. Tortuous mildly calcified aortic arch and descending thoracic aorta. Dorsal spine demonstrates spondylosis. Normal visualized ribs, clavicles, and shoulders. There is no demonstrated abnormality of the visualized soft tissue structures of the upper abdomen. No significant change since prior study RAD/Chest 1 View (Portable) IMPRESSION: No acute cardiopulmonary pathology Electronically Signed: Sunil Levine MD at 19:11 EDT , Service support ,
[2018-10-11 18:29] VITALS: BP 158/95; PULSE 59; RESP 16; O2SAT 97
--- NOTE | 2018-10-11 19:35 | PCM.HP.STD ---
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 The patient is a 78 year old F with history of left intratrochanteric fracture about 2 months ago status post left hip cephalomedullary nail by Dr. James was brought into ER while she tripped over her dog today about an hour prior to arrival. Patient is not able to ambulate. She has pain on the movement of right leg which is externally rotated and abducted. [] She denies chest pain, shortness of breath, syncope. No fever, or flulike illness. Patient feels very cold which he thinks chronic because she is from [place]. In ED, basic blood work shows leukocytosis, 14.9 thousand with neutrophils 72%. BMP shows creatinine 1.54, BUN 20. Her baseline creatinine runs around 1.2, last one in July 2018. Hip x-ray shows acute displaced unrelated intertrochanteric fracture of right hip. Chest x-ray shows no acute cardiopulmonary pathology. 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) Allergies No Known Allergies Allergy (Verified 08/13/18 10:49) Home Medications: Ambulatory Orders Medication Instructions Recorded Levothyroxine [Synthroid] 88 mcg PO DAILY 02/22/16 Aspirin [Aspirin, Baby] 81 mg PO DAILY@0800 tab.chew 02/26/16 Atenolol [Tenormin (beta dashawn)] 50 mg PO DAILY #30 tablet 03/18/16 Losartan Potassium [Cozaar] 50 mg PO DAILY #30 tablet 03/18/16 Atorvastatin Calcium [Lipitor] 40 mg PO DAILY 05/17/17 Gabapentin [Neurontin] 100 mg PO QHS PRN 05/17/17 levETIRAcetam tablet [Keppra 500 mg PO BID #60 tablet 05/19/17 tablet] Cholecalciferol (Vitamin D3) 6,000 unit PO DAILY 08/13/18 [Vitamin D3] Gabapentin [Neurontin] 300 mg PO QHS 08/13/18 Golimumab [Simponi] 100 mg IJ UD 08/13/18 Omeprazole 40 mg PO DAILY 08/13/18 Prednisone 10 mg PO PRN PRN 08/13/18 Amlodipine [Norvasc] 10 mg PO DAILY tablet 08/18/18 Calcium (Elemental) [Os-Kaleb 500] 1,000 mg PO DAILY@0800 tablet 08/18/18 Hydrocodone/Acetaminophen 1 tab PO Q6H PRN PRN #12 tab 08/18/18 [Hydrocodone-Acetamin 5-325 mg] Polyethylene Glycol 3350 [Miralax] 17 gm PO DAILY packet 08/18/18 Surgical History: - - surgery for ovarin cancer. Psychiatric History: No pertinent psych hx [employer] History: No pertinent [employer] history Smoking Status: Former smoker - *Family History Maternal History Items: No pertinent history Paternal History Items: No pertinent history Review of Systems Constitutional: Reports: Chills HEENT: Denies: Head Aches, Sinus Congestion, Sinus Drainage Cardiovascular: Denies: Chest Pain, Palpitations Respiratory: Denies: Cough, Shortness of breath at rest, Sputum production Gastrointestinal: Denies: Abdominal Pain, Nausea, Vomiting Genitourinary: Denies: Dysuria, Frequency Musculoskeletal: Reports: Joint Pain, Joint stiffness, Joint Tenderness Skin: Denies: Rash, Wounds Neurological: Reports: Balance problems, Incoordination. Denies: Focal weakness, Numbness, Tingling Psychiatric: Denies: Anxiety, Depression, Homicidal Ideations, Suicidal Ideations Hematologic/ Lymphatic: Denies: Easy Bruising, Easy Bleeding VTE Information - Inpt Only VTE Present on Admission: No VTE Mechan Device Prophylaxis: None VTE Pharm Prophylaxis ordered?: Yes Patient Problems: Active and Suspected Problems Fracture, subtrochanteric, right femur, closed (Acute) Fall (Acute) Closed intertrochanteric fracture of right hip (Acute) - Physical Exam General: Alert, Oriented x3, Cooperative HEENT: Atraumatic, PERRLA, EOMI, Normocephalic Oral: Dry Mucosa Neck: Supple, No JVD, Negative Carotid Bruits Lungs: Clear to auscultation, Normal air movement Cardiovascular: Regular rate, Regular Rhythm, Normal S1, Normal S2, No murmurs Abdomen: Bowel Sounds Present, Soft, Non Tender, Non-Distended Extremities: No edema, Capillary Refill Less than 3 Seconds Skin: No rashes, No breakdown Musculoskeletal: Arthritic Changes, Tenderness - Tenderness present over right hip anteriorly and laterally. Neurological: Cranial nerves II-XII grossly intact, Deep Tendon Reflexes 2+/4 and Symmetrical, Neuro grossly intact Psych/Mental Status: Normal Affect, Appropriate Vital Signs Temp Pulse Resp BP Pulse Ox 98.8 F 59 L 16 158/95 H 97 10/11/18 15:40 10/11/18 18:29 10/11/18 18:29 10/11/18 18:29 10/11/18 18:29 Oxygen Delivery Method Room Air Weight: 170 lb Body Mass Index (BMI) 28.3 Laboratory Tests Past 24 Hrs 10/11/18 10/11/18 10/11/18 16:10 16:10 16:10 WBC 14.9 H RBC 4.39 Hgb 12.9 Hct 40.2 MCV 91.6 MCH 29.4 MCHC 32.1 RDW 15.2 H RDW Differential 51.5 H Plt Count 208 MPV 13.6 H Immature Gran % (Auto) 0.500 Neut % (Auto) 72.6 H Lymph % (Auto) 16.6 L [place] % (Auto) 8.2 Eos % (Auto) 1.8 Baso % (Auto) 0.3 Absolute Neuts (auto) 10.8 H Absolute Lymphs (auto) 2.48 Total Counted Not Reportable PT 13.6 INR 1.1 APTT 27.2 Sodium 139 Potassium 4.1 Chloride 108 H Carbon Dioxide 23.0 Anion Gap 8 BUN 20 H Creatinine 1.54 H Estim Creat Clear Calc 26.22 Est GFR (MDRD) Af Amer 42 L Est GFR (MDRD) Non-Af 34 L BUN/Creatinine Ratio 13.0 Glucose 106 Calcium 9.0 Assessment/Plan All Active Problems Fracture, subtrochanteric, right femur, closed (Acute) Fall (Acute) Closed intertrochanteric fracture of right hip (Acute) Closed intertrochanteric fracture of left hip (Acute) Fall and laceration of left sideforehead (Acute) Seizure (Acute) The patient is a 78 year old F with history of left intratrochanteric fracture about 2 months ago status post left hip cephalomedullary nail by Dr. James was brought into ER while she tripped over her dog today about an hour prior to arrival. Patient is not able to ambulate. She has pain on the movement of right leg which is externally rotated and abducted. [] She denies chest pain, shortness of breath, syncope. No fever, or flulike illness. Patient feels very cold which he thinks chronic because she is from [place]. In ED, basic blood work shows leukocytosis, 14.9 thousand with neutrophils 72%. BMP shows creatinine 1.54, BUN 20. Her baseline creatinine runs around 1.2, last one in July 2018. Hip x-ray shows acute displaced unrelated intertrochanteric fracture of right hip. Chest x-ray shows no acute cardiopulmonary pathology. 1. Acute closed displaced angulated intratrochanteric fracture of right hip: Patient is being admitted to regular MedSurg floor. IV fluid normal saline. Pain control. Dr. Garcia has been consulted and anticipate surgery tomorrow. PT and OT ordered. Patient is moderate to severe perioperative risk in view of history of rheumatoid arthritis, limited physical activity and other multiple comorbidities as listed below. Patient walks less than 1 block and does not climb stairs. Patient has been having home PT as rehab for left intertrochanteric fracture about 2 months ago. Twelve-lead EKG ordered. Previous echo in 2014 reported as EF 70% with normal LV systolic function. Mild concentric LVH. LA mildly enlarged. 2. Leukocytosis possible inflammatory: Patient denies any flulike illness but has shivering/chills. Chest x-ray is normal. Denies new lower urinary tract symptoms. UA with reflex urine culture is ordered. Flu test is ordered. Last time patient had acute cystitis with Klebsiella in July 2018 was treated with ceftriaxone. Does not need antibiotic now. Follow-up UA with culture. 3. Seizure disorder: Continue home Keppra. 4. Acute kidney injury, most probably prerenal on CKD stage III: On IV fluid normal saline. Monitor kidney function and electrolytes. Avoid nephrotoxic medications. 5. Other comorbidities include hypertension, dyslipidemia, rheumatoid arthritis, hypothyroidism and history of CVA due to anterior cerebral artery stenosis: Multiple comorbidities complicates the present care and expect difficult and delay recovery. Home medication reconciliation done. Laboratory Results 10/11/18 16:10: WBC 14.9 H, RBC 4.39, Hgb 12.9, Hct 40.2, MCV 91.6, MCH 29.4, MCHC 32.1, RDW 15.2 H, RDW Differential 51.5 H, Plt Count 208, MPV 13.6 H, Immature Gran % (Auto) 0.500, Neut % (Auto) 72.6 H, Lymph % (Auto) 16.6 L, [place] % (Auto) 8.2, Eos % (Auto) 1.8, Baso % (Auto) 0.3, Absolute Neuts (auto) 10.8 H, Absolute Lymphs (auto) 2.48, Total Counted Not Reportable 10/11/18 16:10: PT 13.6, INR 1.1, APTT 27.2 10/11/18 16:10: Sodium 139, Potassium 4.1, Chloride 108 H, Carbon Dioxide 23.0, Anion Gap 8, BUN 20 H, Creatinine 1.54 H, Estim Creat Clear Calc 26.22, Est GFR (MDRD) Af Amer 42 L, Est GFR (MDRD) Non-Af 34 L, BUN/Creatinine Ratio 13.0, Glucose 106, Calcium 9.0 Clinical Impression(s) from Imaging Studies Hip/Pelvis X-Ray 10/11/18 17:36 IMPRESSION: Acute displaced angulated intertrochanteric fracture of the right hip. Electronically Signed: Sunil Levine MD at 18:35 EDT , Service support , Chest X-Ray 10/11/18 18:25 IMPRESSION: No acute cardiopulmonary pathology Code Visit Inpatient E&M: 38213 Init Hosp L3
[2018-10-11 19:40] VITALS: BMI 26.7
[2018-10-11 19:55] VITALS: BMI 26.7
[2018-10-11 20:01] VITALS: BP 133/95; PULSE 109; RESP 18; TEMP 36.7; O2SAT 96
[2018-10-11] MEDS: Morphine 2 MG/ML Syringe IV (20:28)
[2018-10-11] MEDS: 0.9% Normal Saline 1,000 ML 100 ML IV (20:28)
[2018-10-11 20:58] LABS: Mucous, Urine 0 SEEN /hpf (<or=2+); Red Blood Cells-Urine 0 SEEN /hpf (0-5); Squamous Epithelial Cells - UA 0 SEEN /hpf (5-10)
[2018-10-11 21:02] LABS: Color, Urine Yellow (Yellow); Glucose, Dipstick Normal (Normal); Ketone-Dipstick Negative (Negative); Leukocyte Esterase-Dipstick 500 /ul (Negative); Nitrite-Dipstick Negative (Negative); Occult Blood-Urine 150 /ul (Negative); Protein-Dipstick 30 mg/dl (Negative); Urine Bilirubin Dipstick Negative (Negative); Urine Clarity Sl. Cloudy (Clear); Urine Urobilinogen 1 mg/dl (Normal); Urine pH 6.5 (5.0 - 8.0)
--- NOTE | 2018-10-11 21:04 | NURSING ---
spoke to cps aware of order for flu swab
[2018-10-11 21:05] VITALS: BMI 26.7
[2018-10-11 21:12] LABS: Bacteria 3+ /hpf (None Seen); White Blood Cells 5-10 SEEN /hpf (0-5)
[2018-10-11] MEDS: Gabapentin 300 MG Capsule PO (21:21)
[2018-10-11] MEDS: Heparin Injection (Vial) 5,000 UNIT/ML VIAL 5000 UNIT SC (21:21)
[2018-10-11] MEDS: oxyCODONE 5 MG Tablet PO (21:21)
[2018-10-11] MEDS: levETIRAcetam 500 MG Tablet PO (21:21)
[2018-10-11] MEDS: Atorvastatin Calcium 40 MG Tablet PO (21:22)
[2018-10-11] MEDS: Acetaminophen 325 MG Tablet 650 MG PO (21:22)
[2018-10-11 23:00] VITALS: O2SAT 96
[2018-10-12] VITALS (17 sets, daily range): BP systolic 126–177; BP diastolic 51–86; PULSE 70–88; RESP 16–18; TEMP 36.4–37.2; O2SAT 88–98; BMI 26.7
[2018-10-12] MEDS: Ceftriaxone 1 GM/50 ML BAG IV ×2 (00:50→21:35)
[2018-10-12] MEDS: Acetaminophen 325 MG Tablet 650 MG PO ×2 (05:04→17:34)
[2018-10-12] MEDS: Levothyroxine 88 MCG Tablet PO (05:04)
[2018-10-12] MEDS: 0.9% Normal Saline 1,000 ML 100 ML IV ×3 (06:04→22:12)
[2018-10-12 06:24] LABS: Anion Gap 7 (5-15); BUN 17 mg/dL (7-18); BUN/Creat Ratio 12.9 RATIO (10-20); Calcium,Total 8.4 mg/dL (8.5-10.1); Chloride 111 mmol/L (98-107); Creatinine, Serum 1.32 mg/dL (0.55-1.02); EST Glomerular Filtration Rate 41 mL/min (>60); Est Glom Filt Rate - Afr Amer 50 mL/min (>60); Estimated Creatinine Clearance 30.59 ml/min; Glucose 99 mg/dL (74-106); Potassium 4.3 mmol/L (3.5-5.1); Sodium Level 141 mmol/L (136-145)
[2018-10-12 06:38] LABS: Absolute Lymphocyte Count 3.52 X10^3/ul (0.83-4.51); Absolute Neutrophil Count 8.3 X10^3/uL (2.0-7.7); Basophil# 0.04 X10^3/uL; Basophil% 0.3 % (0-1); Eosinophil# 0.18 X10^3/uL; Eosinophils% 1.3 % (0-5); Hematocrit 35.6 % (37-47); Hemoglobin 11.2 g/dl (12.0-15.0); Lymphocyte # 3.52 X10^3/ul (4.0); Lymphocyte % 25.8 % (19-41); Mean Corp Hgb Conc 31.5 g/gl (32-36); Mean Corpuscular Hgb 29.1 pg (27.0-32.0); Mean Corpuscular Volume 92.5 fL (81-99); Mean Platelet Vol. 13.5 fl (6.2-12.0); Monocyte# 1.57 X10^3/uL; Monocyte% 11.5 % (0-10); Neutrophil # 8.29 X10^3/uL (2.7-7.7); Neutrophil % 60.8 % (47-70); Platelet Count 156 K/mm3 (150-450); RBC Distribution Width SD 48.9 fl (35.1-43.9); Red Blood Count 3.85 M/mm3 (4.2-5.4); White Blood Count 13.6 K/mm3 (4.4-11.0)
[2018-10-12 06:46] LABS: Differential Indicated SCAN CRITERIA MET; POSITIVE COUNT NO; POSITIVE DIFFERENTIAL YES; POSITIVE MORPHOLOGY NO
--- NOTE | 2018-10-12 08:42 | NURSING ---
Son, Tre called in and asked about time for surgery- asked pt and she states ok to give information to him. Updated and son states he will be in shortly.
[2018-10-12] MEDS: Atenolol 50 MG Tablet PO (08:52)
[2018-10-12] MEDS: Morphine 2 MG/ML Syringe IV (08:57)
--- NOTE | 2018-10-12 08:57 | PN_ITS ---
Patient Problems: Active and Suspected Problems Fracture, subtrochanteric, right femur, closed (Acute) Fall (Acute) Closed intertrochanteric fracture of right hip (Acute) Subjective: Seen and examined. Patient went for OR in the morning. She returned from the OR. Patient is mild drowsy and lethargic. She is disoriented and she thinks she is at home. Vitals/I&O's: Vital Signs Temp Pulse Resp BP Pulse Ox 98.3 F 72 16 158/61 H 97 10/12/18 08:15 10/12/18 08:15 10/12/18 08:15 10/12/18 08:15 10/12/18 08:15 Oxygen Delivery Method Room Air Weight: 160 lb 11.472 oz Body Mass Index (BMI) 26.7 Intake and Output for Last 24 Hours 10/10/18 10/11/18 10/12/18 23:59 23:59 23:59 Intake Total 200 / 200 1174 / 1174 Output Total 350 / 350 500 / 500 Balance -150 / -150 674 / 674 General: Alert, Oriented x3, Cooperative HEENT: Atraumatic, PERRLA, EOMI, Normocephalic Neck: Supple, No JVD, Negative Carotid Bruits Lungs: No rhonchi, No wheeze, No rales, Diminished - Air entry slightly dimi nished in the right lung base Cardiovascular: Regular rate, Normal S1, Normal S2, No murmurs Abdomen: Bowel Sounds Present, Soft, Non Tender, Non-Distended, - - Patient has urostomy. Extremities: No edema, Capillary Refill Less than 3 Seconds Skin: No rashes, No breakdown Musculoskeletal: Arthritic Changes, Tenderness, - - Right hip intertrochanteric fracture status post ORIF. Dressing is dry Lymphatic: No Cervical, Supraclavicular, or Inguinal Adenopathy Neurological: Cranial nerves II-XII grossly intact, Neuro grossly intact Psych/Mental Status: Normal Affect, Appropriate Microbiology Past 72 Hours 10/11/18 22:50 Mucosa - Nasopharyngeal Influenza Types A,B Direct FA (SANDRA) - Final Laboratory Results 10/11/18 16:10: WBC 14.9 H, RBC 4.39, Hgb 12.9, Hct 40.2, MCV 91.6, MCH 29.4, MCHC 32.1, RDW 15.2 H, RDW Differential 51.5 H, Plt Count 208, MPV 13.6 H, Im mature Gran % (Auto) 0.500, Neut % (Auto) 72.6 H, Lymph % (Auto) 16.6 L, [place] % (Auto) 8.2, Eos % (Auto) 1.8, Baso % (Auto) 0.3, Absolute Neuts (auto) 10.8 H, Absolute Lymphs (auto) 2.48, Total Counted Not Reportable 10/11/18 16:10: PT 13.6, INR 1.1, APTT 27.2 10/11/18 16:10: Sodium 139, Potassium 4.1, Chloride 108 H, Carbon Dioxide 23.0, Anion Gap 8, BUN 20 H, Creatinine 1.54 H, Estim Creat Clear Calc 26.22, Est GFR (MDRD) Af Amer 42 L, Est GFR (MDRD) Non-Af 34 L, BUN/Creatinine Ratio 13.0, Glucose 106, Calcium 9.0 10/11/18 20:45: Urine Color Yellow, Urine Clarity Sl. Cloudy, Urine pH 6.5, Ur Specific [place] 1.010, Urine Protein 30 H, Urine Glucose (UA) Normal, Urine Ketones Negative, Urine Occult Blood 150 H, Urine Nitrite Negative, Urine Bilirubin Negative, Urine Urobilinogen 1 H, Ur Leukocyte Esterase 500 H, Urine RBC 0 SEEN, Urine WBC 5-10 SEEN, Ur Squamous Epith Cells 0 SEEN, Urine Bacteria 3+, Urine Mucus 0 SEEN 10/12/18 05:35: Sodium 141, Potassium 4.3, Chloride 111 H, Carbon Dioxide 23.0, Anion Gap 7, BUN 17, Creatinine 1.32 H, Estim Creat Clear Calc 30.59, Est GFR (MDRD) Af Amer 50 L, Est GFR (MDRD) Non-Af 41 L, BUN/Creatinine Ratio 12.9, Glucose 99, Calcium 8.4 L, TSH 11.40 H 10/12/18 05:35: WBC 13.6 H, RBC 3.85 L, Hgb 11.2 L, Hct 35.6 L, MCV 92.5, MCH 29.1, MCHC 31.5 L, RDW 15.0 H, RDW Differential 48.9 H, Plt Count 156, MPV 13.5 H, Immature Gran % (Auto) 0.300, Neut % (Auto) 60.8, Lymph % (Auto) 25.8, [place] % (Auto) 11.5 H, Eos % (Auto) 1.3, Baso % (Auto) 0.3, Absolute Neuts (auto) 8.3 H, Absolute Lymphs (auto) 3.52, Total Counted Not Reportable, Differential Comment COMMENT Current Medications Acetaminophen (Tylenol) 650 mg PO Q6H PRN PRN PRN Reason: Mild Pain (scale 0-3)/T>100.7 Last Admin: 10/12/18 05:04 Dose: 650 mg Al Hydroxide/Mg Hydroxide (Mylanta Ii) 30 ml PO Q6H PRN PRN PRN Reason: Gastric Burning Amlodipine Besylate (Norvasc) 10 mg PO DAILY [facility] Aspirin (Aspirin, Baby) 81 mg PO DAILY@0800 [facility] Atenolol (Tenormin (Beta Noé)) 50 mg PO DAILY [facility] Last Admin: 10/12/18 08:52 Dose: 50 mg Atorvastatin Calcium (Lipitor) 40 mg PO QHS [facility] Last Admin: 10/11/18 21:22 Dose: 40 mg Bisacodyl (Dulcolax) 10 mg RECTAL DAILY PRN PRN PRN Reason: Constipation Docusate Sodium (Colace) 200 mg PO BID PRN PRN PRN Reason: Constipation Gabapentin (Neurontin) 100 mg PO QHS PRN PRN Reason: PAIN Gabapentin (Neurontin) 300 mg PO QHS [facility] Last Admin: 10/11/18 21:21 Dose: 300 mg Heparin Sodium (Porcine) (Heparin Na) 5,000 unit SC BID [facility] Last Admin: 10/11/18 21:21 Dose: 5,000 unit Sodium Chloride () 1,000 mls @ 100 mls/hr IV .Q10H [facility] Last Admin: 10/12/18 06:04 Dose: 100 mls/hr Ceftriaxone Sodium (Rocephin) 1 gm in 50 mls @ 100 mls/hr IV Q24H [facility] Last Admin: 10/12/18 00:50 Dose: 100 mls/hr Cefazolin Sodium 2 gm/ Sodium (Chloride) 120 mls @ 240 mls/hr IV SEND TO OR W/PATIENT ONE Stop: 10/12/18 08:02 Levetiracetam (Keppra Tablet) 500 mg PO BID [facility] Last Admin: 10/11/18 21:21 Dose: 500 mg Levothyroxine Sodium (Synthroid) 88 mcg PO DAILY@0600 [facility] Last Admin: 10/12/18 05:04 Dose: 88 mcg Morphine Sulfate () 2 mg IV Q3H PRN PRN PRN Reason: Severe Pain (pain scale 6-10) Last Admin: 10/11/18 20:28 Dose: 2 mg Ondansetron HCl (Zofran) 4 mg IV Q8H PRN PRN PRN Reason: Nausea Oxycodone HCl (Oxyir) 5 mg PO Q4H PRN PRN PRN Reason: Moderate Pain (pain scale 4-5) Last Admin: 10/11/18 21:21 Dose: 5 mg Pantoprazole Sodium (Protonix) 40 mg PO DAILY [facility] Polyethylene Glycol (Miralax) 17 gm PO DAILY [facility] Sodium Chloride () 5 - 15 ml IV UD PRN PRN Reason: SALINE FLUSH Zolpidem Tartrate (Ambien (Generic)) 5 mg PO QHS PRN PRN PRN Reason: INSOMNIA Medical Necessity - Tobacco Use Smoking Status: Former smoker Assessment/Plan All Active Problems Fracture, subtrochanteric, right femur, closed (Acute) Fall (Acute) Closed intertrochanteric fracture of right hip (Acute) Closed intertrochanteric fracture of left hip (Acute) Fall and laceration of left sideforehead (Acute) Seizure (Acute) The patient is a 78 year old F with history of left intratrochanteric fracture about 2 months ago status post left hip cephalomedullary nail by Dr. James was brought into ER while she tripped over her dog today about an hour prior to arrival. Patient is not able to ambulate. She has pain on the movement of right leg which is externally rotated and abducted. [] She denies chest pain, shortness of breath, syncope. No fever, or flulike illness. Patient feels very cold which he thinks chronic because she is from [place]. In ED, basic blood work shows leukocytosis, 14.9 thousand with neutrophils 72%. BMP shows creatinine 1.54, BUN 20. Her baseline creatinine runs around 1.2, last one in July 2018. Hip x-ray shows acute displaced angulated subtrochanteric fracture of right hip. Chest x-ray shows no acute cardiopulmonary pathology. 1. Acute closed displaced angulated subtrochanteric fracture of right hip: Patient is being admitted to regular MedSurg floor. IV fluid normal saline. Pain control. Patient had ORIF done with long gamma nail for subtrochanteric fracture right hip by Dr[facility] Patient is moderate to severe perioperative risk in view of history of rheumatoid arthritis, limited physical activity and other multiple comorbidities as listed below. Patient walks less than 1 block and does not climb stairs. Patient has been having home PT as rehab for left intertrochanteric fracture about 2 months ago. Previous echo in 2014 reported as EF 70% with normal LV systolic function. Mild concentric LVH. LA mildly enlarged. 2. Leukocytosis possible inflammatory: Patient denies any flulike illness but has shivering/chills she is chronic for about 2-3 months. Chest x-ray is normal. Patient has urostomy tube. Last time patient had acute cystitis with Klebsiella in July 2018 was treated with ceftriaxone. UA positive of WBC 5-10 cells, LE 500, urine bacteria 3+ but negative nitrite. It seems might be asymptomatic bacteriuria but patient is on empiric ceftriaxone. She also got preop cefazolin. Follow-up urine culture. 3. Acute postoperative delirium/encephalopathy; most probably drug-induced anesthetic medications/metabolic. Needs reorientation. Avoid benzodiazepines or antipsychotic medications. 4. Seizure disorder: Continue home Keppra. 5 Acute kidney injury, most probably prerenal on CKD stage III: On IV fluid normal saline. Monitor kidney function and electrolytes. Avoid nephrotoxic medications. Will discontinue IV fluid once patient is taking oral food and fluids. 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 Home medication reconciliation done. Microbiology Past 72 Hours 10/11/18 22:50 Mucosa - Nasopharyngeal Influenza Types A,B Direct FA (SANDRA) - Final Laboratory Results 10/11/18 20:45: Urine Color Yellow, Urine Clarity Sl. Cloudy, Urine pH 6.5, Ur Specific [place] 1.010, Urine Protein 30 H, Urine Glucose (UA) Normal, Urine Ketones Negative, Urine Occult Blood 150 H, Urine Nitrite Negative, Urine Bilirubin Negative, Urine Urobilinogen 1 H, Ur Leukocyte Esterase 500 H, Urine RBC 0 SEEN, Urine WBC 5-10 SEEN, Ur Squamous Epith Cells 0 SEEN, Urine Bacteria 3+, Urine Mucus 0 SEEN 10/12/18 05:35: Sodium 141, Potassium 4.3, Chloride 111 H, Carbon Dioxide 23.0, Anion Gap 7, BUN 17, Creatinine 1.32 H, Estim Creat Clear Calc 30.59, Est GFR (MDRD) Af Amer 50 L, Est GFR (MDRD) Non-Af 41 L, BUN/Creatinine Ratio 12.9, Glucose 99, Calcium 8.4 L, TSH 11.40 H 10/12/18 05:35: WBC 13.6 H, RBC 3.85 L, Hgb 11.2 L, Hct 35.6 L, MCV 92.5, MCH 29.1, MCHC 31.5 L, RDW 15.0 H, RDW Differential 48.9 H, Plt Count 156, MPV 13.5 H, Immature Gran % (Auto) 0.300, Neut % (Auto) 60.8, Lymph % (Auto) 25.8, [place] % (Auto) 11.5 H, Eos % (Auto) 1.3, Baso % (Auto) 0.3, Absolute Neuts (auto) 8.3 H , Absolute Lymphs (auto) 3.52, Total Counted Not Reportable, Differential Comment COMMENT 10/12/18 13:00: Sodium 139, Potassium 5.3 H, Chloride 114 H, Carbon Dioxide 17.0 L, Anion Gap 8, BUN 16, Creatinine 1.39 H, Estim Creat Clear Calc 29.05, Est GFR (MDRD) Af Amer 47 L, Est GFR (MDRD) Non-Af 39 L, BUN/Creatinine Ratio 11.5, Glucose 112 H, Calcium 8.0 L, TSH 19.10 H 10/12/18 13:00: Vitamin D 25-Hydroxy 59.4 10/12/18 13:00: PTH Intact 30.1 10/12/18 13:00: WBC 16.6 H, RBC 4.12 L, Hgb 11.9 L, Hct 37.9, MCV 92.0, MCH 28.9, MCHC 31.4 L, RDW 15.2 H, RDW Differential 51.7 H, Plt Count 102 L, MPV 13.3 H Clinical Impression(s) from Imaging Studies Hip/Pelvis X-Ray 10/11/18 17:36 IMPRESSION: Acute displaced angulated intertrochanteric fracture of the right hip. Electronically Signed: Sunil Levine MD at 18:35 EDT , Service support , Chest X-Ray 10/11/18 18:25 IMPRESSION: No acute cardiopulmonary pathology Code Visit Inpatient E&M: 72043 [facility] Hosp L3
[2018-10-12] MEDS: 0.9% NaCl Peripheral Flush Adult/Peds IV (08:58)
--- NOTE | 2018-10-12 09:30 | RAD_ITS ---
STUDY: X-RAY - PELVIS AND RIGHT HIP REASON FOR EXAM: Female, 78 years old. Postop TECHNIQUE: 3 views of the pelvis and hip. COMPARISON: October 11, 2018 FINDINGS: Postsurgical changes status post open reduction internal fixation of intertrochanteric fracture right hip with fracture fragments in near anatomic alignment and position RAD/Hip Min 2 Views (Portable) IMPRESSION: Status post ORIF right hip fracture Electronically Signed: Sunil Levine MD at 21:46 EDT , Service support ,
--- NOTE | 2018-10-12 09:48 | NURSING ---
Was consulted on patient for urostomy. pt is currently off the unit in surgery. pt has had her stoma since 1990. will check with patient later to see if she has any needs or concerns.
[2018-10-12] MEDS: Cefazolin 2 GM in 0.9% Normal Saline 100 ML IV (10:23)
--- NOTE | 2018-10-12 11:18 | NURSING ---
lab called to verify that have correct collection container and will collect the ordered 24hr urine correctly. Notified that will need special container with preservative and that it will need to be kept on ice. Room supplied accordingly.
--- NOTE | 2018-10-12 11:54 | PCM.OPRPT ---
Report of Operation Date of Procedure: 10/12/18 Pre-Operative Diagnosis: Subtrochanteric fracture Right hip Post-Operative Diagnosis: same Surgery/Procedure Performed:: ORIF with long Gamma nail retail route supervisor: Ross Sheldon Type of Anesthesia:: General Anesthesiologist: Cosme Oliva Estimated Blood Loss (mL): 75 cc Description of Procedure: Primary Surgeon/Physician: Wily Garcia retail route supervisor: Ross sheldon PA-C retail route supervisor: Pre-Operative Diagnosis: Right subtrochanteric hip fx Post-Operative Diagnosis: same Surgery/Procedure Performed: ORIF right hip with long Gamma nail Estimated Blood Loss: 75 cc Specimen's Removed: none Type of Anesthesia: general ASA Class: 3 Implants: [place] long Gamma nail 340 mm x 11 cm with 90 mm lag screw and 45 mm distal locking screw Procedure Description: The patient was greeted in the preoperative area. The [right ] lower extremity was marked with surgical marker. Preoperative antibiotics were administered. The patient was then placed in supine position on a fracture table, a padded perineal post was utilized, all bony prominences were well-padded. Patient's leg was then secured in the fracture leg palmer and the well leg was placed in the well-leg palmer both were well-padded. Closed reduction maneuver was then performed under biplanar fluoroscopic imaging. Once anatomic alignment of the fracture was confirmed the leg was prepped and draped in usual sterile fashion. Surgical timeout was performed and surgery was commenced. Fluoroscopic imaging was used to identify the tip of the greater trochanter. A 3 cm incision was then made 3 cm above the tip of the greater trochanter and a guidepin was then placed at the junction of the anterior one third and posterior two thirds of the greater trochanter. This was then placed intramedullary. an opening reamer was then used and a ball-tipped guidewire was then placed to the superior pole of the patella and measured. Sequential reaming was then commenced over the ball-tipped guidewire to the appropriate diameter and where chatter was identified. Appropriate size [place] Gamma nail was then placed on the guide handle on the operating table and confirmed to be appropriately placed. This was then inserted into the body over the ball-tipped guidewire to the appropriate depth. A stab incision was then made on lateral aspect of the thigh for placement of the lag screw which was then placed in center-center position confirmed in both AP and lateral. This was then measured. A derotational step drill was then used and a derotation bar was then placed. Lag screw reamer was then used over the guidepin and the lag screw was then placed into subchondral bone with tip to apex distance less than 25 mm on both the AP and lateral. The insertion handle was then removed after the compression screw was applied. Attention was then turned to the distal fixation. A perfect [place] technique was used and a screw was then placed from lateral to medial through the eccentric hole distally. This was drilled measured and a screw was placed with excellent purchase. Final imaging was obtained with fluoroscopic imaging AP and lateral. The wounds were then irrigated with copious irrigation and closed in layers with 2-0 Vicryl and surgical kirsten. A well-padded nonadherent dressing is applied patient was taken to recovery room in stable condition. Postoperatively patient may be weightbearing as tolerated without restrictions - Admit VTE Documentation VTE Present on Admission: No VTE Mechan Device Prophylaxis: SCD's, Knee High CARLO Hose VTE Pharm Prophylaxis ordered?: Yes
--- NOTE | 2018-10-12 11:58 | OP.PCM_ITS ---
Report of Operation Date of Procedure: 10/12/18 Pre-Operative Diagnosis: Subtrochanteric fracture Right hip Post-Operative Diagnosis: same Surgery/Procedure Performed:: ORIF with long Gamma nail lab courier: Ross Sheldon Type of Anesthesia:: General Anesthesiologist: Cosme Oliva Estimated Blood Loss (mL): 75 cc Description of Procedure: Primary Surgeon/Physician: Wily Garcia lab courier: Ross sheldon PA-C lab courier: Pre-Operative Diagnosis: Right subtrochanteric hip fx Post-Operative Diagnosis: same Surgery/Procedure Performed: ORIF right hip with long Gamma nail Estimated Blood Loss: 75 cc Specimen's Removed: none Type of Anesthesia: general ASA Class: 3 Implants: [place] long Gamma nail 340 mm x 11 cm with 90 mm lag screw and 45 mm distal locking screw Procedure Description: The patient was greeted in the preoperative area. The [right ] lower extremity was marked with surgical marker. Preoperative antibiotics were administered. The patient was then placed in supine position on a fracture table, a padded per ineal post was utilized, all bony prominences were well-padded. Patient's leg was then secured in the fracture leg palmer and the well leg was placed in the well-leg palmer both were well-padded. Closed reduction maneuver was then performed under biplanar fluoroscopic imaging. Once anatomic alignment of the fracture was confirmed the leg was prepped and draped in usual sterile fashion. Surgical timeout was performed and surgery was commenced. Fluoroscopic imaging was used to identify the tip of the greater trochanter. A 3 cm incision was then made 3 cm above the tip of the greater trochanter and a guidepin was then placed at the junction of the anterior one third and posterior two thirds of the greater trochanter. This was then placed intramedullary. an opening reamer was then used and a ball-tipped guidewire was then placed to the superior pole of the patella and measured. Sequential reaming was then commenced over the ball-tipped guidewire to the appropriate diameter and where chatter was identified. Appropriate size [place] Gamma nail was then placed on the guide handle on the operating table and confirmed to be appropriately placed. This was then inserted into the body over the ball-tipped guidewire to the appropriate depth. A stab incision was then made on lateral aspect of the thigh for placement of the lag screw which was then placed in center-center position confirmed in both AP and lateral. This was then measured. A derotational step drill was then used and a derotation bar was then placed. Lag screw reamer was then used over the guidepin and the lag screw was then placed into subchondral bone with tip to apex distance less than 25 mm on both the AP and lateral. The insertion handle was then removed after the compression screw was applied. Attention was then turned to the distal fixation. A perfect [place] technique was used and a screw was then placed from lateral to medial through the eccentric hole distally. This was drilled measured and a screw was placed with excellent purchase. Final imaging was obtained with fluoroscopic imaging AP and lateral. The wounds were then irrigated with copious irrigation and closed in layers with 2-0 Vicryl and surgical kirsten. A well-padded nonadherent dressing is applied patient was taken to recovery room in stable condition. Postoperatively patient may be weightbearing as tolerated without restrictions - Admit VTE Documentation VTE Present on Admission: No VTE Mechan Device Prophylaxis: SCD's, Knee High CARLO Hose VTE Pharm Prophylaxis ordered?: Yes
--- NOTE | 2018-10-12 12:32 | NURSING ---
Report called to Luís at 0905- pt taken from unit at that time down to AC in preparation for surgery this morning.
[2018-10-12 13:10] LABS: Hematocrit 37.9 % (37-47); Hemoglobin 11.9 g/dl (12.0-15.0); Mean Corp Hgb Conc 31.4 g/gl (32-36); Mean Corpuscular Hgb 28.9 pg (27.0-32.0); Mean Platelet Vol. 13.3 fl (6.2-12.0); Platelet Count 102 K/mm3 (150-450); RBC Distribution Width CV 15.2 % (11.6-14.6); RBC Distribution Width SD 51.7 fl (35.1-43.9); Red Blood Count 4.12 M/mm3 (4.2-5.4); White Blood Count 16.6 K/mm3 (4.4-11.0)
[2018-10-12 13:12] LABS: Scan Indicated on CBC? Y/N NO
[2018-10-12 13:41] LABS: Anion Gap 8 (5-15); BUN 16 mg/dL (7-18); BUN/Creat Ratio 11.5 RATIO (10-20); Chloride 114 mmol/L (98-107); Creatinine, Serum 1.39 mg/dL (0.55-1.02); EST Glomerular Filtration Rate 39 mL/min (>60); Est Glom Filt Rate - Afr Amer 47 mL/min (>60); Estimated Creatinine Clearance 29.05 ml/min; Glucose 112 mg/dL (74-106); Potassium 5.3 mmol/L (3.5-5.1); Sodium Level 139 mmol/L (136-145)
[2018-10-12 13:43] LABS: Vitamin D,25 Hydroxy 59.4 ng/mL (29.95-100.01)
[2018-10-12 13:49] LABS: PTHIN 30.1 pg/mL (18.4-80.1)
--- NOTE | 2018-10-12 15:33 | CASEMGMT ---
RN CM Assessment Presentation: ORIF R Hip fx. Pt tripped over her dog and fell. Surgery today. Intro role of CM and purpose of RN CM assessment to patient in room. Pt is sleepy, limited assessment @ this time. . Demographics, PCP and Pharmacy verified. PCP: Dr. Zarate Specialists: Dr. Garcia Preferred [facility]acy[facility] Insurance: [employer] [facility] Prescription Benefit: yes LNOK: esequiel Alfaro Jr. Living Arrangements: Pt lives with SonDouglas who is retired and able to provide 24 hr care. Transportation: son drives DME: walker, straight cane HHC: unknown DC PLAN: undetermined. PT/OT evaluations pending. Pt will likely require SNF stay on dc. Malaika MARTINEZN RN ACM
[2018-10-12] MEDS: amLODIPine 10 MG Tablet PO (16:22)
[2018-10-12] MEDS: Pantoprazole Sodium 40 MG Tablet PO (16:22)
[2018-10-12] MEDS: levETIRAcetam 500 MG Tablet PO ×2 (16:22→21:39)
[2018-10-12] MEDS: Aspirin 325 MG Tablet PO (16:23)
[2018-10-12] MEDS: oxyCODONE 5 MG Tablet PO (17:35)
[2018-10-12] MEDS: Gabapentin 300 MG Capsule PO (21:39)
[2018-10-12] MEDS: Atorvastatin Calcium 40 MG Tablet PO (21:39)
[2018-10-13 02:01] VITALS: BP 120/56; PULSE 62; RESP 16; TEMP 36.4; O2SAT 100
[2018-10-13 02:10] VITALS: PULSE 73; O2SAT 99
[2018-10-13] MEDS: Levothyroxine 88 MCG Tablet PO (05:45)
[2018-10-13] MEDS: Acetaminophen 325 MG Tablet 650 MG PO ×3 (05:45→20:14)
[2018-10-13] MEDS: oxyCODONE 5 MG Tablet PO ×4 (06:52→21:38)
[2018-10-13] MEDS: 0.9% Normal Saline 1,000 ML 100 ML IV ×2 (06:58→16:59)
[2018-10-13 07:00] VITALS: O2SAT 98
[2018-10-13 07:08] LABS: Hematocrit 31.4 % (37-47); Hemoglobin 9.6 g/dl (12.0-15.0); Mean Corp Hgb Conc 30.6 g/gl (32-36); Mean Corpuscular Hgb 28.7 pg (27.0-32.0); Mean Platelet Vol. 14.1 fl (6.2-12.0); Platelet Count 124 K/mm3 (150-450); RBC Distribution Width CV 14.9 % (11.6-14.6); RBC Distribution Width SD 48.7 fl (35.1-43.9); Red Blood Count 3.34 M/mm3 (4.2-5.4); White Blood Count 14.5 K/mm3 (4.4-11.0)
[2018-10-13 07:11] LABS: Anion Gap 7 (5-15); BUN 19 mg/dL (7-18); BUN/Creat Ratio 11.9 RATIO (10-20); Calcium,Total 7.6 mg/dL (8.5-10.1); Chloride 114 mmol/L (98-107); Creatinine, Serum 1.59 mg/dL (0.55-1.02); EST Glomerular Filtration Rate 33 mL/min (>60); Est Glom Filt Rate - Afr Amer 40 mL/min (>60); Estimated Creatinine Clearance 25.39 ml/min; Glucose 96 mg/dL (74-106); Potassium 4.1 mmol/L (3.5-5.1); Sodium Level 139 mmol/L (136-145)
[2018-10-13 07:12] LABS: Scan Indicated on CBC? Y/N NO
[2018-10-13 07:35] VITALS: BP 106/50; PULSE 82; RESP 18; TEMP 37.1; O2SAT 99
--- NOTE | 2018-10-13 07:50 | PCM.PN.ORT ---
Patient Problems: Active and Suspected Problems Fracture, subtrochanteric, right femur, closed (Acute) Fall (Acute) Closed intertrochanteric fracture of right hip (Acute) Subjective: Patient lying in bed sleeping. Patient easy to awake. Patient is confused to time and place. Patient states pain is well managed. Denies chest pain, shortness breath, calf pain. Objective: Patient lying in bed awake. Dressings are clean dry intact. Negative signs and symptoms of DVT. Patient has good plantar flexion dorsiflexion of the operative right leg. Vital signs within normal limits. Patient does have elevated white count, however being treated for UTI. Is intact, no respiratory distress. - Physical Exam General: Cooperative, Confused Oral: Moist Mucosa Neurological: Cranial nerves II-XII grossly intact Vital Signs Temp Pulse Resp BP Pulse Ox 98.8 F 82 18 106/50 L 99 10/13/18 07:35 10/13/18 07:35 10/13/18 07:35 10/13/18 07:35 10/13/18 07:35 Oxygen Flow Rate (L/min) 1 Oxygen Delivery Method Nasal Cannula Weight: 72.9 kg Body Mass Index (BMI) 26.7 Intake and Output for Last 24 Hours 10/11/18 10/12/18 10/13/18 23:59 23:59 23:59 Intake Total 200 / 200 2831 / 2831 1461 / 1461 Output Total 350 / 350 900 / 900 350 / 350 Balance -150 / -150 1931 / 193 1111 / 1111 Microbiology Past 72 Hours 10/11/18 22:50 Influenza Types A,B Direct FA (SANDRA) - Final Mucosa - Nasopharyngeal Laboratory Tests Past 24 Hrs 10/12/18 10/12/18 10/12/18 05:35 13:00 13:00 WBC RBC Hgb Hct MCV MCH MCHC RDW RDW Differential Plt Count MPV Total Counted Not Reportable Differential Comment COMMENT Sodium 139 Potassium 5.3 H Chloride 114 H Carbon Dioxide 17.0 L Anion Gap 8 BUN 16 Creatinine 1.39 H Estim Creat Clear Calc 29.05 Est GFR (MDRD) Af Amer 47 L Est GFR (MDRD) Non-Af 39 L BUN/Creatinine Ratio 11.5 Glucose 112 H Calcium 8.0 L Vitamin D 25-Hydroxy 59.4 TSH 19.10 H PTH Intact 10/12/18 10/12/18 10/13/18 13:00 13:00 06:26 WBC 16.6 H 14.5 H RBC 4.12 L 3.34 L Hgb 11.9 L 9.6 L Hct 37.9 31.4 L MCV 92.0 94.0 MCH 28.9 28.7 MCHC 31.4 L 30.6 L RDW 15.2 H 14.9 H RDW Differential 51.7 H 48.7 H Plt Count 102 L 124 L MPV 13.3 H 14.1 H Total Counted Differential Comment Sodium Potassium Chloride Carbon Dioxide Anion Gap BUN Creatinine Estim Creat Clear Calc Est GFR (MDRD) Af Amer Est GFR (MDRD) Non-Af BUN/Creatinine Ratio Glucose Calcium Vitamin D 25-Hydroxy TSH PTH Intact 30.1 10/13/18 06:26 WBC RBC Hgb Hct MCV MCH MCHC RDW RDW Differential Plt Count MPV Total Counted Differential Comment Sodium 139 Potassium 4.1 Chloride 114 H Carbon Dioxide 18.0 L Anion Gap 7 BUN 19 H Creatinine 1.59 H Estim Creat Clear Calc 25.39 Est GFR (MDRD) Af Amer 40 L Est GFR (MDRD) Non-Af 33 L BUN/Creatinine Ratio 11.9 Glucose 96 Calcium 7.6 L Vitamin D 25-Hydroxy TSH PTH Intact Medical Necessity - Tobacco Use Smoking Status: Former smoker Assessment/Plan All Active Problems Fracture, subtrochanteric, right femur, closed (Acute) Fall (Acute) Closed intertrochanteric fracture of right hip (Acute) Closed intertrochanteric fracture of left hip (Acute) Fall and laceration of left sideforehead (Acute) Seizure (Acute) This post ORIF of a right hip trochanteric fracture Plan 1. Continue all pain medications as prescribed 2. Continue physical therapy, with toe-touch weightbearing with walker 3. Aspirin 3 and 25 mg 1 p.o. every 12 hours for postop DVT prophylaxis 4. Encourage incentive spirometry 5. Medicine will continue to manage medically 6. Possible discharge to [facility] tomorrow
[2018-10-13] MEDS: levETIRAcetam 500 MG Tablet PO ×2 (08:45→21:38)
[2018-10-13] MEDS: Aspirin 325 MG Tablet PO ×2 (08:45→17:00)
[2018-10-13] MEDS: Polyethylene Glycol 3350 17 GM PACKET PO (08:46)
[2018-10-13] MEDS: Pantoprazole Sodium 40 MG Tablet PO (08:46)
[2018-10-13] MEDS: amLODIPine 10 MG Tablet PO (08:46)
[2018-10-13] MEDS: Atenolol 50 MG Tablet PO (08:46)
--- NOTE | 2018-10-13 11:06 | NURSING ---
LATE ENTRY - 0928 - DR GOLDSTEIN POST ORDERS STATES WWBAT RLE. PER PROGRESS NOTE, FARA BUSH STATES TTWB RLE. FARA BUSH CALLED TO VERIFY. TON STATES WBAT PER DR GOLDSTEIN.
--- NOTE | 2018-10-13 11:51 | CASEMGMT ---
Addendum entered by Ligia Mcadams 10/13/18 13:22: Son spoke w/Angela, the bill needs to be paid in full in order for the facility to accept the pt. SW gave son list of other SNF's in network, asked him to review the list and let SW know the next choice. Son did ask about TCU, SW explained that TCU has no beds. SW will continue to follow, will speak w/son tomorrow about where to send referral. CORRIE Retana Original Note: Addendum entered by Ligia Mcadams 10/13/18 13:05: Pt's son is here. SW spoke w/son in regard to [facility]. SW explained that pt owes $2880, and until this is paid they will not take her. Son states he cannot afford this, could do a payment plan. SW explained can check w/[facility] to see if they could do this. Son also asked about financial assist here, SW explained he can call the financial dept here when he gets the bill. Son states he is already paying $183/month for past bills and this hospital stay will cause the bill to increase. Son asked who he could speak w/here about it, SW explained will see who he should speak w/in regard to this. SW explained will give him the names of other nursing homes should pt not be able to go to [facility]. SW reminded son that pt will be in her copay days when she goes to SNF, son states understanding. SW asked about applying for Medicaid, son states pt's income is too high. SW called our financial dept, message left. MARK called [employer], message left for [facility] to call this SW back. SW will follow up shortly w/son with other facility names that are in network w/insurance. CORRIE Retana Original Note: Addendum entered by Ligia Mcadams 10/13/18 12:28: SW spoke w/Katie from [facility]. She states pt owes $2880 from the last admission at [facility], pt was there about two months and had a copay. Katie states son would need to pay this before they would consider taking pt again. Also, pt will be into her copay days at [facility](or wherever else she may go) again, as pt does not have her full SNF benefit back. SW will let son know when he arrives. CORRIE Retana Original Note: SW called TCU, it is not anticipated there will be any bed for pt at discharge. SW called son in regard to discharge plan, as pt is confused. Son agreeable to [facility] referral for pt, pt has been there recently. Son will be here shortly, will speak w/SW when here. SW faxed referral to [facility], called Kristin, message left. SW will continue to follow. CORRIE Retana
--- NOTE | 2018-10-13 12:31 | NURSING ---
was asked to see patient for urostomy. patient states she has had her stoma since 1990 and cares for it herself. applied was just changed last evening. appliance intact. will check in as needed, but patient denies current need.
[2018-10-13 14:00] VITALS: BP 101/48; PULSE 67; RESP 18; TEMP 36.6; O2SAT 98
--- NOTE | 2018-10-13 18:37 | PN_ITS ---
Patient Problems: Active and Suspected Problems Fracture, subtrochanteric, right femur, closed (Acute) Fall (Acute) Closed intertrochanteric fracture of right hip (Acute) Subjective: Patient seen and examined today, she tells this examiner she would like to go home rather than to a rehab center. Patient has no complaints of shortness of breath or chest discomfort. - Physical Exam General: Alert, Oriented x3, Cooperative, No apparent distress, Well developed, Well nourished HEENT: Atraumatic, PERRLA, EOMI, Normocephalic Oral: Moist Mucosa Neck: Supple, Trachea Midline, Thyroid Normal Size and Texture Lungs: Clear to auscultation, Normal air movement, No rhonchi, No wheeze, No rales Cardiovascular: Regular rate, Regular Rhythm, Normal S1, Normal S2, No murmurs, No Ectopic Activity Abdomen: Bowel Sounds Present, Soft, Non Tender, Non-Distended, No hernias noted Extremities: No clubbing, No cyanosis, Capillary Refill Less than 3 Seconds Skin: No rashes, No breakdown Neurological: Cranial nerves II-XII grossly intact, Neuro grossly intact, Sensory exam intact to light touch and pain, Coordination normal Psych/Mental Status: Normal Affect, Appropriate, Alert and oriented to time, place, person, mood and affect Vital Signs Temp Pulse Resp BP Pulse Ox 97.9 F 67 18 101/48 L 98 10/13/18 14:00 10/13/18 14:00 10/13/18 14:00 10/13/18 14:00 10/13/18 14:00 Oxygen Flow Rate (L/min) 1 Oxygen Delivery Method Room Air Weight: 72.9 kg Body Mass Index (BMI) 26.7 Intake and Output for Last 24 Hours 10/11/18 10/12/18 10/13/18 23:59 23:59 23:59 Intake Total 200 / 200 2831 / 2831 2641 / 2641 Output Total 350 / 350 900 / 900 450 / 450 Balance -150 / -150 193 / 1930 219 / 2191 Microbiology Past 72 Hours 10/11/18 20:45 Urine Culture - Preliminary Urine, Random Presumptive E. coli 10/11/18 22:50 Influenza Types A,B Direct FA (SANDRA) - Final Mucosa - Nasopharyngeal Laboratory Tests Past 24 Hrs 04/16/19 04/16/19 06:26 06:26 WBC 14.5 H RBC 3.34 L Hgb 9.6 L Hct 31.4 L MCV 94.0 MCH 28.7 MCHC 30.6 L RDW 14.9 H RDW Differential 48.7 H Plt Count 124 L MPV 14.1 H Sodium 139 Potassium 4.1 Chloride 114 H Carbon Dioxide 18.0 L Anion Gap 7 BUN 19 H Creatinine 1.59 H Estim Creat Clear Calc 25.39 Est GFR (MDRD) Af Amer 40 L Est GFR (MDRD) Non-Af 33 L BUN/Creatinine Ratio 11.9 Glucose 96 Calcium 7.6 L Medical Necessity - Tobacco Use Smoking Status: Former smoker Assessment/Plan All Active Problems Fracture, subtrochanteric, right femur, closed (Acute) Fall (Acute) Closed intertrochanteric fracture of right hip (Acute) Closed intertrochanteric fracture of left hip (Resolved) Fall and laceration of left sideforehead (Resolved) #1 acute closed displaced angulated subtrochanteric fracture of the right hip- postop day #1 gamma nail ORIF, continue PT and OT #2 leukocytosis-possibly secondary to acute cystitis, monitor labs #3 Seizure disorder #4 chronic kidney disease stage III #5 hypertension #6 hyperlipidemia #7 acute cystitis-secondary to E. coli, I will change the patient over to Keflex starting tomorrow Code Visit Inpatient E&M: 58191 Subs Hosp L2
[2018-10-13] MEDS: Ondansetron 4 MG/2 ML Vial IV (18:57)
[2018-10-13] MEDS: 0.9% NaCl Peripheral Flush Adult/Peds IV (18:57)
[2018-10-13 20:00] VITALS: BP 122/53; PULSE 71; RESP 16; TEMP 37.1; O2SAT 96
[2018-10-13] MEDS: Atorvastatin Calcium 40 MG Tablet PO (21:38)
[2018-10-13] MEDS: Gabapentin 400 MG Capsule PO (21:38)
[2018-10-14 00:21] LABS: 24HR UR TOTAL VOLUME 950 ml; Calcium Urine pH Range 2
[2018-10-14 02:17] VITALS: BP 116/54; PULSE 65; RESP 13; TEMP 36.9; O2SAT 93
[2018-10-14] MEDS: Cephalexin 250 MG Capsule PO ×2 (05:46→14:35)
[2018-10-14] MEDS: Docusate Sodium 100 MG Capsule 200 MG PO (05:46)
[2018-10-14] MEDS: Acetaminophen 325 MG Tablet 650 MG PO ×2 (05:46→14:35)
[2018-10-14] MEDS: Levothyroxine 88 MCG Tablet PO (05:46)
[2018-10-14] MEDS: oxyCODONE 5 MG Tablet PO ×2 (05:46→14:35)
[2018-10-14] MEDS: Aspirin 325 MG Tablet PO ×2 (08:49→16:47)
[2018-10-14] MEDS: Atenolol 50 MG Tablet PO (08:49)
[2018-10-14] MEDS: Polyethylene Glycol 3350 17 GM PACKET PO (08:50)
[2018-10-14] MEDS: levETIRAcetam 500 MG Tablet PO ×2 (08:52→21:15)
[2018-10-14] MEDS: Pantoprazole Sodium 40 MG Tablet PO (08:52)
[2018-10-14 08:58] VITALS: BP 97/48; PULSE 78; RESP 16; TEMP 37.5; O2SAT 95
--- NOTE | 2018-10-14 10:47 | CASEMGMT ---
Addendum entered by Ligia Mcadams 10/14/18 12:06: [facility] can take pt and started precert. SW called son to let him know, pt states understanding. CORRIE Retana Original Note: SW spoke with son in regard to where he would like referral sent. Son agreeable to referral being sent to [facility]. SW faxed referral to [facility]. SW called, spoke w/Rossana, she will review referral, will call SW back. SW will continue to follow. CORRIE Retana
[2018-10-14 11:19] VITALS: BP 98/52; PULSE 84; RESP 16; TEMP 37; O2SAT 97
--- NOTE | 2018-10-14 12:19 | PCM.PN.ORT ---
Patient Problems: Active and Suspected Problems Fracture, subtrochanteric, right femur, closed (Acute) Fall (Acute) Closed intertrochanteric fracture of right hip (Acute) Subjective: Patient sitting at bedside eating lunch. Patient states pain is well managed. Denies chest pain, shortness breath, calf pain, nausea vomiting. Objective: Dressings are clean dry intact. She has good plantar flexion dorsiflexion of the operative right leg. Vital signs labs within normal limits. Patient is afebrile neurovascular is otherwise intact. Patient is speaking in full sentences with no obvious respiratory distress. - Physical Exam Neurological: Cranial nerves II-XII grossly intact Psych/Mental Status: Alert and oriented to time, place, person, mood and affect Vital Signs Temp Pulse Resp BP Pulse Ox 98.6 F 84 16 98/52 L 97 10/14/18 11:19 10/14/18 11:19 10/14/18 11:19 10/14/18 11:10/14/18 11:19 Oxygen Flow Rate (L/min) 1 Oxygen Delivery Method Room Air Weight: 72.9 kg Body Mass Index (BMI) 26.7 Intake and Output for Last 24 Hours 10/12/18 10/13/18 10/14/18 23:59 23:59 23:59 Intake Total 2831 / 2831 4299 / 4299 778 / 778 Output Total 900 / 900 900 / 900 250 / 250 Balance 1931 / 1931 3399 / 3399 528 / 528 Microbiology Past 72 Hours 10/11/18 20:45 Urine Culture - Preliminary Urine, Random Presumptive E. coli 10/11/18 22:50 Influenza Types A,B Direct FA (SANDRA) - Final Mucosa - Nasopharyngeal Laboratory Tests Past 24 Hrs 10/13/18 23:35 Urine pH 2 Urine Collection Time 24.0 Urine Total Volume 950 Urine Calcium 0.0 Ur Calcium 24 Hr 0.0 L Medical Necessity - Tobacco Use Smoking Status: Former smoker Assessment/Plan All Active Problems Fracture, subtrochanteric, right femur, closed (Acute) Fall (Acute) Closed intertrochanteric fracture of right hip (Acute) Closed intertrochanteric fracture of left hip (Resolved) Fall and laceration of left sideforehead (Resolved) This post ORIF of a right hip trochanteric fracture Plan 1. Continue all pain medications as prescribed 2. Continue physical therapy, with toe-touch weightbearing with walker 3. Aspirin 3 and 25 mg 1 p.o. every 12 hours for postop DVT prophylaxis 4. Encourage incentive spirometry 5. Medicine will continue to manage medically 6. Possible discharge to [facility] tomorrow 7. Patient can shower on 10/17/2018 8. Rubin removed 10/25/[address]. Garcia in 2 weeks. Call office for appointment.
[2018-10-14 15:14] VITALS: BP 132/60; PULSE 72; RESP 16; TEMP 36.6; O2SAT 96
--- NOTE | 2018-10-14 19:04 | PCM.PROGNOTE ---
Patient Problems: Active and Suspected Problems Fracture, subtrochanteric, right femur, closed (Acute) Fall (Acute) Closed intertrochanteric fracture of right hip (Acute) Subjective: Patient was seen and examined today, I stopped her antibiotics due to the fact that her urine culture was obtained from her ileal conduit. According to nursing, patient does very little to help herself and needs assistance from nursing. - Physical Exam General: Alert, Oriented x3, Cooperative, No apparent distress, Well developed, Well nourished HEENT: Atraumatic, PERRLA, EOMI, Normocephalic Oral: Moist Mucosa Neck: Supple, No Nuchal Rigidity, Trachea Midline, Thyroid Normal Size and Texture Lungs: Clear to auscultation, Normal air movement, No rhonchi, No wheeze, No rales Cardiovascular: Regular rate, Regular Rhythm, Normal S1, Normal S2, No murmurs, No Ectopic Activity, PMI Normal, No rub noted Abdomen: Bowel Sounds Present, Soft, Non Tender, Non-Distended, No hernias noted Extremities: No clubbing, No cyanosis, Capillary Refill Less than 3 Seconds Skin: No rashes, No breakdown Musculoskeletal: No Tenderness to Palpation of Joints or Extremities Neurological: Cranial nerves II-XII grossly intact, Neuro grossly intact, Sensory exam intact to light touch and pain Psych/Mental Status: Normal Affect, Appropriate, Alert and oriented to time, place, person, mood and affect Vital Signs Temp Pulse Resp BP Pulse Ox 97.8 F 72 16 132/60 H 96 10/14/18 15:14 10/14/18 15:14 10/14/18 15:14 10/14/18 15:14 10/14/18 15:14 Oxygen Flow Rate (L/min) 1 Oxygen Delivery Method Room Air Weight: 72.9 kg Body Mass Index (BMI) 26.7 Intake and Output for Last 24 Hours 10/12/18 10/13/18 10/14/18 23:59 23:59 23:59 Intake Total 2831 / 2831 4299 / 4299 978 / 978 Output Total 900 / 900 900 / 900 850 / 850 Balance 193 / 193 3399 / 3399 128 / 128 Microbiology Past 72 Hours 10/11/18 20:45 Urine Culture - Preliminary Urine, Random Presumptive E. coli 10/11/18 22:50 Influenza Types A,B Direct FA (SANDRA) - Final Mucosa - Nasopharyngeal Laboratory Tests Past 24 Hrs 10/13/18 23:35 Urine pH 2 Urine Collection Time 24.0 Urine Total Volume 950 Urine Calcium 0.0 Ur Calcium 24 Hr 0.0 L Medical Necessity - Tobacco Use Smoking Status: Former smoker Assessment/Plan All Active Problems Fracture, subtrochanteric, right femur, closed (Acute) Fall (Acute) Closed intertrochanteric fracture of right hip (Acute) Closed intertrochanteric fracture of left hip (Resolved) Fall and laceration of left sideforehead (Resolved) #1 acute closed displaced angulated subtrochanteric fracture of the right hip-postop day #2 gamma nail ORIF, continue PT and OT, we are waiting for approval for the patient to go to a custodial facility #2 leukocytosis-etiology unclear #3 Seizure disorder #4 chronic kidney disease stage III #5 hypertension #6 hyperlipidemia Cystitis has been ruled out due to the fact her urine culture was obtained from her ileal conduit which will be positive for bacteria. Code Visit Inpatient E&M: 40121 Subs Hosp L2
--- NOTE | 2018-10-14 19:08 | PN_ITS ---
Patient Problems: Active and Suspected Problems Fracture, subtrochanteric, right femur, closed (Acute) Fall (Acute) Closed intertrochanteric fracture of right hip (Acute) Subjective: Patient was seen and examined today, I stopped her antibiotics due to the fact that her urine culture was obtained from her ileal conduit. According to nursing, patient does very little to help herself and needs assistance from nursing. - Physical Exam General: Alert, Oriented x3, Cooperative, No apparent distress, Well developed, Well nourished HEENT: Atraumatic, PERRLA, EOMI, Normocephalic Oral: Moist Mucosa Neck: Supple, No Nuchal Rigidity, Trachea Midline, Thyroid Normal Size and Texture Lungs: Clear to auscultation, Normal air movement, No rhonchi, No wheeze, No rales Cardiovascular: Regular rate, Regular Rhythm, Normal S1, Normal S2, No murmurs, No Ectopic Activity, PMI Normal, No rub noted Abdomen: Bowel Sounds Present, Soft, Non Tender, Non-Distended, No hernias noted Extremities: No clubbing, No cyanosis, Capillary Refill Less than 3 Seconds Skin: No rashes, No breakdown Musculoskeletal: No Tenderness to Palpation of Joints or Extremities Neurological: Cranial nerves II-XII grossly intact, Neuro grossly intact, Sensory exam intact to light touch and pain Psych/Mental Status: Normal Affect, Appropriate, Alert and oriented to time, place, person, mood and affect Vital Signs Temp Pulse Resp BP Pulse Ox 97.8 F 72 16 132/60 H 96 10/14/18 15:14 10/14/18 15:14 10/14/18 15:14 10/14/18 15:14 10/14/18 15:14 Oxygen Flow Rate (L/min) 1 Oxygen Delivery Method Room Air Weight: 72.9 kg Body Mass Index (BMI) 26.7 Intake and Output for Last 24 Hours 10/12/18 10/13/18 10/14/18 23:59 23:59 23:59 Intake Total 2831 / 2831 4299 / 4299 978 / 978 Output Total 900 / 900 900 / 900 850 / 850 Balance 193 / 193 3399 / 3399 128 / 128 Microbiology Past 72 Hours 10/11/18 20:45 Urine Culture - Preliminary Urine, Random Presumptive E. coli 10/11/18 22:50 Influenza Types A,B Direct FA (SANDRA) - Final Mucosa - Nasopharyngeal Laboratory Tests Past 24 Hrs 10/13/18 23:35 Urine pH 2 Urine Collection Time 24.0 Urine Total Volume 950 Urine Calcium 0.0 Ur Calcium 24 Hr 0.0 L Medical Necessity - Tobacco Use Smoking Status: Former smoker Assessment/Plan All Active Problems Fracture, subtrochanteric, right femur, closed (Acute) Fall (Acute) Closed intertrochanteric fracture of right hip (Acute) Closed intertrochanteric fracture of left hip (Resolved) Fall and laceration of left sideforehead (Resolved) #1 acute closed displaced angulated subtrochanteric fracture of the right hip- postop day #2 gamma nail ORIF, continue PT and OT, we are waiting for approval for the patient to go to a assisted facility #2 leukocytosis-etiology unclear #3 Seizure disorder #4 chronic kidney disease stage III #5 hypertension #6 hyperlipidemia Cystitis has been ruled out due to the fact her urine culture was obtained from her ileal conduit which will be positive for bacteria. Code Visit Inpatient E&M: 72695 Subs Hosp L2
[2018-10-14 20:44] VITALS: BP 125/57; PULSE 77; RESP 16; TEMP 37; O2SAT 96
[2018-10-14 20:46] VITALS: PULSE 77
[2018-10-14] MEDS: Gabapentin 400 MG Capsule PO (21:15)
[2018-10-14] MEDS: Atorvastatin Calcium 40 MG Tablet PO (21:15)
[2018-10-15] MEDS: Levothyroxine 88 MCG Tablet PO (06:57)
[2018-10-15] MEDS: Acetaminophen 325 MG Tablet 650 MG PO (07:28)
[2018-10-15] MEDS: oxyCODONE 5 MG Tablet PO (07:28)
[2018-10-15] MEDS: amLODIPine 10 MG Tablet PO (07:28)
[2018-10-15] MEDS: Pantoprazole Sodium 40 MG Tablet PO (07:28)
[2018-10-15] MEDS: Polyethylene Glycol 3350 17 GM PACKET PO (07:29)
[2018-10-15] MEDS: Aspirin 325 MG Tablet PO (07:29)
[2018-10-15] MEDS: Atenolol 50 MG Tablet PO (07:29)
[2018-10-15] MEDS: levETIRAcetam 500 MG Tablet PO (07:31)
[2018-10-15 07:37] VITALS: BP 146/67; PULSE 78; RESP 16; TEMP 36.9; O2SAT 94
[2018-10-15 09:59] VITALS: O2SAT 94
--- NOTE | 2018-10-15 10:26 | CASEMGMT ---
Addendum entered by Ligia Mcadams 10/15/18 13:47: MARK faxed all discharge instructions to [facility]. MARK set up 3:30pm ambulance with [facility]. SW let pt's son know time of pickup. SW also called [facility] and let Rossana know the time. RN also aware of time, she will let pt know as pt is sleeping. Also, SW did speak w/the financial dept and was emailed the forms son will need to complete for assist or to set up a payment plan. SW let son know, would like forms mailed to him. MARK mailed forms to the son. No further needs, pt to [facility] today. CORRIE Retana Original Note: Addendum entered by Ligia Mcadams 10/15/18 11:41: MARK spoke w/son who is here, let him know that we did get precert and physician plans to discharge pt today. SW will place green sheet on the chart should pt not be discharged before SW leaves for the day. MARK completed the hospital exemption in the [facility] system. CORRIE Retana Original Note: SW received call from Rossana at [facility], they did receive precert. Son called in to nurse's station, propellant charge loader let son know that we did attain precert. SW let physician know we have precert, he plans to discharge pt later today. CORRIE Retana
--- NOTE | 2018-10-15 11:44 | PCM.TXEXTCAR ---
- Diet 10/12/18 16:36 Diet: Regular Diet Dietary Modifications:: Mechanical Soft Diet Type of Dietary Supplement:: Ensure Complete Is pt able to select menu?: No Diet Comments: no added salt, no milk, coffee w/ creamer - Wound(s) RT HIP Wound Type: Surgical Incision - Therapies Weight Bearing: Weight bearing as tolerated - toe touch weight bearing with walker Physical Therapy: Eval and Treat Occupational Therapy: Eval and Treat - Allergies/Procedures Done in Hospital Allergies/Adverse Reactions: Allergies No Known Allergies Allergy (Verified 08/13/18 10:49) Procedures: - - ORIF right hip with long Gamma nail-10/12/18 - Type of Care/Length of Stay Estimated LOS: Convalescent Care Less Than 30 days Type of Care Needed: Skilled Rehab Potential: Good Prognosis: Good - Additional Orders/Day of Discharge Additional Orders: See Jose Ratliff in two weeks-call for appointment. shower on 10/17/09, kirsten removed 10/25/18 H&P will serve as current which was dated: 10/11/18 Day of Discharge: 10/15/18 - Follow Up Care Primary Care Physician: Uma Zarate MD [Primary Care Provider] -
[2018-10-15 13:33] VITALS: BP 110/54; PULSE 74; RESP 16; TEMP 36.8; O2SAT 96
--- NOTE | 2018-10-19 16:28 | PCM.DC.SUM ---
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 Work-up in the emergency room revealed the patient to have a closed displaced angulated subtrochanteric fracture of the right hip. Labs revealed the patient to have a leukocytosis, renal functions were elevated in keeping with the patient's chronic kidney disease. Patient was admitted to [place] [address], seen in consultation by orthopedic surgery, she underwent insertion of a gamma nail ORIF, she was seen by PT and OT, and she was felt to benefit from inpatient rehab services and arrangements were made for the patient to go to a long-term facility. On 10/15/2018, patient was seen and examined and felt to be in stable condition for transfer to a long-term facility for inpatient rehab: On examination she appeared in good health and spirits. Vital signs as documented. Skin warm and dry and without overt rashes. Neck without JVD. Lungs clear. Heart exam notable for regular rhythm, normal sounds and absence of murmurs, rubs or gallops. Abdomen unremarkable and without evidence of organomegaly, masses, or abdominal aortic enlargement. Extremities nonedematous. Neuro: Cranial nerves II through XII are grossly intact, no focal motor deficits were noted, sensation to light touch and pinprick is intact. Psych: Patient is alert and oriented x3, she does not appear anxious or depressed On 10/15/2018, patient was discharged to long-term facility in stable condition - Physical Exam Vital Signs Temp Pulse Resp BP Pulse Ox 98.2 F 74 16 110/54 L 96 10/15/18 13:33 10/15/18 13:33 10/15/18 13:33 10/15/18 13:33 10/15/18 13:33 Oxygen Flow Rate (L/min) 1 Oxygen Delivery Method Room Air Weight: 72.9 kg Body Mass Index (BMI) 26.7 Home Medications: Medications to take at Discharge Levothyroxine [Synthroid] 88 mcg PO DAILY 02/22/16 Atenolol [Tenormin (beta dashawn)] 50 mg PO DAILY #30 tablet 03/18/16 Losartan Potassium [Cozaar] 50 mg PO DAILY #30 tablet 03/18/16 Atorvastatin Calcium [Lipitor] 40 mg PO DAILY 05/17/17 levETIRAcetam tablet [Keppra tablet] 500 mg PO BID #60 tablet 05/19/17 Omeprazole 40 mg PO DAILY 08/13/18 Multivitamin [Multivitamins] 1 tablet PO DAILY 10/12/18 Acetaminophen [Tylenol Tablet] 650 mg PO Q6H PRN PRN tablet 10/15/18 Amlodipine [Norvasc] 10 mg PO DAILY tablet 10/15/18 Aspirin 325 mg PO BIDCM tablet 10/15/18 Docusate Sodium [Colace] 200 mg PO BID PRN PRN capsule 10/15/18 Gabapentin [Neurontin] 400 mg PO QHS capsule 10/15/18 Oxycodone [Oxyir] 5 mg PO Q4H PRN PRN 7 Days #20 tab 10/15/18 Following Prescrptions Were Given to Patient: Oxycodone [Oxyir] 5 mg PO Q4H PRN PRN 7 Days #20 tab PRN Reason: Moderate Pain (pain scale 4-5) Primary Care Physician: Uma Zarate MD [Primary Care Provider] - Disposition: [facility] facility Minutes spent on discharge:: 32 Patient Condition:: Stable Medical Necessity - Tobacco Use Smoking Status: Former smoker Meaningful Use Info Meaningful Use Diagnoses (Choose all that apply): None applicable Code Visit Inpatient E&M: 36064 Disch Hosp
--- NOTE | 2018-10-19 16:32 | DS.PCM_ITS ---
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 Work-up in the emergency room revealed the patient to have a closed displaced angulated subtrochanteric fracture of the right hip. Labs revealed the patient to have a leukocytosis, renal functions were elevated in keeping with the patient's chronic kidney disease. Patient was admitted to [place] [address], seen in consultation by orthopedic surgery, she underwent insertion of a gamma nail ORIF, she was seen by PT and OT, and she was felt to benefit from inpatient rehab services and arrangements were made for the patient to go to a intermediate facility. On 10/15/2018, patient was seen and examined and felt to be in stable condition for transfer to a intermediate facility for inpatient rehab: On examination she appeared in good health and spirits. Vital signs as documented. Skin warm and dry and without overt rashes. Neck without JVD. Lungs clear. Heart exam notable for regular rhythm, normal sounds and absence of murmurs, rubs or gallops. Abdomen unremarkable and without evidence of organomegaly, masses, or abdominal aortic enlargement. Extremities nonedematous. Neuro: Cranial nerves II through XII are grossly intact, no focal motor deficits were noted, sensation to light touch and pinprick is intact. Psych: Patient is alert and oriented x3, she does not appear anxious or depressed On 10/15/2018, patient was discharged to intermediate facility in stable condition - Physical Exam Vital Signs Temp Pulse Resp BP Pulse Ox 98.2 F 74 16 110/54 L 96 10/15/18 13:33 10/15/18 13:33 10/15/18 13:33 10/15/18 13:33 10/15/18 13:33 Oxygen Flow Rate (L/min) 1 Oxygen Delivery Method Room Air Weight: 72.9 kg Body Mass Index (BMI) 26.7 Home Medications: Medications to take at Discharge Levothyroxine [Synthroid] 88 mcg PO DAILY 02/22/16 Atenolol [Tenormin (beta dashawn)] 50 mg PO DAILY #30 tablet 03/18/16 Losartan Potassium [Cozaar] 50 mg PO DAILY #30 tablet 03/18/16 Atorvastatin Calcium [Lipitor] 40 mg PO DAILY 05/17/17 levETIRAcetam tablet [Keppra tablet] 500 mg PO BID #60 tablet 05/19/17 Omeprazole 40 mg PO DAILY 08/13/18 Multivitamin [Multivitamins] 1 tablet PO DAILY 10/12/18 Acetaminophen [Tylenol Tablet] 650 mg PO Q6H PRN PRN tablet 10/15/18 Amlodipine [Norvasc] 10 mg PO DAILY tablet 10/15/18 Aspirin 325 mg PO BIDCM tablet 10/15/18 Docusate Sodium [Colace] 200 mg PO BID PRN PRN capsule 10/15/18 Gabapentin [Neurontin] 400 mg PO QHS capsule 10/15/18 Oxycodone [Oxyir] 5 mg PO Q4H PRN PRN 7 Days #20 tab 10/15/18 Following Prescrptions Were Given to Patient: Oxycodone [Oxyir] 5 mg PO Q4H PRN PRN 7 Days #20 tab PRN Reason: Moderate Pain (pain scale 4-5) Primary Care Physician: Uma Zarate MD [Primary Care Provider] - Disposition: Snf facility Minutes spent on discharge:: 32 Patient Condition:: Stable Medical Necessity - Tobacco Use Smoking Status: Former smoker Meaningful Use Info Meaningful Use Diagnoses (Choose all that apply): None applicable Code Visit Inpatient E&M: 55920 Disch Hosp
== END 2018-10-15 15:39 | disposition skilled nursing facility (03) | DRG 482 ==
LOC: ED 18:24 → MS2 18:31
PROVIDERS: Orthopaedic Surgery; Admitting Provider Internal Medicine; Emergency Provider Emergency Medicine; Family Provider Internal Medicine; PCP Internal Medicine; Visit Provider Internal Medicine
PROC: 0QS606Z Reposition Right Upper Femur with Intramedullary Internal Fixation Device, Open Approach (ICD-10-PCS; CPT 27245; principal; 2018-10-12 09:25)
DX: S72.21XA Displaced subtrochanteric fracture of right femur, initial encounter for closed fracture (principal); E03.9 Hypothyroidism, unspecified; M06.9 Rheumatoid arthritis, unspecified; E78.5 Hyperlipidemia, unspecified; G40.909 Epilepsy, unspecified, not intractable, without status epilepticus; W01.0XXA Fall on same level from slipping, tripping and stumbling without subsequent striking against object, initial encounter; Z93.6 Other artificial openings of urinary tract status; Z87.891 Personal history of nicotine dependence; Z85.51 Personal history of malignant neoplasm of bladder; Z86.73 Personal history of transient ischemic attack (TIA), and cerebral infarction without residual deficits; I12.9 Hypertensive chronic kidney disease with stage 1 through stage 4 chronic kidney disease, or unspecified chronic kidney disease; N18.3 Chronic kidney disease, stage 3 (moderate)
CPT/HCPCS: 36415; 71045; 73502; 76000; 80048; 81001; 82306; 82340; 83970; 84443; 85025; 85027; 85610; 85730; 87086; 87088; 87186; 87804; 93005; 97163; 97165; 97530; 99285; C1713; J7030; A4216; J2405

== ENCOUNTER → 2019-01-06 14:56 | Outpatient (CLI) | payer MEDICARE, SELFPAY ==
[2018-10-12 08:15] VITALS: BMI 26.7
--- NOTE | 2019-01-06 15:04 | VDLE_ITS ---
Reason For Study: DVT RIGHT LEFT GSV is normal. GSV is normal. Rt CFV is partially compressible. Acute deep vein thrombosis is noted in the Rt Gastroc V acute deep vein thrombosis. left common femoral vein. Acute deep vein thrombosis is noted in the Acute deep vein thrombosis is noted in the right femoral vein. left femoral vein. Acute deep vein thrombosis is noted in the POP V is compressible, spontaneous, phasic, right popliteal vein. competent and demonstrates normal Acute deep vein thrombosis is noted in the augmentation. right peroneal vein. Acute deep vein thrombosis is noted in the Acute deep vein thrombosis is noted in the left posterior tibial vein. right posterior tibial vein. LT PerV is compressible. Procedure Rt T/P Trunk acute deep vein thrombosis. Exam performed in department. Rt GastrocV acute deep vein thrombosis. Pt sent back to office. A preliminary report was called and/or faxed to Stormy CEDEÑO @ [facility] office. . Interpretation Summary Acute deep vein thrombosis is noted in the right common femoral vein. Acute deep vein thrombosis is noted in the right femoral vein. Acute deep vein thrombosis is noted in the right popliteal vein. Acute deep vein thrombosis is noted in the right tibio-peroneal trunk. Acute deep vein thrombosis is noted in the right peroneal vein. Acute deep vein thrombosis is noted in the right posterior tibial vein. Acute deep vein thrombosis is noted in the right gastrocnemius vein. Acute deep vein thrombosis is noted in the left common femoral vein. Acute deep vein thrombosis is noted in the left femoral vein. Acute deep vein thrombosis is noted in the left tibio-peroneal trunk. Acute deep vein thrombosis is noted in the left posterior tibial vein. Acute deep vein thrombosis is noted in the left gastrocnemius vein. The left popliteal vein and peroneal vein are patent and compressible. The greater saphenous veins appear bilaterally patent and compressible segmentally. Ordering Physician: Linn Tirado Referring Physician: Uma Zarate M.D. Performed By: Geri Robles RVT
== END ==
PROVIDERS: Family Provider Internal Medicine; PCP Internal Medicine; Referring Provider Internal Medicine; Visit Provider Internal Medicine
DX: M79.89 Other specified soft tissue disorders (principal); M79.604 Pain in right leg; M79.605 Pain in left leg
CPT/HCPCS: 93970

== ENCOUNTER 2019-01-18 17:03 | Emergency (ER) | payer MEDICARE, SELFPAY ==
[2018-10-12 08:15] VITALS: BMI 26.7
[2019-01-18 17:06] VITALS: BP 101/64; PULSE 76; RESP 16; TEMP 36.5; O2SAT 100; BMI 33.2
[2019-01-18 18:13] LABS: Absolute Lymphocyte Count 1.91 X10^3/uL (0.83-4.51); Absolute Neutrophil Count 5.3 X10^3/uL (2.0-7.7); Basophil# 0.05 X10^3/uL; Basophil% 0.6 % (0-1); Eosinophil# 0.46 X10^3/uL; Eosinophils% 5.4 % (0-5); Hematocrit 37.4 % (37-47); Hemoglobin 11.9 g/dL (12.0-15.0); Lymphocyte # 1.91 X10^3/ul (4.0); Lymphocyte % 22.2 % (19-41); Mean Corp Hgb Conc 31.8 g/dL (32-36); Mean Corpuscular Hgb 28.7 pg (27.0-32.0); Mean Corpuscular Volume 90.3 fL (81-99); Mean Platelet Vol. 12.4 fl (6.2-12.0); Monocyte% 9.3 % (0-10); NRBC Flagged by Analyzer 0 % (0-5); Neutrophil # 5.25 X10^3/uL (2.7-7.7); Neutrophil % 61.1 % (47-70); Platelet Count 290 K/mm3 (150-450); RBC Distribution Width CV 16.4 % (11.6-14.6); Red Blood Count 4.14 M/mm3 (4.2-5.4); White Blood Count 8.6 K/mm3 (4.4-11.0)
[2019-01-18 18:34] LABS: Prothrombin Time (Protime)PT. 37.7 SECONDS (11.7-14.9)
[2019-01-18 18:35] LABS: Partial Thromboplast Time 49.1 Seconds (24.1-36.2)
[2019-01-18 18:37] LABS: ALB/GLOB Ratio 0.7 RATIO (0.9-2.4); AST(SGOT) 26 U/L (15-37); Alanine Aminotransfer ALT/SGPT 19 U/L (13-56); Albumin, Serum 2.8 g/dL (3.2-5.0); Alkaline Phosphatase 173 U/L (45-117); Anion Gap 11 (5-15); BUN 28 mg/dL (7-18); BUN/Creat Ratio 10.8 RATIO (10-20); Calcium,Total 9.3 mg/dL (8.5-10.1); Chloride 107 mmol/L (98-107); EST Glomerular Filtration Rate 19 mL/min (>60); Est Glom Filt Rate - Afr Amer 23 mL/min (>60); Globulin 3.9 g/dL (2.2-4.2); Glucose 98 mg/dL (74-106); Potassium 4.1 mmol/L (3.5-5.1); Protein, Total 6.7 g/dL (6.4-8.2); Sodium Level 135 mmol/L (136-145)
[2019-01-18 18:42] LABS: International Normalized Ratio 3.8
--- NOTE | 2019-01-18 20:02 | ED.VISSUMM ---
- ER Visit Summary Date of Service: 01/18/19 Chief Complaint: Leg swelling History of Present Illness: The patient is a 78 F who tells me she is here for her feet they are swollen. She cannot tell me when this occurred. Who she is seen for it or anything else about this condition. He denies any chest pain or shortness of breath. Therefore I am forced to rely on what I can find in the computer. I see that she was diagnosed with bilateral DVT on January 06. Patient tells me she is not on any blood thinners. However when I log into [facility] I see that she is in fact on Coumadin. She has seen Dr. Tirado for this and typically sees Dr. Zarate. There is a note from the visiting nurse saying that the patient will be coming to the emergency department today for the leg swelling and is concerned about a blood area on her right heel. Patient does not know about any of this. Physical Examination: Afebrile vital signs stable Gen: Well-nourished well-developed Head: Normocephalic atraumatic Eyes: Perrl EOMI ENT: TMs clear no rhinorrhea moist mucous membranes Neck: Supple no lymphadenopathy no JVD nontender CVS: Regular rate rhythm no murmurs normal S1-S2 Respiratory: No distress clear to auscultation bilaterally chest nontender Abdomen: Soft nontender nondistended normal bowel sounds no masses Back: Nontender Extremity: There is bilateral lymphedema of the lower legs. There is a small amount of a blood blister on the heel of the right foot. No signs of secondary infection. Due to the swelling the skin is very thin and friable Skin: Normal color no rash Neuro: alert orientated ?3 CN II-XII intact normal strength sensation reflexes gait cerebellar Psych: Normal affect normal mood Test Results: Basic labs showed a creatinine of 2.6 which is off of her baseline. Her INR is elevated 3.8. Her hemoglobin 11.9. White blood cell count 8.6. Emergency Department Course and Treatment: Patient primary care if not heard back. I believe the patient can go home. She is with family. We are going to put CARLO hose on her. She is to hold her Coumadin tonight and tomorrow and recheck on Friday. Have asked that she follow-up with her doctor on Friday to talk about the elevated creatinine and also have that rechecked. Impression: 1. Lymphedema bilateral 2. Elevated creatinine 3. Supratherapeutic INR This note was generated with [employer] dictation software. It may contain incorrect words, spelling, and punctuation that were not noted in review of the chart prior to signing ED Disposition - Plan for ED Patient: Disposition: Home or Assisted Living Instructions: International Normalized Ratio, ED Peripheral Edema, Bilateral Referrals: Uma Zarate MD [Primary Care Provider] - 2 Days Additional Instructions: Your INR tonight is 3.8. You should hold your Coumadin dose tonight and tomorrow. You should have your doctor recheck at on Friday before you restart it. You need to keep your legs elevated. You need to use compression stockings. You need to discuss your kidney function with your doctor on Friday.
[2019-01-18 20:39] VITALS: BP 117/68; RESP 18
[2019-01-18 20:46] VITALS: RESP 18
== END 2019-01-18 20:47 | disposition home or self-care (01) ==
PROVIDERS: Emergency Provider Emergency Medicine; Family Provider Internal Medicine; PCP Internal Medicine
DX: I89.0 Lymphedema, not elsewhere classified (principal); R79.1 Abnormal coagulation profile; I10 Essential (primary) hypertension; M06.9 Rheumatoid arthritis, unspecified; Z79.82 Long term (current) use of aspirin; Z79.01 Long term (current) use of anticoagulants; Z79.899 Other long term (current) drug therapy; Z86.718 Personal history of other venous thrombosis and embolism; Z86.73 Personal history of transient ischemic attack (TIA), and cerebral infarction without residual deficits; Z87.891 Personal history of nicotine dependence
CPT/HCPCS: 80053; 85025; 85610; 85730; 99285; A4216

== ENCOUNTER → 2019-01-21 15:46 | Outpatient (CLI) | payer MEDICARE, SELFPAY ==
[2019-01-18 17:06] VITALS: BMI 33.2
[2019-01-21 16:15] LABS: International Normalized Ratio 1.8; Prothrombin Time (Protime)PT. 21.1 SECONDS (11.7-14.9)
== END ==
PROVIDERS: Family Provider Internal Medicine; PCP Internal Medicine; Referring Provider Internal Medicine; Visit Provider Internal Medicine
DX: Z86.718 Personal history of other venous thrombosis and embolism (principal)
CPT/HCPCS: 85610

== ENCOUNTER 2019-02-01 14:47 | Emergency (ER) | payer MEDICARE, SELFPAY ==
[2019-02-01 14:48] VITALS: BP 108/71; PULSE 63; RESP 12; TEMP 36.6; O2SAT 99; BMI 28.3
--- NOTE | 2019-02-01 15:40 | CT_ITS ---
STUDY: CT BRAIN WITHOUT CONTRAST REASON FOR EXAM: Female, 78 years old. Confusion and lethargy. Accidental overdose RADIATION DOSAGE (If Supplied By Facility): CTDIvol = ( 44.99 ) mGy, DLP = ( 745.49 ) mGycm TECHNIQUE: Transaxial CT imaging of the brain was performed without administration of intravenous contrast material. Individualized dose optimization techniques were used for this CT. COMPARISON: 08/13/2018 FINDINGS: Normal soft tissue structures. Normal calvarium. There is moderate cerebral atrophy with widening of the extra-axial spaces and ventricular dilatation. There are areas of decreased attenuation within the white matter tracts of the supratentorial brain, consistent with microvascular disease changes. Normal basal ganglia and thalami. Normal brainstem. There is moderate cerebellar atrophy. Prior areas of stroke in the right frontal lobe and right parieto-occipital lobe. There is no intracranial hemorrhage. There are no findings of an acute ischemic infarction. Normal visualized paranasal sinuses. CT/Brain/Head without Contrast IMPRESSION: Chronic involutional changes of the brain. Electronically Signed: Wayne Dover DO at 16:35 EDT Tel , Service support ,
--- NOTE | 2019-02-01 15:40 | EKG12_ITS ---
Test Reason : DYSRHYTHMIA Blood Pressure : / mmHG Vent. Rate : 062 BPM Atrial Rate : 062 BPM P-R Int : 156 ms QRS Dur : 074 ms QT Int : 390 ms P-R-T Axes : -12 007 050 degrees QTc Int : 395 ms Normal sinus rhythm Normal ECG Confirmed by ANNA RANDOLPH, PIYUSH ([id number]), acquisition editor PEÑA EM ([id number]) on 02/03/2019 10:12:21 AM Referred By: GO Confirmed By:PIYUSH CASTILLO MD
--- NOTE | 2019-02-01 15:44 | ED.VIS.GEN ---
History of Present Illness Chief Complaint: Overdose Detail of Chief Complaint: Confusion Informant: Patient, Family Onset: Today Current Severity: Mild Maximum Severity: Mild Narrative: Patient presents via EMS with her son. Patient lives with her son. He states the patient's medications were put on to her weekly pillbox last evening. The occupational therapist who came to the home today noted the patient was more lethargic and seemed confused. When they checked her pillbox the medications for Friday, Friday, and Friday were now missing. Son believes she took 3 days worth of medication while he was gone from the house between and 11 this morning. Patient does not remember what happened he does not member taking the pills. At this time her only complaint is bilateral foot pain secondary to chronic neuropathy. Past Medical History - Allergies and Home Meds Allergies/Adverse Reactions: Allergies No Known Allergies Allergy (Verified 02/01/19 14:57) Primary Care Physician: Uma Zarate MD [Primary Care Provider] - Prior records reviewed: Yes Past Medical History: - - Reviewed Surgical History: - - surgery for ovarin cancer. Lives: With Family Smoking Status: Former smoker - Family History Maternal Family History: Reports: No pertinent history Paternal Family History: Reports: No pertinent history Review of Systems General: Denies: Chills, Fever Eyes: Denies: Visual changes - bilaterally ENT: Denies: Bilateral ear pain Cardiovascular: Denies: Chest pain Respiratory: Denies: Dyspnea, Cough Gastrointestinal: Denies: Abdominal pain, Nausea, Vomiting Musculoskeletal: Denies: Myalgias, Arthralgias Neurological: Reports: Parasthesia - Bilateral lower extremity neuropathy Endocrine: Denies: Polyuria, Polydipsia Hematologic: Denies: Easy bruising Allergy: Denies: Uticaria Physical Exam Vital Signs/Narrative: Vital Signs Temp Pulse Resp BP Pulse Ox 02/01/19 14:48 97.8 F 63 12 108/71 99 General: Well nourished Head: Normocephalic ENT: Moist mucous membranes Neck: Supple Cardiovascular: Regular rate, Regular rhythm Respiratory: No distress, CTA bilaterally Abdomen: Soft, Nontender Back: Nontender Skin: Normal color, No rash Neurological: Alert, Oriented x3 - Focal neurologic deficits. Psychological: Normal affect Diagnostic/Tx/Re-eval Impressions Brain CT 02/01/19 15:40 IMPRESSION: Chronic involutional changes of the brain. Electronically Signed: Wayne Dover DO at 16:35 EDT Tel , Service support , 02/01/19 15:40 Brain/Head without Contrast [CT] Stat Laboratory Results 02/01/19 02/01/19 02/01/19 15:00 15:00 16:03 WBC 11.4 H RBC 4.04 L Hgb 11.8 L Hct 37.2 MCV 92.1 MCH 29.2 MCHC 31.7 L RDW Std Deviation 55.8 H RDW Coeff of Travis 16.4 H Plt Count 212 MPV 12.9 H Immature Gran % (Auto) 1.000 H Neut % (Auto) 62.9 Lymph % (Auto) 23.9 Greer % (Auto) 7.1 Eos % (Auto) 4.6 Baso % (Auto) 0.5 Absolute Neuts (auto) 7.2 Absolute Lymphs (auto) 2.73 Nucleated RBC % 0 Sodium 137 Potassium 4.3 Chloride 111 H Carbon Dioxide 18.0 L Anion Gap 8 BUN 42 H Creatinine 2.73 H Estim Creat Clear Calc 14.79 Est GFR (MDRD) Af Amer 22 L Est GFR (MDRD) Non-Af 18 L BUN/Creatinine Ratio 15.4 Glucose 90 Calcium 9.9 Troponin I < 0.015 TSH 0.99 Urine Color Yellow Urine Clarity Turbid Urine pH 7.0 Ur Specific [place] 1.010 Urine Protein 100 H Urine Glucose (UA) Normal Urine Ketones 15 H Urine Occult Blood 150 H Urine Nitrite Negative Urine Bilirubin Negative Urine Urobilinogen 4 H Ur Leukocyte Esterase 500 H Urine RBC 0 SEEN Urine WBC >100 SEEN Ur Squamous Epith Cells 0 SEEN Urine Bacteria 0 SEEN Urine Mucus 0 SEEN - EKG Initial EKG Interpretation: Sinus Rhythm - Sinus at 62 with no sign of acute ischemia. - Medical Decision Making Patient presented at least 4 hours after her reported ingestion. Her medication list was reviewed. Patient takes fairly low dose of all of her medications. The only concern I had on her medications was for her losartan. This has a fairly short half-life. Patient was seen by social work while they were here to ensure they have all the services they need. Patient's blood pressure has maintained in the high 90s to 115 systolic range. She is not bradycardic. She is alert and appropriate. Patient is at least 6 hours out from any reported ingestion at this time. I do believe she is safe for discharge home with her son. He will ensure that she cannot get to her medications and he will dispense them. ED Disposition - Plan for ED Patient: Disposition: Home or Assisted Living Diagnosis: Accidental overdose Instructions: OVERDOSE, Accidental (Adult) Referrals: Uma Zarate MD [Primary Care Provider] - As Needed
[2019-02-01 15:50] LABS: Absolute Lymphocyte Count 2.73 X10^3/uL (0.83-4.51); Absolute Neutrophil Count 7.2 X10^3/uL (2.0-7.7); Basophil# 0.06 X10^3/uL; Basophil% 0.5 % (0-1); Eosinophil# 0.53 X10^3/uL; Eosinophils% 4.6 % (0-5); Hematocrit 37.2 % (37-47); Hemoglobin 11.8 g/dL (12.0-15.0); Lymphocyte # 2.73 X10^3/ul (4.0); Lymphocyte % 23.9 % (19-41); Mean Corp Hgb Conc 31.7 g/dL (32-36); Mean Corpuscular Hgb 29.2 pg (27.0-32.0); Mean Corpuscular Volume 92.1 fL (81-99); Mean Platelet Vol. 12.9 fl (6.2-12.0); Monocyte# 0.81 X10^3/uL; Monocyte% 7.1 % (0-10); NRBC Flagged by Analyzer 0 % (0-5); Neutrophil # 7.19 X10^3/uL (2.7-7.7); Neutrophil % 62.9 % (47-70); Platelet Count 212 K/mm3 (150-450); RBC Distribution Width CV 16.4 % (11.6-14.6); RBC Distribution Width SD 55.8 fl (35.1-43.9); Red Blood Count 4.04 M/mm3 (4.2-5.4); White Blood Count 11.4 K/mm3 (4.4-11.0)
[2019-02-01] MEDS: 0.9% Normal Saline 1,000 ML 100 ML IV (15:57)
[2019-02-01 16:08] LABS: Bacteria 0 SEEN /hpf (None Seen); Mucous, Urine 0 SEEN /hpf (<or=2+); Red Blood Cells-Urine 0 SEEN /hpf (0-5); Squamous Epithelial Cells - UA 0 SEEN /hpf (5-10)
[2019-02-01 16:10] LABS: Color, Urine Yellow (Yellow); Glucose, Dipstick Normal (Normal); Ketone-Dipstick 15 mg/dl (Negative); Leukocyte Esterase-Dipstick 500 /ul (Negative); Nitrite-Dipstick Negative (Negative); Occult Blood-Urine 150 /ul (Negative); Protein-Dipstick 100 mg/dl (Negative); Urine Bilirubin Dipstick Negative (Negative); Urine Clarity Turbid (Clear); Urine Urobilinogen 4 mg/dl (Normal)
[2019-02-01 16:16] LABS: Anion Gap 8 (5-15); BUN 42 mg/dL (7-18); BUN/Creat Ratio 15.4 RATIO (10-20); Calcium,Total 9.9 mg/dL (8.5-10.1); Chloride 111 mmol/L (98-107); Creatinine, Serum 2.73 mg/dL (0.55-1.02); EST Glomerular Filtration Rate 18 mL/min (>60); Est Glom Filt Rate - Afr Amer 22 mL/min (>60); Estimated Creatinine Clearance 14.79 ml/min; Glucose 90 mg/dL (74-106); Potassium 4.3 mmol/L (3.5-5.1); Sodium Level 137 mmol/L (136-145); Thyroid Stim Hormone (TSH) 0.99 uIU/mL (0.358-3.74)
[2019-02-01 16:20] LABS: White Blood Cells >100 SEEN /hpf (0-5)
--- NOTE | 2019-02-01 17:12 | CM.ED ---
Social Work Consult: Resources Informant: Dr. Branch Chief Complaint: Accidental overdose. Patient sleeping while this delinquency prevention social worker spoke with patient son. Patient son stating to have left home for a doctors appointment and when patient sonDouglas returned to home patient had taken three days worth of medications from medication box. Living Arrangements: Patient lives with son in a 1-story home with a ramp to enter the home. Support/Resources: Patient son is main support. Patient is currently pending PASSPORT approval and has home health services through [facility]. DME: Patient has a wheelchair, and did not explore further DME. ADL/Functioning: Patient is wheelchair bound. Patient provides 24hr care except for when patient son needs to leave the home for appointments or grocery shopping. Patient son provides all care for patient. Interventions: Social Work assessment CCN referral Assessment Met with patient and patient sonDouglas in room. Patient sleeping during assessment. This delinquency prevention social worker introduced self as well as social work role and that Dr. Branch wanted delinquency prevention social worker to see if there were any further services that could be provided for patient. Douglas open to any further assistance within the home. This delinquency prevention social worker broached topic of Douglas HERNANDEZ agreeable to this to assist with medication management. Douglas identifying no further needs. Nursing staff and Dr. Branch aware of social work assessment/referrals. Gunnar Benton MSW, JEREMIE
[2019-02-01 18:00] VITALS: BP 103/47; PULSE 62; RESP 14; O2SAT 98
--- NOTE | 2019-02-02 12:30 | CCN.REFER ---
CCN referral received. T/C to son who declines CCN service. States he does the patient's med box weekly, and he has a nurse coming to the home to check on her each week. He did take my phone number to contact me if he changes his mind. Education provided to son on CCN services and how it is recommended to have our services even though he has a nurse coming to home.
--- NOTE | 2019-02-03 15:01 | ED.RN ---
Called Douglas Alfaro, pt's son related to urine culture results. He requested I call betina amador for rx. Called in Macrobid 100mg bid x5 days #20.
== END 2019-02-01 18:02 | disposition home or self-care (01) ==
PROVIDERS: Emergency Provider Emergency Medicine; Family Provider Internal Medicine; PCP Internal Medicine
DX: T46.5X1A Poisoning by other antihypertensive drugs, accidental (unintentional), initial encounter (principal); R41.0 Disorientation, unspecified; Y92.009 Unspecified place in unspecified non-institutional (private) residence as the place of occurrence of the external cause; G62.9 Polyneuropathy, unspecified; N30.90 Cystitis, unspecified without hematuria; B96.20 Unspecified Escherichia coli [E. coli] as the cause of diseases classified elsewhere; Z79.82 Long term (current) use of aspirin; Z79.899 Other long term (current) drug therapy; Z87.891 Personal history of nicotine dependence
CPT/HCPCS: 70450; 80048; 81001; 84443; 84484; 85025; 87077; 87086; 87088; 87186; 93005; 99285

== ENCOUNTER 2019-02-11 17:21 | Inpatient (IN) | payer MEDICARE, SELFPAY ==
[2019-02-11] VITALS (9 sets, daily range): BP systolic 112–137; BP diastolic 54–68; PULSE 90–103; RESP 16–20; TEMP 36.4–37.7; O2SAT 96–98; BMI 24.0; BMI 23.4; BMI 24.1
--- NOTE | 2019-02-11 17:32 | CT_ITS ---
STUDY: CT BRAIN WITHOUT CONTRAST REASON FOR EXAM: Female, 78 years old. Confusion RADIATION DOSAGE (If Supplied By Facility): CTDIvol = ( 44.99 ) mGy, DLP = ( 762.36 ) mGycm TECHNIQUE: Transaxial CT imaging of the brain was performed without administration of intravenous contrast material. Individualized dose optimization techniques were used for this CT. COMPARISON: 02/01/2019 FINDINGS: Normal soft tissue structures. Normal calvarium. There is mild cerebral atrophy with widening of the extra-axial spaces and ventricular dilatation. There are areas of decreased attenuation within the white matter tracts of the supratentorial brain, consistent with microvascular disease changes. Normal basal ganglia and thalami. Normal brainstem. There is mild cerebellar atrophy. Stable previous infarcts in the right frontal lobe, left occipital lobe, and right parieto-occipital region. There is no intracranial hemorrhage. There are no findings of an acute ischemic infarction. Normal visualized paranasal sinuses. CT/Brain/Head without Contrast IMPRESSION: No change or acute abnormality. Atrophy white matter and old infarcts. Electronically Signed: Josr Sapp MD at 18:24 EDT , Service support ,
--- NOTE | 2019-02-11 17:32 | EKG12_ITS ---
Test Reason : CONFUSION Blood Pressure : / mmHG Vent. Rate : 092 BPM Atrial Rate : 092 BPM P-R Int : 136 ms QRS Dur : 064 ms QT Int : 312 ms P-R-T Axes : 004 -07 171 degrees QTc Int : 385 ms Normal sinus rhythm Nonspecific ST and T wave abnormality Abnormal ECG Confirmed by GEN RANDOLPH, LUPE ([id number]), manager editorial CAITLIN HERNANDEZ ([id number]) on 02/15/2019 1:07:42 PM Referred By: IVONE Confirmed By:GARIMA BLEVINS MD
--- NOTE | 2019-02-11 17:35 | RAD_ITS ---
STUDY: X-RAY CHEST REASON FOR EXAM: Female, 78 years old. Confusion TECHNIQUE: Single AP portable view of the chest. COMPARISON: 10/11/2018. FINDINGS: The lungs are clear and expanded. There is no demonstrated pleural abnormality. Normal size heart. Normal mediastinum and hay. Normal visualized pulmonary arteries. There is atherosclerotic calcification of the aortic arch with tortuosity. There are diffuse degenerative changes of the visualized thoracic spine. Normal visualized ribs, clavicles, and shoulders. There is no demonstrated abnormality of the visualized soft tissue structures of the upper abdomen. RAD/Chest 1 View (Portable) IMPRESSION: No acute chest disease. Electronically Signed: Josr Sapp MD at 17:51 EDT , Service support ,
[2019-02-11] MEDS: 0.9% Normal Saline 1,000 ML 1000 ML IV (17:59)
[2019-02-11 18:11] LABS: Absolute Lymphocyte Count 1.19 X10^3/uL (0.83-4.51); Absolute Neutrophil Count 11.2 X10^3/uL (2.0-7.7); Basophil# 0.05 X10^3/uL; Basophil% 0.4 % (0-1); Eosinophil# 0.09 X10^3/uL; Eosinophils% 0.7 % (0-5); Hematocrit 37.2 % (37-47); Hemoglobin 11.7 g/dL (12.0-15.0); Lymphocyte # 1.19 X10^3/ul (4.0); Lymphocyte % 8.8 % (19-41); Mean Corp Hgb Conc 31.5 g/dL (32-36); Mean Corpuscular Volume 92.3 fL (81-99); Mean Platelet Vol. 12.7 fl (6.2-12.0); Monocyte# 0.87 X10^3/uL; Monocyte% 6.4 % (0-10); NRBC Flagged by Analyzer 0 % (0-5); Neutrophil # 11.22 X10^3/uL (2.7-7.7); Neutrophil % 82.7 % (47-70); Platelet Count 247 K/mm3 (150-450); RBC Distribution Width CV 17.3 % (11.6-14.6); RBC Distribution Width SD 58.6 fl (35.1-43.9); Red Blood Count 4.03 M/mm3 (4.2-5.4); White Blood Count 13.6 K/mm3 (4.4-11.0)
--- NOTE | 2019-02-11 18:14 | ED.DCSUM_ITS ---
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 Patient is an elderly female with history of prior stroke and hip fracture. She lives at home with her son. The patient was actually seen here about 10 days ago. At that time, she had actually taken more of her medications. She states that she has been feeling like garbage and has had increased malaise. She states that she is been more confused over baseline. The patient does have a urostomy she has had a history of ovarian cancer. She denies any purulence in the back. She does admit to some chills and sweats. The patient did have a urine obtained 10 days ago. The culture ended up being positive for ESBL. She denies cough. She does have chronic venous stasis changes of her feet does admit to some pain. Prior similar symptoms: Yes Recent Illness/Hospitalization: No Past Medical History - Allergies and Home Meds Allergies/Adverse Reactions: Allergies No Known Allergies Allergy (Verified 02/01/19 14:57) Prior records reviewed: Yes Past Medical History: - - Prior stroke, urostomy, ovarian cancer Surgical History: - - surgery for ovarin cancer. Smoking Status: Former smoker - Family History Maternal Family History: Reports: No pertinent history Paternal Family History: Reports: No pertinent history Review of Systems General: Reports: Chills, Fever Eyes: Denies: Visual changes - bilaterally, Diplopia ENT: Denies: Rhinorrhea, Sore throat Cardiovascular: Denies: Chest pain, Palpitations Respiratory: Denies: Dyspnea, Cough, Dyspnea on exertion Gastrointestinal: Denies: Abdominal pain, Nausea, Vomiting, Diarrhea, Melena, Hematochezia Genitourinary: Denies: Dysuria, Hematuria, Frequency Musculoskeletal: Reports: Myalgias. Denies: Back pain, Extremity Pain Skin: Denies: Rash, Wounds Neurological: Denies: Headache, Weakness, Numbness Psych: Denies: Anxiety Endocrine: Denies: Polydipsia Hematologic: Denies: Easy bruising Physical Exam Vital Signs/Narrative: Vital Signs Temp Pulse Resp BP Pulse Ox 02/11/19 17:31 99.5 F H 02/11/19 17:24 99.9 F H 100 16 118/57 L 96 Inital Vital Signs reviewed: Yes General: Well nourished, Well developed, No Acute Distress Head: Normocephalic, Atraumatic Eyes: Perrl, EOMI ENT: Moist mucous membranes, No rhinorrhea Neck: Supple, Nontender Cardiovascular: Regular rate, Regular rhythm, No murmurs Respiratory: No distress, CTA bilaterally, Chest nontender Abdomen: Soft, Nontender, Nondistended, Normal bowel sounds Back: Nontender, Normal Inspection Extremities: Nontender, No edema Skin: Normal color, No rash Neurological: Alert, Cranial nerves II-XII grossly intact, Normal Strength, Normal Sensation Psychological: Normal affect, Normal Mood Diagnostic/Tx/Re-eval Chest X-Ray - ED: 2 View, Normal, Heart, Lungs, Chronic Changes Clinical Impression(s) from Imaging Studies Brain CT 02/11/19 17:32 IMPRESSION: No change or acute abnormality. Atrophy white matter and old infarcts. Electronically Signed: Josr Sapp MD at 18:24 EDT , Service support , Chest X-Ray 02/11/19 17:35 IMPRESSION: No acute chest disease. Electronically Signed: Josr Sapp MD at 17:51 EDT , Service support , Abnormal Lab Results 02/11/19 02/11/19 02/11/19 17:55 17:55 17:55 WBC 13.6 H RBC 4.03 L Hgb 11.7 L Hct 37.2 MCV 92.3 MCH 29.0 MCHC 31.5 L RDW Std Deviation 58.6 H RDW Coeff of Travis 17.3 H Plt Count 247 MPV 12.7 H Immature Gran % (Auto) 1.000 H Neut % (Auto) 82.7 H Lymph % (Auto) 8.8 L [place] % (Auto) 6.4 Eos % (Auto) 0.7 Baso % (Auto) 0.4 Absolute Neuts (auto) 11.2 H Absolute Lymphs (auto) 1.19 Nucleated RBC % 0 Sodium 142 Potassium 4.3 Chloride 116 H Carbon Dioxide 17.0 L Anion Gap 9 BUN 35 H Creatinine 1.97 H Estim Creat Clear Calc 20.49 Est GFR (MDRD) Af Amer 31 L Est GFR (MDRD) Non-Af 26 L BUN/Creatinine Ratio 17.8 Glucose 125 H Lactic Acid Calcium 10.6 H Magnesium 2.1 Total Bilirubin 0.60 AST 27 ALT 18 Alkaline Phosphatase 120 H Total Protein 6.2 L Albumin 2.8 L Globulin 3.4 Albumin/Globulin Ratio 0.8 L 02/11/19 18:35 WBC RBC Hgb Hct MCV MCH MCHC RDW Std Deviation RDW Coeff of Travis Plt Count MPV Immature Gran % (Auto) Neut % (Auto) Lymph % (Auto) [place] % (Auto) Eos % (Auto) Baso % (Auto) Absolute Neuts (auto) Absolute Lymphs (auto) Nucleated RBC % Sodium Potassium Chloride Carbon Dioxide Anion Gap BUN Creatinine Estim Creat Clear Calc Est GFR (MDRD) Af Amer Est GFR (MDRD) Non-Af BUN/Creatinine Ratio Glucose Lactic Acid 2.4 H Calcium Magnesium Total Bilirubin AST ALT Alkaline Phosphatase Total Protein Albumin Globulin Albumin/Globulin Ratio - Rhythm Strip Rhythm Strip: Sinus Rhythm Ectopy: None - Medical Decision Making I was able to review the patient's prior admission to the emergency department. Her urinary culture came back positive for ESBL. It was sensitive to Levaquin. She now presents with chills and myalgias. Sepsis work-up was pursued. Patient does have an elevated lactic. Chest x-ray and head CT were unremarkable. The patient was started on broad-spectrum antibiotics that were renally dosed given her history of renal insufficiency. She will be admitted to the hospitalist at this time. Impression 1. Delirium. 2. Complicated urinary tract infection 3. Sepsis ED Disposition - Plan for ED Patient: Disposition: Acute Care [facility]
--- NOTE | 2019-02-11 18:22 | EKG12_ITS ---
Test Reason : REPEAT Blood Pressure : / mmHG Vent. Rate : 094 BPM Atrial Rate : 094 BPM P-R Int : 130 ms QRS Dur : 062 ms QT Int : 308 ms P-R-T Axes : 011 -06 189 degrees QTc Int : 385 ms Sinus rhythm with Premature atrial complexes Low voltage QRS Septal infarct , age undetermined ST & T wave abnormality, consider inferior ischemia ST & T wave abnormality, consider anterolateral ischemia Abnormal ECG Confirmed by GEN RANDOLPH, LUPE ([id number]), food expeditor CAITLIN HERNANDEZ ([id number]) on 02/15/2019 1:09:33 PM Referred By: LYNNE Confirmed By:GARIMA BLEVINS MD
[2019-02-11 18:42] LABS: ALB/GLOB Ratio 0.8 RATIO (0.9-2.4); AST(SGOT) 27 U/L (15-37); Alanine Aminotransfer ALT/SGPT 18 U/L (13-56); Albumin, Serum 2.8 g/dL (3.2-5.0); Alkaline Phosphatase 120 U/L (45-117); Anion Gap 9 (5-15); BUN 35 mg/dL (7-18); BUN/Creat Ratio 17.8 RATIO (10-20); Calcium,Total 10.6 mg/dL (8.5-10.1); Chloride 116 mmol/L (98-107); Creatinine, Serum 1.97 mg/dL (0.55-1.02); EST Glomerular Filtration Rate 26 mL/min (>60); Est Glom Filt Rate - Afr Amer 31 mL/min (>60); Estimated Creatinine Clearance 20.49 ml/min; Globulin 3.4 g/dL (2.2-4.2); Glucose 125 mg/dL (74-106); Potassium 4.3 mmol/L (3.5-5.1); Protein, Total 6.2 g/dL (6.4-8.2); Sodium Level 142 mmol/L (136-145)
--- NOTE | 2019-02-11 18:42 | HP.PCM_ITS ---
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 The patient is a 78 year old F who presents emergency room due to increased confusion and weakness. Patient lives with son who is at bedside during examination. Patient unable to provide HPI given confusion and drowsiness. Patient recently presented to ER 02/01/2019 due to taking extra medications at home. Her urine culture from that day grew E. coli, esbl + and she was called in Bactrim prescription. Her son states she has not improved. He reports she has not been eating or drinking much, is not able to ambulate or get out of bed and has had increased confusion over the past week. Son reports patient has not had any falls at home. Patient has a past medical history of seizure disorder, chronic kidney disease stage III, hypertension, hyperlipidemia, rheumatoid arthritis, hypothyroidism, history of CVA. Son requesting hospice consult. He reports she has significantly declined recently. Given patient's confusion, unable to discuss CODE STATUS at this time. Son states patient does not have POA and they have not previously discussed CODE STATUS. 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 (Chronic) Allergies No Known Allergies Allergy (Verified 02/01/19 14:57) Home Medications: Ambulatory Orders Medication Instructions Recorded Levothyroxine [Synthroid] 88 mcg PO DAILY 02/22/16 Atorvastatin Calcium [Lipitor] 40 mg PO DAILY 05/17/17 Omeprazole 40 mg PO DAILY 08/13/18 Multivitamin [Multivitamins] 1 tablet PO DAILY 10/12/18 levETIRAcetam tablet [Keppra 500 mg PO BID 01/18/19 tablet] Aspirin [Aspir 81] 81 mg PO DAILY 02/01/19 Cholecalciferol (VIT D3) [Vitamin 3,000 unit PO DAILY 02/01/19 D] Docusate Sodium [Colace] 100 mg PO BID PRN PRN 02/01/19 Fluticasone 0.05% [Flonase Nasal 2 spray NASAL DAILY 02/01/19 Sanders] Gabapentin [Neurontin] 100 mg PO QHS 02/01/19 Hydrocodone/Acetaminophen 1 tab PO PRN PRN 02/01/19 [Hydrocodone-Acetamin 5-325 mg] Losartan Potassium [Cozaar] 25 mg PO DAILY 02/01/19 Surgical History: - - surgery for ovarin cancer. 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 Paternal History Items: - - Unable to obtain paternal medical history given confusion. Review of Systems Unable to obtain accurate/complete ROS d/t: Unable to obtain ROS due to confusion/altered mental status. VTE Information - Inpt Only VTE Present on Admission: No VTE Mechan Device Prophylaxis: None VTE Pharm Prophylaxis ordered?: Yes - Physical Exam General: Confused, Lethargic HEENT: Atraumatic, PERRLA, EOMI, Normocephalic Oral: Dry Mucosa Neck: Supple, No JVD, Negative Carotid Bruits Lungs: Clear to auscultation, Normal air movement Cardiovascular: Regular rate, Regular Rhythm, Normal S1, Normal S2, No murmurs Abdomen: Bowel Sounds Present, Soft, Non Tender, Non-Distended, - - urostomy present Extremities: No clubbing, No cyanosis, No edema, Capillary Refill Less than 3 Seconds Skin: No rashes, No breakdown, - - Chronic venous stasis skin changes bilateral lower extremities. Musculoskeletal: No Tenderness to Palpation of Joints or Extremities Neurological: Cranial nerves II-XII grossly intact, Neuro grossly intact Psych/Mental Status: Flat Affect Vital Signs Temp Pulse Resp BP Pulse Ox 99.5 F H 100 16 118/57 L 96 02/11/19 17:31 02/11/19 17:24 02/11/19 17:24 02/11/19 17:24 02/11/19 17:24 Oxygen Delivery Method Room Air Weight: 144 lb 13.499 oz Body Mass Index (BMI) 24.0 Laboratory Tests Past 24 Hrs 02/11/19 02/11/19 17:55 17:55 WBC 13.6 H RBC 4.03 L Hgb 11.7 L Hct 37.2 MCV 92.3 MCH 29.0 MCHC 31.5 L RDW Std Deviation 58.6 H RDW Coeff of Travis 17.3 H Plt Count 247 MPV 12.7 H Immature Gran % (Auto) 1.000 H Neut % (Auto) 82.7 H Lymph % (Auto) 8.8 L [place] % (Auto) 6.4 Eos % (Auto) 0.7 Baso % (Auto) 0.4 Absolute Neuts (auto) 11.2 H Absolute Lymphs (auto) 1.19 Nucleated RBC % 0 Sodium Pending Potassium Pending Chloride Pending Carbon Dioxide Pending Anion Gap Pending BUN Pending Creatinine Pending Est GFR (MDRD) Af Amer Pending Est GFR (MDRD) Non-Af Pending BUN/Creatinine Ratio Pending Glucose Pending Calcium Pending Total Bilirubin Pending AST Pending ALT Pending Alkaline Phosphatase Pending Total Protein Pending Albumin Pending Assessment/Plan All Active Problems Fracture, subtrochanteric, right femur, closed (Acute) Fall (Acute) Closed intertrochanteric fracture of right hip (Acute) Closed intertrochanteric fracture of left hip (Resolved) Fall and laceration of left sideforehead (Resolved) 1. Sepsis secondary to acute complicated UTI, chronic urostomy due to history of ovarian cancer, failed outpatient treatment with Bactrim-recent urine culture 02/01/2019 with presumptive E. coli, + ESBL, Enterococcus faecalis, Aerococcus viridans. IV Levaquin. Blood cultures drawn in ER. Consult ID. IV fluids. 2. Metabolic encephalopathy, secondary to #1-treatment per above. 3. Seizure disorder-continue Keppra regimen. 4. Chronic kidney disease stage III- at baseline, no REN. Trend BMP. 5. Hypertension-stable, continue home atenolol, losartan. 6. Hyperlipidemia-continue statin. 7. Rheumatoid arthritis- PRN pain regimen. 8. Chronic normocytic anemia-at baseline. 9. Hypothyroidism-continue Synthroid regimen. 10. 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 11. Debility, functional decline- PT/OT. Patient son requesting hospice consult, will notify case management. 12. Moderate protein calorie malnutrition-as evidenced by cachectic appearance, poor oral intake. DVT prophylaxis-heparin subcu This patient was seen by LISANDRO VázquezC under the supervision of Dr. Avalos.
[2019-02-11] MEDS: Acetaminophen 500 MG Tablet 1000 MG PO (18:57)
[2019-02-11 19:09] LABS: Lactic Acid 2.4 mmol/L (0.4-2.0)
[2019-02-11] MEDS: levoFLOXacin IV 250 MG/50 ML BAG 50 MG IV (19:29)
[2019-02-11 19:41] LABS: Mucous, Urine 0 SEEN /hpf (<or=2+)
[2019-02-11 19:43] LABS: Color, Urine Yellow (Yellow); Glucose, Dipstick Normal (Normal); Ketone-Dipstick 5 mg/dl (Negative); Leukocyte Esterase-Dipstick 500 /ul (Negative); Nitrite-Dipstick Negative (Negative); Occult Blood-Urine 50 /ul (Negative); Protein-Dipstick 30 mg/dl (Negative); Urine Bilirubin Dipstick Negative (Negative); Urine Clarity Cloudy (Clear); Urine Urobilinogen Normal (Normal)
[2019-02-11 19:48] LABS: Red Blood Cells-Urine 5-10 SEEN /hpf (0-5); White Blood Cells 25-50 SEEN /hpf (0-5)
[2019-02-11 19:49] LABS: Amorphous Sediment 3+ PHOS; Bacteria RARE /hpf (None Seen); Squamous Epithelial Cells - UA 0-5 SEEN /hpf (5-10)
[2019-02-11 20:30] LABS: Magnesium 2.1 mg/dL (1.6-2.6)
[2019-02-11] MEDS: Gabapentin 100 MG Capsule PO (21:17)
[2019-02-11] MEDS: HYDROcodone Bitartrate/Apap 5/325 Tablet PO (21:17)
[2019-02-11] MEDS: Atorvastatin Calcium 40 MG Tablet PO (21:18)
[2019-02-11] MEDS: Heparin Injection (Vial) 5,000 UNIT/ML VIAL 5000 UNIT SC (21:18)
[2019-02-11] MEDS: 0.9% Normal Saline 1,000 ML 999 ML IV (21:23)
[2019-02-11] MEDS: levETIRAcetam 500 MG Tablet PO (21:29)
[2019-02-11] MEDS: 0.9% Normal Saline 1,000 ML 125 ML IV (22:30)
[2019-02-11 22:40] LABS: Reflex Lactate? Y
[2019-02-12] VITALS (13 sets, daily range): BP systolic 114–129; BP diastolic 53–85; PULSE 70–100; RESP 16–18; TEMP 35.9–37.2; O2SAT 95–100
[2019-02-12 00:02] LABS: Lactic Acid 0.9 mmol/L (0.4-2.0)
[2019-02-12] MEDS: 0.9% Normal Saline 1,000 ML 125 ML IV ×3 (06:01→22:15)
[2019-02-12 07:39] LABS: Absolute Neutrophil Count 5.2 X10^3/uL (2.0-7.7); Basophil# 0.07 X10^3/uL; Basophil% 0.8 % (0-1); Eosinophil# 0.75 X10^3/uL; Eosinophils% 8.3 % (0-5); Hematocrit 32.7 % (37-47); Hemoglobin 10.1 g/dL (12.0-15.0); Lymphocyte % 24.4 % (19-41); Mean Corp Hgb Conc 30.9 g/dL (32-36); Mean Corpuscular Hgb 28.9 pg (27.0-32.0); Mean Corpuscular Volume 93.4 fL (81-99); Mean Platelet Vol. 12.3 fl (6.2-12.0); Monocyte# 0.77 X10^3/uL; Monocyte% 8.5 % (0-10); NRBC Flagged by Analyzer 0 % (0-5); Neutrophil # 5.15 X10^3/uL (2.7-7.7); Neutrophil % 57.2 % (47-70); Platelet Count 234 K/mm3 (150-450); RBC Distribution Width CV 17.5 % (11.6-14.6); RBC Distribution Width SD 60.3 fl (35.1-43.9)
[2019-02-12 07:56] LABS: Anion Gap 6 (5-15); BUN 30 mg/dL (7-18); BUN/Creat Ratio 18.6 RATIO (10-20); Calcium,Total 8.6 mg/dL (8.5-10.1); Chloride 123 mmol/L (98-107); Creatinine, Serum 1.61 mg/dL (0.55-1.02); EST Glomerular Filtration Rate 33 mL/min (>60); Est Glom Filt Rate - Afr Amer 40 mL/min (>60); Estimated Creatinine Clearance 25.08 ml/min; Glucose 73 mg/dL (74-106); Potassium 3.8 mmol/L (3.5-5.1); Sodium Level 145 mmol/L (136-145)
--- NOTE | 2019-02-12 11:36 | NURSING ---
Assessed the urostomy appliance. there is an area to the inferior edge that appears to be leaking. urine with foul strong odor noted. removed the ostomy appliance. urine slightly cloudy with some thick mucous shreds. stoma is beefy red and moist. sits slightly above the skin level. peristomal skin is intact. cleansed with warm water and pat dry. applied a new flat Khurram 1 piece appliance. pt did not awaken while nurse was present in room. no discomfort noted. will monitor.
--- NOTE | 2019-02-12 12:04 | NURSING ---
wound photo: right heel
--- NOTE | 2019-02-12 12:07 | NURSING ---
wound photo: left heel
[2019-02-12] MEDS: Heparin Injection (Vial) 5,000 UNIT/ML VIAL 5000 UNIT SC ×2 (12:08→22:33)
--- NOTE | 2019-02-12 12:12 | PN_ITS ---
<Lilian Quick - Last Filed: 02/12/19 12:15> Subjective: Patient seen and examined. Very lethargic this morning. Arouses to noxious stimuli. No acute events overnight. - Physical Exam General: No apparent distress, Lethargic HEENT: Atraumatic, PERRLA, EOMI, Normocephalic Oral: Dry Mucosa Neck: Supple, No JVD, Negative Carotid Bruits Lungs: Clear to auscultation, Diminished Cardiovascular: Regular rate, Regular Rhythm, Normal S1, Normal S2, No murmurs Abdomen: Bowel Sounds Present, Soft, Non Tender, Non-Distended, - - Urostomy present Extremities: No clubbing, No cyanosis, No edema, Capillary Refill Less than 3 Seconds Skin: No rashes, No breakdown, - - Chronic venous stasis skin changes bilateral lower extremities Musculoskeletal: No Tenderness to Palpation of Joints or Extremities Neurological: Cranial nerves II-XII grossly intact, Neuro grossly intact Psych/Mental Status: Normal Affect, Appropriate Vital Signs Temp Pulse Resp BP Pulse Ox 96.7 F L 87 17 114/54 L 100 02/12/19 09:16 02/12/19 09:16 02/12/19 09:16 02/12/19 09:16 02/12/19 09:16 Oxygen Delivery Method Room Air Weight: 140 lb 14.006 oz Body Mass Index (BMI) 23.4 Intake and Output for Last 24 Hours 02/10/19 02/11/19 02/12/19 23:59 23:59 23:59 Intake Total 1873 / 1873 760 / 760 Output Total 100 / 100 125 / 125 Balance 1773 / 1773 635 / 635 Laboratory Tests Past 24 Hrs 02/11/19 02/11/19 02/11/19 17:55 17:55 17:55 WBC 13.6 H RBC 4.03 L Hgb 11.7 L Hct 37.2 MCV 92.3 MCH 29.0 MCHC 31.5 L RDW Std Deviation 58.6 H RDW Coeff of Travis 17.3 H Plt Count 247 MPV 12.7 H Immature Gran % (Auto) 1.000 H Neut % (Auto) 82.7 H Lymph % (Auto) 8.8 L [place] % (Auto) 6.4 Eos % (Auto) 0.7 Baso % (Auto) 0.4 Absolute Neuts (auto) 11.2 H Absolute Lymphs (auto) 1.19 Nucleated RBC % 0 Sodium 142 Potassium 4.3 Chloride 116 H Carbon Dioxide 17.0 L Anion Gap 9 BUN 35 H Creatinine 1.97 H Estim Creat Clear Calc 20.49 Est GFR (MDRD) Af Amer 31 L Est GFR (MDRD) Non-Af 26 L BUN/Creatinine Ratio 17.8 Glucose 125 H Lactic Acid Calcium 10.6 H Magnesium 2.1 Total Bilirubin 0.60 AST 27 ALT 18 Alkaline Phosphatase 120 H Total Protein 6.2 L Albumin 2.8 L Globulin 3.4 Albumin/Globulin Ratio 0.8 L Urine Color Urine Clarity Urine pH Ur Specific [place] Urine Protein Urine Glucose (UA) Urine Ketones Urine Occult Blood Urine Nitrite Urine Bilirubin Urine Urobilinogen Ur Leukocyte Esterase Urine RBC Urine WBC Ur Squamous Epith Cells Amorphous Sediment Urine Bacteria Urine Mucus 02/11/19 02/11/19 02/11/19 18:35 19:37 23:22 WBC RBC Hgb Hct MCV MCH MCHC RDW Std Deviation RDW Coeff of [place] Plt Count MPV Immature Gran % (Auto) Neut % (Auto) Lymph % (Auto) [place] % (Auto) Eos % (Auto) Baso % (Auto) Absolute Neuts (auto) Absolute Lymphs (auto) Nucleated RBC % Sodium Potassium Chloride Carbon Dioxide Anion Gap BUN Creatinine Estim Creat Clear Calc Est GFR (MDRD) Af Amer Est GFR (MDRD) Non-Af BUN/Creatinine Ratio Glucose Lactic Acid 2.4 H 0.9 Calcium Magnesium Total Bilirubin AST ALT Alkaline Phosphatase Total Protein Albumin Globulin Albumin/Globulin Ratio Urine Color Yellow Urine Clarity Cloudy Urine pH 8.0 Ur Specific [place] 1.010 Urine Protein 30 H Urine Glucose (UA) Normal Urine Ketones 5 H Urine Occult Blood 50 H Urine Nitrite Negative Urine Bilirubin Negative Urine Urobilinogen Normal Ur Leukocyte Esterase 500 H Urine RBC 5-10 SEEN Urine WBC 25-50 SEEN Ur Squamous Epith Cells 0-5 SEEN Amorphous Sediment 3+ PHOS Urine Bacteria RARE Urine Mucus 0 SEEN 02/12/19 02/12/19 07:18 07:18 WBC 9.0 RBC 3.50 L Hgb 10.1 L Hct 32.7 L MCV 93.4 MCH 28.9 MCHC 30.9 L RDW Std Deviation 60.3 H RDW Coeff of Travis 17.5 H Plt Count 234 MPV 12.3 H Immature Gran % (Auto) 0.800 Neut % (Auto) 57.2 Lymph % (Auto) 24.4 [place] % (Auto) 8.5 Eos % (Auto) 8.3 H Baso % (Auto) 0.8 Absolute Neuts (auto) 5.2 Absolute Lymphs (auto) 2.20 Nucleated RBC % 0 Sodium 145 Potassium 3.8 Chloride 123 H Carbon Dioxide 16.0 L Anion Gap 6 BUN 30 H Creatinine 1.61 H Estim Creat Clear Calc 25.08 Est GFR (MDRD) Af Amer 40 L Est GFR (MDRD) Non-Af 33 L BUN/Creatinine Ratio 18.6 Glucose 73 L Lactic Acid Calcium 8.6 Magnesium Total Bilirubin AST ALT Alkaline Phosphatase Total Protein Albumin Globulin Albumin/Globulin Ratio Urine Color Urine Clarity Urine pH Ur Specific [place] Urine Protein Urine Glucose (UA) Urine Ketones Urine Occult Blood Urine Nitrite Urine Bilirubin Urine Urobilinogen Ur Leukocyte Esterase Urine RBC Urine WBC Ur Squamous Epith Cells Amorphous Sediment Urine Bacteria Urine Mucus Medical Necessity - Tobacco Use Smoking Status: Former smoker Assessment/Plan All Active Problems UTI (urinary tract infection) (Acute) Fracture, subtrochanteric, right femur, closed (Acute) Fall (Acute) Closed intertrochanteric fracture of right hip (Acute) Closed intertrochanteric fracture of left hip (Resolved) Fall and laceration of left sideforehead (Resolved) 1. Sepsis secondary to acute complicated UTI, chronic urostomy due to history of ovarian cancer, failed outpatient treatment with Bactrim-recent urine culture 02/01/2019 with presumptive E. coli, + ESBL, Enterococcus faecalis, Aerococcus viridans. IV Levaquin. Blood cultures pending. IV fluids. ID consult pending. 2. Metabolic encephalopathy, secondary to #1-treatment per above. 3. Seizure disorder-continue Keppra regimen. 4. Chronic kidney disease stage III- at baseline, no REN. Trend BMP. Gentle IV fluids as noted above. 5. Hypertension-stable, continue home atenolol, losartan. 6. Hyperlipidemia-continue statin. 7. Rheumatoid arthritis- PRN pain regimen. 8. Chronic normocytic anemia-at baseline. 9. Hypothyroidism-continue Synthroid regimen. 10. 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 11. Debility, functional decline- PT/OT. Patient son requesting hospice consult, hospice has been in contact with son. 12. Moderate protein calorie malnutrition-as evidenced by cachectic appearance, poor oral intake. DVT prophylaxis-heparin subcu Discharge planning: Pending hospice meeting with son tomorrow at 11 AM. This patient was seen by Lilian Quick NP-Pradeep under the supervision of Dr. Douglas. <Andrew Douglas - Last Filed: 02/12/19 13:58> - Physical Exam Vital Signs Temp Pulse Resp BP Pulse Ox 96.7 F L 92 17 114/54 L 100 02/12/19 09:16 02/12/19 11:01 02/12/19 09:16 02/12/19 09:16 02/12/19 09:16 Oxygen Delivery Method Room Air Weight: 63.9 kg Body Mass Index (BMI) 23.4 Intake and Output for Last 24 Hours 02/10/19 02/11/19 02/12/19 23:59 23:59 23:59 Intake Total 1873 / 1873 1536 / 1536 Output Total 100 / 100 200 / 200 Balance 1773 / 1773 1336 / 1336 Laboratory Tests Past 24 Hrs 02/11/19 02/11/19 02/11/19 17:55 17:55 17:55 WBC 13.6 H RBC 4.03 L Hgb 11.7 L Hct 37.2 MCV 92.3 MCH 29.0 MCHC 31.5 L RDW Std Deviation 58.6 H RDW Coeff of [place] 17.3 H Plt Count 247 MPV 12.7 H Immature Gran % (Auto) 1.000 H Neut % (Auto) 82.7 H Lymph % (Auto) 8.8 L [place] % (Auto) 6.4 Eos % (Auto) 0.7 Baso % (Auto) 0.4 Absolute Neuts (auto) 11.2 H Absolute Lymphs (auto) 1.19 Nucleated RBC % 0 Sodium 142 Potassium 4.3 Chloride 116 H Carbon Dioxide 17.0 L Anion Gap 9 BUN 35 H Creatinine 1.97 H Estim Creat Clear Calc 20.49 Est GFR (MDRD) Af Amer 31 L Est GFR (MDRD) Non-Af 26 L BUN/Creatinine Ratio 17.8 Glucose 125 H Lactic Acid Calcium 10.6 H Magnesium 2.1 Total Bilirubin 0.60 AST 27 ALT 18 Alkaline Phosphatase 120 H Total Protein 6.2 L Albumin 2.8 L Globulin 3.4 Albumin/Globulin Ratio 0.8 L Urine Color Urine Clarity Urine pH Ur Specific [place] Urine Protein Urine Glucose (UA) Urine Ketones Urine Occult Blood Urine Nitrite Urine Bilirubin Urine Urobilinogen Ur Leukocyte Esterase Urine RBC Urine WBC Ur Squamous Epith Cells Amorphous Sediment Urine Bacteria Urine Mucus 02/11/19 02/11/19 02/11/19 18:35 19:37 23:22 WBC RBC Hgb Hct MCV MCH MCHC RDW Std Deviation RDW Coeff of [place] Plt Count MPV Immature Gran % (Auto) Neut % (Auto) Lymph % (Auto) [place] % (Auto) Eos % (Auto) Baso % (Auto) Absolute Neuts (auto) Absolute Lymphs (auto) Nucleated RBC % Sodium Potassium Chloride Carbon Dioxide Anion Gap BUN Creatinine Estim Creat Clear Calc Est GFR (MDRD) Af Amer Est GFR (MDRD) Non-Af BUN/Creatinine Ratio Glucose Lactic Acid 2.4 H 0.9 Calcium Magnesium Total Bilirubin AST ALT Alkaline Phosphatase Total Protein Albumin Globulin Albumin/Globulin Ratio Urine Color Yellow Urine Clarity Cloudy Urine pH 8.0 Ur Specific [place] 1.010 Urine Protein 30 H Urine Glucose (UA) Normal Urine Ketones 5 H Urine Occult Blood 50 H Urine Nitrite Negative Urine Bilirubin Negative Urine Urobilinogen Normal Ur Leukocyte Esterase 500 H Urine RBC 5-10 SEEN Urine WBC 25-50 SEEN Ur Squamous Epith Cells 0-5 SEEN Amorphous Sediment 3+ PHOS Urine Bacteria RARE Urine Mucus 0 SEEN 02/12/19 02/12/19 07:18 07:18 WBC 9.0 RBC 3.50 L Hgb 10.1 L Hct 32.7 L MCV 93.4 MCH 28.9 MCHC 30.9 L RDW Std Deviation 60.3 H RDW Coeff of Travis 17.5 H Plt Count 234 MPV 12.3 H Immature Gran % (Auto) 0.800 Neut % (Auto) 57.2 Lymph % (Auto) 24.4 Mccre[place] % (Auto) 8.5 Eos % (Auto) 8.3 H Baso % (Auto) 0.8 Absolute Neuts (auto) 5.2 Absolute Lymphs (auto) 2.20 Nucleated RBC % 0 Sodium 145 Potassium 3.8 Chloride 123 H Carbon Dioxide 16.0 L Anion Gap 6 BUN 30 H Creatinine 1.61 H Estim Creat Clear Calc 25.08 Est GFR (MDRD) Af Amer 40 L Est GFR (MDRD) Non-Af 33 L BUN/Creatinine Ratio 18.6 Glucose 73 L Lactic Acid Calcium 8.6 Magnesium Total Bilirubin AST ALT Alkaline Phosphatase Total Protein Albumin Globulin Albumin/Globulin Ratio Urine Color Urine Clarity Urine pH Ur Specific [place] Urine Protein Urine Glucose (UA) Urine Ketones Urine Occult Blood Urine Nitrite Urine Bilirubin Urine Urobilinogen Ur Leukocyte Esterase Urine RBC Urine WBC Ur Squamous Epith Cells Amorphous Sediment Urine Bacteria Urine Mucus Assessment/Plan This patient was seen in conjunction with VIRAL Vázquez . I have independently interviewed and examined the patient and reviewed pertinent historical, laboratory, and other data. Please refer to VIRAL Vázquez note for details of this patient's presentation, findings, and recommendations. I have reviewed VIRAL Vázquez note and concur with documented findings. In brief, patient is an 78-year-old lady with multiple comorbidities including chronic urostomy following treatment for ovarian cancer history of recurrent UTIs who presented with decreased level of sensorium and assessment of sepsis secondary to acute complicated UTI was made admitted to regular nursing for further management Physical Examination: HEENT: Atraumatic; EYES; Anicteric, Normal Conjunctiva NECK; supple, normal thyroid, RESPIRATORY: Diminished to auscultation CARDIOVASCULAR: Regular S1 S2, GI: soft, non-tender, normoactive bowel sounds, : Urostomy in place MUSCULOSKELETAL: No Joint Tenderness; Assessment: 1. Acute complicated UTI in a patient with a urostomy 2. Acute metabolic encephalopathy 3. Acute kidney injury 4. Chronic kidney disease stage III 5. Hypothyroidism 6. History of CVA following anterior cerebral artery stenosis 7. Essential hypertension 8. Seizure disorder 9. Dyslipidemia 10. Essential hypertension Recommendations: 1. I have discussed the results of my overview and impressions with the patient 2. Options for management were reviewed Code Visit Inpatient E&M: 79025 [facility] Hosp L3
--- NOTE | 2019-02-12 13:20 | CON.PCM_ITS ---
Problem List (1) UTI (urinary tract infection) Status: Acute Reason for Consult: uti Consulted by: Dr. Avalos History of Present Illness: The patient is a 78 year old F with urostomy, presented with confusion, abd pain. She does not recall what happened. Admitted on levaquin. Prior ucx with ESBL, enterococcus, aerococcus. Feeling better, no further abd pain. No cough or SOB. No fever here. Full ROS performed and neg except as noted above. - Medical History Past Medical History (Chronic Problems): Chronic Problems Seizure (Chronic) Hypothyroidism (Chronic) Rheumatoid arthritis (Chronic) HTN (hypertension) (Chronic) HLD (hyperlipidemia) (Chronic) Stroke due to stenosis of anterior cerebral artery (Chronic) Allergies/Adverse Reactions: Allergies No Known Allergies Allergy (Verified 02/01/19 14:57) Home Medications: Ambulatory Orders Medication Instructions Recorded Levothyroxine [Synthroid] 88 mcg PO DAILY 02/22/16 Atorvastatin Calcium [Lipitor] 40 mg PO DAILY 05/17/17 Omeprazole 40 mg PO DAILY 08/13/18 Multivitamin [Multivitamins] 1 tablet PO DAILY 10/12/18 levETIRAcetam tablet [Keppra 500 mg PO BID 01/18/19 tablet] Aspirin [Aspir 81] 81 mg PO DAILY 02/01/19 Cholecalciferol (VIT D3) [Vitamin 3,000 unit PO DAILY 02/01/19 D] Hydrocodone/Acetaminophen 1 tab PO DAILY PRN PRN 02/01/19 [Hydrocodone-Acetamin 5-325 mg] Gabapentin [Neurontin] 100 mg PO QHS 02/11/19 Losartan Potassium [Cozaar] 25 mg PO DAILY 02/11/19 Warfarin Sodium [Coumadin] 2 mg PO DAILY 02/11/19 - Social History SMOKING STATUS:: Former smoker Vital Signs Temp Pulse Resp BP Pulse Ox 96.7 F L 92 17 114/54 L 100 02/12/19 09:16 02/12/19 11:01 02/12/19 09:16 02/12/19 09:16 02/12/19 09:16 Oxygen Delivery Method Room Air Weight: 63.9 kg Body Mass Index (BMI) 23.4 Laboratory Tests Past 24 Hrs 02/11/19 02/11/19 02/11/19 17:55 17:55 17:55 WBC 13.6 H RBC 4.03 L Hgb 11.7 L Hct 37.2 MCV 92.3 MCH 29.0 MCHC 31.5 L RDW Std Deviation 58.6 H RDW Coeff of Travis 17.3 H Plt Count 247 MPV 12.7 H Immature Gran % (Auto) 1.000 H Neut % (Auto) 82.7 H Lymph % (Auto) 8.8 L [place] % (Auto) 6.4 Eos % (Auto) 0.7 Baso % (Auto) 0.4 Absolute Neuts (auto) 11.2 H Absolute Lymphs (auto) 1.19 Nucleated RBC % 0 Sodium 142 Potassium 4.3 Chloride 116 H Carbon Dioxide 17.0 L Anion Gap 9 BUN 35 H Creatinine 1.97 H Estim Creat Clear Calc 20.49 Est GFR (MDRD) Af Amer 31 L Est GFR (MDRD) Non-Af 26 L BUN/Creatinine Ratio 17.8 Glucose 125 H Lactic Acid Calcium 10.6 H Magnesium 2.1 Total Bilirubin 0.60 AST 27 ALT 18 Alkaline Phosphatase 120 H Total Protein 6.2 L Albumin 2.8 L Globulin 3.4 Albumin/Globulin Ratio 0.8 L Urine Color Urine Clarity Urine pH Ur Specific [place] Urine Protein Urine Glucose (UA) Urine Ketones Urine Occult Blood Urine Nitrite Urine Bilirubin Urine Urobilinogen Ur Leukocyte Esterase Urine RBC Urine WBC Ur Squamous Epith Cells Amorphous Sediment Urine Bacteria Urine Mucus 02/11/19 02/11/19 02/11/19 18:35 19:37 23:22 WBC RBC Hgb Hct MCV MCH MCHC RDW Std Deviation RDW Coeff of Travis Plt Count MPV Immature Gran % (Auto) Neut % (Auto) Lymph % (Auto) [place] % (Auto) Eos % (Auto) Baso % (Auto) Absolute Neuts (auto) Absolute Lymphs (auto) Nucleated RBC % Sodium Potassium Chloride Carbon Dioxide Anion Gap BUN Creatinine Estim Creat Clear Calc Est GFR (MDRD) Af Amer Est GFR (MDRD) Non-Af BUN/Creatinine Ratio Glucose Lactic Acid 2.4 H 0.9 Calcium Magnesium Total Bilirubin AST ALT Alkaline Phosphatase Total Protein Albumin Globulin Albumin/Globulin Ratio Urine Color Yellow Urine Clarity Cloudy Urine pH 8.0 Ur Specific [place] 1.010 Urine Protein 30 H Urine Glucose (UA) Normal Urine Ketones 5 H Urine Occult Blood 50 H Urine Nitrite Negative Urine Bilirubin Negative Urine Urobilinogen Normal Ur Leukocyte Esterase 500 H Urine RBC 5-10 SEEN Urine WBC 25-50 SEEN Ur Squamous Epith Cells 0-5 SEEN Amorphous Sediment 3+ PHOS Urine Bacteria RARE Urine Mucus 0 SEEN 02/12/19 02/12/19 07:18 07:18 WBC 9.0 RBC 3.50 L Hgb 10.1 L Hct 32.7 L MCV 93.4 MCH 28.9 MCHC 30.9 L RDW Std Deviation 60.3 H RDW Coeff of Travis 17.5 H Plt Count 234 MPV 12.3 H Immature Gran % (Auto) 0.800 Neut % (Auto) 57.2 Lymph % (Auto) 24.4 [place] % (Auto) 8.5 Eos % (Auto) 8.3 H Baso % (Auto) 0.8 Absolute Neuts (auto) 5.2 Absolute Lymphs (auto) 2.20 Nucleated RBC % 0 Sodium 145 Potassium 3.8 Chloride 123 H Carbon Dioxide 16.0 L Anion Gap 6 BUN 30 H Creatinine 1.61 H Estim Creat Clear Calc 25.08 Est GFR (MDRD) Af Amer 40 L Est GFR (MDRD) Non-Af 33 L BUN/Creatinine Ratio 18.6 Glucose 73 L Lactic Acid Calcium 8.6 Magnesium Total Bilirubin AST ALT Alkaline Phosphatase Total Protein Albumin Globulin Albumin/Globulin Ratio Urine Color Urine Clarity Urine pH Ur Specific [place] Urine Protein Urine Glucose (UA) Urine Ketones Urine Occult Blood Urine Nitrite Urine Bilirubin Urine Urobilinogen Ur Leukocyte Esterase Urine RBC Urine WBC Ur Squamous Epith Cells Amorphous Sediment Urine Bacteria Urine Mucus - Other Studies Radiology: [] reviewed Other Studies: [] Route of nutrition/ use of supplements: [] Nutritional Intake: [] IV Site: [] [place] Catheter: [] - Physical Exam General: Alert, Cooperative, No apparent distress, - - oriented x2 Neck: Supple, No Nodes Lungs: Clear to auscultation, Normal air movement Cardiovascular: Irregular Rate Abdomen: Soft, Non Tender, Non-Distended Extremities: Edema Skin: Ulcer/ Wound - legs wrapped IV Site: Peripheral, without redness Musculoskeletal: No Tenderness to Palpation of Joints or Extremities Neurological: Cranial nerves II-XII grossly intact - Assessment/Plan Antibiotics: [] Assessment/Plan: [] complicated uti with urostomy in place- will order ucx. Recent ucx with ESBL ecoli, e.faecalis, aerococcus. Improving on levaquin, will continue. Will follow, thank you, dw primary team.
--- NOTE | 2019-02-12 15:08 | NURSING ---
Called son at this time to give update on patients condition - Son has no further questions at this time and will be in tomorrow to see her.
[2019-02-12] MEDS: Gabapentin 100 MG Capsule PO (22:27)
[2019-02-12] MEDS: Atorvastatin Calcium 40 MG Tablet PO (22:27)
[2019-02-12] MEDS: levETIRAcetam 500 MG Tablet PO (22:27)
[2019-02-13] VITALS (11 sets, daily range): BP systolic 133–159; BP diastolic 55–71; PULSE 87–97; RESP 15–18; TEMP 36.3–36.8; O2SAT 95–98
[2019-02-13] MEDS: 0.9% Normal Saline 1,000 ML 125 ML IV (05:44)
[2019-02-13 07:43] LABS: Hematocrit 31.7 % (37-47); Hemoglobin 9.8 g/dL (12.0-15.0); Mean Corp Hgb Conc 30.9 g/dL (32-36); Mean Corpuscular Hgb 28.9 pg (27.0-32.0); Mean Corpuscular Volume 93.5 fL (81-99); Mean Platelet Vol. 12.4 fl (6.2-12.0); Platelet Count 215 K/mm3 (150-450); RBC Distribution Width CV 17.9 % (11.6-14.6); RBC Distribution Width SD 61.3 fl (35.1-43.9); Red Blood Count 3.39 M/mm3 (4.2-5.4); White Blood Count 11.1 K/mm3 (4.4-11.0)
[2019-02-13 08:00] LABS: Anion Gap 8 (5-15); BUN 21 mg/dL (7-18); BUN/Creat Ratio 18.9 RATIO (10-20); Calcium,Total 8.2 mg/dL (8.5-10.1); Chloride 127 mmol/L (98-107); Creatinine, Serum 1.11 mg/dL (0.55-1.02); EST Glomerular Filtration Rate 50 mL/min (>60); Est Glom Filt Rate - Afr Amer 61 mL/min (>60); Estimated Creatinine Clearance 36.37 ml/min; Glucose 73 mg/dL (74-106); Potassium 3.7 mmol/L (3.5-5.1); Sodium Level 149 mmol/L (136-145)
--- NOTE | 2019-02-13 10:40 | PCM.PROGNOTE ---
<Lilian Quick - Last Filed: 02/13/19 10:58> Patient Problems: Active and Suspected Problems UTI (urinary tract infection) (Acute) Subjective: Patient seen and examined. Much more alert this morning. Complains of generalized weakness. Discussed with patient that her son is meeting with hospice today, she is in agreement. - Physical Exam General: Alert, Cooperative, No apparent distress HEENT: Atraumatic, PERRLA, EOMI, Normocephalic Oral: Dry Mucosa Neck: Supple, No JVD, Negative Carotid Bruits Lungs: Clear to auscultation, Diminished Cardiovascular: Regular rate, Regular Rhythm, Normal S1, Normal S2, No murmurs Abdomen: Bowel Sounds Present, Soft, Non Tender, Non-Distended, - - Urostomy present Extremities: No clubbing, No cyanosis, No edema, Capillary Refill Less than 3 Seconds Skin: - - Bilateral heel pressure ulcers, chronic venous stasis skin changes bilateral lower extremities Musculoskeletal: No Tenderness to Palpation of Joints or Extremities Neurological: Cranial nerves II-XII grossly intact, Neuro grossly intact Psych/Mental Status: Normal Affect, Appropriate Vital Signs Temp Pulse Resp BP Pulse Ox 98.1 F 87 15 147/65 H 96 02/13/19 09:10 02/13/19 09:10 02/13/19 09:10 02/13/19 09:10 02/13/19 09:10 Oxygen Delivery Method Room Air Weight: 140 lb 14.006 oz Body Mass Index (BMI) 23.4 Intake and Output for Last 24 Hours 02/11/19 02/12/19 02/13/19 23:59 23:59 23:59 Intake Total 1873 / 1873 3027 / 3027 820 / 820 Output Total 100 / 100 550 / 550 300 / 300 Balance 1773 / 1773 2477 / 2477 520 / 520 Laboratory Tests Past 24 Hrs 02/13/19 02/13/19 07:30 07:30 WBC 11.1 H RBC 3.39 L Hgb 9.8 L Hct 31.7 L MCV 93.5 MCH 28.9 MCHC 30.9 L RDW Std Deviation 61.3 H RDW Coeff of Travis 17.9 H Plt Count 215 MPV 12.4 H Sodium 149 H Potassium 3.7 Chloride 127 H* Carbon Dioxide 14.0 L Anion Gap 8 BUN 21 H Creatinine 1.11 H Estim Creat Clear Calc 36.37 Est GFR (MDRD) Af Amer 61 Est GFR (MDRD) Non-Af 50 L BUN/Creatinine Ratio 18.9 Glucose 73 L Calcium 8.2 L Medical Necessity - Tobacco Use Smoking Status: Former smoker Assessment/Plan All Active Problems UTI (urinary tract infection) (Acute) Fracture, subtrochanteric, right femur, closed (Acute) Fall (Acute) Closed intertrochanteric fracture of right hip (Acute) Closed intertrochanteric fracture of left hip (Resolved) Fall and laceration of left sideforehead (Resolved) 1. Sepsis secondary to acute complicated UTI, chronic urostomy due to history of ovarian cancer, failed outpatient treatment with Bactrim-recent urine culture 02/01/2019 with presumptive E. coli, + ESBL, Enterococcus faecalis, Aerococcus viridans. IV Levaquin. Blood cultures pending. Repeat urine culture pending. ID following. 2. Metabolic encephalopathy, secondary to #1-treatment per above. Improved. 3. Seizure disorder-continue Keppra regimen. 4. Chronic kidney disease stage III- at baseline, no REN. Trend BMP. DC further IV fluids. 5. Hypertension-stable, continue home atenolol, losartan. 6. Hyperlipidemia-continue statin. 7. Rheumatoid arthritis- PRN pain regimen. 8. Chronic normocytic anemia-at baseline. 9. Hypothyroidism-continue Synthroid regimen. 10. 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 11. Debility, functional decline- PT/OT. Patient son requesting hospice consult, hospice has been in contact with son. 12. Severe protein calorie malnutrition-as evidenced by cachectic appearance, poor oral intake. Nutrition consult. DVT prophylaxis-heparin subcu Discharge planning: Pending hospice meeting with son today at 11 AM. Possible DC home with hospice pending medically stable. This patient was seen by VIRAL Vázquez under the supervision of Dr. Douglas. <Andrew Douglas - Last Filed: 02/13/19 11:24> - Physical Exam Vital Signs Temp Pulse Resp BP Pulse Ox 98.1 F 87 15 147/65 H 96 02/13/19 09:10 02/13/19 09:10 02/13/19 09:10 02/13/19 09:10 02/13/19 09:10 Oxygen Delivery Method Room Air Weight: 63.9 kg Body Mass Index (BMI) 23.4 Intake and Output for Last 24 Hours 02/11/19 02/12/19 02/13/19 23:59 23:59 23:59 Intake Total 1873 / 1873 3027 / 3027 820 / 820 Output Total 100 / 100 550 / 550 300 / 300 Balance 1773 / 1773 2477 / 2477 520 / 520 Laboratory Tests Past 24 Hrs 02/13/19 02/13/19 07:30 07:30 WBC 11.1 H RBC 3.39 L Hgb 9.8 L Hct 31.7 L MCV 93.5 MCH 28.9 MCHC 30.9 L RDW Std Deviation 61.3 H RDW Coeff of [place] 17.9 H Plt Count 215 MPV 12.4 H Sodium 149 H Potassium 3.7 Chloride 127 H* Carbon Dioxide 14.0 L Anion Gap 8 BUN 21 H Creatinine 1.11 H Estim Creat Clear Calc 36.37 Est GFR (MDRD) Af Amer 61 Est GFR (MDRD) Non-Af 50 L BUN/Creatinine Ratio 18.9 Glucose 73 L Calcium 8.2 L Assessment/Plan This patient was seen in conjunction with VIRAL Vázquez . I have independently interviewed and examined the patient and reviewed pertinent historical, laboratory, and other data. Please refer to VIRAL Vázquez note for details of this patient's presentation, findings, and recommendations. I have reviewed VIRAL Vázquez note and concur with documented findings. In brief, patient is an 78-year-old lady with multiple comorbidities including chronic urostomy following treatment for ovarian cancer history of recurrent UTIs who presented with decreased level of sensorium and assessment of sepsis secondary to acute complicated UTI was made admitted to regular nursing for further management 02/13/2019: Patient seen much more awake compared to the day prior. She however has hyperchloremic hypernatremia patient saline discontinued adjusted fluids Physical Examination: HEENT: Atraumatic; EYES; Anicteric, Normal Conjunctiva NECK; supple, normal thyroid, RESPIRATORY: Diminished to auscultation CARDIOVASCULAR: Regular S1 S2, GI: soft, non-tender, normoactive bowel sounds, : Urostomy in place MUSCULOSKELETAL: No Joint Tenderness; Assessment: 1. Sepsis secondary to acute complicated UTI secondary to presence of urostomy 2. Acute metabolic encephalopathy 3. Acute kidney injury 4. Chronic kidney disease stage III 5. Hypothyroidism 6. History of CVA following anterior cerebral artery stenosis 7. Essential hypertension 8. Seizure disorder 9. Dyslipidemia 10. Essential hypertension Recommendations: 1. I have discussed the results of my overview and impressions with the patient 2. Options for management were reviewed Code Visit Inpatient E&M: 36498 Subs Hosp L2
[2019-02-13] MEDS: Aspirin E.C. 81 MG Tablet PO (10:49)
[2019-02-13] MEDS: Multivitamins,Therapeutic Tablet 1 TABLET PO (10:49)
[2019-02-13] MEDS: Losartan Potassium 25 MG Tablet PO (10:49)
[2019-02-13] MEDS: Pantoprazole Sodium 40 MG Tablet PO (10:50)
[2019-02-13] MEDS: levoFLOXacin IV 250 MG/50 ML BAG 50 MG IV (10:50)
[2019-02-13] MEDS: Fluticasone 0.05% 1 SPRAY NASAL.SRY 2 SPRAY NASAL (10:50)
[2019-02-13] MEDS: levETIRAcetam 500 MG Tablet PO ×2 (10:50→21:18)
[2019-02-13] MEDS: Heparin Injection (Vial) 5,000 UNIT/ML VIAL 5000 UNIT SC ×2 (10:50→21:18)
[2019-02-13] MEDS: 0.9% NaCl Peripheral Flush Adult/Peds IV (10:51)
[2019-02-13] MEDS: Atorvastatin Calcium 40 MG Tablet PO (21:18)
[2019-02-13] MEDS: Gabapentin 100 MG Capsule PO (21:20)
[2019-02-14] VITALS (10 sets, daily range): BP systolic 139–143; BP diastolic 69–72; PULSE 84–97; RESP 16–18; TEMP 36.2–37.2; O2SAT 95–96
[2019-02-14] MEDS: Levothyroxine 88 MCG Tablet PO (05:34)
[2019-02-14 06:45] LABS: Hematocrit 30.8 % (37-47); Hemoglobin 9.9 g/dL (12.0-15.0); Mean Corp Hgb Conc 32.1 g/dL (32-36); Mean Corpuscular Hgb 28.9 pg (27.0-32.0); Mean Corpuscular Volume 89.8 fL (81-99); Mean Platelet Vol. 12.7 fl (6.2-12.0); POSITIVE MORPHOLOGY YES; Platelet Count 216 K/mm3 (150-450); RBC Distribution Width CV 18.1 % (11.6-14.6); RBC Distribution Width SD 59.2 fl (35.1-43.9); Red Blood Count 3.43 M/mm3 (4.2-5.4); White Blood Count 11.8 K/mm3 (4.4-11.0)
[2019-02-14 07:03] LABS: Anion Gap 9 (5-15); BUN 15 mg/dL (7-18); BUN/Creat Ratio 14.7 RATIO (10-20); Calcium,Total 8.3 mg/dL (8.5-10.1); Chloride 126 mmol/L (98-107); Creatinine, Serum 1.02 mg/dL (0.55-1.02); EST Glomerular Filtration Rate 55 mL/min (>60); Est Glom Filt Rate - Afr Amer 67 mL/min (>60); Estimated Creatinine Clearance 39.58 ml/min; Glucose 86 mg/dL (74-106); Potassium 3.5 mmol/L (3.5-5.1); Sodium Level 150 mmol/L (136-145)
[2019-02-14 07:05] LABS: Scan Indicated on CBC? Y/N YES- FLAGS NOTED
[2019-02-14 07:07] LABS: Differential Comment SCANNED
[2019-02-14] MEDS: Aspirin E.C. 81 MG Tablet PO (09:29)
[2019-02-14] MEDS: Multivitamins,Therapeutic Tablet 1 TABLET PO (09:30)
[2019-02-14] MEDS: Losartan Potassium 25 MG Tablet PO (09:30)
[2019-02-14] MEDS: Fluticasone 0.05% 1 SPRAY NASAL.SRY 2 SPRAY NASAL (09:30)
[2019-02-14] MEDS: levETIRAcetam 500 MG Tablet PO ×2 (09:31→21:20)
[2019-02-14] MEDS: Heparin Injection (Vial) 5,000 UNIT/ML VIAL 5000 UNIT SC ×2 (09:31→21:21)
[2019-02-14] MEDS: HYDROcodone Bitartrate/Apap 5/325 Tablet PO (09:31)
[2019-02-14] MEDS: Pantoprazole Sodium 40 MG Tablet PO (09:31)
[2019-02-14] MEDS: 0.9% NaCl Peripheral Flush Adult/Peds IV (09:32)
--- NOTE | 2019-02-14 09:46 | PN_ITS ---
<Lilian Quick - Last Filed: 02/14/19 09:55> Patient Problems: Active and Suspected Problems UTI (urinary tract infection) (Acute) Subjective: Patient seen and examined. Sitting in chair, denies complaints. Plan for home with hospice tomorrow. - Physical Exam General: Alert, Cooperative, No apparent distress HEENT: Atraumatic, PERRLA, EOMI, Normocephalic Neck: Supple, No JVD, Negative Carotid Bruits Lungs: Clear to auscultation, Normal air movement Cardiovascular: Regular rate, Regular Rhythm, Normal S1, Normal S2, No murmurs Abdomen: Bowel Sounds Present, Soft, Non Tender, Non-Distended, - - Urostomy present Extremities: No clubbing, No cyanosis, No edema, Capillary Refill Less than 3 Seconds Skin: No rashes, No breakdown, - - Bilateral heel pressure ulcers, chronic venous stasis skin changes bilateral lower extremities Musculoskeletal: No Tenderness to Palpation of Joints or Extremities Neurological: Cranial nerves II-XII grossly intact, Neuro grossly intact Psych/Mental Status: Normal Affect, Appropriate Vital Signs Temp Pulse Resp BP Pulse Ox 99.0 F 94 17 139/69 H 96 02/14/19 09:10 02/14/19 09:10 02/14/19 09:10 02/14/19 09:10 02/14/19 09:10 Oxygen Delivery Method Room Air Weight: 140 lb 14.006 oz Body Mass Index (BMI) 23.4 Intake and Output for Last 24 Hours 02/12/19 02/13/19 02/14/19 23:59 23:59 23:59 Intake Total 3027 / 3027 2008 60 / 60 Output Total 550 / 550 950 / 950 200 / 200 Balance 2477 / 2477 1059 / 1059 -140 / -140 Microbiology Past 72 Hours 02/12/19 17:51 Urine Culture - Preliminary Urine Catheter - Catheter Gram negative idania Laboratory Tests Past 24 Hrs 02/14/19 02/14/19 06:30 06:30 WBC 11.8 H RBC 3.43 L Hgb 9.9 L Hct 30.8 L MCV 89.8 MCH 28.9 MCHC 32.1 RDW Std Deviation 59.2 H RDW Coeff of Travis 18.1 H Plt Count 216 MPV 12.7 H Differential Comment SCANNED Sodium 150 H Potassium 3.5 Chloride 126 H Carbon Dioxide 15.0 L Anion Gap 9 BUN 15 Creatinine 1.02 Estim Creat Clear Calc 39.58 Est GFR (MDRD) Af Amer 67 Est GFR (MDRD) Non-Af 55 L BUN/Creatinine Ratio 14.7 Glucose 86 Calcium 8.3 L Medical Necessity - Tobacco Use Smoking Status: Former smoker Assessment/Plan All Active Problems UTI (urinary tract infection) (Acute) Fracture, subtrochanteric, right femur, closed (Acute) Fall (Acute) Closed intertrochanteric fracture of right hip (Acute) Closed intertrochanteric fracture of left hip (Resolved) Fall and laceration of left sideforehead (Resolved) 1. Sepsis secondary to acute complicated UTI, chronic urostomy due to history of ovarian cancer, failed outpatient treatment with Bactrim-recent urine culture 02/01/2019 with presumptive E. coli, + ESBL, Enterococcus faecalis, Aerococcus viridans. Repeat culture this admission shows less than 1000 colony count gram- negative idania. DC further IV Levaquin. Blood cultures pending. ID following. 2. Metabolic encephalopathy, secondary to #1-treatment per above. Improved. Suspect underlying cognitive impairment at baseline as well. 3. Hypernatremia-every 4 hours BNP. Fluids changed to D5. 4. Chronic kidney disease stage III- at baseline, no REN. Trend BMP. 5. Hypertension-stable, continue home atenolol, losartan. 6. Hyperlipidemia-continue statin. 7. Rheumatoid arthritis- PRN pain regimen. 8. Chronic normocytic anemia-at baseline. 9. Hypothyroidism-continue Synthroid regimen. 10. 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 11. Debility, functional decline- PT/OT. Home with hospice at discharge. 12. Severe protein calorie malnutrition-as evidenced by cachectic appearance, poor oral intake. Nutrition consult. 13. Seizure disorder-continue Keppra regimen. DVT prophylaxis-heparin subcu Discharge planning: Home with hospice tomorrow. This patient was seen by VIRAL Vázquez under the supervision of Dr. Douglas. <Adnrew Douglas - Last Filed: 02/14/19 11:08> - Physical Exam Vital Signs Temp Pulse Resp BP Pulse Ox 99.0 F 94 17 139/69 H 96 02/14/19 09:10 02/14/19 09:10 02/14/19 09:10 02/14/19 09:10 02/14/19 09:10 Oxygen Delivery Method Room Air Weight: 63.9 kg Body Mass Index (BMI) 23.4 Intake and Output for Last 24 Hours 02/12/19 02/13/19 02/14/19 23:59 23:59 23:59 Intake Total 3027 / 3027 2008 60 / 60 Output Total 550 / 550 950 / 950 200 / 200 Balance 2477 / 2477 1059 / 1059 -140 / -140 Microbiology Past 72 Hours 02/12/19 17:51 Urine Culture - Preliminary Urine Catheter - Catheter Gram negative idania Alpha hemolytic organism Alpha hemolytic organism#2 Laboratory Tests Past 24 Hrs 02/14/19 02/14/19 02/14/19 06:30 06:30 10:05 WBC 11.8 H RBC 3.43 L Hgb 9.9 L Hct 30.8 L MCV 89.8 MCH 28.9 MCHC 32.1 RDW Std Deviation 59.2 H RDW Coeff of Travis 18.1 H Plt Count 216 MPV 12.7 H Differential Comment SCANNED Sodium 150 H 146 H Potassium 3.5 3.6 Chloride 126 H 123 H Carbon Dioxide 15.0 L 15.0 L Anion Gap 9 8 BUN 15 16 Creatinine 1.02 1.15 H Estim Creat Clear Calc 39.58 35.11 Est GFR (MDRD) Af Amer 67 58 L Est GFR (MDRD) Non-Af 55 L 48 L BUN/Creatinine Ratio 14.7 13.9 Glucose 86 96 Calcium 8.3 L 8.9 Assessment/Plan This patient was seen in conjunction with VIRAL Vázquez . I have independently interviewed and examined the patient and reviewed pertinent historical, laboratory, and other data. Please refer to VIRAL Vázquez note for details of this patient's presentation, findings, and recommendations. I have reviewed VIRAL Vázquez note and concur with documented findings. In brief, patient is an 78-year-old lady with multiple comorbidities including chronic urostomy following treatment for ovarian cancer history of recurrent UTIs who presented with decreased level of sensorium and assessment of sepsis secondary to acute complicated UTI was made admitted to regular nursing for further management 02/13/2019: Patient seen much more awake compared to the day prior. She however has hyperchloremic hypernatremia patient saline discontinued adjusted fluids 02/14/2019: Patient hyperchloremic hypernatremia worsening. Her IV fluids have b een discontinued the day prior however there was no improvement. Patient started on D5W at 30 cc per with every 4 monitoring of electrolyte. Her urine cultures also came back with nonsignificant colony counts. Antibiotics discontinued. Physical Examination: HEENT: Atraumatic; EYES; Anicteric, Normal Conjunctiva NECK; supple, normal thyroid, RESPIRATORY: Diminished to auscultation CARDIOVASCULAR: Regular S1 S2, GI: soft, non-tender, normoactive bowel sounds, : Urostomy in place MUSCULOSKELETAL: No Joint Tenderness; Assessment: 1. Sepsis secondary to acute complicated UTI secondary to presence of urostomy 2. Acute metabolic encephalopathy 3. Acute kidney injury 4. Chronic kidney disease stage III 5. Hypothyroidism 6. History of CVA following anterior cerebral artery stenosis 7. Essential hypertension 8. Seizure disorder 9. Dyslipidemia 10. Essential hypertension 11. Hyperchloremic hypernatremia Recommendations: 1. I have discussed the results of my overview and impressions with the patient 2. Options for management were reviewed Code Visit Inpatient E&M: 89610 Subs Hosp L3
[2019-02-14 10:53] LABS: Anion Gap 8 (5-15); BUN 16 mg/dL (7-18); BUN/Creat Ratio 13.9 RATIO (10-20); Calcium,Total 8.9 mg/dL (8.5-10.1); Chloride 123 mmol/L (98-107); Creatinine, Serum 1.15 mg/dL (0.55-1.02); EST Glomerular Filtration Rate 48 mL/min (>60); Est Glom Filt Rate - Afr Amer 58 mL/min (>60); Estimated Creatinine Clearance 35.11 ml/min; Glucose 96 mg/dL (74-106); Potassium 3.6 mmol/L (3.5-5.1); Sodium Level 146 mmol/L (136-145)
[2019-02-14] MEDS: Magnesium Hydroxide 30 ML UDC PO (11:24)
[2019-02-14 14:39] LABS: Anion Gap 8 (5-15); BUN 16 mg/dL (7-18); BUN/Creat Ratio 14.2 RATIO (10-20); Calcium,Total 8.4 mg/dL (8.5-10.1); Chloride 123 mmol/L (98-107); Creatinine, Serum 1.13 mg/dL (0.55-1.02); EST Glomerular Filtration Rate 49 mL/min (>60); Est Glom Filt Rate - Afr Amer 59 mL/min (>60); Estimated Creatinine Clearance 35.73 ml/min; Glucose 99 mg/dL (74-106); Potassium 3.6 mmol/L (3.5-5.1); Sodium Level 147 mmol/L (136-145)
[2019-02-14 18:44] LABS: Anion Gap 7 (5-15); BUN 16 mg/dL (7-18); BUN/Creat Ratio 14.5 RATIO (10-20); Calcium,Total 8.6 mg/dL (8.5-10.1); Chloride 123 mmol/L (98-107); EST Glomerular Filtration Rate 51 mL/min (>60); Est Glom Filt Rate - Afr Amer 61 mL/min (>60); Glucose 101 mg/dL (74-106); Potassium 3.5 mmol/L (3.5-5.1); Sodium Level 147 mmol/L (136-145)
[2019-02-14] MEDS: Gabapentin 100 MG Capsule PO (21:20)
[2019-02-14] MEDS: Atorvastatin Calcium 40 MG Tablet PO (21:20)
[2019-02-15 03:05] VITALS: PULSE 82
[2019-02-15 03:10] VITALS: BP 144/70; PULSE 89; RESP 14; TEMP 36.8; O2SAT 96
[2019-02-15 05:58] LABS: Anion Gap 7 (5-15); BUN 18 mg/dL (7-18); BUN/Creat Ratio 18.3 RATIO (10-20); Calcium,Total 8.1 mg/dL (8.5-10.1); Chloride 122 mmol/L (98-107); Creatinine, Serum 0.98 mg/dL (0.55-1.02); EST Glomerular Filtration Rate 58 mL/min (>60); Est Glom Filt Rate - Afr Amer 70 mL/min (>60); Glucose 90 mg/dL (74-106); Potassium 3.6 mmol/L (3.5-5.1); Sodium Level 147 mmol/L (136-145)
[2019-02-15 07:12] VITALS: PULSE 82
[2019-02-15 09:10] VITALS: BP 121/60; PULSE 94; RESP 15; TEMP 36.5; O2SAT 96
--- NOTE | 2019-02-15 09:52 | DCINST_ITS ---
- Discharge Diagnoses Current Active Problems: Current Active and Chronic Problems UTI (urinary tract infection) (Acute) You will use the following diet at home:: No restrictions Discharge Activity: Return to Normal Activity Allergies/Adverse Reactions: Allergies No Known Allergies Allergy (Verified 02/01/19 14:57) Medications to take at Discharge Levothyroxine [Synthroid] 88 mcg PO DAILY 02/22/16 Atorvastatin Calcium [Lipitor] 40 mg PO DAILY 05/17/17 Omeprazole 40 mg PO DAILY 08/13/18 Multivitamin [Multivitamins] 1 tablet PO DAILY 10/12/18 levETIRAcetam tablet [Keppra tablet] 500 mg PO BID 01/18/19 Aspirin [Aspir 81] 81 mg PO DAILY 02/01/19 Cholecalciferol (VIT D3) [Vitamin D3] 3,000 unit PO DAILY 02/01/19 Hydrocodone/Acetaminophen [Hydrocodone-Acetamin 5-325 mg] 1 tab PO DAILY PRN PRN 02/01/19 Gabapentin [Neurontin] 100 mg PO QHS 02/11/19 Losartan Potassium [Cozaar] 25 mg PO DAILY 02/11/19 Warfarin Sodium [Coumadin] 2 mg PO DAILY 02/11/19 Primary Care Physician: Uma Zarate MD [Primary Care Provider] - Please follow up with your Primary Care Physician in: As needed Test Results: Test results from this visit will be discussed in further detail at your follow- up appointment, if applicable. Please Follow Up With: Andrew Powers DO When: Hospice to follow at [place] Proposed Discharge Date: 02/15/19
--- NOTE | 2019-02-15 09:53 | PCM.DC.SUM ---
Discharge Date and Diagnosis Date of Admission: 02/11/19 Date of Discharge: 02/15/19 - Primary Discharge Diagnosis Active and Suspected Problems 1. Sepsis secondary to acute complicated presumptive E. coli, + ESBL, Enterococcus faecalis, Aerococcus viridans UTI, chronic urostomy due to history of ovarian cancer, failed outpatient treatment with Bactrim 2. Metabolic encephalopathy, secondary to #1 3. Hypernatremia 4. Chronic kidney disease stage III 5. Hypertension 6. Hyperlipidemia 7. Rheumatoid arthritis 8. Chronic normocytic anemia 9. Hypothyroidism 10. 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 Debility, functional decline 12. Severe protein calorie malnutrition 13. Seizure disorder - Secondary Discharge Diagnosis Chronic Problems Seizure (Chronic) Hypothyroidism (Chronic) Rheumatoid arthritis (Chronic) HTN (hypertension) (Chronic) HLD (hyperlipidemia) (Chronic) Stroke due to stenosis of anterior cerebral artery (Chronic) Hospital Course and Treatment Imaging Results: Diagnostic Data Brain CT 02/11/19 17:32 IMPRESSION: No change or acute abnormality. Atrophy white matter and old infarcts. Electronically Signed: Josr Sapp MD at 18:24 EDT , Service support , Chest X-Ray 02/11/19 17:35 IMPRESSION: No acute chest disease. Electronically Signed: Josr Sapp MD at 17:51 EDT , Service support , Consultations 02/11/19 21:37 Consult: Onc/Wound/chief executive officer Routine Comment: Reason for Consult:: bilateral heel/coccyx pressure injuries, urostomy Dr. Choi- ID Dr. Powers- Hospice Operations: None, - Procedures: None Summary of Care Provided: The patient is a 78 year old F admitted 02/11/2019 due to confusion. 1. Sepsis secondary to acute complicated UTI, chronic urostomy due to history of ovarian cancer, failed outpatient treatment with Bactrim-recent urine culture 02/01/2019 with presumptive E. coli, + ESBL, Enterococcus faecalis, Aerococcus viridans. Repeat culture this admission shows less than 1000 colony count gram-negative idania. DC further IV Levaquin. Blood cultures show no growth. 2. Metabolic encephalopathy, secondary to #1-treatment per above. Improved. Suspect underlying cognitive impairment at baseline as well. 3. Hypernatremia-improved. 4. Chronic kidney disease stage III- at baseline, no REN. 5. Hypertension-stable, continue home atenolol, losartan. 6. Hyperlipidemia-continue statin. 7. Rheumatoid arthritis- PRN pain regimen. 8. Chronic normocytic anemia-at baseline. 9. Hypothyroidism-continue Synthroid regimen. 10. 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 11. Debility, functional decline- Home with hospice at discharge. 12. Severe protein calorie malnutrition-as evidenced by cachectic appearance, poor oral intake. 13. Seizure disorder-continue Keppra regimen. General: Alert, Cooperative, No apparent distress HEENT: Atraumatic, PERRLA, EOMI, Normocephalic Neck: Supple, No JVD, Negative Carotid Bruits Lungs: Clear to auscultation, Normal air movement Cardiovascular: Regular rate, Regular Rhythm, Normal S1, Normal S2, No murmurs Abdomen: Bowel Sounds Present, Soft, Non Tender, Non-Distended, - - Urostomy present Extremities: No clubbing, No cyanosis, No edema, Capillary Refill Less than 3 Seconds Skin: No rashes, No breakdown, - - Bilateral heel pressure ulcers, chronic venous stasis skin changes bilateral lower extremities Musculoskeletal: No Tenderness to Palpation of Joints or Extremities Neurological: Cranial nerves II-XII grossly intact, Neuro grossly intact Psych/Mental Status: Normal Affect, Appropriate Patient seen and examined prior to discharge. Physical assessment as noted above. Home with hospice at discharge. This patient was seen by VIRAL Vázquez under the supervision of Dr. Naranjo. - Physical Exam Vital Signs Temp Pulse Resp BP Pulse Ox 98.3 F 82 14 144/70 H 96 02/15/19 03:10 02/15/19 07:12 02/15/19 03:10 02/15/19 03:10 02/15/19 03:10 Oxygen Delivery Method Room Air Weight: 140 lb 14.006 oz Body Mass Index (BMI) 23.4 Intake and Output for Last 24 Hours 02/13/19 02/14/19 02/15/19 23:59 23:59 23:59 Intake Total 2008 969 / 969 Output Total 950 / 950 975 / 975 125 / 125 Balance 1059 / 1059 -6 / -6 -125 / -125 Microbiology Past 72 Hours 02/12/19 17:51 Urine Culture - Preliminary Urine Catheter - Catheter Escherichia coli Alpha hemolytic organism Alpha hemolytic organism#2 02/11/19 18:20 Blood Culture - Preliminary Blood Culture (Wb) - Left Forearm No growth in 48 hours. 02/11/19 18:35 Blood Culture - Preliminary Blood Culture (Wb) - Anticubital Left No growth in 48 hours. Laboratory Tests Past 24 Hrs 02/14/19 02/14/19 02/14/19 10:05 14:10 18:10 Sodium 146 H 147 H 147 H Potassium 3.6 3.6 3.5 Chloride 123 H 123 H 123 H Carbon Dioxide 15.0 L 16.0 L 17.0 L Anion Gap 8 8 7 BUN 16 16 16 Creatinine 1.15 H 1.13 H 1.10 H Estim Creat Clear Calc 35.11 35.73 36.70 Est GFR (MDRD) Af Amer 58 L 59 L 61 Est GFR (MDRD) Non-Af 48 L 49 L 51 L BUN/Creatinine Ratio 13.9 14.2 14.5 Glucose 96 99 101 Calcium 8.9 8.4 L 8.6 02/15/19 05:10 Sodium 147 H Potassium 3.6 Chloride 122 H Carbon Dioxide 18.0 L Anion Gap 7 BUN 18 Creatinine 0.98 Estim Creat Clear Calc 41.20 Est GFR (MDRD) Af Amer 70 Est GFR (MDRD) Non-Af 58 L BUN/Creatinine Ratio 18.3 Glucose 90 Calcium 8.1 L Discharge Diet: No Restrictions Discharge Activity: Return to Normal Activity Home Medications: Medications to take at Discharge Levothyroxine [Synthroid] 88 mcg PO DAILY 02/22/16 Atorvastatin Calcium [Lipitor] 40 mg PO DAILY 05/17/17 Omeprazole 40 mg PO DAILY 08/13/18 Multivitamin [Multivitamins] 1 tablet PO DAILY 10/12/18 levETIRAcetam tablet [Keppra tablet] 500 mg PO BID 01/18/19 Aspirin [Aspir 81] 81 mg PO DAILY 02/01/19 Cholecalciferol (VIT D3) [Vitamin D3] 3,000 unit PO DAILY 02/01/19 Hydrocodone/Acetaminophen [Hydrocodone-Acetamin 5-325 mg] 1 tab PO DAILY PRN PRN 02/01/19 Gabapentin [Neurontin] 100 mg PO QHS 02/11/19 Losartan Potassium [Cozaar] 25 mg PO DAILY 02/11/19 Warfarin Sodium [Coumadin] 2 mg PO DAILY 02/11/19 Primary Care Physician: Uma Zarate MD [Primary Care Provider] - Please follow up with your Primary Care Physician in: As needed Please Follow Up With: Andrew Powers DO When: Hospice to follow at [place] Disposition: Home with Hospice Minutes spent on discharge:: 35 Patient Condition:: Fair Medical Necessity - Tobacco Use Smoking Status: Former smoker Meaningful Use Info Meaningful Use Diagnoses (Choose all that apply): None applicable
--- NOTE | 2019-02-15 09:57 | NURSING ---
wound photo: right heel
--- NOTE | 2019-02-15 09:58 | NURSING ---
wound photo: left heel
[2019-02-15] MEDS: Heparin Injection (Vial) 5,000 UNIT/ML VIAL 5000 UNIT SC (10:07)
[2019-02-15] MEDS: Losartan Potassium 25 MG Tablet PO (10:07)
[2019-02-15] MEDS: Multivitamins,Therapeutic Tablet 1 TABLET PO (10:07)
[2019-02-15] MEDS: Fluticasone 0.05% 1 SPRAY NASAL.SRY 2 SPRAY NASAL (10:07)
[2019-02-15] MEDS: Aspirin E.C. 81 MG Tablet PO (10:07)
[2019-02-15] MEDS: levETIRAcetam 500 MG Tablet PO (10:08)
[2019-02-15] MEDS: Pantoprazole Sodium 40 MG Tablet PO (10:08)
--- NOTE | 2019-02-15 10:47 | CASEMGMT ---
Patient is ready for discharge home on [facility]osp[facility]. MARK called patient's son, Douglas and he will need transportation arranged for patient. MARK called [facility] and arranged for patient to get picked up at 1p via cot. MARK notified Adeola at Hospice, RN, secretary administrative assistant, and patient's son. [employer] Supervisor faxed information to Hospice already. Plan: d/c home with son on Hospice with [facility]. Antoinette CHAO MSW
[2019-02-15 12:00] VITALS: BP 124/65; PULSE 92; RESP 16; TEMP 36.3; O2SAT 97
== END 2019-02-15 13:30 | disposition hospice, home (50) | DRG 91 ==
LOC: ED 18:10 → PCU 19:31
PROVIDERS: Internal Medicine; Nurse Practitioner Family; Admitting Provider Family Medicine; Emergency Provider Emergency Medicine; Family Provider Internal Medicine; PCP Internal Medicine; Visit Provider Internal Medicine
DX: G92 Toxic encephalopathy (principal); E43 Unspecified severe protein-calorie malnutrition; E87.2 Acidosis; E87.0 Hyperosmolality and hypernatremia; N17.9 Acute kidney failure, unspecified; G40.909 Epilepsy, unspecified, not intractable, without status epilepticus; E78.5 Hyperlipidemia, unspecified; M06.9 Rheumatoid arthritis, unspecified; E03.9 Hypothyroidism, unspecified; E86.0 Dehydration; I12.9 Hypertensive chronic kidney disease with stage 1 through stage 4 chronic kidney disease, or unspecified chronic kidney disease; Z86.73 Personal history of transient ischemic attack (TIA), and cerebral infarction without residual deficits; Z93.6 Other artificial openings of urinary tract status; T36.8X5A Adverse effect of other systemic antibiotics, initial encounter; N18.3 Chronic kidney disease, stage 3 (moderate); R62.7 Adult failure to thrive; Z68.23 Body mass index [BMI] 23.0-23.9, adult; D64.9 Anemia, unspecified; R53.81 Other malaise; Z85.43 Personal history of malignant neoplasm of ovary; L89.629 Pressure ulcer of left heel, unspecified stage; L89.619 Pressure ulcer of right heel, unspecified stage; Z87.891 Personal history of nicotine dependence
CPT/HCPCS: 36415; 70450; 71045; 80048; 80053; 81001; 83605; 83735; 85025; 85027; 87040; 87077; 87086; 87088; 87186; 93005; 97110; 97162; 97166; 97530; 97535; 99285; J7030; A4216

== ENCOUNTER → 2019-03-04 14:20 | Outpatient (REF) | payer MEDICARE, SELFPAY ==
[2019-02-11 20:23] VITALS: BMI 23.4
[2019-03-04 15:41] LABS: Thyroid Stim Hormone (TSH) 0.06 uIU/mL (0.358-3.74)
== END ==
LOC: OLS.HOSPIC 14:20
DX: E03.9 Hypothyroidism, unspecified (principal)
CPT/HCPCS: 84443